=== PATIENT | female | born 1965 | race Caucasian/White ===

== ENCOUNTER → 2020-10-11 13:11 | Outpatient (CLI) | payer BC, SELFPAY ==
--- NOTE | 2020-10-11 13:16 | XR_ITS ---
PROCEDURE: XR HIP RT 2-3V W/PELVIS CLINICAL INDICATION: RT hip pain COMPARISON: No exams were available for comparison FINDINGS: No fracture or dislocation is evident. Both hips are intact, there is mild asymmetrical joint space narrowing right hip. There is minimal spurring of the greater trochanter right hip. The SI joints and symphysis pubis appear normal. IMPRESSION: No acute findings. Dictated by: Dr. Jarret Rivera MD 10/11/2020 13:36 Dr. Jarret Rivera MD in [facility] 10/11/2020 13:36
== END ==
PROVIDERS: PCP Internal Medicine; Visit Provider Orthopaedic Surgery
DX: M25.551 Pain in right hip (principal)
CPT/HCPCS: 73502

== ENCOUNTER → 2020-11-15 13:53 | Outpatient (CLI) | payer BC, SELFPAY ==
--- NOTE | 2020-11-15 13:58 | XR_ITS ---
PROCEDURE: XR LUMBAR SPINE 2-3V CLINICAL INDICATION: hip pain COMPARISON: CR [id number] LUMBAR SPINE 5 VIEWS from 02/12/2017 FINDINGS: No fracture or dislocation. No lytic or blastic change. There is normal mineralization. Normal alignment. No fracture or dislocation. Minimal hypertrophic changes superior endplate of L3. Suture line is present in the left upper quadrant and there are surgical clips also in the right upper quadrant. Other findings:None. IMPRESSION: No acute finding. Minimal degenerative change Dictated by: Luis Kuhn MD 11/15/2020 15:03 Luis Kuhn MD in [facility] 11/15/2020 15:03
== END ==
PROVIDERS: PCP Internal Medicine; Visit Provider Orthopaedic Surgery
DX: M70.60 Trochanteric bursitis, unspecified hip (principal)
CPT/HCPCS: 72100

== ENCOUNTER → 2020-11-25 13:03 | Outpatient (POV) | payer BC, SELFPAY ==
[2020-11-25 13:17] VITALS: BP 151/92; PULSE 85; RESP 18; TEMP 36.6; O2SAT 98; BMI 22.4
--- NOTE | 2020-11-25 13:49 | HMH.PMCON ---
Assessment and Plan (1) Sacroiliitis Status: Acute Category: Medical Code(s): M46.1 - Sacroiliitis, not elsewhere classified (2) Bursitis Status: Acute Category: Medical Code(s): M71.9 - Bursopathy, unspecified - Assessment and plan all Dx Assessment and Plan for all problems:: We will schedule a right SI joint injection right greater trochanteric bursa injection for the patient I believe given her symptomology that this would benefit her. She is having her Covid vaccine today we will schedule this for 2 weeks from today. She is been instructed to call the office if she has any issues prior to her next appointment. Dr. Mei has reviewed this note and agrees with this plan of care. This note was dictated using voice recognition software and may contain errors or omissions HPI - Data of Consult Consult date: 11/25/20 Requesting Physician: Carmen Hampton APRN Primary Care Provider: Phil Shea - Consult Narrative Reason for consult: Right-sided low back and hip pain History of present illness: Ms. Gresham is a 54 year old female who presents today for consultation in regard to her right-sided low back and hip pain. She is been seen by orthopedic for bursa injections which has not yielded much relief. Most of her pain is in her low back. She has difficulty with sleeping on her side. Patient has radiation down into her buttock and over into her hip. Walking on uneven surfaces makes this worse for her. Patient's tried physical therapy with no relief. She is tried anti-inflammatories and other medications with no relief. Patient has a positive Jaswant test SI joint compression test Belen's test and distraction test on the right side. She also is extremely tender over right greater trochanteric bursa CC: Carmen Hampton APRN [facility] History I have reviewed the patient's past medical history: Yes Medical History: Reports:: Asthma, Congestive Heart Failure, Depression, Hyperlipidemia, Hypertension, Internal Pacemaker, Kidney Stones, Migraine, Osteoporosis Denies:: Cancer, Diabetes Mellitus Type 1, Diabetes Mellitus Type 2, MRSA *Have you ever received a pneumonia vaccine?: No *Have you received a flu vaccine this season?: No Other Medical History: Reports: Fibromyalgia, Hypothyroidism, Osteoporosis, Thyroid Disease Laterality Cases: Right: Arthroscopy Knee, Carpal Tunnel Release Other Surgeries: Yes: No Previous Surgery, Cardiac Catheterization, Cholecystectomy, Pacemaker, Other (gastric bypass,parathyroid removed) Amputation: No Fractures: Yes (L1-L4 transverse process) - *Social History Smoking Status: Never smoker Alcohol Intake: never Alcohol Intake Frequency:: 0-2 drinks per day *Occupational Status:: unemployed Housing: house Household Members: other *Travel in the last 8 weeks: None - Psychiatric History Pschychiatric History:: Reports:: Depression Family Hx:: Non-contributory Review of Systems - Review of Systems ROS General: no recent weight change, no fever, no sleep disturbances Respiratory: no cough, no shortness of air, no recurring pulmonary infections Cardiovascular/Peripheral Vascular: No chest pain, No palpitations, no edema, no shortness of breath. Gastrointestinal: no new onset incontinence, normal bowel movements reported Genitourinary: no new onset incontinence Musculoskeletal: Right hip pain, right SI joint pain Psychiatric: normal mood/ affect, Neurological: [denies new onset weakness in extremities], [denies new onset balance issues] Meds Home Medications Medication Instructions Recorded Confirmed Type denosumab 60 mg/mL subcutaneous 60 mg SQ [id number] 10/11/20 11/25/20 History syringe duloxetine 60 mg capsule,delayed 30 mg PO DAILY 10/11/20 11/25/20 History release erenumab-aooe 70 mg/mL 70 mg SQ QMONTH 10/11/20 11/25/20 History subcutaneous auto-injector esomeprazole magnesium 40 mg 40 mg PO DAILY 10/11/20 11/25/20 History capsule,
== END ==
PROVIDERS: PCP Internal Medicine; Visit Provider Clinical Nurse Specialist Family Health
DX: M46.1 Sacroiliitis, not elsewhere classified (principal); M71.9 Bursopathy, unspecified
CPT/HCPCS: 99202; G0463

== ENCOUNTER 2020-12-20 11:39 | Day surgery (SDC) | payer BC, SELFPAY ==
[2020-12-20 11:47] VITALS: BP 140/80; PULSE 79; RESP 18; TEMP 36.6; O2SAT 98; BMI 23.3
[2020-12-20 11:53] VITALS: BP 142/93; PULSE 70; RESP 18; O2SAT 96
[2020-12-20 12:01] VITALS: BP 142/93; PULSE 71; RESP 18; O2SAT 97
[2020-12-20 12:11] VITALS: BP 132/72; PULSE 62; RESP 20; O2SAT 98
--- NOTE | 2020-12-20 12:12 | HMH.PMPROC ---
- Procedure Date: 12/20/20 Time: 12:12 Anesthesiologist:: Rome Mei MD Complications:: None Pre-procedure Diagnosis:: Sacroiliitis and trochanteric bursitis Post-procedure Diagnosis:: Same Indications for Procedure:: Patient is a pleasant 55-year-old white female who we are treating for sacroiliitis and trochanteric bursitis. She has increasing right-sided hip pain. She is tender over her SI joint. She does have positive Belen's test on the right side. She is positive Jaswant test on the right side. She has positive SI joint compression test on the right side. She has a positive distraction test on the right side. We will do a right SI joint injection under fluoroscopy today. She is also tender over the right trochanteric bursa. We will do a right trochanteric bursa injection as well. Procedure Details:: Right SI joint injection under fluoroscopy Informed consent was obtained and the risks and benefits of the procedure was going to the patient. Patient was taken to the procedure room. Patient was placed prone on the procedure table. The right hip was prepped using ChloraPrep. The skin and subcutaneous tissues were anesthetized using lidocaine. I placed a 22-gauge spinal needle into the inferior aspect of the right SI joint. Needle placement was confirmed with dye. After this we injected 5 mL bupivacaine 0.25% and Depo-Medrol 40 mg into the right SI joint. The patient tolerated the procedure well with no complication. Trochanteric bursa injection under fluoroscopy informed consent was obtained and the risk and benefits of the procedure was explained to the patient. The patient was taken to the procedure room. The right hip was prepped using ChloraPrep. The skin and subcutaneous tissues were anesthetized using lidocaine. I placed a 22-gauge spinal needle and advanced under fluoroscopic guidance until it contacted the right greater trochanter. Needle placement was confirmed with dye. After this I injected bupivacaine 0.25% 5 mL and Depo-Medrol 40 mg into the right trochanteric bursa. Patient tolerated the procedure well with no complications. Plan and Disposition:: We will follow-up with her in 2 weeks. Will reevaluate symptoms at that time.
== END 2020-12-20 12:12 | disposition home or self-care (01) ==
PROVIDERS: PCP Internal Medicine; Visit Provider Anesthesiology
DX: M46.1 Sacroiliitis, not elsewhere classified (principal); M70.61 Trochanteric bursitis, right hip; F41.9 Anxiety disorder, unspecified; F32.9 Major depressive disorder, single episode, unspecified; J45.909 Unspecified asthma, uncomplicated; E03.9 Hypothyroidism, unspecified; Z95.0 Presence of cardiac pacemaker; Z98.84 Bariatric surgery status; Z88.2 Allergy status to sulfonamides; Z88.8 Allergy status to other drugs, medicaments and biological substances
CPT/HCPCS: 20610; 27096; 77002; G0260; Q9966

== ENCOUNTER → 2021-01-16 14:04 | Outpatient (POV) | payer BC, SELFPAY ==
[2021-01-16 14:26] VITALS: BP 130/86; PULSE 68; RESP 18; O2SAT 97; BMI 21.6
--- NOTE | 2021-01-19 14:14 | HMH.PAINSOAP ---
[facility] Pain Management SOAP Note Subjective:: Patient is a 55-year-old white female who presents today for follow-up after right trochanteric bursa injection as well as a right SI injection. She has been treated for right sacroiliitis and right trochanteric bursitis. Patient says that she did not get much relief from the injections, less than 30%. She does rate her pain a 4 out of 10 today. She says that she is having continued low back pain with radiation into her right hip. She says she also has severe right hip pain. Her pain is been ongoing for over a year. Physical therapy made her pain worse. She reports that she fell approximately 1 year ago and her pain has not improved since then. Injective therapy has not helped her at this point. She has had an MRI, however, she says her pain has changed since her last MRI. Patient says she feels as though she is laying on rocks . Patient says that she feels as though everyone is ignoring her pain . She says that her pain is not coming from her back but rather her right hip. She does report, however, to be having right low back pain. She is requesting a MRI of her hip. She did have an MRI at [facility] of her lumbar spine. We will request this. She does have a pacemaker and reports that she is only able to get the MRI in [place] due to compatibility with her pacemaker. Patient says that we are trying to Band-Aid things rather than fix things . Patient has been advised if she needs further evaluation, and not pain management, we will be happy to refer the patient. Review of Systems General: No recent weight changes, no fever, no sleep disturbances Respiratory: No cough, no shortness of air, no recurring pulmonary infections Cardiovascular/peripheral vascular: No chest pain, no palpitations, no edema, no shortness of breath Gastrointestinal: No new onset incontinence, normal bowel movements reported Genitourinary: No new onset incontinence Musculoskeletal: Low back pain with radiation into right hip Psychiatric: Normal mood/affect Neurological: [Denies weakness in extremities], [denies balance issues] Objective:: Physical exam General: Alert and oriented x3, no acute distress, pleasant and cooperative, [on room air] Lungs: Respirations even and unlabored, symmetrical chest expansion Eyes: PERRL Musculoskeletal: Flexion and extension of lumbar spine somewhat guarded secondary to pain, deep tendon reflexes normal, strength in upper and lower extremities [5/5], slightly antalgic gait noted Neurological: Speech clear, heel builder machine equal, no gross sensory deficit Assessment:: Low back pain, right hip pain Plan:: Patient has requested an MRI of her right hip. We will schedule her for the MRI in [place] and see her back afterwards for reevaluation of symptoms. Patient has been instructed to contact the clinic with any concerns before the next appointment. Dr. Mei has reviewed this note and agrees with this plan of care. This note was dictated using voice recognition software and make contain errors or omissions. [facility] History I have reviewed the patient's past medical history: Yes Medical History: Reports:: Asthma, Congestive Heart Failure, Depression, Hyperlipidemia, Hypertension, Internal Pacemaker, Kidney Stones, Migraine, Osteoporosis Denies:: Cancer, Diabetes Mellitus Type 1, Diabetes Mellitus Type 2, MRSA, Seizures *Have you ever received a pneumonia vaccine?: No *Have you received a flu vaccine this season?: No Other Medical History: Reports: Fibromyalgia, Hypothyroidism, Osteoporosis, Thyroid Disease Laterality Cases: Right: Arthroscopy Knee, Carpal Tunnel Release Other Surgeries: Yes: No Previous Surgery, Cardiac Catheterization, Cholecystectomy, Pacemaker, Other (gastric bypass,parathyroid removed) Amputation: No Fractures: Yes (L1-L4 transverse process) - *Social History Smoking Status: Never smoker Alcohol Intake: never Alcohol Intake Frequency::
== END ==
PROVIDERS: PCP Internal Medicine; Visit Provider Clinical Nurse Specialist Family Health
DX: M54.5 Low back pain (principal); M25.551 Pain in right hip
CPT/HCPCS: 99212; G0463

== ENCOUNTER → 2021-05-22 13:39 | Outpatient (POV) | payer BC, SELFPAY ==
--- NOTE | 2021-05-22 13:58 | HMH.PAINSOAP ---
[facility] Pain Management SOAP Note Subjective:: Patient is a 55-year-old white female who presents today for follow-up. Patient was last seen in the clinic on 01/16/2021 for which at that time we did order an MRI of the patient's right hip. She is being treated in the clinic for chronic right hip pain as well as right low back pain and right buttock pain. She has had an right SI joint injection which she says she got significant relief for pain into the right leg. She does continue to have some intermittent numbness and tingling into her right leg and foot. It has improved since the injection, however. Patient's pain at this time is primarily in her right low back, right hip and right buttock. The patient says that the right SI injection did not give her any relief to this area. She does rate her pain a 7 out of 10. She says that she feels as though she is laying on rocks . The patient does have a pacemaker and says that she is only able to undergo imaging in [facility]. We did order the imaging, but the patient was unable to make it to the appointment. As result the timeframe for which the MRI was approved has passed. She is here today for follow-up so that we may request once again imaging of her right hip. Patient does report that she was having difficulty getting her pacemaker evaluated before the MRI. She does report that she needs evaluation of her pacemaker before she can proceed with an MRI of her right hip. [facility] is the only place that she has had approval to undergo the imaging with her pacemaker in the past. She does have a traffic counter in [facility] that manages her device. Patient does report that she was having family issues with her son that did attempt suicide. As result she was not able to make her appointment for that reason. Review of Systems General: No recent weight changes, no fever, no sleep disturbances Respiratory: No cough, no shortness of air, no recurring pulmonary infections Cardiovascular/peripheral vascular: No chest pain, no palpitations, no edema, no shortness of breath Gastrointestinal: No new onset incontinence, normal bowel movements reported Genitourinary: No new onset incontinence Musculoskeletal: Right hip pain, right buttock pain, right leg numbness and tingling intermittently Psychiatric: [Normal mood/affect] Neurological: [Denies weakness in extremities], [denies balance issues] Objective:: Physical exam General: Alert and oriented x3, no acute distress, pleasant and cooperative Lungs: Respirations even and unlabored, symmetrical chest expansion Eyes: PERRL Musculoskeletal: Flexion and extension of right lower extremity somewhat guarded secondary to pain, [antalgic gait noted] Neurological: Speech clear, no gross sensory deficit Assessment:: Right hip pain, right buttock pain, lumbar radiculopathy Plan:: We will order the patient's MRI of her right hip at [facility]. The patient does have a pacemaker. Unfortunately, the patient was unable to attend her MRI appointment previously scheduled due to family issues at that time. We will schedule her for the MRI and plan to see her back afterwards for reevaluation symptoms and to discuss the MRI results. Patient has been instructed to contact the clinic with any concerns before the next appointment. Dr. Mei has reviewed this note and agrees with this plan of care. This note was dictated using voice recognition software and make contain errors or omissions. [facility] History I have reviewed the patient's past medical history: Yes Medical History: Reports:: Asthma, Congestive Heart Failure, Depression, Hyperlipidemia, Hypertension, Internal Pacemaker, Kidney Stones, Migraine, Osteoporosis Denies:: Cancer, Diabetes Mellitus Type 1, Diabetes Mellitus Type 2, MRSA, Seizures *Have you ever received a pneumonia vaccine?: No *Have you received a flu vaccine this season?: No Ot
== END ==
PROVIDERS: Visit Provider Clinical Nurse Specialist Family Health
DX: M25.551 Pain in right hip (principal); M54.16 Radiculopathy, lumbar region; R52 Pain, unspecified
CPT/HCPCS: 99212; G0463

== ENCOUNTER → 2021-06-20 14:26 | Outpatient (CLI) | payer BC, SELFPAY ==
--- NOTE | 2021-06-20 14:34 | CA_ITS ---
APPROVED REPORT EXAM: Comprehensive 2D, Doppler, and color-flow Echocardiogram Delivery Supervisor: Orly Sun RVT Ht: 5 ft 5 in Wt: 135lbs BSA: 1.67 BP: 145/100 mmHg Indications: SOA,PACER,CHF, ASTHMA,HTN,HLD 2D Dimensions LVOT 1.83 cm (M/F) 1.5-2.5 LA Volume 24.10 mL LA Volume Index 14.43 mL/m2 (M/F) 16-34 M-Mode Dimensions RVDd 1.91 cm (0.9-2.6) LA Diam 2.75 cm (1.9-4.0) LVDd 3.94 cm (3.5-5.7) Ao Diam 2.54 cm (2.0-3.7) LVDs 2.72 cm (3.5-5.7) IVSd 0.59 cm (0.6-1.1) PWd 0.75 cm (0.6-1.1) EF (Teich) 59.30% FS 31.00% EDV (Teich) 67.50 mL TAPSE 2.26 (<1.7) ESV (Teich) 27.50 mL LV Diastology E Decel Time 150.00 (160-240 msec) E/A Ratio 1.4 MED E' 7.30 (< 7 cm/sec) E'/MED E' Ratio 13.07 (>14) LAT E' 11.30 (<10 cm/sec) E/LAT E' Ratio 8.44 (>14) Mitral Valve MV E Max Romero. 95.00 (40-130 cm/s) MV A Velocity 69.00 (40-130 cm/s) E/A Ratio 1.38 MV Decel. Time 150.00 (160-240 ms) MV PHT 44.00 ms Pulmonary Valve PV Peak Velocity 66.00 (50-150 cm/s) Tricuspid Valve TR P. Velocity 215.00 cm/s RAP Estimate 10.00 mmHg RVSP 28.50 mmHg Left Ventricle Left atrium is normal size, left ventricle is normal size, there is no concentric left ventricular hypertrophy, visually estimated ejection fraction 55% with no regional wall motion abnormality, diastolic parameters are within normal range. Right Ventricle Right atrium and right ventricle are normal size and contractility, there is pacemaker lead seen in right atrium and right ventricle. Aortic Valve Aortic valve is grossly normal, there is no aortic stenosis or aortic insufficiency. Mitral Valve Mitral valve grossly normal, there is trace mitral regurgitation. Tricuspid Valve Tricuspid valve grossly normal, there is trace tricuspid regurgitation, tricuspid regurgitation jet velocity is inadequate for calculation of the right ventricular systolic pressure. Pulmonic Valve Pulmonic valve is poorly visualized. Great Vessels Aortic root is normal size. Pericardium No significant pericardial effusion noted. Conclusion 1. Normal left ventricular size, preserved left ventricular systolic function, visually estimated ejection fraction 55% with no regional wall motion abnormality, diastolic parameters are within normal range. 2. Trace mitral and tricuspid regurgitation. 3. No significant pericardial effusion noted. 4. Inferior vena cava is normal size with normal inspiratory collapse. Electronically signed by : Víctor Leung MD 06/20/2021 15:41:25
== END ==
PROVIDERS: PCP Internal Medicine; Visit Provider Internal Medicine Cardiovascular Disease
DX: R06.02 Shortness of breath (principal); I34.0 Nonrheumatic mitral (valve) insufficiency; I10 Essential (primary) hypertension; R53.83 Other fatigue; Z95.0 Presence of cardiac pacemaker
CPT/HCPCS: 93306

== ENCOUNTER → 2021-07-03 15:39 | Outpatient (POV) | payer BC, SELFPAY ==
[2021-07-03 15:45] VITALS: PULSE 69; RESP 18; O2SAT 97; BMI 20.7
--- NOTE | 2021-07-06 14:40 | HMH.PAINSOAP ---
[facility] Pain Management SOAP Note Subjective:: Patient is a 55-year-old white female who presents today for follow-up after MRI right hip. She has had an SI injection on the right side as well as a right trochanteric bursa injection. The patient says that she got 60 to 70% relief with the injections but the pain did return. She continues to have intermittent numbness and tingling into her right leg and foot which has improved somewhat since the injections, but she does continue to have significant right hip pain and right buttock pain. She says that the right SI injection gave her minimal relief to the hip. She feels as though she is laying on rocks . Patient does have a pacemaker that she says prevents her from having MRIs local. She does have to go to [facility] for MRI. She does rate her pain a 7 out of 10 today. She has tried and failed conservative therapies of physical therapy for more than 6 weeks in the past and continued home stretching. She is also tried anti-inflammatories in the past. Patient's pain is made worse with standing and walking. Review of Systems General: No recent weight changes, no fever, no sleep disturbances Respiratory: No cough, no shortness of air, no recurring pulmonary infections Cardiovascular/peripheral vascular: No chest pain, no palpitations, no edema, no shortness of breath Gastrointestinal: No new onset incontinence, normal bowel movements reported Genitourinary: No new onset incontinence Musculoskeletal: Right hip pain, right buttock pain, right leg pain with numbness and tingling intermittent?improved numbness and tingling since previous injections Psychiatric: [Normal mood/affect] Neurological: [Denies weakness in extremities], [denies balance issues] Objective:: Physical exam General: Alert and oriented x3, no acute distress, pleasant and cooperative Lungs: Respirations even and unlabored, symmetrical chest expansion Eyes: PERRL Musculoskeletal: Flexion and extension of [] right lower extremity and hip somewhat guarded secondary to pain, [antalgic gait noted] Neurological: Speech clear, no gross sensory deficit Assessment:: Right hip pain, Plan:: Patient and I did review her MRI. Per the report, patient has trace soft tissue edema between the right greater trochanter and iliotibial band. She would like to proceed with an injection in the hip. She does not feel that the trochanteric bursa injection will give her the relief she is hoping for. We will schedule her for a right intra-articular hip injection. We will see her back in the clinic after the injection for further evaluation. Possible side effects of corticosteroids have been discussed with the patient. Risks and benefits of the procedure have been explained to the patient. Patient would like to proceed with the procedure. Patient has been instructed to contact the clinic with any concerns before the next appointment. Dr. Mei has reviewed this note and agrees with this plan of care. This note was dictated using voice recognition software and make contain errors or omissions. [facility] History I have reviewed the patient's past medical history: Yes Medical History: Reports:: Asthma, Congestive Heart Failure, Depression, Hyperlipidemia, Hypertension, Internal Pacemaker, Kidney Stones, Migraine, Osteoporosis Denies:: Cancer, Diabetes Mellitus Type 1, Diabetes Mellitus Type 2, MRSA, Seizures *Have you ever received a pneumonia vaccine?: No *Have you received a flu vaccine this season?: No Other Medical History: Reports: Fibromyalgia, Hypothyroidism, Osteoporosis, Thyroid Disease Laterality Cases: Right: Arthroscopy Knee, Carpal Tunnel Release Other Surgeries: Yes: No Previous Surgery, Cardiac Catheterization, Cholecystectomy, Pacemaker, Other (gastric bypass,parathyroid removed) Amputation: No Fractures: Yes (L1-L4 transverse process) - *Social History Smoking Status: Never smoker Alcohol Intake: never
== END ==
PROVIDERS: Visit Provider Clinical Nurse Specialist Family Health
DX: M25.551 Pain in right hip (principal)
CPT/HCPCS: 99212; G0463

== ENCOUNTER 2021-07-23 13:57 | Day surgery (SDC) | payer BC, SELFPAY ==
[2021-07-23 14:11] VITALS: BP 164/91; PULSE 102; RESP 18; TEMP 36.6; O2SAT 98; BMI 20.7
[2021-07-23 14:34] VITALS: BP 161/80; PULSE 101; RESP 18; O2SAT 98
[2021-07-23 14:42] VITALS: PULSE 107; RESP 18; O2SAT 98
--- NOTE | 2021-07-23 14:45 | P.PCN_ITS ---
- Procedure Date: 07/23/21 Time: 14:45 Anesthesiologist:: Rome Mei MD Complications:: None Pre-procedure Diagnosis:: Right hip pain with degenerative osteoarthritis Post-procedure Diagnosis:: Same Indications for Procedure:: Patient is a pleasant 55-year-old white female who we are treating for right- sided hip pain. She has had a right SI joint injection right trochanteric bursa injection which has helped some. Now she feels that most of her pain is in the right hip joint. She does have increasing pain at the iliotibial band and increasing pain over the right hip joint. We will do a right intra-articular hip injection today to help with pain symptoms. Procedure Details:: Right intra-articular hip injection Informed consent was obtained the risk and benefits of the procedure were explained to the patient. Patient was taken the procedure room. The right hip joint was prepped using ChloraPrep. A 22-gauge spinal needle was inserted after anesthetizing the skin and subcutaneous tissues. This needle was advanced into the right hip joint. Needle placement was confirmed with dye. After this we injected 10 mL bupivacaine 0.25% and Depo-Medrol 40 mg into the right hip joint. Patient tolerated procedure well with no complications. Plan and Disposition:: We will follow-up with her in 2 weeks. Will reevaluate symptoms at that time.
[2021-07-23 14:50] VITALS: BP 133/88; PULSE 83; RESP 18; O2SAT 97
== END 2021-07-23 14:48 | disposition home or self-care (01) ==
LOC: SC.PAINP 13:59
PROVIDERS: PCP Internal Medicine; Visit Provider Anesthesiology
DX: M16.11 Unilateral primary osteoarthritis, right hip (principal)
CPT/HCPCS: 20610; 76000; 77002; J1040; Q9966

== ENCOUNTER 2021-09-10 14:01 | Emergency (ER) | payer BC, SELFPAY ==
[2021-09-10 14:19] VITALS: BP 138/87; PULSE 77; RESP 17; TEMP 36.6; O2SAT 98; BMI 25.2
--- NOTE | 2021-09-10 14:21 | XR_ITS ---
FINAL REPORT CLINICAL HISTORY: GRANDSON DROPPED A CAN OF FRUIT ON HER HAND FINDINGS: LEFT HAND Three views demonstrate no acute fracture or dislocation. The joint spaces appear normal. The visualized bony structures are well aligned. No soft tissue abnormality is seen. IMPRESSION: No acute process. Reviewed, Interpreted and Dictated by Bhupendra Subramanian MD Transcribed by Huong Bonds Authenticated by Bhupendra Subramanian MD on 09/10/2021 03:53:22 PM [facility]
--- NOTE | 2021-09-10 14:58 | HMH.EDUTC ---
[facility] Disposition Clinical Impression: Contusion Qualifiers: Encounter type: initial encounter Contusion area: hand Laterality: left Qualified Code(s): S60.222A - Contusion of left hand, initial encounter Disposition: Home, Self-Care Condition on Discharge: Good Instructions: Sore Throat, DI for Contusion Additional Instructions: *Monitor Temp, Over the counter Motrin or Tylenol as directed/as needed Tylenol every 4 hours and Motrin every 6 hours (as long as your family doctor has told you that you can take it) for fever or pain. and straight to ER if unable to lower temp less than 101.0 after medication given *Warm salt water gargles may help to soothe the throat *Throat Lozenges *Warm fluids like tea with honey may help to soothe the throat *Sleep elevated *Humidifier/Vaporizer *RICE, Rest the extremity, Ice 15-20 minutes 3-4 times daily, Compress- wear the lyndon wrap as discussed as much as possible to help reduce swelling and pain, Elevate the extremity when at rest *Lyndon wrap is for support and help control swelling, use it except in the shower. Be sure that is not to tight but not to loose either *Elevate when resting *Ibuprofen 600-800mg every 6-8 hours as needed for pain an inflammation. If need something more can take Tylenol in between doses of Ibuprofen to help Immediately follow up with your family doctor for new or worsening of symptoms, or no noticeable improvement over the next 3-5 days Follow up IMMEDIATELY for new or worsening symptoms or no Noticeable improvement over the next 48-72 hours. 911 for difficulty breathing or swallowing Referrals: Phil Shea [Primary Care Provider] - As needed Time of Disposition: 15:06 Medical Decision Making - Jones Inquiry Pt receiving controlled substance: No Jones was queried for this patient: No Vital Signs: 09/10/21 14:19 09/10/21 15:15 Temperature 97.9 F 97.9 F Temperature Source Oral Oral Pulse Rate 77 Pulse Rate [Right Brachial] 77 Respiratory Rate 17 17 Blood Pressure 139/87 Blood Pressure [Right Arm] 138/87 Blood Pressure Mean [Right Arm] 104 Blood Pressure Source Automatic Cuff Blood Pressure Source [Right Arm] Automatic Cuff Blood Pressure Position Sitting Blood Pressure Position [Right Arm] Sitting 02 Sat by Pulse Oximetry 98 Oxygen Delivery Method Room Air Room Air - Radiology Data #1 Image(s): Hand Image Reviewed: Yes I reviewed the patient's radiology image Preliminary Findings: No Fracture Seen [facility] HPI - General Stated complaint: AO 09/08 lt hand injury, possible f/o in throat Time Seen by Provider: 09/10/21 14:58 Mode of Arrival: Ambulatory Source of Information: Patient Limitations: No Limitations Description of Symptoms (Recalled from Triage Doc. by RN): pain left hand. feels like something stuck in throat HEENT Symptoms (Recalled from RN notes): No Resp Symptoms (Recalled from RN notes): No Skin Symptoms (Recalled from RN notes): No MS Symptoms (Recalled from RN notes): Yes Functional Status (Recalled from RN notes): wnl - History of Present Illness Provider Complaint: Patient statse that on Wednesday her grandson dropped a can of pineapple on her hand and caused a bruise and hurt but then last night she bumped her left hand against the wall and now today bruising is worse States that also she has been having pain on and off in her right tonsil and feels like it will swell up then go down an hurts when she swallows States that it has been coming and going for months and just wanted someone to look at her throat and see if she may have scratched her throat - Related Data Home Medications Medication Instructions Recorded Confirmed denosumab 60 mg/mL subcutaneous 60 mg SQ [id number] 10/11/20 07/23/21 syringe duloxetine 60 mg capsule,delayed 30 mg PO DAILY 10/11/20 07/23/21 release erenumab-aooe 70 mg/mL 70 mg SQ QMONTH 10/11/20 07/23/21 subcutaneous auto-injector esomeprazole magnesium 40 mg 40 mg
[2021-09-10 15:15] VITALS: BP 139/87; PULSE 77; RESP 17; TEMP 36.6; O2SAT 98
== END 2021-09-10 15:15 | disposition home or self-care (01) ==
PROVIDERS: Emergency Provider Nurse Practitioner; PCP Internal Medicine
DX: S60.222A Contusion of left hand, initial encounter (principal); W22.8XXA Striking against or struck by other objects, initial encounter; I10 Essential (primary) hypertension
CPT/HCPCS: 73130; 99202; G0463

== ENCOUNTER 2021-11-17 14:13 | Emergency (ER) | payer BC, SELFPAY ==
--- NOTE | 2021-11-17 15:57 | XR_ITS ---
PROCEDURE INFORMATION: Exam: XR Lumbosacral Spine Exam date and time: 11/17/2021 4:04 PM Age: 55 years old Clinical indication: Low back pain and sciatica; Left; Patient HX: Low back pain and lt hip pain TECHNIQUE: Imaging protocol: XR of the lumbosacral spine. Views: 4 or 5 views. COMPARISON: CR XR LUMBAR SPINE 2-3V 11/15/2020 2:00 PM FINDINGS: Bones/joints: No acute fracture, spondylolysis or spondylolisthesis. Disc spaces are preserved. Anterior endplate osteophytes L2-L3 and L3-L4. SI joints are unremarkable. Soft tissues: Unremarkable. Intraperitoneal space: Cholecystectomy clips. Surgical staple line in the left upper quadrant. IMPRESSION: 1. No acute findings. 2. Mild degenerative changes.
--- NOTE | 2021-11-17 15:57 | XR_ITS ---
PROCEDURE INFORMATION: Exam: XR Thoracic Spine Exam date and time: 11/17/2021 4:10 PM Age: 55 years old Clinical indication: Other: Low back pain; Patient HX: Pain low back and lt hip TECHNIQUE: Imaging protocol: XR of the thoracic spine. Views: 3 views. COMPARISON: CR XR MULTIPLE SPINE 4-5V 11/17/2021 4:04 PM FINDINGS: Bones/joints: No acute fracture or dislocation. Mild disc space narrowing and small endplate osteophytes are seen at multiple mid to lower thoracic levels. Normal bone mineralization. Soft tissues: Unremarkable. IMPRESSION: Mild degenerative changes.
[2021-11-17 16:11] VITALS: BP 161/95; PULSE 93; RESP 19; TEMP 36.7; O2SAT 100; BMI 21.6
--- NOTE | 2021-11-17 16:41 | HMH.EDUTC ---
[facility] [place] Clinical Impression: Low back pain Qualifiers: Chronicity: acute Back pain laterality: bilateral Sciatica presence: with sciatica Sciatica laterality: sciatica of right side Qualified Code(s): M54.41 - Lumbago with sciatica, right side Disposition: Home, Self-Care Condition on Discharge: Good Instructions: Low Back Pain, DI for Low Back Pain Additional Instructions: Go home and rest. It would be best if you rested tomorrow too. No heavy lifting. No twisting. Take the oral medications as directed. The muscle relaxer (cyclobenzaprine--Flexeril) will make you drowsy, so don't drive or operate heavy machinery after taking it. Don't start the oral steroids (medrol dose pack) until tomorrow, since you had the shots in here today. Follow up with your regular doctor. GO TO THE ER FOR ANY WORSENING SYMPTOMS OR CONCERN, ESPECIALLY BOWEL OR BLADDER ISSUES, SADDLE AREA NUMBNESS, FEVER, ETC Prescriptions: Cyclobenzaprine HCl [Cyclobenzaprine 10mg Tab] 10 mg PO BIDP PRN #20 tab PRN Reason: Muscle Spasm Transmission Status: Received by [facility] methylPREDNISolone [Medrol] 4 mg PO DIRECTED 6 Days #21 packet Transmission Status: Received by [facility] Referrals: Phil Shea [Primary Care Provider] - Time of Disposition: 16:56 Medical Decision Making - Medical Records Medical records reviewed: No: I reviewed the patient's medical records. - Jones Inquiry Pt receiving controlled substance: No Vital Signs: 11/17/21 16:11 11/17/21 17:32 Temperature 98.1 F 98.1 F Temperature Source Oral Pulse Rate 93 H Pulse Rate [Left] 93 H Respiratory Rate 19 19 Blood Pressure 161/95 H Blood Pressure [Right Arm] 161/95 H Blood Pressure Mean [Right Arm] 117 02 Sat by Pulse Oximetry 100 Orders (Tests/Meds): ED MEDICATIONS Discontinued Medications Generic Name Dose Route Start Last Admin Trade Name Freq PRN Reason Stop Dose Admin Methylprednisolone Sodium Succinate 125 mg 11/17/21 16:52 11/17/21 17:05 Methylprednisolone Sod Succ 125mg Vial IM 11/17/21 16:53 125 mg ONCE ONE Administration [facility] [place] - General Stated complaint: back pain, muscle spasms Time Seen by Provider: 11/17/21 16:41 Mode of Arrival: Ambulatory Source of Information: Patient Limitations: No Limitations Description of Symptoms (Recalled from Triage Doc. by RN): pt states that she hurt her back 2 weeks ago, trying to pull her mower out of the weeds. she states it is not getting better. tingiling in her right foot, and generalized muscle tremors. HEENT Symptoms (Recalled from RN notes): No Resp Symptoms (Recalled from RN notes): No Skin Symptoms (Recalled from RN notes): No MS Symptoms (Recalled from RN notes): Yes Functional Status (Recalled from RN notes): wnl - History of Present Illness Provider Complaint: She c/o low back pain for the past 1 week. She denies any known injury. This pain radiates down her right leg at times. - Related Data Home Medications Medication Instructions Recorded Confirmed denosumab 60 mg/mL subcutaneous 60 mg SQ [id number] 10/11/20 07/23/21 syringe duloxetine 60 mg capsule,delayed 30 mg PO DAILY 10/11/20 07/23/21 release erenumab-aooe 70 mg/mL 70 mg SQ QMONTH 10/11/20 07/23/21 subcutaneous auto-injector esomeprazole magnesium 40 mg 40 mg PO DAILY 10/11/20 07/23/21 capsule,delayed release furosemide 20 mg tablet 20 mg PO DAILY 10/11/20 07/23/21 levothyroxine 112 mcg capsule 112 mcg PO DAILY 10/11/20 07/23/21 metoprolol succinate 50 mg 50 mg PO DAILY 10/11/20 07/23/21 tablet,extended release 24 hr rizatriptan 10 mg tablet 10 mg PO Q2H PRN 10/11/20 07/23/21 tramadol 50 mg tablet 50 mg PO DAILY PRN 10/11/20 07/23/21 trazodone 50 mg tablet 50 mg PO DAILY 10/11/20 07/23/21 Gabapentin 300 mg PO BID 11/25/20 07/23/21 Previous Rx's Medication Instructions Recorded hydrOXYzine pamoate [Vistaril] 25 mg PO BID PRN #3 cap 1
[2021-11-17 17:32] VITALS: BP 161/95; PULSE 93; RESP 19; TEMP 36.7
== END 2021-11-17 17:33 | disposition home or self-care (01) ==
PROVIDERS: Emergency Provider Nurse Practitioner Family; PCP Internal Medicine
DX: M54.41 Lumbago with sciatica, right side (principal); E78.5 Hyperlipidemia, unspecified; E03.9 Hypothyroidism, unspecified; I10 Essential (primary) hypertension; Z79.899 Other long term (current) drug therapy
CPT/HCPCS: 72072; 72083; 96372; 99213; G0463

== ENCOUNTER 2022-04-24 13:36 | Emergency (ER) | payer BC, SELFPAY ==
[2022-04-24 13:49] VITALS: BP 179/98; PULSE 89; RESP 17; TEMP 36.9; O2SAT 98; BMI 20.7
--- NOTE | 2022-04-24 13:52 | XR_ITS ---
FINAL REPORT CLINICAL HISTORY: fall/injury FINDINGS: Three views of the left knee reveal no evidence of fracture or dislocation. The bony alignment is normal. There are mild degenerative changes. There is a small joint effusion. No localized soft tissue abnormality is seen. IMPRESSION: No acute bony abnormality identified. Reviewed, Interpreted and Dictated by Amadeo Jensen III, MD Transcribed by Asher Browne Authenticated and . [facility]
--- NOTE | 2022-04-24 14:02 | EXP.UTC ---
Discharge Plan Disposition Patient Disposition: Home, Self-Care Condition: Good Prescriptions Prescriptions: No Action levothyroxine 112 mcg capsule 112 mcg PO DAILY esomeprazole magnesium [Nexium] 40 mg capsule,delayed release(DR/EC) 40 mg PO DAILY furosemide [Lasix] 20 mg tablet 20 mg PO DAILY trazodone 50 mg tablet 50 mg PO DAILY duloxetine 60 mg capsule,delayed release(DR/EC) 30 mg PO DAILY metoprolol succinate 50 mg tablet extended release 24 hr 50 mg PO DAILY Aimovig Autoinjector 70 mg/mL auto-injector 70 mg SQ QMONTH Prolia 60 mg/mL syringe 60 mg SQ [id number] tramadol 50 mg tablet 50 mg PO DAILY PRN (Reason: pain) rizatriptan 10 mg tablet 10 mg PO Q2H PRN (Reason: .) Rx Instructions: do not exceed 3 doses per 24 hrs hydroxyzine pamoate 25 MG capsule 25 mg PO BID PRN (Reason: Anxiety) Qty: 3 0RF cyclobenzaprine 10 MG tablet 10 mg PO BIDP PRN (Reason: Muscle Spasm) Qty: 20 0RF methylprednisolone 4 MG tablets,dose pack 4 mg PO DIRECTED 6 Days Qty: 21 0RF gabapentin 300 MG capsule 300 mg PO BID Referrals Follow up/Referrals: Lars Mims MD [Staff Physician] - See instructions Phil Shea [Primary Care Provider] - See instructions Activity Restrictions/Add. Instructions Additional Instructions/Restrictions: Rest the extremity, apply ice for 15 minutes as tolerated three or four times per day, Wear the shani wrap for compression, Elevate the extremity as tolerated while you are resting. Take tylenol or ibuprofen for pain. Follow up with Dr. Mims (orthopedics). I put in a referral but you need to call his office and schedule an appointment. Follow up with your regular doctor. GO TO THE ER FOR ANY WORSENING SYMPTOMS Clinical Impressions Clinical Impression: Contusion of knee, left Instructions Patient Instructions: Knee Sprain, DI for Knee Sprain Discharge ED Provider: Harjit Brand [facility] [place] General Stated complaint: Fall@home 04/22/22 LT leg pain below knee Mode of Arrival: Ambulatory Source of Information: Patient Limitations: No Limitations Time Seen by Provider: 04/24/22 14:02 Description of Symptoms (Recalled from Triage Doc. by RN): pt comes in with c/o left leg pain. on 04/22 pt fell at home and hit knee. pt states the pain got better but is back. HEENT Symptoms (Recalled from RN notes): No Resp Symptoms (Recalled from RN notes): No Skin Symptoms (Recalled from RN notes): No MS Symptoms (Recalled from RN notes): Yes Functional Status (Recalled from RN notes): n/a History of Present Illness Provider Complaint: She states that she fell at home and came down on her left knee. This happened on 04/22. Since then she has had left knee pain. Her pain is worse with walking and bearing weight. She denies any other injury. Related Data Home Medications Medication Instructions Recorded Confirmed denosumab 60 mg/mL subcutaneous 60 mg SQ [id number] . 10/11/20 07/23/21 syringe (Prolia) duloxetine 60 mg capsule,delayed 30 mg PO DAILY Pain 10/11/20 07/23/21 release erenumab-aooe 70 mg/mL 70 mg SQ QMONTH . 10/11/20 07/23/21 subcutaneous auto-injector (Aimovig Autoinjector) esomeprazole magnesium 40 mg 40 mg PO DAILY GERD 10/11/20 07/23/21 capsule,delayed release (Nexium) furosemide 20 mg tablet (Lasix) 20 mg PO DAILY fluid retention 10/11/20 07/23/21 levothyroxine 112 mcg capsule 112 mcg PO DAILY hypothroid 10/11/20 07/23/21 metoprolol succinate 50 mg 50 mg PO DAILY blood pressure 10/11/20 07/23/21 tablet,extended release 24 hr rizatriptan 10 mg tablet 10 mg PO Q2H PRN . 10/11/20 07/23/21 tramadol 50 mg tablet 50 mg PO DAILY PRN pain 10/11/20 07/23/21 trazodone 50 mg tablet 50 mg PO DAILY sleep aid 10/11/20 07/23/21 gabapentin 300 mg capsule 300 mg PO BID nerve pain 11/25/20 07/23/21 Previous Rx's Medication Instructions Recorded hydroxyzine pamoate 25 mg caps
[2022-04-24 14:50] VITALS: BP 179/98; PULSE 89; RESP 17; TEMP 36.9
== END 2022-04-24 14:52 | disposition home or self-care (01) ==
PROVIDERS: Emergency Provider Emergency Medicine; PCP Internal Medicine
DX: S80.02XS Contusion of left knee, sequela (principal); W19.XXXS Unspecified fall, sequela
CPT/HCPCS: 73562

== ENCOUNTER → 2022-06-18 09:28 | Outpatient (CLI) | payer BC, SELFPAY ==
[2022-06-18 10:02] LABS: MANUAL DIFFERENTIAL MANUAL DIFFERENTIAL (MANUAL DIFF)
[2022-06-18 10:24] LABS: Basophils % 0.6 % (0.1-2.0); Eosinophils # 0.1 K/mm3 (0.0-0.4); Eosinophils % 1.8 % (0.1-12.0); Hematocrit 41.5 % (37.0-47.0); Hemoglobin 13.1 g/dL (12.2-16.2); Lymphocytes # 1.6 K/mm3 (0.7-4.5); Lymphocytes % 23.8 % (10-50); Mean Corpuscular HGB Conc 31.5 g/dL (31.8-35.4); Mean Corpuscular Hemoglobin 30.1 pg (27.0-31.2); Mean Corpuscular Volume 95.3 fl (81-99); Mean Platelet Volume 7.6 fl (7.4-10.4); Monocytes # 0.4 K/mm3 (0.1-1.0); Monocytes % 5.8 % (1.7-9.3); Neutrophils # 4.5 K/mm3 (1.8-7.8); Neutrophils % 67.9 % (37.0-80.0); Platelet Count 476 K/mm3 (142-424); Red Blood Count 4.35 M/mm3 (4.20-5.40); Red Cell Distribution Width 14.2 % (11.5-17.5); White Blood Count 6.6 K/mm3 (4.8-10.8)
[2022-06-18 17:49] LABS: Eosinophils % 1 % (0-3); Lymphocytes % 15 % (10-50); Monocytes % 6 % (2-9); Neutrophils % 78 % (42-76); Platelet Estimate Slight Increase; RBC Morphology Normal; Total Cells Counted 100
[2022-06-22 17:32] LABS: Immunoglobulin E, Total 18 IU/mL (6-495)
[2022-06-23 01:12] LABS: D001-IgE D pteronyssinus 1.56 kU/L (Class III); D002-IgE D farinae 1.66 kU/L (Class III); E001-IgE Cat Dander <0.10 kU/L (Class 0); E005-IgE Dog Dander <0.10 kU/L (Class 0); E072-IgE Mouse Urine <0.10 kU/L (Class 0); G002-IgE Bermuda Grass <0.10 kU/L (Class 0); G006-IgE Timothy Grass <0.10 kU/L (Class 0); I006-IgE Cockroach, German <0.10 kU/L (Class 0); Immunoglobulin E, Total 15 IU/mL (6-495); M001-IgE Penicillium chrysogen <0.10 kU/L (Class 0); M002-IgE Cladosporium herbarum <0.10 kU/L (Class 0); M003-IgE Aspergillus fumigatus <0.10 kU/L (Class 0); M006-IgE Alternaria alternata <0.10 kU/L (Class 0); T001-IgE Maple/Box Elder <0.10 kU/L (Class 0); T003-IgE Common Silver Birch <0.10 kU/L (Class 0); T006-IgE Cedar, Mountain <0.10 kU/L (Class 0); T007-IgE Oak, White <0.10 kU/L (Class 0); T008-IgE Elm, American <0.10 kU/L (Class 0); T010-IgE Walnut <0.10 kU/L (Class 0); T011-IgE Maple Leaf Sycamore <0.10 kU/L (Class 0); T014-IgE Cottonwood <0.10 kU/L (Class 0); T015-IgE Ash, White <0.10 kU/L (Class 0); T022-IgE Pecan, Hickory <0.10 kU/L (Class 0); T070-IgE White Mulberry <0.10 kU/L (Class 0); W001-IgE Ragweed, Short <0.10 kU/L (Class 0); W011-IgE Thistle, Russian <0.10 kU/L (Class 0); W014-IgE Pigweed, Common <0.10 kU/L (Class 0); W018-IgE Sheep Sorrel <0.10 kU/L (Class 0)
[2022-07-07 12:24] LABS: Budgerigar Feather < 0.10
== END ==
PROVIDERS: PCP Internal Medicine; Visit Provider Nurse Practitioner
DX: J45.909 Unspecified asthma, uncomplicated (principal)
CPT/HCPCS: 36415; 82785; 85007; 85014; 85018; 85048; 85049; 86003

== ENCOUNTER 2022-06-26 15:17 | Emergency (ER) | payer BC, SELFPAY ==
--- NOTE | 2022-06-26 15:08 | ECG_ITS ---
APPROVED REPORT Exam: Resting ECG HR:80 bpm ECG Measurements Heart Rate 80 AXES FL 158 P 57 QRSd 86 QRS 29 QT 355 T 32 QTc 391 Conclusion SINUS RHYTHM POSSIBLE LEFT ATRIAL ENLARGEMENT [-0.1mV P-WAVE IN V1/V2] POSSIBLE ANTERIOR MYOCARDIAL INFARCTION , PROBABLY OLD [30 ms Q WAVE IN V3/V4, OR R < 0.2 mV IN V4] BORDERLINE ECG UNCONFIRMED REPORT Electronically signed by : Kenny Hanks MD 06/27/2022 10:08:02
[2022-06-26 15:19] VITALS: BP 180/110; PULSE 89; RESP 18; TEMP 36.9; O2SAT 99; BMI 22.8
--- NOTE | 2022-06-26 15:26 | XR_ITS ---
FINAL REPORT TECHNIQUE: Chest PA & Lateral CLINICAL HISTORY: CHEST PAIN, sob, cough FINDINGS: 2 views of the chest were performed. There is a left subclavian ICD. The heart size is normal. The mediastinum is within normal limits. There is no acute cardiopulmonary process. There are no pleural effusions. There is no pneumothorax. The bony thorax appears intact. IMPRESSION: No acute cardiopulmonary process. Reviewed, Interpreted and Dictated by Amadeo Jensen III, MD Transcribed by Asher Browne Authenticated and [facility]
--- NOTE | 2022-06-26 15:33 | PC.NURSE ---
DR. PRICE AT BEDSIDE
--- NOTE | 2022-06-26 15:35 | HMH.EDGENADL ---
Discharge Plan Disposition Patient Disposition: Home, Self-Care Condition: Good Chief Complaint: Chest Pain Prescriptions Prescriptions: No Action levothyroxine 112 mcg capsule 112 mcg PO DAILY esomeprazole magnesium [Nexium] 40 mg capsule,delayed release(DR/EC) 40 mg PO DAILY furosemide [Lasix] 20 mg tablet 20 mg PO DAILY trazodone 50 mg tablet 50 mg PO DAILY metoprolol succinate 50 mg tablet extended release 24 hr 50 mg PO DAILY Aimovig Autoinjector 70 mg/mL auto-injector 70 mg SQ QMONTH tramadol 50 mg tablet 50 mg PO DAILY PRN (Reason: pain) rizatriptan 10 mg tablet 10 mg PO Q2H PRN (Reason: .) Rx Instructions: do not exceed 3 doses per 24 hrs duloxetine 60 mg capsule,delayed release(DR/EC) 60 mg PO DAILY cyclobenzaprine 10 MG tablet 10 mg PO BIDP PRN (Reason: Muscle Spasm) Qty: 20 0RF Referrals Follow up/Referrals: Phil Shea [Primary Care Provider] - See instructions Activity Restrictions/Add. Instructions Additional Instructions/Restrictions: At this time was felt you are safe to be discharged home from the emergency department. If new or worsening symptoms please not hesitate to return for continued evaluation. Please follow-up with your cook barbecue next week as discussed Clinical Impressions Clinical Impression: Chest pain Discharge ED Provider: Harjit Brand General Adult HPI General Chief complaint: Chest Pain Stated complaint: CHEST PAIN Time Seen by Provider: 06/26/22 15:35 Mode of Arrival: Ambulatory Limitations: No Limitations Description of Symptoms (Recalled from ER Triage Doc. by RN): PT REPORTS INTERMITTENT MID-STERNUM CHEST KAYDEN FOR 2-3 WEEKS History of Present Illness HPI narrative: Patient is a 56-year-old female with past medical history of vasovagal bradycardia status post pacemaker placement who presents to the emergency department for evaluation of chest pain. Patient states she has had a cough over the last 2 months that is waxed and waned, intermittent chest pain, most recently changed in quality on June 18, has been persistent, moderate in intensity, substernal, nonradiating. She has a cardiology work-up this coming Wednesday with a stress test and echo. Patient states she has taken a course of Levaquin and symptoms resolved somewhat after taking the Levaquin. No other acute complaints at this time. Related Data Home Medications Medication Instructions Recorded Confirmed erenumab-aooe 70 mg/mL 70 mg SQ QMONTH . 10/11/20 06/24/22 subcutaneous auto-injector (Aimovig Autoinjector) esomeprazole magnesium 40 mg 40 mg PO DAILY GERD 10/11/20 06/24/22 capsule,delayed release (Nexium) furosemide 20 mg tablet (Lasix) 20 mg PO DAILY fluid retention 10/11/20 06/24/22 levothyroxine 112 mcg capsule 112 mcg PO DAILY hypothroid 10/11/20 06/24/22 metoprolol succinate 50 mg 50 mg PO DAILY blood pressure 10/11/20 06/24/22 tablet,extended release 24 hr rizatriptan 10 mg tablet 10 mg PO Q2H PRN . 10/11/20 06/24/22 tramadol 50 mg tablet 50 mg PO DAILY PRN pain 10/11/20 06/24/22 trazodone 50 mg tablet 50 mg PO DAILY sleep aid 10/11/20 06/24/22 duloxetine 60 mg capsule,delayed 60 mg PO DAILY Pain 06/02/22 06/24/22 release Previous Rx's Medication Instructions Recorded cyclobenzaprine 10 mg tablet 10 mg PO BIDP PRN Muscle Spasm #20 11/17/21 tabs Allergies Allergy/AdvReac Type Severity Reaction Status Date / Time acetaminophen [From VICODIN] Allergy Unknown Verified 06/24/22 14:12 hydrocodone [From VICODIN] Allergy Unknown Verified 06/24/22 14:12 naproxen [From NAPROSYN] Allergy Unknown Verified 06/24/22 14:12 Sulfa (Sulfonamide Allergy Unknown Verified 06/24/22 14:12 Antibiotics) [SULFA (SULFONAMIDE ANTIBIOTICS)] [facility] [place] Disclaimer: The information contained in this section may have been updated after the patient was seen, as this information can be updated by
[2022-06-26 15:39] LABS: Basophils # 0.1 K/mm3 (0-0.2); Basophils % 0.9 % (0.1-2.0); Chloride 95 mmol/L (98-107); Eosinophils # 0.1 K/mm3 (0.0-0.4); Eosinophils % 2.1 % (0.1-12.0); Hematocrit 40.7 % (37.0-47.0); Hemoglobin 13.3 g/dL (12.2-16.2); Lymphocytes # 1.3 K/mm3 (0.7-4.5); Mean Corpuscular HGB Conc 32.6 g/dL (31.8-35.4); Mean Corpuscular Hemoglobin 30.2 pg (27.0-31.2); Mean Corpuscular Volume 92.5 fl (81-99); Mean Platelet Volume 7.5 fl (7.4-10.4); Monocytes # 0.5 K/mm3 (0.1-1.0); Monocytes % 8.7 % (1.7-9.3); Neutrophils # 4.1 K/mm3 (1.8-7.8); Neutrophils % 67.3 % (37.0-80.0); Platelet Count 375 K/mm3 (142-424); Red Cell Distribution Width 14.2 % (11.5-17.5); White Blood Count 6.1 K/mm3 (4.8-10.8)
[2022-06-26 15:40] LABS: Potassium 3.9 mmoL/L (3.5-5.1); Sodium 134 mmol/L (136-145)
[2022-06-26 15:43] LABS: Anion Gap 8.9 mEq/L (5-15); Blood Urea Nitrogen 9 mg/dl (7-17); Calcium 8.6 mg/dl (8.4-10.2); Carbon Dioxide 34 mmol/L (22.0-30.0); Creatinine Clearance Estimated 82 mL/min (50-200); Estimated Glomerular Filt Rate 74 ml/min (>60); GFR (African American) 89 ML/MIN (>60); Glucose 78 mg/dl (74-100)
[2022-06-26 15:55] LABS: Troponin I < 0.01 ng/ml (0.00-0.034)
[2022-06-26 16:00] VITALS: BP 172/101; PULSE 70; RESP 18; O2SAT 99
[2022-06-26 16:30] VITALS: BP 155/96; PULSE 73; O2SAT 97
[2022-06-26 17:00] VITALS: BP 160/98; PULSE 74; RESP 18; TEMP 36.7; O2SAT 99
== END 2022-06-26 17:00 | disposition home or self-care (01) ==
PROVIDERS: Emergency Provider Emergency Medicine; PCP Internal Medicine
DX: R07.9 Chest pain, unspecified (principal); Z95.0 Presence of cardiac pacemaker; Z79.899 Other long term (current) drug therapy; Z88.1 Allergy status to other antibiotic agents; Z88.2 Allergy status to sulfonamides; E03.9 Hypothyroidism, unspecified; K21.9 Gastro-esophageal reflux disease without esophagitis
CPT/HCPCS: 71046; 80048; 84484; 85025; 93005; 96374; 99284

== ENCOUNTER → 2022-06-30 10:59 | Outpatient (CLI) | payer BC, SELFPAY ==
--- NOTE | 2022-06-30 | CA_ITS ---
APPROVED REPORT Exam: Pharmacologic Technologist: Rosemary Anders, Ht: 5 ft 5 in Wt: 127 lbs BSA: 1.63 m2 HR: 70 bpm BP: 163/95 mmHg Rhythm: NSR, RIGHTWARD AXIS, PAC Indications: CP Medical History Medications: Levothyroxine,,,,, Metoprolol,,,,, Lasix,,,,, Tramadol,,,,, DulOXETINE,,,,, RIZATRIPTAN,,,,, Aimovig,,,,, Nexum,,,,, Allergies: ACETAMINOPHEN, HYDROCODONE, SULFA, NAPROXEN Cardiac Risk Factors: FHX of CAD, Smoking Stress Test Details Test: LEXISCAN HR Resting HR: 74 bpm Max Heart Rate (APMHR): 162.002076 bpm Max HR Achieved: 126 bpm Target HR (85% APMHR): 137.958709 bpm % of APMHR: 77.78 Recovery HR: 83 bpm BP Resting BP: 163/95 mmHg Max BP: 163/95 mmHg Recovery BP: 140.0/84.0 mmHg ECG Resting ECG: NSR, RIGHTWARD AXIS, PAC Clinical Exercise duration: 04:01 min Highest Stage Achieved: Exercise capacity: 1.0 METs Stress ECG Conclusion PT HAD SOA, MALAISE, MILD CHEST DISCOMFORT. DIFFUSE NON-SPECIFIC ST-T CHANGES, MOST NOTABLE IN THE INFERIOR LEADS NON-DIAGNOSTIC LEXSICAN STRESS MYOVIEW IMAGES REPORTED SEPARATELY Test Summary REST 04:06 . . 74 . 163/ 95 . . Stage 1 01:00 . . 115 . . . . Stage 2 01:00 . . 116 . 132/ 84 . . Stage 3 01:00 . . 111 . 124/ 82 . . Stage 4 01:00 . . 99 . 140/ 87 . . Stage 4 01:01 . . 99 . 140/ 87 . Stop exercise at 04:01 RECOVERY 01:00 . . 90 . . . . RECOVERY 02:00 . . 100 . 150/ 91 . . RECOVERY 03:00 . . 95 . 143/ 93 . . RECOVERY 04:00 . . 78 . 143/ 93 . . RECOVERY 04:29 . . 90 . 140/ 84 . . Electronically signed by : Víctor Leung MD 06/30/2022 19:43:17
--- NOTE | 2022-06-30 11:00 | CA_ITS ---
APPROVED REPORT EXAM: Comprehensive 2D, Doppler, and color-flow Echocardiogram Slat Basket Maker Machine: Shellie Lima RT(R) Ht: 5 ft 4 in Wt: 135lbs BSA: 1.66 BP: 157/100 mmHg Indications: CP, fatigue, MEJIA, pacemaker 2D Dimensions LVOT 1.77 cm (M/F) 1.5-2.5 LA Volume 24.40 mL M-Mode Dimensions RVDd 2.57 cm (0.9-2.6) LA Diam 2.89 cm (1.9-4.0) LVDd 4.10 cm (3.5-5.7) Ao Diam 2.48 cm (2.0-3.7) LVDs 3.10 cm (3.5-5.7) IVSd 0.78 cm (0.6-1.1) PWd 0.75 cm (0.6-1.1) EF (Teich) 48.90% FS 24.40% EDV (Teich) 74.20 mL ESV (Teich) 37.90 mL LV Diastology E Decel Time 170.00 (160-240 msec) E/A Ratio 1.12 MED E' 7.30 (< 7 cm/sec) E'/MED E' Ratio 13.07 (>14) LAT E' 10.90 (<10 cm/sec) E/LAT E' Ratio 8.75 (>14) Mitral Valve MV E Max Romero. 95.00 (40-130 cm/s) MV A Velocity 85.00 (40-130 cm/s) E/A Ratio 1.12 MV Decel. Time 170.00 (160-240 ms) MV PHT 50.00 ms Left Ventricle Left atrium is normal size, left ventricle is normal size, estimated ejection fraction 55% with no regional wall motion abnormality, diastolic parameters are within normal range. Right Ventricle Right atrium and right ventricle are normal size and contractility, pacemaker leads in the right atrium and left ventricle. Aortic Valve Aortic valve is minimally thickened and calcified without aortic stenosis or aortic insufficiency. Mitral Valve Mitral valve is grossly normal, there is mild mitral regurgitation. Tricuspid Valve Tricuspid valve grossly normal, there is mild tricuspid regurgitation, tricuspid regurgitation jet velocity is inadequate for calculation of the right ventricular systolic pressure. Pulmonic Valve Pulmonic valve is poorly visualized. Great Vessels Aortic root is normal size. Inferior vena cava is normal size with normal inspiratory collapse. Pericardium No significant pericardial effusion noted. Conclusion 1. Normal left ventricular size, preserved left ventricular systolic function, estimated ejection fraction 55% with no regional wall motion abnormality, diastolic parameters are within normal range. 2. Mild mitral and tricuspid regurgitation. 3. No significant pericardial effusion noted. 4. Inferior vena cava is normal size with normal inspiratory collapse. Electronically signed by : Víctor Leung MD 06/30/2022 20:45:52
--- NOTE | 2022-06-30 11:05 | NM_ITS ---
APPROVED REPORT Exam: Nuclear Stress Test Indication: chest pain..short of breath..palpitations..fatigue Patient Location: Outpatient Stress Tech: Rosemary Anders NM Tech:Maria Del Carmen Paz, ARRT, RT (R)(N) Ht: 5 ft 5 in Wt: 125 lbs Bra Size: 34b HR: 74 bpm BP: 163/95 mmHg BSA: 1.62 m2 TID: 1.18 BMI: 20.7 History: chest pain..short of breath..palpitations..fatigue Procedure: Patient received a 0.4 mg of intravenous Lexiscan, resting heart rate 74 bpm, resting blood pressure 163/95 mmHg, with Lexiscan maximum heart rate achived was 126 bpm which is Less than 85 % of the maximum predicted heart rate and blood pressure was 163/95 mmHg. With Lexiscan, patient denied any complaint of chest pain. Electrocardiogram Resting electrocardiogram shows sinus rhythm, with Lexiscan there is less than 1.[address] segment depression noted from the baseline EKG. The EKG portion of the Lexiscan is nondiagnostic. Cardiac Stress and Resting SPECT Images: Cardiac Stress and Resting SPECT images were obtained using technetium 99m Myoview 31.5 mCi stress and 10.86 mCi at rest. Gated SPECT for analysis of segmental wall motion and calculation of ejection fraction also done. Cardiac stress and rest SPECT images show uniform myocardial activity without segmental perfusion abnormality, computer derived ejection fraction is 54% with no regional wall motion abnormality, right ventricle is normal size and contractility. Conclusion: 1. The EKG portion of the Lexiscan is nondiagnostic. 2. No scintigraphic evidence of reversible ischemia seen, computer derived ejection fraction 54% with no regional wall motion abnormality, right ventricle is normal size and contractility. 3. Normal Lexiscan Myoview study. Electronically signed by : Víctor Leung MD 06/30/2022 19:47:36
--- NOTE | 2022-06-30 13:02 | HMH.ITSHM ---
Current Home Medications as stated by this patient Miguelina Gresham or b2b outside sales representative. []TRAZODONE TRAMADOL RIZATRIPTAN METOPROLOL LEVOTHYROXINE FUROSEMIDE ESOMEPRAZOLE ERENUMAB DULOXETINE CYCLOBENZAPRINE
== END ==
LOC: RAD 11:00
PROVIDERS: PCP Internal Medicine; Visit Provider Internal Medicine
DX: R06.09 Other forms of dyspnea (principal); R06.00 Dyspnea, unspecified; R07.9 Chest pain, unspecified; R07.89 Other chest pain; R53.83 Other fatigue; Z95.0 Presence of cardiac pacemaker
CPT/HCPCS: 78452; 93017; 93306; A9502; J2785

== ENCOUNTER → 2022-10-15 11:34 | Outpatient (CLI) | payer BC, SELFPAY ==
--- NOTE | 2022-10-15 11:38 | XR_ITS ---
FINAL REPORT CLINICAL HISTORY: foot pain/ heel pain FINDINGS: AP, oblique, and lateral views of the left ankle were obtained. There is no prior exam for comparison. There is no fracture or dislocation. The ankle mortise is intact. Soft tissues are normal. IMPRESSION: No acute osseous abnormality of the left ankle. Reviewed, Interpreted and Dictated by Toña Carter MD Transcribed by Huong Bonds Authenticated and [facility]
--- NOTE | 2022-10-15 12:16 | XR_ITS ---
FINAL REPORT CLINICAL HISTORY: foot pain/ heel pain FINDINGS: AP, oblique, and lateral views of the right ankle were obtained. There is no prior exam for comparison. There is no fracture or dislocation. The ankle mortise is intact. Soft tissues are normal. IMPRESSION: No acute osseous abnormality of the right ankle. Reviewed, Interpreted and Dictated by Toña Carter MD Transcribed by Huong Bonds Authenticated and [facility]
--- NOTE | 2022-10-15 12:16 | XR_ITS ---
FINAL REPORT CLINICAL HISTORY: foot pain/ heel pain FINDINGS: AP, oblique and lateral views of the right foot were obtained. There is no prior exam for comparison. There is no acute fracture or dislocation. The joint spaces are preserved. Soft tissues are normal. IMPRESSION: No acute osseous abnormality of the right foot. Reviewed, Interpreted and Dictated by Toña Carter MD Transcribed by Huong Bonds Authenticated and [facility]
--- NOTE | 2022-10-15 12:16 | XR_ITS ---
FINAL REPORT CLINICAL HISTORY: foot pain/ heel pain FINDINGS: AP, oblique and lateral views of the left foot were obtained. There is no prior exam for comparison. There is no acute fracture or dislocation. The joint spaces are preserved. Soft tissues are normal. IMPRESSION: No acute osseous abnormality of the left foot. Reviewed, Interpreted and Dictated by Toña Carter MD Transcribed by Huong Bonds Authenticated and [facility]
== END ==
LOC: RAD 11:36
PROVIDERS: PCP Internal Medicine; Visit Provider Podiatrist
DX: M25.572 Pain in left ankle and joints of left foot (principal); M79.671 Pain in right foot; M79.672 Pain in left foot; M25.571 Pain in right ankle and joints of right foot
CPT/HCPCS: 73610; 73630

== ENCOUNTER → 2023-04-20 13:53 | Outpatient (CLI) | payer BC, SELFPAY ==
--- NOTE | 2023-04-20 14:02 | XR_ITS ---
FINAL REPORT CLINICAL HISTORY: PAIN IN FINGER LT HAND FINDINGS: 3 views of the left hand were obtained. There is no acute fracture or dislocation. Moderate degenerative changes are greatest at the first CMC joint. There is no soft tissue abnormality. IMPRESSION: No acute process. Reviewed, Interpreted and Dictated by Amadeo Jensen III, MD Transcribed by Asher Browne Authenticated and [facility]
== END ==
LOC: RAD 13:54
PROVIDERS: PCP Internal Medicine; Visit Provider Nurse Practitioner Family
DX: M79.645 Pain in left finger(s) (principal)
CPT/HCPCS: 73130

== ENCOUNTER 2023-09-01 13:09 | Observation (INO) | payer BC, SELFPAY ==
[2023-09-01] VITALS (15 sets, daily range): BP systolic 132–179; BP diastolic 93–116; PULSE 69–86; RESP 10–18; TEMP 36.5–37.1; O2SAT 98–99; BMI 19.3; BMI 19.7
--- NOTE | 2023-09-01 13:08 | ECG_ITS ---
APPROVED REPORT Exam: Resting ECG HR:73 bpm ECG Measurements Heart Rate 73 AXES MD 172 P 73 QRSd 89 QRS 73 QT 358 T 60 QTc 384 Conclusion SINUS RHYTHM POSSIBLE LEFT ATRIAL ENLARGEMENT [-0.1mV P-WAVE IN V1/V2] BORDERLINE ECG UNCONFIRMED REPORT Electronically signed by : Kenny Hanks MD 09/01/2023 20:57:16
--- NOTE | 2023-09-01 13:27 | XR_ITS ---
FINAL REPORT CLINICAL HISTORY: Chest pain/SOB COMPARISON: 06/26/2022 FINDINGS: Two views of the chest were obtained. Left subclavian pacer is present. The heart size and pulmonary vascularity are within normal limits. The mediastinum is normal. No acute pulmonary abnormality is identified. There is no pneumothorax. The bony thorax is intact. IMPRESSION: No active cardiopulmonary disease. Reviewed, Interpreted and Dictated by Amadeo Jensen III, MD Transcribed by Richelle Carvalho Authenticated and . [facility]
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
[2023-09-01] MEDS: BELLADONNA ALKALOIDS 60 ML ML PO (13:33)
[2023-09-01 13:39] LABS: Alanine Aminotransferase 33 U/L (12-78); Albumin Level 4.6 g/dl (3.5-5.0); Albumin/Globulin Ratio 1.7 (1.1-1.8); Alkaline Phosphatase 86 U/L (38-126); Anion Gap 7.9 mEq/L (5-15); Aspartate Amino Transferase 84 U/L (14-36); Bilirubin,Total 0.8 mg/dl (0.2-1.3); Blood Urea Nitrogen 8 mg/dl (7-17); Calcium 8.7 mg/dl (8.4-10.2); Carbon Dioxide 34 mmol/L (22.0-30.0); Chloride 96 mmol/L (98-107); Creatinine Clearance Estimated 63 mL/min (50-200); Estimated Glomerular Filt Rate 73 ml/min (>60); GFR (African American) 89 ML/MIN (>60); Globulin 2.7 g/dL (1.3-3.2); Glucose 83 mg/dl (74-100); Potassium 3.9 mmoL/L (3.5-5.1); Sodium 134 mmol/L (136-145); Total Protein,Serum 7.3 g/dl (6.3-8.2)
--- NOTE | 2023-09-01 13:41 | PC.NURSE ---
PT TO XR
[2023-09-01 13:42] LABS: Coronavirus 19, PCR Not Detected (NotDetected); Influenza A, PCR Not Detected (NotDetected); Influenza B, PCR Not Detected (NotDetected)
--- NOTE | 2023-09-01 13:44 | PC.NURSE ---
PT RETURNED FROM XR
[2023-09-01] MEDS: METOPROLOL SUCCINATE XL 50MG TABLET 50 MG PO ×2 (13:45→18:49)
[2023-09-01 13:56] LABS: Troponin I < 0.01 ng/ml (0.00-0.034)
[2023-09-01 14:18] LABS: Basophils % 0.1 % (0.1-2.0); Eosinophils # 0.1 K/mm3 (0.0-0.4); Eosinophils % 1.5 % (0.1-12.0); Hematocrit 39.7 % (37.0-47.0); Lymphocytes % 20.9 % (10-50); Mean Corpuscular HGB Conc 32.8 g/dL (31.8-35.4); Mean Corpuscular Volume 88.5 fl (81-99); Monocytes # 0.4 K/mm3 (0.1-1.0); Monocytes % 7.9 % (1.7-9.3); Neutrophils # 3.4 K/mm3 (1.8-7.8); Neutrophils % 69.5 % (37.0-80.0); Platelet Count 367 K/mm3 (142-424); Red Blood Count 4.48 M/mm3 (4.20-5.40); Red Cell Distribution Width 13.6 % (11.5-17.5)
--- NOTE | 2023-09-01 15:01 | PC.NURSE ---
ROUNDED ON PT. REQUESTS WATER. OK'D PER MD. CALL LIGHT WITHIN REACH. AT BEDSIDE. NO FURTHER NEEDS AT THIS TIME
[2023-09-01 15:21] LABS: NT Pro Brain Natriuretic Pep. 275 pg/mL (0-125)
[2023-09-01 15:55] LABS: Troponin I < 0.01 ng/ml (0.00-0.034)
[2023-09-01] MEDS: KETOROLAC 30MG/ML VIAL 30 MG IV (15:57)
[2023-09-01] MEDS: NITROGLYCERIN 0.4MG SL TABLET 0.400000000000000022 MG SL (15:57)
--- NOTE | 2023-09-01 16:20 | PC.NURSE ---
DR MEJIA AT BEDSIDE TO UPDATE PT
--- NOTE | 2023-09-01 16:32 | PC.NURSE ---
on phone with hospitalist
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
[2023-09-01] MEDS: NITROGLYCERIN 1 GM OINTMENT 0.5 GM TD (16:51)
--- NOTE | 2023-09-01 16:56 | PC.NURSE ---
Report called to MARQUIS Garcia on Med Surg.
--- NOTE | 2023-09-01 17:05 | PC.NURSE ---
arrived by w/c from ED
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
[2023-09-01 18:34] LABS: Magnesium 1.9 mg/dl (1.6-2.3); Phosphorous 4.7 mg/dl (2.5-4.5)
[2023-09-01] MEDS: ENOXAPARIN 40MG/0.4ML SYRINGE 40 MG SQ (18:49)
[2023-09-01] MEDS: THIAMINE 100MG TABLET 100 MG PO (18:49)
[2023-09-01] MEDS: FUROSEMIDE 20MG TABLET 20 MG PO (18:49)
[2023-09-01] MEDS: FOLIC ACID 1MG TABLET 1 MG PO (18:49)
[2023-09-01 19:03] LABS: Activated Partial Thrombo Time 28.8 seconds (22.8-30.6)
[2023-09-01 19:16] LABS: Troponin I < 0.01 ng/ml (0.00-0.034)
[2023-09-01] MEDS: PANTOPRAZOLE 40MG TABLET 40 MG PO (20:07)
[2023-09-01] MEDS: TRAZODONE 50MG TABLET 50 MG PO (21:57)
[2023-09-02] VITALS: BP 138/87; PULSE 60; PULSE 68; RESP 16; TEMP 37; O2SAT 95
[2023-09-02 04:00] VITALS: BP 132/77; PULSE 60; PULSE 61; RESP 16; TEMP 36.6; O2SAT 99; BMI 21.1
--- NOTE | 2023-09-02 04:39 | PC.NURSE ---
patient rested with t/o night on RA. denies CP, SOA. boyfriend/ at bedside t/o shift.
[2023-09-02 06:02] LABS: Basophils % 0.2 % (0.1-2.0); Eosinophils # 0.1 K/mm3 (0.0-0.4); Eosinophils % 1.8 % (0.1-12.0); Hematocrit 36.3 % (37.0-47.0); Hemoglobin 12.2 g/dL (12.2-16.2); Lymphocytes # 1.7 K/mm3 (0.7-4.5); Lymphocytes % 36.4 % (10-50); Mean Corpuscular HGB Conc 33.6 g/dL (31.8-35.4); Mean Corpuscular Hemoglobin 29.4 pg (27.0-31.2); Mean Corpuscular Volume 87.6 fl (81-99); Mean Platelet Volume 7.4 fl (7.4-10.4); Monocytes # 0.4 K/mm3 (0.1-1.0); Monocytes % 7.6 % (1.7-9.3); Neutrophils # 2.5 K/mm3 (1.8-7.8); Platelet Count 306 K/mm3 (142-424); Red Blood Count 4.14 M/mm3 (4.20-5.40); Red Cell Distribution Width 13.8 % (11.5-17.5); White Blood Count 4.7 K/mm3 (4.8-10.8)
[2023-09-02 06:14] LABS: Chloride 96 mmol/L (98-107); Potassium 3.3 mmoL/L (3.5-5.1); Sodium 129 mmol/L (136-145)
[2023-09-02 06:17] LABS: Anion Gap 3.3 mEq/L (5-15); Blood Urea Nitrogen 13 mg/dl (7-17); Carbon Dioxide 33 mmol/L (22.0-30.0); Creatinine Clearance Estimated 61 mL/min (50-200); Estimated Glomerular Filt Rate 64 ml/min (>60); GFR (African American) 78 ML/MIN (>60); Glucose 87 mg/dl (74-100)
--- NOTE | 2023-09-02 07:40 | HMH.PHAINT1 ---
Pharmacy Intervention Comments: HOME MEDICATION LIST REVIEWED USING LIST FROM OUTPATIENT PHARMACY
[2023-09-02 08:00] VITALS: BP 146/89; PULSE 70; PULSE 71; RESP 18; TEMP 36.6; O2SAT 95
--- NOTE | 2023-09-02 09:01 | CA_ITS ---
APPROVED REPORT EXAM: Comprehensive 2D, Doppler, and color-flow Echocardiogram Access Assoc: Shellie Lima RT(R) Ht: 5 ft 5 in Wt: 118lbs BSA: 1.58 BP: 163/93 mmHg Indications: CP, HTN, SOB, CAD, EOTH abuse, GERD, hx of gastric bypass 2014, pacemaker. 2D Dimensions LVEF (Mendieta's) 60.90 % F: 54 - 74 LV Volume 56.20 mL F: 46 - 106 LV Volume Index 35.6 mL/m2 F: 29 - 61 EF AP4 60.00 % EF AP2 62.0 % EF BP 60.9 % GL Strain -20.5 % M-Mode Dimensions RVDd 2.24 cm (0.9-2.6) LA Diam 2.10 cm (1.9-4.0) LVDd 3.89 cm (3.5-5.7) LVDs 3.05 cm (3.5-5.7) IVSd 0.90 cm (0.6-1.1) PWd 0.87 cm (0.6-1.1) EF (Teich) 44.40% FS 21.60% EDV (Teich) 65.50 mL ESV (Teich) 36.40 mL LV Diastology E Decel Time 163 (160-240 msec) E/A Ratio 1.3 Mitral Valve MV E Max Romero. 86.0 (40-130 cm/s) MV A Velocity 64.0 (40-130 cm/s) E/A Ratio 1.35 MV PHT 48.0 ms Left Ventricle The left ventricle is normal size. The left ventricular systolic function is normal. The left ventricular ejection fraction is within the normal range. There is increased LV wall thickness. There is normal LV segmental wall motion. The left ventricular diastolic function is normal. LVEF is 55%. Right Ventricle The right ventricle is normal size. The right ventricular systolic function is normal. There is a device lead in the right ventricle. Atria The left atrium size is normal. The right atrium size is normal. There is no Doppler evidence of interatrial shunt. Aortic Valve The aortic valve opens well. There is no aortic valvular stenosis. No aortic regurgitation is present. Mitral Valve The mitral valve is normal in structure. No evidence of mitral valve stenosis. Mild mitral regurgitation. Tricuspid Valve The tricuspid valve leaflets are thin and pliable. Trace tricuspid regurgitation. There is insufficient TR jet to estimate RVSP. Pulmonic Valve The pulmonary valve is normal in structure. Trace pulmonic regurgitation. Great Vessels The aortic root is normal in size. The ascending aorta is normal in size. IVC is normal in size and collapses >50% with inspiration. Pericardium There is no pericardial effusion. Other Information Study Quality: Fair Conclusion Normal biventricular systolic function. Mild MR. Electronically signed by : Jeannine Gallardo MD 09/02/2023 11:59:29
[2023-09-02] MEDS: METOPROLOL SUCCINATE XL 50MG TABLET 50 MG PO (09:02)
[2023-09-02] MEDS: FUROSEMIDE 20MG TABLET 20 MG PO (09:02)
[2023-09-02] MEDS: ENOXAPARIN 40MG/0.4ML SYRINGE 40 MG SQ (09:02)
[2023-09-02] MEDS: THIAMINE 100MG TABLET 100 MG PO (09:02)
[2023-09-02] MEDS: DULOXETINE 30MG CAPSULE.DR 60 MG PO (09:03)
[2023-09-02] MEDS: IRBESARTAN 75MG TABLET 75 MG PO (09:10)
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
[2023-09-02] MEDS: METOPROLOL TARTRATE 50MG TABLET 50 MG PO (10:01)
[2023-09-02] MEDS: FOLIC ACID 1MG TABLET 1 MG PO (10:01)
--- NOTE | 2023-09-02 10:10 | PC.NURSE ---
PO METOPROLOL GIVEN. PT STATES SHE HAS A PACEMAKER AND IT IS SET TO CONTROL HER HEARTRATE AT 70. FELIX AWARE. CONTACTING EQUIPMENT OPERATOR/LABORER/SUPERVISOR. AWAITING PHONE CALL FOR FURTHER ORDERS.
[2023-09-02] MEDS: NITROGLYCERIN 0.4MG SL TABLET SL (10:17)
--- NOTE | 2023-09-02 10:17 | CT_ITS ---
APPROVED REPORT Sanding Machine Operator: CLINICAL INDICATION Chest Pain TECHNIQUE Image Acquisition: A 128 slice MDCT scanner (WeDem[employer] View) was used for data acquisition. A noncontrast coronary calcium scan was performed. A CT attenuation threshold of 130 Hounsfield units (HU) was used for the detection of calcium in contiguous voxels of 1 sq mm in area to be counted as individual lesions. Bolus tracking in the ascending aorta with a threshold of 180 HU was performed. Immediately afterwards, ECG synchronized cardiac CT was then performed from the cardiac base to apex using retrospective gating with ECG tube current modulation. A total of 85 mL of Isovue 370 mg/mL contrast medium was administered at 5 mL/sec followed by a saline flush using a biphasic injection protocol. A tube voltage of 120 KVp was used. The patient received the following medications prior to the cardiac CT. 100 mg of oral metoprolol 0.8 mg of sublingual nitroglycerin The average heart rate at the time of acquisition was 69 bpm and regular. Image Reconstruction Transaxial images were reconstructed at 0.67 mm slide thickness. Data was reviewed interactively on an advanced workstation capable of 2 and 3-dimensional displays in all conventional reconstruction formats, including multiplanar reformations, maximum intensity projections, curved multiplanar reformations, and volume rendered reconstructions. When applicable, selected routine images describing the relevant coronary anatomy and pathology were saved and sent to PACS. Complications None Technical Quality Overall image quality was good. Coronary artery opacification was adequate. Total DLP (Dose-Length Product) is 1073.5 mGy-cm. The reported value represents the total of one or more individual components during the CT acquisition of this date and at this time, and as such, the same value may appear in more than one CT report depending on the interpreting/reporting physicians. COMPARISON None FINDINGS CT Coronary Calcium Scoring LMA (Left Main Artery) = 0 LAD (Left Anterior Descending) = 0 LCX (Left Coronary Circumflex) = 0 RCA (Right Coronary Artery) = 0 Total Calcium Score = 0 using the AJ-130 method. The interpretation of the calcium heart score is based on the following continuum*: 0 = no calcified plaque detected (risk of coronary artery disease is very low ??? less than 5%) 1-10 = calcium detected in extremely minimal levels (risk of coronary diseases is still low ??? less than 10%) 11-100 = mild levels of plaque detected with certainty (mild or minimal narrowing of heart arteries is likely) 101-400 = definite,at least moderate levels of plaque detected (relatively high risk of a heart attack within 3-5 years) >401-999 = extensive levels of plaque detected (high risk of heart attack, high levels of vascular disease are present, high likelihood of at least one significant coronary narrowing) *The calcium heart score quantifies the burden of coronary calcification/plaque in the coronary arteries. The calcium heart score is not able to evaluate the presence or burden of non-calcified (i.e. soft) plaque. There is no identifiable calcification in the aortic valve, mitral annulus or mitral valve, pericardium, or myocardium. Coronary CT Angiography The coronary arterial system is right dominant. Quantitative Stenosis Grading: Left Main (LM): The left main originates normally from the left sinus of Valsalva. The LM trifurcates into the left anterior descending artery, ramus intermedius, and left circumflex artery. The LM is patent with no evidence of atherosclerosis. Left Anterior Descending (LAD) and Diagonal Branches: The LAD gives off 2 diagonal branch(es). The LAD and its branches are patent with no evidence of atherosclerosis. There is no evidence of LAD-myocardial bridge. Ramus-intermedius (RI): The RI is patent. Left Circumflex (LCX) and Obtuse Marginals (OM): The LCX gives off 1 Obtuse Marginal (OM) branch. The LCX and its branches are patent with no evidence of atherosclerosis. Right Coronary Artery (RCA): The RCA originates normally from the right sinus of Valsalva. The RCA gives off a posterior descending artery (PDA) and posterolateral (PL) branches. The RCA and its branches are patent with no evidence of atherosclerosis. There is a small segment in the mid RCA there is poorly visualized due to proximity of the lead wire, but grossly appears normal with no gross evidence of luminal stenosis. Non-Coronary Cardiac Findings: Analysis of the left ventricular (LV) structure and function was performed after 3-D reconstruction of the LV from axial images, with user-corrected automatic contouring for assessment of LV volumes and user-defined reconstruction from oblique planes for measurement of 3-D cardiac structure and function. LVEDV: 105 mL LVESV: 35 mL SV: 70 mL LVEF: 67% -The left ventricle is normal in size with normal left ventricular systolic function. -There is no left atrial appendage filling defect. Two right pulmonary veins and two left pulmonary veins drain normally into the left atrium. -No pericardial thickening or calcification. -Central and branch pulmonary arteries in the [id number] are unremarkable. -Thoracic aorta within the visualized thoracic aortic-branches in the [id number] is unremarkable. Extracardiac Structures No significant extra-cardiac findings. Note, however, that this study is focused on the cardiac findings. IMPRESSION -Absence of coronary calcification with an Agatston score = 0 using the AJ-130 method. -No evidence of significant flow-limiting atherosclerosis of the coronary arteries. -No evidence of coronary anomalies. -CAD-RADS 0. Management recommendations per ACC/AHA guidelines*, as clinically appropriate. *Recommendations: CAD RADS 0: Reassurance. Consider non-atherosclerotic causes of chest pain. CAD RADS 1: Consider non-atherosclerotic causes of chest pain. Consider preventive therapy and risk factor modification. CAD RADS 2: Consider non-atherosclerotic causes of chest pain. Consider preventive therapy and risk factor modification, particularly for patients with nonobstructive plaque in multiple segments. CAD RADS 3: Consider further functional testing. Consider symptom-guided anti-ischemic and preventive pharmacotherapy as well as risk factor modification per published guideline statements. CAD RADS 4A: Consider further functional testing or invasive coronary angiography with revascularization per published guideline statements. Consider symptom-guided anti-ischemic and preventive pharmacotherapy as well as risk factor modification per published guideline statements. CAD RADS 4B: Invasive coronary angiography recommended with revascularization per published guideline statements. Consider symptom-guided anti-ischemic and preventive pharmacotherapy as well as risk factor modification per published guideline statements. CAD RADS 5: Consider invasive angiography and/or viability assessment with revascularization per published guideline statements. Consider symptom-guided anti-ischemic and preventive pharmacotherapy as well as risk factor modification per published guideline statements. CRITICAL RESULT None COMMUNICATION Per this written report The coronary and cardiac findings of this CCTA were reviewed, reported, and signed by Joe Gallardo MD (Chip Applying Machine Tender) Conclusion Electronically signed by : Jeannine Gallardo MD 09/02/2023 12:07:01
--- NOTE | 2023-09-02 10:17 | PC.NURSE ---
PER DR WOOD PROCEED WITH CTA. RADIOLOGY AWARE. RADIOLOGY INSTRUCTED TO GIVE 0.8 NITRO DUE TO BP 154/92. HEART RATE 70.
[2023-09-02 10:33] LABS: Direct LDL Cholesterol 60.14 mg/dL (100-129)
[2023-09-02] MEDS: 0.9 % SODIUM CHLORIDE 50 ML VIAL IV ×2 (11:08→13:50)
[2023-09-02] MEDS: IOPAMIDOL-370 (76%);100ML BOTTLE 85 ML IV (11:08)
[2023-09-02] MEDS: SODIUM CHLORIDE 0.9% 10ML SYR (RAD ONLY) 10 ML IV ×2 (11:08→13:50)
[2023-09-02 11:15] VITALS: BP 141/89; PULSE 70; RESP 18; TEMP 36.8; O2SAT 98
[2023-09-02 12:00] VITALS: PULSE 70
--- NOTE | 2023-09-02 13:04 | CT_ITS ---
FINAL REPORT TECHNIQUE: Then section axial CT images of the chest were obtained with contrast. Three-D reformatted images were also obtained.This study was performed with techniques to keep radiation doses as low as reasonably achievable (ALARA). Individualized dose reduction techniques using automated exposure control or adjustment of mA and/or kV according to the patient''s size were employed. CLINICAL HISTORY: PE? COMPARISON: None FINDINGS: Suboptimal bolus timing for evaluation of the pulmonary artery system. There is no evidence of pulmonary embolism. There is no evidence of mediastinal or hilar mass or adenopathy. Left subclavian pacer is present. There is no evidence of pulmonary mass or suspicious nodule. No localized inflammatory process is seen within the lungs. Limited images of the upper abdomen are unremarkable. IMPRESSION: No evidence of pulmonary embolism. Reviewed, Interpreted and Dictated by Amadeo Jensen III, MD Transcribed by Richelle Carvalho Authenticated and [facility]
[2023-09-02] MEDS: IOPAMIDOL-370 (76%);100ML BOTTLE 70 ML IV (13:50)
--- NOTE | 2023-09-02 14:35 | P.DS_ITS ---
General Admission date:: 09/01/23 Discharge date: 09/02/23 HPI HPI HPI: Patient is a 57-year-old female with past medical history of CAD who presents to the hospital due to chest pain. According the patient she has chest pain in the center of her chest, she denies associated shortness of breath, nausea vomiting excessive sweating. Patient denied diarrhea constipation dysuria fever She has associated cough, congestion. Patient mentions she has been having chest pain for the past 5 days, it has not been improving. She is actively drinking alcohol around 9 beers every night. Hospital Course Hospital Course Hospital Course: Patient is a 57-year-old female with past medical history of CAD who presents to the hospital due to chest pain. According the patient she has chest pain in the center of her chest, she denies associated shortness of breath, nausea vomiting excessive sweating. Patient denied diarrhea constipation dysuria fever She has associated cough, congestion. Patient mentions she has been having chest pain for the past 5 days, it has not been improving. She is actively drinking alco hol around 9 beers every night. 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 after midnight in anticipation for cardiac cath procedure Alcohol use -CIWA assement with PRN ativan GERD - continue home PPI DVT PPx - Heparin Exam Data for Last 24 hours Vital signs and Labs for Last 24 Hours: Temp Pulse Resp BP Pulse Ox O2 Del Method 98.3 F 70 18 141/89 H 98 Room Air 09/02/23 11:15 09/02/23 12:00 09/02/23 11:15 09/02/23 11:15 09/02/23 11:15 09/02/23 14:34 Laboratory Results - last 24 hr 09/01/23 13:18: Phosphorus 4.7 H, Magnesium 1.9, NT-Pro-B Natriuret Pep 275 H 09/01/23 13:33: SARS-CoV-2 (PCR) Not detected, Influenza A Untype (PCR) Not detected, Influenza Type B (PCR) Not detected 09/01/23 15:15: Troponin I < 0.01 09/01/23 18:45: APTT 28.8, Troponin I < 0.01 09/02/23 05:19: WBC 4.7 L, RBC 4.14 L, Hgb 12.2, Hct 36.3 L, MCV 87.6, MCH 29.4, MCHC 33.6, RDW 13.8, Plt Count 306, MPV 7.4, Neut % (Auto) 54.0, Lymph % (Auto) 36.4, Early % (Auto) 7.6, Eos % (Auto) 1.8, Baso % (Auto) 0.2, Neut # (Auto) 2.5, Lymph # (Auto) 1.7, Early # (Auto) 0.4, Eos # (Auto) 0.1, Baso # (Auto) 0.0, Sodium 129 L, Potassium 3.3 L, Chloride 96 L, Carbon Dioxide 33 H, Anion Gap 3.3 L, BUN 13 D, Creatinine 0.90, Estimated Creat Clear 61, Estimated GFR 64, Est GFR ( Amer) 78, Glucose 87, Calcium 8.0 L, LDL Cholesterol Direct 60.14 L I & O for Last 24 hours: Intake & Output 08/30/23 08/31/23 09/01/23 09/02/23 23:59 23:59 23:59 23:59 Intake Total 490 / 490 Output Total 0 / 0 0 / 0 Balance 490 / 490 0 / 0 Weight 53.666 kg 57.561 kg Constitutional Constitutional: no acute distress *Routine HEENT Exam Head: Present normocephalic Eye: Present EOMI and PERRL ENT: Present mucous membranes moist *Routine Neck Exam Neck: Present supple; Absent lymphadenopathy *Routine Respiratory Exam Respiratory: Present CTA bilaterally *Routine Cardiovascular Exam Cardiovascular: Present RRR *Routine Abdominal Exam Abdominal: Present soft and normoactive bowel sounds; Absent tenderness *Routine Extremities Exam Extremities: Absent cyanosis, clubbing or edema *Routine Skin Exam Skin: Present warm; Absent rash *Routine Neurological Exam Neurological: Present alert and oriented X3 Results Data Completed and Pending Labs on day of discharge: Labs from last 24 hours 09/02/23 09/01/23 09/01/23 05:19 18:45 15:15 WBC 4.7 L RBC 4.14 L Hgb 12.2 Hct 36.3 L MCV 87.6 MCH 29.4 MCHC 33.6 RDW 13.8 Plt Count 306 MPV 7.4 Neut % (Auto) 54.0 Lymph % (Auto) 36.4 Early % (Auto) 7.6 Eos % (Auto) 1.8 Baso % (Auto) 0.2 Neut # (Auto) 2.5 Lymph # (Auto) 1.7 Early # (Auto) 0.4 Eos # (Auto) 0.1 Baso # (Auto) 0.0 APTT 28.8 Sodium 129 L Potassium 3.3 L Chloride 96 L Carbon Dioxide 33 H Anion Gap 3.3 L BUN 13 D Creatinine 0.90 Estimated Creat Clear 61 Estimated GFR 64 Est GFR ( Amer) 78 Glucose 87 Calcium 8.0 L Phosphorus Magnesium Troponin I < 0.01 < 0.01 NT-Pro-B Natriuret Pep LDL Cholesterol Direct 60.14 L SARS-CoV-2 (PCR) Influenza A Untype (PCR) Influenza Type B (PCR) 09/01/23 09/01/23 13:33 13:18 WBC RBC Hgb Hct MCV MCH MCHC RDW Plt Count MPV Neut % (Auto) Lymph % (Auto) Early % (Auto) Eos % (Auto) Baso % (Auto) Neut # (Auto) Lymph # (Auto) Early # (Auto) Eos # (Auto) Baso # (Auto) APTT Sodium Potassium Chloride Carbon Dioxide Anion Gap BUN Creatinine Estimated Creat Clear Estimated GFR Est GFR ( Amer) Glucose Calcium Phosphorus 4.7 H Magnesium 1.9 Troponin I NT-Pro-B Natriuret Pep 275 H LDL Cholesterol Direct SARS-CoV-2 (PCR) Not detected Influenza A Untype (PCR) Not detected Influenza Type B (PCR) Not detected DS: Diagnosis Discharge Diagnosis (1) Chest pain: Status: Acute Code(s): R07.9 - Chest pain, unspecified Qualifiers: Chest pain type: other chest pain Qualified Code(s): R07.89 - Other chest pain (2) Normal coronary arteries: Status: Acute (3) Alcohol abuse: Status: Acute Code(s): F10.10 - Alcohol abuse, uncomplicated (4) Fibromyalgia: Status: Acute Code(s): M79.7 - Fibromyalgia (5) HTN (hypertension): Status: Acute Code(s): I10 - Essential (primary) hypertension (6) Hyperlipidemia: Status: Acute Code(s): E78.5 - Hyperlipidemia, unspecified (7) Cardiac pacemaker in situ: Status: Acute Code(s): Z95.0 - Presence of cardiac pacemaker (8) Vasovagal syncope: Status: Acute Code(s): R55 - Syncope and collapse (9) GERD (gastroesophageal reflux disease): Status: Acute Code(s): K21.9 - Gastro-esophageal reflux disease without esophagitis Meds Home Medications and Allergies Home Medications Medication Instructions Recorded Confirmed Type erenumab-aooe 70 mg/mL 70 mg SQ MONTHLY 10/11/20 09/02/23 History subcutaneous auto-injector (Aimovig Autoinjector) esomeprazole magnesium 40 mg 40 mg PO DAILY 10/11/20 09/01/23 History capsule,delayed release (Nexium) furosemide 20 mg tablet (Lasix) 20 mg PO DAILY 10/11/20 09/01/23 History levothyroxine 112 mcg capsule 112 mcg PO DAILY 10/11/20 09/01/23 History metoprolol succinate 50 mg 50 mg PO DAILY 10/11/20 09/01/23 History tablet,extended release 24 hr rizatriptan 10 mg tablet 10 mg PO DAILYP PRN migraine 10/11/20 09/02/23 History headaches tramadol 50 mg tablet 50 mg PO Q6HP PRN Moderate Pain 10/11/20 09/02/23 History (Scale Score 5-6) trazodone 50 mg tablet 50 mg PO DAILY sleep aid 10/11/20 09/01/23 History duloxetine 60 mg capsule,delayed 60 mg PO DAILY 06/02/22 09/01/23 History release folic acid 1 mg tablet 1 mg PO DAILY 30 days #30 tabs 09/02/23 Rx losartan 25 mg tablet 25 mg PO DAILY #30 tabs 09/02/23 Rx metoprolol tartrate 50 mg tablet 50 mg PO DAILY #30 tabs 09/02/23 Rx multivitamin with folic acid 400 1 tab PO 1700 30 days #30 tabs 09/02/23 Rx mcg tablet (Tab-A-Rohit) thiamine mononitrate (vit B1) 100 100 mg PO DAILY 30 days #30 tabs 09/02/23 Rx mg tablet New Prescriptions to Start Prescriptions: folic acid Sandeep,Gildaan losartan Sandeep,Irfan metoprolol tartrate Sandeep,Walt multivitamin with folic acid [Tab-A-Rhoit] Sandeep,Irfan thiamine mononitrate (vit B1) Walt Hopkins Allergies Allergy/AdvReac Type Severity Reaction Status Date / Time acetaminophen [From VICODIN] Allergy Unknown Verified 08/18/23 16:49 hydrocodone [From VICODIN] Allergy Unknown Verified 08/18/23 16:49 naproxen [From NAPROSYN] Allergy Unknown Verified 08/18/23 16:49 Sulfa (Sulfonamide Allergy Unknown Verified 08/18/23 16:49 Antibiotics) [SULFA (SULFONAMIDE ANTIBIOTICS)] Discharge Plan Disposition Patient Disposition: Home, Self-Care Follow up Plan Follow up with: Provider,Referral, MD [Primary Care Provider] - 2 weeks Prescriptions/Medication Reconciliation: New metoprolol tartrate 50 mg Tablet 50 mg PO DAILY Qty: 30 0RF thiamine mononitrate (vit B1) 100 mg Tablet 100 mg PO DAILY 30 Days Qty: 30 0RF multivitamin with folic acid [Tab-A-Rohit] 400 mcg Tablet 1 tab PO 1700 30 Days Qty: 30 0RF folic acid 1 mg Tablet 1 mg PO DAILY 30 Days Qty: 30 0RF losartan 25 mg tablet 25 mg PO DAILY Qty: 30 0RF Continued levothyroxine 112 mcg capsule 112 mcg PO DAILY esomeprazole magnesium [Nexium] 40 mg capsule,delayed release(DR/EC) 40 mg PO DAILY furosemide [Lasix] 20 mg tablet 20 mg PO DAILY trazodone 50 mg tablet 50 mg PO DAILY metoprolol succinate 50 mg tablet extended release 24 hr 50 mg PO DAILY Aimovig Autoinjector 70 mg/mL auto-injector 70 mg SQ MONTHLY tramadol 50 mg tablet 50 mg PO Q6HP PRN (Reason: Moderate Pain (Scale Score 5-6)) rizatriptan 10 mg tablet 10 mg PO DAILYP PRN (Reason: migraine headaches) Rx Instructions: do not exceed 3 doses per 24 hrs duloxetine 60 mg capsule,delayed release(DR/EC) 60 mg PO DAILY Problem Reconciliation Problems Reviewed?: Yes Patient Discharge Instructions ACTIVITY: Ambulate as tolerated DIET: advance to your usual diet Patient Instructions: DI for Chest Pain Providers Primary Care Provider: Provider,Referral Admit Provider: Walt Hopkins Attending Provider: Walt Hopkins
--- NOTE | 2023-09-02 15:02 | HMH.PHAINT1 ---
Pharmacy Intervention Comments: DISCHARGE MEDICATION COUNSELING PROVIDED. DISCUSSED THE FOLLOWING NEW MEDICATIONS: -FOLIC ACID (SUPPLEMENT, DAILY, FLUSHING, N/V POSSIBLE) -THIAMINE (SUPPLEMENT, DAILY, FLUSHING, N/V POSSIBLE) -MULTIVITAMIN (SUPPLEMENT, DAILY, PATIENT STATES SHE CALLED CLINIC PHARMACY AND SAID SHE DOESN'T WANT THIS FILLED, SHE TAKES BARIATRIC VITAMINS AT HOME) -METOPROLOL (FOR BLOOD PRESSURE, DAILY, DIZZINESS, LIGHTHEADEDNESS, LOW BP, SLOWED HEART RATE, FATIGUE POSSIBLE) -LOSARTAN (FOR BLOOD PRESSURE, DAILY, DIZZINESS, LIGHTHEADEDNESS, LOW BP, HEADACHE, COUGH, LOWER LIMB SWELLING POSSIBLE). PATIENT AND WERE QUESTIONING WHY THE VITAMINS WERE PRESCRIBED, I ADVISED THEY ARE SUPPLEMENTS TO DIET. PATIENT STATED SHE WOULD HAVE TO ASK THE DOCTOR THE REASON FOR PRESCRIBING THEM. NO FURTHER QUESTIONS AT THIS TIME.
--- NOTE | 2023-09-03 12:13 | CARE MANAGER ---
Contacted patient related to hospital discharge. She states she does not feel the best and is still having some issues with blood pressures. We discussed her new medications and her follow up appointments. She states she is tracking her blood pressure to show testing coordinator and PCP. She denies any questions or concerns. MARQUIS Noriega
== END 2023-09-02 15:04 | disposition home or self-care (01) ==
LOC: ER 16:01 → 2ND 16:47
PROVIDERS: Emergency Medicine; Nurse Practitioner; Admitting Provider Internal Medicine; Emergency Provider Emergency Medicine; Visit Provider Internal Medicine
DX: R07.9 Chest pain, unspecified (principal); Z79.899 Other long term (current) drug therapy; F10.10 Alcohol abuse, uncomplicated; I25.10 Atherosclerotic heart disease of native coronary artery without angina pectoris; I10 Essential (primary) hypertension; G43.909 Migraine, unspecified, not intractable, without status migrainosus; E03.9 Hypothyroidism, unspecified; Z95.0 Presence of cardiac pacemaker; E78.5 Hyperlipidemia, unspecified
CPT/HCPCS: 36415; 71046; 71275; 75571; 75574; 80048; 80053; 83722; 83735; 83880; 84100; 84484; 85025; 85730; 87636; 93005; 93306; 99285; G0378; Q9967

== ENCOUNTER 2023-09-07 13:29 | Outpatient (CLI) | payer BC, SELFPAY ==
[2023-09-07 14:11] LABS: Basophils % 0.2 % (0.1-2.0); Eosinophils # 0.1 K/mm3 (0.0-0.4); Eosinophils % 1.1 % (0.1-12.0); Hematocrit 37.9 % (37.0-47.0); Hemoglobin 12.3 g/dL (12.2-16.2); Lymphocytes % 20.3 % (10-50); Mean Corpuscular HGB Conc 32.5 g/dL (31.8-35.4); Mean Corpuscular Hemoglobin 29.5 pg (27.0-31.2); Mean Corpuscular Volume 90.7 fl (81-99); Mean Platelet Volume 7.5 fl (7.4-10.4); Monocytes # 0.4 K/mm3 (0.1-1.0); Monocytes % 8.1 % (1.7-9.3); Neutrophils # 3.3 K/mm3 (1.8-7.8); Neutrophils % 70.2 % (37.0-80.0); Platelet Count 342 K/mm3 (142-424); Red Blood Count 4.18 M/mm3 (4.20-5.40); Red Cell Distribution Width 13.8 % (11.5-17.5); White Blood Count 4.6 K/mm3 (4.8-10.8)
[2023-09-07 14:22] LABS: Activated Partial Thrombo Time 27.6 seconds (22.8-30.6); INR 1.03 (0.9-1.1); Prothrombin Time 11.1 seconds (10.1-12.5)
[2023-09-07 14:49] LABS: Free T4 (Free Thyroxine) 0.95 ng/dl (0.78-2.19)
[2023-09-07 14:50] LABS: 25-OH Vitamin D, Total 61.9 ng/mL (30-100)
[2023-09-07 15:05] LABS: Chloride 101 mmol/L (98-107)
[2023-09-07 15:06] LABS: Potassium 3.7 mmoL/L (3.5-5.1); Sodium 131 mmol/L (136-145)
[2023-09-07 15:08] LABS: Alanine Aminotransferase 19 U/L (12-78); Albumin Level 3.7 g/dl (3.5-5.0); Albumin/Globulin Ratio 1.7 (1.1-1.8); Alkaline Phosphatase 69 U/L (38-126); Anion Gap 4.7 mEq/L (5-15); Aspartate Amino Transferase 47 U/L (14-36); Bilirubin,Total 0.5 mg/dl (0.2-1.3); Blood Urea Nitrogen 5 mg/dl (7-17); Carbon Dioxide 29 mmol/L (22.0-30.0); Cholesterol 181 mg/dl (140-200); Estimated Glomerular Filt Rate 64 ml/min (>60); GFR (African American) 78 ML/MIN (>60); Globulin 2.2 g/dL (1.3-3.2); Iron 39 ug/dL (37-170); Phosphorous 4.4 mg/dl (2.5-4.5); Total Protein,Serum 5.9 g/dl (6.3-8.2); Triglycerides 51 mg/dl (30-150); VLDL Cholesterol 10 mg/dL (0-40)
[2023-09-07 15:09] LABS: Calcium 8.6 mg/dl (8.4-10.2); Chol/HDL Ratio 1.7 (1-3.5); Glucose 84 mg/dl (74-100); HDL Cholesterol 104 mg/dl (40-60); Magnesium 1.9 mg/dl (1.6-2.3)
[2023-09-07 15:20] LABS: Total Iron Binding Capacity 376 ug/dL (265-497)
[2023-09-07 15:27] LABS: Direct LDL Cholesterol 58.12 mg/dL (100-129)
[2023-09-07 15:44] LABS: Ferritin 7.28 ng/ml (11.1-264)
[2023-09-07 17:06] LABS: Hemoglobin A1C 4.8 % (4.0-6.0)
[2023-09-07 17:33] LABS: Intact Parathyroid Hormone 76.2 pg/mL (7.5-53.5)
[2023-09-07 18:11] LABS: Vitamin B12 247 pg/mL (239-931)
[2023-09-09 09:47] LABS: Prealbumin 18 mg/dL (10-36); Transferrin 315 mg/dL (192-364)
[2023-09-10 10:13] LABS: Selenium 199 ug/L (100-340)
[2023-09-11 16:35] LABS: Vitamin A 28.2 ug/dL (20.1-62.0)
[2023-09-13 12:09] LABS: Vitamin B1 92.9 nmol/L (66.5-200.0)
[2023-09-16 12:39] LABS: Zinc 456
== END 2023-09-07 23:59 ==
LOC: LAB 13:30
PROVIDERS: PCP Internal Medicine; Visit Provider Internal Medicine
DX: I10 Essential (primary) hypertension (principal); E03.4 Atrophy of thyroid (acquired); E55.9 Vitamin D deficiency, unspecified; Z98.84 Bariatric surgery status; Z79.899 Other long term (current) drug therapy; D50.9 Iron deficiency anemia, unspecified
CPT/HCPCS: 36415; 80053; 80061; 82306; 82607; 82728; 82746; 83036; 83540; 83550; 83735; 83970; 84100; 84134; 84255; 84425; 84439; 84443; 84466; 84590; 84630; 85025; 85610; 85730

== ENCOUNTER 2023-11-17 09:57 | Outpatient (CLI) | payer BC, SELFPAY ==
--- NOTE | 2023-11-17 10:00 | XR_ITS ---
FINAL REPORT CLINICAL HISTORY: surgery 1993 no injury FINDINGS: Three views show no evidence of acute displaced fracture or dislocation of the visualized bony architecture. There are advanced degenerative changes of the 2nd DIP joint. No bony erosion is identified. There are moderate degenerative changes of the 1st carpometacarpal joint. IMPRESSION: Degenerative changes as above. Reviewed, Interpreted and Dictated by Emanuel Vazquez MD Transcribed by Huong Bonds Authenticated and [facility]
--- NOTE | 2023-11-17 10:00 | XR_ITS ---
FINAL REPORT CLINICAL HISTORY: 4th digit pain COMPARISON: 04/20/2023 FINDINGS: Three views show no evidence of acute displaced fracture or dislocation of the visualized bony architecture. There are mild degenerative changes of the DIP joint. IMPRESSION: Mild degenerative changes as above. Reviewed, Interpreted and Dictated by Emanuel Vazquez MD Transcribed by Huong Bonds Authenticated and [facility]
[2023-11-17 12:00] LABS: Erythrocyte Sedimentation Rate 10 mm/hr (0-30)
[2023-11-17 12:11] LABS: Uric Acid 5.2 mg/dl (2.5-6.2)
[2023-11-18 13:53] LABS: RA Latex Turbid. 16.7 IU/mL (<14.0)
[2023-11-24 16:04] LABS: Antinuclear Antibodies, IFA Positive
== END 2023-11-17 23:59 | disposition home or self-care (01) ==
LOC: RAD 09:58
PROVIDERS: PCP Internal Medicine; Visit Provider Orthopaedic Surgery
DX: M79.641 Pain in right hand (principal); M79.642 Pain in left hand
CPT/HCPCS: 36415; 73130; 84550; 85651; 86038; 86431

== ENCOUNTER 2023-11-17 11:12 | Outpatient (RCR) | payer BC, SELFPAY | END 2023-11-17 12:15 | disposition home or self-care (01) | LOC: OT 11:12 | PROVIDERS: Visit Provider Orthopaedic Surgery | DX: M18.11 Unilateral primary osteoarthritis of first carpometacarpal joint, right hand (principal) | CPT/HCPCS: 97763 ==

== ENCOUNTER 2023-12-21 17:40 | Emergency (ER) | payer BC, SELFPAY ==
[2023-12-21 18:40] VITALS: BP 147/93; PULSE 70; RESP 18; TEMP 36.7; O2SAT 99; BMI 19.1
--- NOTE | 2023-12-21 18:47 | XR_ITS ---
PROCEDURE INFORMATION: Exam: XR Lumbosacral Spine Exam date and time: 12/21/2023 7:04 PM Age: 58 years old Clinical indication: Injury or trauma; Fall; Blunt trauma (contusions or hematomas) TECHNIQUE: Imaging protocol: Radiologic exam of the lumbosacral spine. Views: 4 or 5 views. COMPARISON: CR XR MULTIPLE SPINE 4-5V 11/17/2021 4:04 PM FINDINGS: Bones/joints: Lumbar vertebrae normal in height. No acute fracture. Minimal levoconvex curvature. Mild multilevel endplate degenerative changes. Soft tissues: Unremarkable. Intraperitoneal space: Right upper quadrant surgical clips. Left upper quadrant chain sutures. IMPRESSION: No acute osseous findings.
--- NOTE | 2023-12-21 19:18 | PC.NURSE ---
Pt bp is 147/93 provider is aware she currently take 2 BP medications.
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
[2023-12-21 19:49] VITALS: BP 147/93; PULSE 70; RESP 18; TEMP 36.9; O2SAT 99
== END 2023-12-21 19:49 | disposition home or self-care (01) ==
PROVIDERS: Emergency Provider Nurse Practitioner Family; PCP Internal Medicine
DX: M54.59 Other low back pain (principal); M25.551 Pain in right hip; M79.604 Pain in right leg; M79.605 Pain in left leg; F10.90 Alcohol use, unspecified, uncomplicated; F17.210 Nicotine dependence, cigarettes, uncomplicated; W19.XXXA Unspecified fall, initial encounter
CPT/HCPCS: 72110; 99212; 99213; G0463

== ENCOUNTER 2024-05-04 14:03 | Outpatient (CLI) | payer BC, SELFPAY ==
[2024-05-04 14:28] LABS: Basophils % 0.6 % (0.1-2.0); Eosinophils # 0.1 K/mm3 (0.0-0.4); Eosinophils % 2.7 % (0.1-12.0); Hematocrit 33.5 % (37.0-47.0); Hemoglobin 11.1 g/dL (12.2-16.2); Lymphocytes # 0.9 K/mm3 (0.7-4.5); Lymphocytes % 23.9 % (10-50); Mean Platelet Volume 7.2 fl (7.4-10.4); Monocytes # 0.3 K/mm3 (0.1-1.0); Monocytes % 7.6 % (1.7-9.3); Neutrophils # 2.5 K/mm3 (1.8-7.8); Neutrophils % 65.2 % (37.0-80.0); Platelet Count 341 K/mm3 (142-424); Red Blood Count 3.81 M/mm3 (4.20-5.40); Red Cell Distribution Width 14.9 % (11.5-17.5); White Blood Count 3.8 K/mm3 (4.8-10.8)
[2024-05-04 14:45] LABS: Alanine Aminotransferase 21 U/L (12-78); Albumin Level 3.8 g/dl (3.5-5.0); Albumin/Globulin Ratio 1.7 (1.1-1.8); Alkaline Phosphatase 53 U/L (38-126); Aspartate Amino Transferase 41 U/L (14-36); Bilirubin,Total 0.7 mg/dl (0.2-1.3); Blood Urea Nitrogen 10 mg/dl (7-17); Calcium 8.7 mg/dl (8.4-10.2); Carbon Dioxide 28 mmol/L (22.0-30.0); Chloride 104 mmol/L (98-107); Estimated Glomerular Filt Rate 102 ml/min (>60); GFR (African American) 123 ML/MIN (>60); Globulin 2.2 g/dL (1.3-3.2); Glucose 79 mg/dl (74-100); Sodium 131 mmol/L (136-145)
[2024-05-04 14:48] LABS: Anion Gap 2.7 mEq/L (5-15); Potassium 3.7 mmoL/L (3.5-5.1)
[2024-05-09 08:59] LABS: ALT (SGPT) P5P 19 IU/L (0-40); AST (SGOT) P5P 32 IU/L (0-40); Alpha 2-Macroglobulins, Qn 168 mg/dL (110-276); Apolipoprotein A-1 294 mg/dL (116-209); Bilirubin, Total <0.1 mg/dL (0.0-1.2); Cholesterol, Total 206 mg/dL (100-199); Fibrosis Score 0.01 (0.00-0.21); GGT 30 IU/L (0-60); Glucose 82 mg/dL (70-99); Haptoglobin 112 mg/dL (33-346); Steatosis Score 0.11 (0.00-0.40); Triglycerides 71 mg/dL (0-149)
== END 2024-05-04 23:59 | disposition home or self-care (01) ==
PROVIDERS: PCP Internal Medicine; Visit Provider Nurse Practitioner Family
DX: F10.10 Alcohol abuse, uncomplicated (principal); R74.8 Abnormal levels of other serum enzymes
CPT/HCPCS: 36415; 80053; 85025

== ENCOUNTER 2024-06-01 10:33 | Outpatient (CLI) | payer BC, SELFPAY ==
--- NOTE | 2024-06-01 10:33 | US_ITS ---
FINAL REPORT CLINICAL HISTORY: HX OF HEMANGIOMA COMPARISON: None FINDINGS: Sonographic images of the right upper quadrant were obtained. The pancreas is partially obscured. There is a 10 mm hyperechoic focus in the left hepatic lobe that may represent a small hemangioma. The gallbladder has been surgically resected. There is no evidence of biliary ductal dilatation.The common duct measures 2 mm. Limited images of the right kidney are unremarkable. IMPRESSION: Prior cholecystectomy 10 mm hyperechoic focus in the left hepatic lobe, may represent a hemangioma. Reviewed, Interpreted and Dictated by Amadeo Jensen III, MD Transcribed by Irena Doyle Authenticated and [facility]
== END 2024-06-01 23:59 | disposition home or self-care (01) ==
LOC: RAD 10:33
PROVIDERS: PCP Nurse Practitioner Family; Visit Provider Nurse Practitioner Family
DX: F10.10 Alcohol abuse, uncomplicated (principal); R74.8 Abnormal levels of other serum enzymes
CPT/HCPCS: 76705

== ENCOUNTER 2024-06-26 12:08 | Day surgery (SDC) | payer BC, SELFPAY ==
[2024-06-22 13:16] VITALS: BMI 19.3
[2024-06-26] MEDS: LACTATED RINGERS 1000ML 1,000 ML 25 ML IV (12:34)
[2024-06-26 12:35] VITALS: BP 165/86; PULSE 71; RESP 18; TEMP 36.2; O2SAT 99
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
[2024-06-26 13:17] VITALS: O2SAT 100
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
--- NOTE | 2024-06-26 13:29 | P.PCN_ITS ---
[facility] Procedure Note Date: 06/26/24 Time: 13:29 Procedure Note:: Upper Endoscopy Procedure Report: Esophagojejunoscopy with cold biopsies Endoscopost: Cortez Garcia II, MD Referring Physician: Phil Shea MD Date of Procedure: June 26, 2024 Equipment: Olympus GIF 190 standard upper endoscope Sedation: MAC sedation Indications: Mrs. Gresham is a 58-year-old female with dyspepsia, heartburn and reflux. She has had nausea and vomiting daily for over 6 months. She reports intermittent epigastric discomfort. She did have a Bianca-en-Y gastric bypass in [place] in 2013. She has a long history of IBS with diarrhea. She also has had some elevated liver chemistries. She does drink beer daily. Procedure: Prior to the procedure, a history and physical exam was performed, and patient's medications and allergies were reviewed. The risks, benefits and alternatives of the sedation and procedure were discussed with the patient. All questions were answered and informed consent was obtained. The patient was brought to the procedure room. Patient identification and proposed procedure were verified by the physician and the nurse. The patient was placed in a left lateral decubitus position and the scope was passed under direct vision. Throughout the procedure, the patient's blood pressure, pulse, and oxygen saturations were monitored continuously. The upper GI endoscopy was accomplished without difficulty. The patient tolerated the procedure well. Findings: The scope was passed directly into the upper esophagus and advanced to the afferent blind loop and efferent limbs of jejunum of the Bianca-en-Y anatomy. They jejunal folds and conniventes and mucosa were entirely normal. The stomal anastomosis was normal in appearance with no stomal ulceration or stenosis. The scope was withdrawn into the gastric pouch. There was a generous pouch with a small 1 to 2 cm hiatal hernia. Biopsies were taken from the pouch. Biopsies were taken from the pouch. The scope was then withdrawn into the esophagus. There is no evidence of reflux esophagitis or Donohue's. The remainder of the esophageal mucosa was normal. Impression: 1. Normal Bianca-en-Y gastric bypass anatomy with generous gastric pouch and small 1 to 2 cm hiatal hernia (with nonerosive GERD) Plan: I will follow-up the biopsies. The patient does have functional dyspepsia. There is no signs of portal hypertension. We will discuss treatment options. I will proceed with diagnostic colonoscopy.
--- NOTE | 2024-06-26 13:50 | HMH.PROCNOTE ---
[facility] Procedure Note Date: 06/26/24 Time: 13:50 Procedure Note:: Colonoscopy Procedure Report: Colonoscopy with cold snare polypectomy and cold biopsies Endoscopist: Cortez Garcia II, MD Referring physician: Phil Shea MD Date of Procedure: June 26, 2024 Equipment: Olympus 190 variable stiffness pediatric colonoscope Sedation: MAC sedation Indication: Mrs. Gresham is a 58-year-old female who is here for diagnostic colonoscopy. She has had dyspepsia. She also has a long history of IBS with diarrhea. Her last colonoscopy was 10 years ago and she had polyps. She did have cholecystectomy in 2005 and gastric bypass in 2013 in [place]. She reports no rectal bleeding or family history of colon cancer. She reports no mucus with her bowel movements. Procedure: Prior to the procedure, a history and physical exam was performed, and patient's medications and allergies were reviewed. The risks, benefits and alternatives of the sedation and procedure were discussed with the patient. All questions were answered and informed consent was obtained. The patient was brought to the procedure room. Patient identification and proposed procedure were verified by the physician and the nurse. The patient was placed in a left lateral decubitus position and the scope was passed under direct vision. Throughout the procedure, the patient's blood pressure, pulse, and oxygen saturations were monitored continuously. The colonoscopy was accomplished without difficulty. The patient tolerated the procedure well. Findings: On digital rectal examination there was normal rectal tone. There were no external hemorrhoids. The colonoscope was introduced through the anal canal to the rectum and advanced to the cecum. The ileocecal valve and appendiceal orifice were identified. The scope was advanced a short distance into the ileum which appeared grossly normal. The scope was then withdrawn into the colon. There were 2 polyps (ascending x 1 (5 mm) and sigmoid x 1 (4 mm)). These were both removed via cold biopsies. Random biopsies were taken from the right colon to rule out microscopic colitis. The remaining cecum, ascending, transverse, descending, sigmoid and rectum were grossly normal. There were no other mucosal abnormalities identified. Upon retroflexion within the rectum there were grade 1 internal hemorrhoids.The preparation was excellent throughout with [place] Preparation Score of 9. The cecal time was 12 minutes. Impression: 1. Diminutive colonic polyps x 2 Plan: I will follow-up the biopsies to rule out microscopic colitis. I would recommend colestipol for her diarrhea. I would also consider adding additional therapy for her dyspepsia. I would consider Iberogast twice daily and additional neuromodulation (i.e. buspirone). We will discuss treatment options. I will follow-up the polyp histology and recommend repeat surveillance colonoscopy again in 7 years if the polyps are adenomatous.
[2024-06-26 13:53] VITALS: BP 127/74; PULSE 70; RESP 16; O2SAT 90
[2024-06-26 14:03] VITALS: BP 137/83; PULSE 70; RESP 17; O2SAT 100
[2024-06-26 14:13] VITALS: BP 130/87; PULSE 72; RESP 17; O2SAT 100
[2024-06-26 14:25] VITALS: BP 124/84; PULSE 64; RESP 17; O2SAT 100
== END 2024-06-26 14:46 | disposition home or self-care (01) ==
PROVIDERS: PCP Internal Medicine; Visit Provider Internal Medicine Gastroenterology
PROC: 0DJ08ZZ Inspection of Upper Intestinal Tract, Via Natural or Artificial Opening Endoscopic (ICD-10-PCS; CPT 45378; principal; 2024-06-26 13:30)
DX: R10.13 Epigastric pain (principal); R11.2 Nausea with vomiting, unspecified; K21.9 Gastro-esophageal reflux disease without esophagitis; K52.9 Noninfective gastroenteritis and colitis, unspecified; Z86.0100 Personal history of colon polyps, unspecified; K44.9 Diaphragmatic hernia without obstruction or gangrene; K63.5 Polyp of colon; K64.0 First degree hemorrhoids; Z98.84 Bariatric surgery status
CPT/HCPCS: 43239; 45380; J2704; J7120

== ENCOUNTER 2024-07-03 13:11 | Outpatient (CLI) | payer BC, SELFPAY ==
--- NOTE | 2024-07-03 13:35 | XR_ITS ---
FINAL REPORT CLINICAL HISTORY: PAIN COMPARISON: None FINDINGS: SACROILIAC JOINTS: AP and lateral views of the sacrum and coccyx were obtained. There is no prior exam for comparison. There is no acute fracture or other acute osseous abnormality. The SI joints are symmetric bilaterally. The sacrococcygeal articulation appears within normal limits. No acute soft tissue abnormality is present IMPRESSION: Unremarkable sacroiliac joints. Reviewed, Interpreted and Dictated by Emanuel Vazquez MD Transcribed by Irena Doyle Authenticated and [facility]
[2024-07-03 14:05] LABS: Basophils % 0.3 % (0.1-2.0); Eosinophils % 0.8 % (0.1-12.0); Hematocrit 33.6 % (37.0-47.0); Lymphocytes % 21.6 % (10-50); Mean Corpuscular HGB Conc 32.7 g/dL (31.8-35.4); Mean Corpuscular Hemoglobin 26.9 pg (27.0-31.2); Mean Corpuscular Volume 82.4 fl (81-99); Monocytes # 0.4 K/mm3 (0.1-1.0); Monocytes % 8.2 % (1.7-9.3); Neutrophils # 3.3 K/mm3 (1.8-7.8); Neutrophils % 69.2 % (37.0-80.0); Platelet Count 368 K/mm3 (142-424); Red Blood Count 4.08 M/mm3 (4.20-5.40); Red Cell Distribution Width 14.7 % (11.5-17.5); White Blood Count 4.7 K/mm3 (4.8-10.8)
[2024-07-03 14:30] LABS: Albumin Level 3.8 g/dl (3.5-5.0); Chloride 100 mmol/L (98-107); Potassium 3.6 mmoL/L (3.5-5.1); Sodium 127 mmol/L (136-145)
[2024-07-03 14:33] LABS: Alanine Aminotransferase 38 U/L (12-78); Albumin/Globulin Ratio 1.9 (1.1-1.8); Alkaline Phosphatase 85 U/L (38-126); Anion Gap 4.6 mEq/L (5-15); Aspartate Amino Transferase 150 U/L (14-36); Bilirubin,Total 0.6 mg/dl (0.2-1.3); Blood Urea Nitrogen 10 mg/dl (7-17); Calcium 8.7 mg/dl (8.4-10.2); Carbon Dioxide 26 mmol/L (22.0-30.0); Creatine Kinase 37 U/L (30-135); Estimated Glomerular Filt Rate 73 ml/min (>60); GFR (African American) 89 ML/MIN (>60); Glucose 82 mg/dl (74-100); Total Protein,Serum 5.8 g/dl (6.3-8.2)
[2024-07-03 14:40] LABS: Erythrocyte Sedimentation Rate 13 mm/hr (0-30)
[2024-07-03 15:59] LABS: Uric Acid 4.6 mg/dl (2.5-6.2)
[2024-07-03 16:10] LABS: C-Reactive Protein 0.5 mg/L (0-4)
[2024-07-03 16:22] LABS: 25-OH Vitamin D, Total 50.3 ng/mL (30-100)
[2024-07-03 17:09] LABS: Vitamin B12 221 pg/mL (239-931)
[2024-07-04 06:10] LABS: Hepatitis B Surface Antigen Negative (Negative); Hepatitis C Antibody Non Reactive (Non Reactive)
[2024-07-04 08:52] LABS: RA Latex Turbid. 19.3 IU/mL (<14.0)
[2024-07-04 12:27] LABS: Sjogren's Anti-SS-A <0.2 AI (0.0-0.9); Sjogren's Anti-SS-B <0.2 AI (0.0-0.9)
[2024-07-04 15:16] LABS: Angiotensin Converting Enzyme 46 U/L (14-82)
[2024-07-04 17:08] LABS: Anti-Cyclic Citrullinated Pept 0 units (0-19)
[2024-07-05 14:10] LABS: Albumin 3.7 g/dL (2.9-4.4); Alpha-1-Globulin 0.2 g/dL (0.0-0.4); Alpha-2-Globulin 0.6 g/dL (0.4-1.0); Gamma Globulin 0.8 g/dL (0.4-1.8); Protein, Total 6.1 g/dL (6.0-8.5)
[2024-07-05 18:13] LABS: QuantiFERON-TB Gold Plus Negative (Negative)
[2024-07-06 14:41] LABS: Miscellaneous Test SCANNED IMAGE
[2024-07-10 13:08] LABS: HLA-B27 Negative (.)
[2024-07-16 09:36] LABS: Antinuclear Antibodies, IFA POSITIVE; PDF SCANNED IMAGE
== END 2024-07-03 23:59 | disposition home or self-care (01) ==
LOC: LAB 13:13
PROVIDERS: PCP Internal Medicine; Visit Provider Internal Medicine Rheumatology
DX: M54.50 Low back pain, unspecified (principal); M79.10 Myalgia, unspecified site; M06.4 Inflammatory polyarthropathy; R53.83 Other fatigue; R76.0 Raised antibody titer
CPT/HCPCS: 36415; 72202; 80053; 82164; 82306; 82550; 82607; 82746; 84155; 84165; 84550; 85025; 85651; 86038; 86140; 86200; 86235; 86431; 86480; 86812; 87340; 87380

== ENCOUNTER 2024-10-12 07:15 | Outpatient (CLI) | payer BC, SELFPAY ==
--- NOTE | 2024-10-12 07:15 | CT_ITS ---
FINAL REPORT TECHNIQUE: Thin section axial images are obtained through the abdomen and pelvis after intravenous contrast. Reconstruction images were obtained from the axial data. Exam was performed using dose reduction techniques. CLINICAL HISTORY: Postprandial nausea vomiting/epigastric pain FINDINGS: LUNG BASES: Lung bases are clear. Heart size is normal. LIVER: Homogeneous. No focal lesion. GALLBLADDER/BILIARY SYSTEM: Surgically absent. SPLEEN: Unremarkable. PANCREAS: Unremarkable. ADRENALS: Unremarkable. KIDNEYS/URETERS/BLADDER: No hydronephrosis, renal mass, or renal stone. Unremarkable urinary bladder. GI TRACT: Postoperative changes from gastric bypass. No small bowel obstruction or dilatation. The appendix is not visualized but there are no secondary signs of appendicitis. There is a moderate to large amount of retained stool in the colon. PELVIC ORGANS: The uterus is present. LYMPH NODES/RETROPERITONEUM/MESENTERY: No lymphadenopathy. No abdominal aortic aneurysm. ABDOMINAL WALL: The abdominal wall is intact. FREE FLUID: No abdominal or pelvic ascites. BONES: No acute osseous abnormality. IMPRESSION: No acute abnormality in the abdomen or pelvis. Postoperative changes from gastric bypass. Moderate to large amount of retained stool in the colon. Reviewed, Interpreted and Dictated by Toña Carter MD Transcribed by Priya Pereira Authenticated and [facility]
[2024-10-12 08:13] LABS: Blood Urea Nitrogen 8 mg/dl (7-17); Estimated Glomerular Filt Rate 85 ml/min (>60); GFR (African American) 103 ML/MIN (>60)
[2024-10-12] MEDS: IOPAMIDOL-370 (76%);100ML BOTTLE 75 ML IV (08:48)
[2024-10-12] MEDS: SODIUM CHLORIDE 0.9% 10ML SYR (RAD ONLY) 10 ML IV (08:48)
== END 2024-10-12 23:59 | disposition home or self-care (01) ==
LOC: RAD 07:18
PROVIDERS: PCP Internal Medicine; Visit Provider Nurse Practitioner Family
DX: R10.13 Epigastric pain (principal); R11.2 Nausea with vomiting, unspecified
CPT/HCPCS: 36415; 74177; 82565; 84520; Q9967

== ENCOUNTER 2025-05-21 14:09 | Outpatient (CLI) | payer BC, SELFPAY ==
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
--- NOTE | 2025-05-21 14:12 | CA_ITS ---
APPROVED REPORT EXAM: Comprehensive 2D, Doppler, and color-flow Echocardiogram District Plant Engineer: Orly Sun RVT Ht: 5 ft 5 in Wt: 118lbs BSA: 1.58 BP: 152/88 mmHg Indications: DYSPNEA ON EXERTION 2D Dimensions LA Volume 32.90 mL LA Volume Index 20.82 mL/m2 (M/F) 16-34 M-Mode Dimensions RVDd 2.32 cm (0.9-2.6) LA Diam 2.49 cm (1.9-4.0) LVDd 4.21 cm (3.5-5.7) LVDs 2.64 cm (3.5-5.7) IVSd 0.55 cm (0.6-1.1) PWd 0.46 cm (0.6-1.1) EF (Teich) 67.60% FS 37.30% EDV (Teich) 79.00 mL TAPSE 2.35 (<1.7) ESV (Teich) 25.60 mL LV Diastology E Decel Time 150 (160-240 msec) E/A Ratio 1.4 Aortic Valve RONALD Index 1.35 cm2/m2 AoV Peak Romero. 138.0 (50-130 cm/s) AO Peak GR. 7.60 mmHg AO Mean GR. 4.40 (<5 mmHg) AO VTI 30.6 (18-25 cm) RONALD (VTI) 2.19 (2.5-4.5 cm2) Mitral Valve MV E Max Romero. 111.0 (40-130 cm/s) MV A Velocity 79.0 (40-130 cm/s) E/A Ratio 1.40 MV PHT 44.0 ms Pulmonary Valve PV Peak Velocity 54.0 (50-150 cm/s) Tricuspid Valve TR P. Velocity 285.00 cm/s RAP Estimate 8.00 mmHg RVSP 40.40 mmHg Left Ventricle The left ventricle is normal size. Left ventricular systolic function is normal. The left ventricular ejection fraction is within the normal range. There is increased left ventricular wall thickness. There is normal LV segmental wall motion. The left ventricular diastolic function is indeterminate. LVEF is 55% Right Ventricle The right ventricle is normal size. The right ventricular systolic function is normal. Atria Left atrium is mildly dilated. Right atrium is mildly dilated. There is no color Doppler evidence of interatrial shunt. Aortic Valve The aortic valve is mildly thickened. There is no hemodynamically significant aortic valvular stenosis. Trace aortic regurgitation is present. Mitral Valve The mitral valve is mildly thickened. No evidence of mitral valve stenosis. Moderate mitral regurgitation is present. Tricuspid Valve The tricuspid valve leaflets are thin and pliable. Mild tricuspid regurgitation. RVSP 30-35 mmHg. Pulmonic Valve The pulmonary valve is grossly normal in structure. Trace pulmonic valve regurgitation is present. Great Vessels The aortic root is normal in size. IVC is normal in size and collapses >50% with inspiration. Pericardium There is a trivial, posterior pericardial effusion. No echo indications of tamponade. Other Information Study Quality: Fair Conclusion Normal biventricular systolic function. Mild biatrial dilation. Moderate MR. Mild TR. RVSP 30-35 mmHg. Trivial, posterior pericardial effusion. No echo indications of tamponade. Electronically signed by : Jeannine Gallardo MD 05/23/2025 00:40:40
--- OUTSIDE RECORDS SUMMARY | 2025-05-21 14:13 | XMS_ITS | Data Portability ---
Author Organization [facility] Mae ADMIN Address [address] [place] [id number] Care Team Providers Care Adzing And Boring Machine Feeder Name Role Phone JIMBO SHEA Primary Care Provider [phone] Assessment Encounter Date Assessment Date Assessment LastModified by Organization Details LastModified Time 05/17/2025 05/17/2025 patient has a [employer] device. Unfortunately, that is not any of the devices we use here. We will attempt to try to contact a [employer] rep and see if we can get them in here to check the device. If she does need a replacement, we can do that here with our own pacemaker reps. I discussed this with her today. In the meantime we will get an echocardiogram. We need to monitor the blood pressure and heart rate. She has been much better at home and follows up regularly with her primary care physician. The device was placed in [place]. She has not having any issues other than some mild dyspnea. She does not have chest pain pressure or tightness. We will try to work this out and see her back in 6 weeks. EKG today shows normal sinus rhythm with no ST or T-wave changes with a heart rate of 90 Patient Education was printed, I have reviewed the Past Medical, Family, and Social Histories along with ROS and all orders in today's record, and have noted any changes. Medications, charts and records reviewed in full today. - EKG today reveals Normal sinus rhythm with a heart rate of [address] or T-wave changes - LAST ECHO: June 20, 2021 with normal function of 55% and trace mitral insufficiency LAST ISCHEMIC EVAL: None on file. LAST HEART CATH: July 2019 with normal coronary arteries and normal function LAST LDL: 03/29/2025 value of 59. LAST CNI: None on file. PAST LHC: None on file. Plan: Continue metoprolol Monitor blood pressure and heart rate Biot[employer]ik device check Echocardiogram Blood work as per primary care Follow-up in Cardiology Clinic in 6 weeks -Continue other current medications. -Continue aggressive risk factor modification. -Recommend LDL less than 100. -Encouraged regular exercise and activity. - ITika, am scribing for, and in the presence of, Altaf Thomas MD. - Altaf Keller M.D. performed the services as described in this documentation, as scribed by Tika Zurita in my presence, and it is both accurate and complete. - This note was dictated using [email or web address] software. If something is unclear, or does not make sense, please do not hesitate to contact our office at [phone] for clarification. [email or web address] Not available 05/17/2025 11:58:47 Plan of Treatment Reminders Order Date Submit Date Provider Last Modified By Organization Details Last Modified Time Details Appointments OV EST 30 2024 11:30A M Altaf Thomas MD Not available Not available Not available LAB ONLY 15 2024 02:00P M Nurse Shea Not available Not available Not available 6 MONTH FU 15 2025 02:15P M Jimbo Shea MD Not available Not available Not available Lab TSH + free T4, serum 2024 025 [facility], [address], [address], [place], [address], 03/29/2025 13:11:10 T3, free, serum or plasma 2024 025 [facility], [address], [address], [place], [address], 03/29/2025 13:11:13 vitami n D, 25-hyd felicitas, total, serum 2024 025 [facility], [address], [place] [address], [place], [address], 03/29/2025 13:11:12 PTH (parat hyroid hormon e), intact , serum or plasma 2024 025 [facility], [address], [address] [address], [place], [address], 03/29/2025 13:11:13 magnes ium, serum or plasma 2024 025 [facility], [address], [place] [address], [place], [address], 03/29/2025 13:11:13 CBC w/ auto diff 2024 025 [facility], [address], [place] [address], [place], [address], 03/29/2025 13:11:11 lipid panel, serum 2024 025 [facility], [address], [place] [address], [place], [address], 03/29/2025 13:11:12 CMP, serum or plasma 2024 025 [facility], [address], [address] [address], [place], [address], 03/29/2025 13:11:11 vitami n D, 25-hyd felicitas, total, serum 2024 025 [facility], [address], [place] [address], [place], [address], 09/28/2024 08:25:24 TSH + free T4, serum 2024 025 [facility], [address], [place] [address], [place], [address], 09/28/2024 08:25:21 CMP, serum or plasma 2024 025 [facility], [address], [place] [address], [place], [address], 09/28/2024 08:25:23 lipid panel, serum 2024 025 [facility], [address], [address] [address], [place], [address], 09/28/2024 08:25:24 magnes ium, serum or plasma 2024 025 [facility], [address], [address], [place], [address], 09/28/2024 08:25:25 CBC w/ auto diff 2024 025 [facility], [address], [address] [address], [place], [address], 09/28/2024 08:25:22 Referral None record ed. Procedures None record ed. Surgeries None record ed. Imaging electr ocardi ogram 2024 025 nile [facility], [address] [place] [address] [address], [place], [address], 05/17/2025 11:49:39 US, echoca rdiogr am, transall diamond c, dmitriy te, w/ color flow 2024 025 [email or web address] Not available 05/17/2025 13:18:32 DEXA, axial skelet on + verteb ral fractu re assess ment 2024 025 [email or web address] [facility] [place], [address], 05/21/2025 12:04:27 DEXA, axial skelet on + verteb ral fractu re assess ment 2024 025 [email or web address] [facility] ([facility]), [address], [place], [address], 04/04/2025 14:45:47 Medication Orders levoth yroxin e 125 mcg capsul e 2024 025 [facility], [address] [place] [address] [place], [id number], 03/29/2025 13:04:38 duloxe greg 60 mg capsul e,colette yed releas e 2024 025 [facility], [address] [place] [address] [place], [id number], 03/28/2025 17:27:11 Carafa te 1 gram tablet [address] [place] [address], [address] [place] [address] [address] [place], [id number], 03/29/2025 13:04:38 Nexium 40 mg capsul e,colette yed releas e [address] [place] [address], [address] [place] [address] [place], [id number], 03/28/2025 17:22:06 ondans etron 8 mg disint egrati ng tablet [address] [place] [address], [address] [place] [address] [place], [id number], 03/29/2025 13:04:38 tramad ol 50 mg tablet [address] [place] [address], [address] [place] [address] [place], [id number], 05/10/2025 14:55:09 Aimovi g Autoin jector 70 mg/mL subcut aneous auto-i njecto r [address] [place] [address], [address] [place] [address] [address] [place] Rosado-Jennifer Diaz [place], [id number], 05/07/2025 15:00:40 Maxalt 10 mg tablet 2024 [facility], [address] [place] [address] [address] [place], [id number], 03/29/2025 13:04:39 ergoca lcifer ol (vitam in D2) 1,250 mcg (50,00 0 unit) capsul e 2024 [facility], [address] [place] [address] [place], [id number], 04/09/2025 14:14:58 metopr olol succin ate ER 100 mg tablet ,exten ded releas e 24 hr 2024 [facility], [address] [place] [address] [address] [place], [id number], 03/28/2025 17:27:13 levoth yroxin e 125 mcg tablet 2024 025 [facility], [address] [place] [address] [place], [id number], 03/28/2025 17:27:09 Prolia 60 mg/mL subcut aneous syring e 2024 025 [facility], [address] [place] [address] [address] [place], [id number], 01/11/2025 14:51:24 Prolia 60 mg/mL subcut aneous syring e 2024 [email or web address] Not available 09/27/2024 16:07:11 duloxe greg 60 mg capsul e,colette yed releas e 2024 025 [facility], [address] [place] [address] [place], [id number], 02/26/2025 14:40:51 Nexium 40 mg capsul e,colette yed releas e 2024 025 [facility], [address] [place] [address] [address] [place], [id number], 03/13/2025 12:44:41 ondans etron 8 mg disint egrati ng tablet 2024 025 [facility], [address] [place] [address] [address] [place], [id number], 01/01/2025 15:49:12 tramad ol 50 mg tablet 2024 025 [facility], [address] [place] [address] [address] [place], [id number], 12/04/2024 14:55:23 ergoca lcifer ol (vitam in D2) 1,250 mcg (50,00 0 unit) capsul e 2024 025 [facility], [address] [place] [address] [address] [place], [id number], 09/28/2024 15:17:09 Aimovi g Autoin jector 70 mg/mL subcut aneous auto-i njecto r 2024 025 [facility], [address] [place] [address] [address] [place], [id number], 03/13/2025 12:44:42 levoth yroxin e 125 mcg capsul e 2024 025 [facility], [address] [place] [address] [place], [id number], 09/28/2024 15:17:15 metopr olol succin ate ER 100 mg tablet ,exten ded releas e 24 hr 2024 025 [facility], [address] [place] [address] E [place] GInez ReddingGIANNA dodd, [id number], 02/20/2025 15:06:15 Prolia 60 mg/mL subcut aneous syring e 2023 [email or web address] [facility], [address] [place], [id number], 07/05/2024 16:12:58 Patient TargetsNo targets recorded. Patient InstructionsNo instructions recorded. Reason for Referral None Reported. Results Created Date Observation Date Name Description Value Unit Range Abnormal Flag Note LastModifiedBy Organization Detail LastModifiedTime 09/28/1909/28/2024 TSH+F REE T4 TSH 0.334 uIU/m L 0.450- 4.500 below low normal Not Available [facility] ([facility]) [address] [place], [address], 09/28/2024 08:25:21 09/28/1909/28/2024 TSH+F REE T4 T4,free(dire ct) 1.59 NG/dL 0.82-1 .77 normal Not Available [facility] ([facility]) [address] [place], [address], 09/28/2024 08:25:21 09/28/1909/28/2024 CBC WITH DIFFE RENTI AL/PL ATELE T WBC 5.0 x10e3 /uL 3.4-10 .8 normal Not Available [facility] ([facility]) [address] [place], [address], 09/28/2024 08:25:22 09/28/1909/28/2024 CBC WITH DIFFE RENTI AL/PL ATELE T RBC 4.61 x10e6 /uL 3.77-5 .28 normal Not Available [facility] ([facility]) [address] [place], [address], 09/28/2024 08:25:22 09/28/19 25 09/28/2024 CBC WITH DIFFE RENTI AL/PL ATELE T hemoglobin 12.3 g/dL 11.1-1 5.9 normal Not Available [facility] ([facility]) [address] [place], [address], 09/28/2024 08:25:22 09/28/19 25 09/28/2024 CBC WITH DIFFE RENTI AL/PL ATELE T hematocrit 39.1 % 34.0-4 6.6 normal Not Available [facility] ([facility]) [address] [place], [address], 09/28/2024 08:25:22 09/28/1909/28/2024 CBC WITH DIFFE RENTI AL/PL ATELE T MCV 85 fL 79-97 normal Not Available [facility] ([facility]) [address] [place], [address], 09/28/2024 08:25:22 09/28/19 25 09/28/2024 CBC WITH DIFFE RENTI AL/PL ATELE T MCH 26.7 pg 26.6-3 3.0 normal Not Available [facility] ([facility]) [address] [place], [address], 09/28/2024 08:25:22 09/28/19 25 09/28/2024 CBC WITH DIFFE RENTI AL/PL ATELE T MCHC 31.5 g/dL 31.5-3 5.7 normal Not Available [facility] ([facility]) [address] [place], [address], 09/28/2024 08:25:22 09/28/19 25 09/28/2024 CBC WITH DIFFE RENTI AL/PL ATELE T RDW 14.6 % 11.7-1 5.4 Not Available [facility] ([facility]) [address] [place], [address], 09/28/2024 08:25:22 09/28/19 25 09/28/2024 CBC WITH DIFFE RENTI AL/PL ATELE T platelets 405 x10e3 /uL 150-45 0 normal Not Available [facility] ([facility]) [address] [facility], [place], [address], 09/28/2024 08:25:22 09/28/19 25 09/28/2024 CBC WITH DIFFE RENTI AL/PL ATELE T neutrophils 61 % not estab. normal Not Available [facility] ([facility]) [address] [facility], [place], [address], 09/28/2024 08:25:22 09/28/19 25 09/28/2024 CBC WITH DIFFE RENTI AL/PL ATELE T lymphs 24 % not estab. normal Not Available [facility] ([facility]) [address] [facility], [place], [address], 09/28/2024 08:25:22 09/28/19 25 09/28/2024 CBC WITH DIFFE RENTI AL/PL ATELE T monocytes 12 % not estab. normal Not Available [facility] ([facility]) [address] [facility], [place], [address], 09/28/2024 08:25:22 09/28/19 25 09/28/2024 CBC WITH DIFFE RENTI AL/PL ATELE T eos 2 % not estab. normal Not Available [facility] ([facility]) [address] [place], [address], 09/28/2024 08:25:22 09/28/19 25 09/28/2024 CBC WITH DIFFE RENTI AL/PL ATELE T basos 1 % not estab. normal Not Available [facility] ([facility]) [address] [place], [address], 09/28/2024 08:25:22 09/28/19 25 09/28/2024 CBC WITH DIFFE RENTI AL/PL ATELE T immature cells GIS SOFTWARE DEVELOPER Not Available [facility] ([facility]) [address] [place], [address], 09/28/2024 08:25:22 09/28/19 25 09/28/2024 CBC WITH DIFFE RENTI AL/PL ATELE T neutrophils (absolute) 3.1 x10e3 /uL 1.4-7. 0 normal Not Available [facility] ([facility]) [address] [place], [address], 09/28/2024 08:25:22 09/28/19 25 09/28/2024 CBC WITH DIFFE RENTI AL/PL ATELE T lymphs (absolute) 1.2 x10e3 /uL 0.7-3. 1 normal Not Available [facility] ([facility]) [address] [place], [address], 09/28/2024 08:25:22 09/28/19 25 09/28/2024 CBC WITH DIFFE RENTI AL/PL ATELE T monocytes(ab solute) 0.6 x10e3 /uL 0.1-0. 9 normal Not Available [facility] ([facility]) [address] [place], [address], 09/28/2024 08:25:22 09/28/19 25 09/28/2024 CBC WITH DIFFE RENTI AL/PL ATELE T eos (absolute) 0.1 x10e3 /uL 0.0-0. 4 normal Not Available [facility] ([facility]) [address] [place], [address], 09/28/2024 08:25:22 09/28/19 25 09/28/2024 CBC WITH DIFFE RENTI AL/PL ATELE T baso (absolute) 0.0 x10e3 /uL 0.0-0. 2 normal Not Available [facility] ([facility]) [address] [place], [address], 09/28/2024 08:25:22 09/28/19 25 09/28/2024 CBC WITH DIFFE RENTI AL/PL ATELE T immature granulocytes 0 % not estab. Not Available [facility] ([facility]) [address] [facility], [place], [address], 09/28/2024 08:25:22 09/28/19 25 09/28/2024 CBC WITH DIFFE RENTI AL/PL ATELE T immature grans (abs) 0.0 x10e3 /uL 0.0-0. 1 Not Available [facility] ([facility]) [address] [facility], [place], [address], 09/28/2024 08:25:22 09/28/19 25 09/28/2024 CBC WITH DIFFE RENTI AL/PL ATELE T NRBC GIS SOFTWARE DEVELOPER Not Available [facility] ([facility]) [address] [facility], [place], [address], 09/28/2024 08:25:22 09/28/19 25 09/28/2024 CBC WITH DIFFE RENTI AL/PL ATELE T hematology comments: GIS SOFTWARE DEVELOPER Not Available [facility] ([facility]) [address] [facility], [place], [address], 09/28/2024 08:25:22 09/28/19 25 09/28/2024 COMP. METAB OLIC PANEL (14) glucose 76 mg/dL 70-99 normal Not Available [facility] ([facility]) [address] [place], [address], 09/28/2024 08:25:23 09/28/19 25 09/28/2024 COMP. METAB OLIC PANEL (14) BUN 5 mg/dL 8-27 below low normal Not Available [facility] ([facility]) [address] [place], [address], 09/28/2024 08:25:23 09/28/19 25 09/28/2024 COMP. METAB OLIC PANEL (14) creatinine 0.84 mg/dL 0.57-1 .00 normal Not Available [facility] ([facility]) [address] [place], [address], 09/28/2024 08:25:23 09/28/19 25 09/28/2024 COMP. METAB OLIC PANEL (14) eGFR 80 mL/mi n/1.7 3 >59 normal Not Available [facility] ([facility]) [address] [facility] [place], [address], 09/28/2024 08:25:23 09/28/19 25 09/28/2024 COMP. METAB OLIC PANEL (14) BUN/creatini ne ratio 6 12-28 below low normal Not Available [facility] ([facility]) [address] [facility] [place], [address], 09/28/2024 08:25:23 09/28/19 25 09/28/2024 COMP. METAB OLIC PANEL (14) sodium 137 mmol/ L 134-14 4 normal Not Available [facility] ([facility]) [address] [place], [address], 09/28/2024 08:25:23 09/28/19 25 09/28/2024 COMP. METAB OLIC PANEL (14) potassium 4.1 mmol/ L 3.5-5. 2 normal Not Available [facility] ([facility]) [address] [place], [address], 09/28/2024 08:25:23 09/28/19 25 09/28/2024 COMP. METAB OLIC PANEL (14) chloride 94 mmol/ L 96-106 below low normal Not Available [facility] ([facility]) [address] [place], [address], 09/28/2024 08:25:23 09/28/19 25 09/28/2024 COMP. METAB OLIC PANEL (14) carbon dioxide, total 24 mmol/ L 20-29 normal Not Available [facility] ([facility]) [address] [place], [address], 09/28/2024 08:25:23 09/28/19 25 09/28/2024 COMP. METAB OLIC PANEL (14) calcium 8.8 mg/dL 8.7-10 .3 normal Not Available [facility] ([facility]) [address] [facility] [place], [address], 09/28/2024 08:25:23 09/28/19 25 09/28/2024 COMP. METAB OLIC PANEL (14) protein, total 6.3 g/dL 6.0-8. 5 normal Not Available [facility] ([facility]) [address] [facility] [place], [address], 09/28/2024 08:25:23 09/28/19 25 09/28/2024 COMP. METAB OLIC PANEL (14) albumin 4.2 g/dL 3.8-4. 9 normal Not Available [facility] ([facility]) [address] [facility], [place], [address], 09/28/2024 08:25:23 09/28/19 25 09/28/2024 COMP. METAB OLIC PANEL (14) globulin, total 2.1 g/dL 1.5-4. 5 Not Available [facility] ([facility]) [address] [facility] [place], [address], 09/28/2024 08:25:23 09/28/19 25 09/28/2024 COMP. METAB OLIC PANEL (14) bilirubin, total 0.5 mg/dL 0.0-1. 2 normal Not Available [facility] ([facility]) [address] [facility] [place], [address], 09/28/2024 08:25:23 09/28/19 25 09/28/2024 COMP. METAB OLIC PANEL (14) alkaline phosphatase 66 IU/L 44-121 normal Not Available [facility] ([facility]) [address] [facility] [place], [address], 09/28/2024 08:25:23 09/28/19 25 09/28/2024 COMP. METAB OLIC PANEL (14) AST (SGOT) 75 IU/L 0-40 above high normal Not Available [facility] ([facility]) [address] [place], [address], 09/28/2024 08:25:23 09/28/19 25 09/28/2024 COMP. METAB OLIC PANEL (14) ALT (SGPT) 26 IU/L 0-32 normal Not Available [facility] ([facility]) [address] [place], [address], 09/28/2024 08:25:23 09/28/19 25 09/28/2024 LIPID PANEL cholesterol, total 212 mg/dL 100-19 9 above high normal Not Available [facility] ([facility]) [address] [place], [address], 09/28/2024 08:25:23 09/28/19 25 09/28/2024 LIPID PANEL triglyceride s 73 mg/dL 0-149 normal Not Available [facility] ([facility]) [address] [place], [address], 09/28/2024 08:25:23 09/28/19 25 09/28/2024 LIPID PANEL HDL cholesterol 146 mg/dL >39 normal Not Available [facility] ([facility]) [address] [place], [address], 09/28/2024 08:25:23 09/28/19 25 09/28/2024 LIPID PANEL VLDL cholesterol josé antonio 13 mg/dL 5-40 Not Available [facility] ([facility]) [address] [place], [address], 09/28/2024 08:25:23 09/28/19 25 09/28/2024 LIPID PANEL LDL chol calc ([facility]) 53 mg/dL 0-99 Not Available [facility] ([facility]) [address] [place], [address], 09/28/2024 08:25:23 09/28/19 25 09/28/2024 LIPID PANEL LDL calc comment: GIS SOFTWARE DEVELOPER Not Available [facility] ([facility]) [address] [facility], [place], [address], 09/28/2024 08:25:23 09/28/19 25 09/28/2024 VITAM IN D, 25-HY DROXY vitamin D, 25-hydroxy 57.0 NG/mL 30.0-1 00.0 Vitam in D defic iency has been defin ed by the Insti tute of Medic ine and an Endoc rine Socie ty pract ice guide line as a level of serum 25-OH vitam in D less than 20 ng/mL (1,2) . The Endoc rine Socie ty went on to furth er defin e vitam in D insuf ficie ncy as a level betwe en 21 and 29 ng/mL (2). 1. IOM (Inst itute of Medic ine). 2010. Dieta ry refer ence intak es for calci um and D. Ivory morillo [place]: The [facility] . 2. Esdras dickens [place], Sierra scruggs [place], Jose Martin off-F errar i VANEGAS, et al. Evalu ation , treat ment, and preve ntion of vitam in D defic iency : an Endoc rine Socie ty clini josé antonio pract ice guide line. JCEM. 2010; 96(7) :1911 -30. Not Available [facility] ([facility]) [address] [facility], [place], [address], 09/28/2024 08:25:24 09/28/19 25 09/28/2024 MAGNE SIUM magnesium 2.0 mg/dL 1.6-2. 3 normal Not Available [facility] ([facility]) [address] [facility], [place], [address], 09/28/2024 08:25:25 03/28/20 25 03/29/2025 TSH+F REE T4 TSH 0.038 uIU/m L 0.450- 4.500 below low normal Not Available [facility] ([facility]) [address] [facility], [place], [address], 03/29/2025 13:11:10 03/28/20 25 03/29/2025 TSH+F REE T4 T4,free(dire ct) 1.99 NG/dL 0.82-1 .77 above high normal Not Available [facility] ([facility]) [address] [facility], [place], [address], 03/29/2025 13:11:10 03/28/20 25 03/29/2025 CBC WITH DIFFE RENTI AL/PL ATELE T WBC COMMEN T x10e3 /uL Test not perfo rmed. No laven harvey top tube submi tted. Not Available [facility] ([facility]) [address] [facility], [place], [address], 03/29/2025 13:11:11 03/28/20 25 03/29/2025 CBC WITH DIFFE RENTI AL/PL ATELE T RBC TNP Test not perfo rmed Not Available [facility] ([facility]) [address] [place], [address], 03/29/2025 13:11:11 03/28/20 25 03/29/2025 CBC WITH DIFFE RENTI AL/PL ATELE T hemoglobin TNP Test not perfo rmed Not Available [facility] ([facility]) [address] [place], [address], 03/29/2025 13:11:11 03/28/20 25 03/29/2025 CBC WITH DIFFE RENTI AL/PL ATELE T hematocrit TNP Test not perfo rmed Not Available [facility] ([facility]) [address] [place], [address], 03/29/2025 13:11:11 03/28/20 25 03/29/2025 CBC WITH DIFFE RENTI AL/PL ATELE T MCV GIS SOFTWARE DEVELOPER Not Available [facility] ([facility]) [address] [facility], [place], [address], 03/29/2025 13:11:11 03/28/20 25 03/29/2025 CBC WITH DIFFE RENTI AL/PL ATELE T MCH GIS SOFTWARE DEVELOPER Not Available [facility] ([facility]) [address] [facility], [place], [address], 03/29/2025 13:11:11 03/28/20 25 03/29/2025 CBC WITH DIFFE RENTI AL/PL ATELE T MCHC GIS SOFTWARE DEVELOPER Not Available [facility] ([facility]) [address] [facility], [place], [address], 03/29/2025 13:11:11 03/28/20 25 03/29/2025 CBC WITH DIFFE RENTI AL/PL ATELE T RDW GIS SOFTWARE DEVELOPER Not Available [facility] ([facility]) [address] [facility], [place], [address], 03/29/2025 13:11:11 03/28/20 25 03/29/2025 CBC WITH DIFFE RENTI AL/PL ATELE T platelets TNP Test not perfo rmed Not Available [facility] ([facility]) [address] [facility], [place], [address], 03/29/2025 13:11:11 03/28/20 25 03/29/2025 CBC WITH DIFFE RENTI AL/PL ATELE T neutrophils TNP Test not perfo rmed Not Available [facility] ([facility]) [address] [facility], [place], [address], 03/29/2025 13:11:11 03/28/20 25 03/29/2025 CBC WITH DIFFE RENTI AL/PL ATELE T lymphs TNP Test not perfo rmed Not Available [facility] ([facility]) [address] [facility], [place], [address], 03/29/2025 13:11:11 03/28/20 25 03/29/2025 CBC WITH DIFFE RENTI AL/PL ATELE T monocytes TNP Test not perfo rmed Not Available [facility] ([facility]) [address] [facility], [place], [address], 03/29/2025 13:11:11 03/28/20 25 03/29/2025 CBC WITH DIFFE RENTI AL/PL ATELE T eos TNP Test not perfo rmed Not Available [facility] ([facility]) [address] [facility], [place], [address], 03/29/2025 13:11:11 03/28/20 25 03/29/2025 CBC WITH DIFFE RENTI AL/PL ATELE T basos GIS SOFTWARE DEVELOPER Not Available [facility] ([facility]) [address] [facility], [place], [address], 03/29/2025 13:11:11 03/28/20 25 03/29/2025 CBC WITH DIFFE RENTI AL/PL ATELE T immature cells GIS SOFTWARE DEVELOPER Not Available [facility] ([facility]) [address] [place], [address], 03/29/2025 13:11:11 03/28/20 25 03/29/2025 CBC WITH DIFFE RENTI AL/PL ATELE T neutrophils (absolute) GIS SOFTWARE DEVELOPER Not Available [facility] ([facility]) [address] [place], [address], 03/29/2025 13:11:11 03/28/20 25 03/29/2025 CBC WITH DIFFE RENTI AL/PL ATELE T lymphs (absolute) TNP Test not perfo rmed Not Available [facility] ([facility]) [address] [place], [address], 03/29/2025 13:11:11 03/28/20 25 03/29/2025 CBC WITH DIFFE RENTI AL/PL ATELE T monocytes(ab solute) GIS SOFTWARE DEVELOPER Not Available [facility] ([facility]) [address] [facility], [place], [address], 03/29/2025 13:11:11 03/28/20 25 03/29/2025 CBC WITH DIFFE RENTI AL/PL ATELE T eos (absolute) TNP Test not perfo rmed Not Available [facility] ([facility]) [address] [facility], [place], [address], 03/29/2025 13:11:11 03/28/20 25 03/29/2025 CBC WITH DIFFE RENTI AL/PL ATELE T baso (absolute) TNP Test not perfo rmed Not Available [facility] ([facility]) [address] [facility], [place], [address], 03/29/2025 13:11:11 03/28/20 25 03/29/2025 CBC WITH DIFFE RENTI AL/PL ATELE T immature granulocytes GIS SOFTWARE DEVELOPER Not Available [facility] ([facility]) [address] [facility], [place], [address], 03/29/2025 13:11:11 03/28/20 25 03/29/2025 CBC WITH DIFFE RENTI AL/PL ATELE T immature grans (abs) GIS SOFTWARE DEVELOPER Not Available [facility] ([facility]) [address] [facility], [place], [address], 03/29/2025 13:11:11 03/28/20 25 03/29/2025 CBC WITH DIFFE RENTI AL/PL ATELE T NRBC GIS SOFTWARE DEVELOPER Not Available [facility] ([facility]) [address] [facility], [place], [address], 03/29/2025 13:11:11 03/28/20 25 03/29/2025 CBC WITH DIFFE RENTI AL/PL ATELE T hematology comments: GIS SOFTWARE DEVELOPER Not Available [facility] ([facility]) [address] [place], [address], 03/29/2025 13:11:11 03/28/20 25 03/29/2025 COMP. METAB OLIC PANEL (14) glucose 84 mg/dL 70-99 normal Not Available [facility] ([facility]) [address] [place], [address], 03/29/2025 13:11:11 03/28/20 25 03/29/2025 COMP. METAB OLIC PANEL (14) BUN 12 mg/dL 8-27 normal Not Available [facility] ([facility]) [address] [facility] [place], [address], 03/29/2025 13:11:11 03/28/20 25 03/29/2025 COMP. METAB OLIC PANEL (14) creatinine 0.76 mg/dL 0.57-1 .00 normal Not Available [facility] ([facility]) [address] [place], [address], 03/29/2025 13:11:11 03/28/20 25 03/29/2025 COMP. METAB OLIC PANEL (14) eGFR 89 mL/mi n/1.7 3 >59 normal Not Available [facility] ([facility]) [address] [place], [address], 03/29/2025 13:11:11 03/28/20 25 03/29/2025 COMP. METAB OLIC PANEL (14) BUN/creatini ne ratio 16 12-28 normal Not Available [facility] ([facility]) [address] [place], [address], 03/29/2025 13:11:11 03/28/20 25 03/29/2025 COMP. METAB OLIC PANEL (14) sodium 138 mmol/ L 134-14 4 normal Not Available [facility] ([facility]) [address] [place], [address], 03/29/2025 13:11:11 03/28/20 25 03/29/2025 COMP. METAB OLIC PANEL (14) potassium 4.3 mmol/ L 3.5-5. 2 normal Not Available [facility] ([facility]) [address] [facility] [place], [address], 03/29/2025 13:11:11 03/28/20 25 03/29/2025 COMP. METAB OLIC PANEL (14) chloride 98 mmol/ L 96-106 normal Not Available [facility] ([facility]) [address] [facility] [place], [address], 03/29/2025 13:11:11 03/28/20 25 03/29/2025 COMP. METAB OLIC PANEL (14) carbon dioxide, total 22 mmol/ L 20-29 normal Not Available [facility] ([facility]) [address] [facility], [place], [address], 03/29/2025 13:11:11 03/28/20 25 03/29/2025 COMP. METAB OLIC PANEL (14) calcium 9.3 mg/dL 8.7-10 .3 normal Not Available [facility] ([facility]) [address] [facility] [place], [address], 03/29/2025 13:11:11 03/28/20 25 03/29/2025 COMP. METAB OLIC PANEL (14) protein, total 7.2 g/dL 6.0-8. 5 normal Not Available [facility] ([facility]) [address] [facility] [place], [address], 03/29/2025 13:11:11 03/28/20 25 03/29/2025 COMP. METAB OLIC PANEL (14) albumin 4.7 g/dL 3.9-4. 9 normal Not Available [facility] ([facility]) [address] [facility] [place], [address], 03/29/2025 13:11:11 03/28/20 25 03/29/2025 COMP. METAB OLIC PANEL (14) globulin, total 2.5 g/dL 1.5-4. 5 Not Available [facility] ([facility]) [address] [facility], [place], [address], 03/29/2025 13:11:11 03/28/20 25 03/29/2025 COMP. METAB OLIC PANEL (14) bilirubin, total 0.7 mg/dL 0.0-1. 2 normal Not Available [facility] ([facility]) [address] [facility], [place], [address], 03/29/2025 13:11:11 03/28/20 25 03/29/2025 COMP. METAB OLIC PANEL (14) alkaline phosphatase 63 IU/L 44-121 normal Eff ectiv e Septe mber 2024 Alkal ine Phosp hatas e refer ence inter javon will be aguero ing to: Age Male Femal e 0 - 5 days 47 - 127 47 - 127 6 - 10 days 29 - 242 29 - 242 11 - 20 days 109 - 357 109 - 357 21 - 30 days 94 - 494 94 - 494 1 - 2 month s 149 - 539 149 - 539 3 - 6 month s 131 - 452 131 - 452 7 - 11 month s 117 - 401 117 - 401 12 month s - 6 years 158 - 369 158 - 369 7 - 12 years 150 - 409 150 - 409 13 years 156 - 435 78 - 227 14 years 114 - 375 64 - 161 15 years 88 - 279 56 - 134 16 years 74 - 207 51 - 121 17 years 63 - 161 47 - 113 18 - 20 years 51 - 125 42 - 106 21 - 50 years 47 - 123 41 - 116 51 - 80 years 49 - 135 51 - 125 >80 years 48 - 129 48 - 129 Not Available [facility] ([facility]) [address] [facility], [place], [address], 03/29/2025 13:11:11 03/28/20 25 03/29/2025 COMP. METAB OLIC PANEL (14) AST (SGOT) 126 IU/L 0-40 above high normal Not Available [facility] ([facility]) [address] [facility], [place], [address], 03/29/2025 13:11:11 03/28/20 25 03/29/2025 COMP. METAB OLIC PANEL (14) ALT (SGPT) 53 IU/L 0-32 above high normal Not Available [facility] ([facility]) [address] [facility], [place], [address], 03/29/2025 13:11:11 03/28/20 25 03/29/2025 LIPID PANEL cholesterol, total 216 mg/dL 100-19 9 above high normal Not Available [facility] ([facility]) [address] [facility] [place], [address], 03/29/2025 13:11:12 03/28/20 25 03/29/2025 LIPID PANEL triglyceride s 67 mg/dL 0-149 normal Not Available [facility] ([facility]) [address] [place], [address], 03/29/2025 13:11:12 03/28/20 25 03/29/2025 LIPID PANEL HDL cholesterol 145 mg/dL >39 normal Not Available [facility] ([facility]) [address] [place], [address], 03/29/2025 13:11:12 03/28/20 25 03/29/2025 LIPID PANEL VLDL cholesterol josé antonio 12 mg/dL 5-40 Not Available [facility] ([facility]) [address] [place], [address], 03/29/2025 13:11:12 03/28/20 25 03/29/2025 LIPID PANEL LDL chol calc ([facility]) 59 mg/dL 0-99 Not Available [facility] ([facility]) [address] [place], [address], 03/29/2025 13:11:12 03/28/20 25 03/29/2025 LIPID PANEL LDL calc comment: GIS SOFTWARE DEVELOPER Not Available [facility] ([facility]) [address] [place], [address], 03/29/2025 13:11:12 03/28/20 25 03/29/2025 VITAM IN D, 25-HY DROXY vitamin D, 25-hydroxy 29.1 NG/mL 30.0-1 00.0 below low normal Vitam in D defic iency has been defin ed by the Insti tute of Medic ine and an Endoc rine Socie ty pract ice guide line as a level of serum 25-OH vitam in D less than 20 ng/mL (1,2) . The Endoc rine Socie ty went on to furth er defin e vitam in D insuf ficie ncy as a level betwe en 21 and 29 ng/mL (2). 1. IOM (Inst itute of Medic ine). 2009. Dieta ry refer ence intak es for calci um and D. Ivory morillo [place]: The [facility] Press . 2. Esdras dickens MF, Sierra scruggs [place], Jose Martin off-F errar i VANEGAS, et al. Evalu ation , treat ment, and preve ntion of vitam in D defic iency : an Endoc rine Socie ty clini josé antonio pract ice guide line. JCEM. 2010; 96(7) :1911 -30. Not Available [facility] ([facility]) [address] [place], [address], 03/29/2025 13:11:12 03/28/20 25 03/29/2025 MAGNE SIUM magnesium 2.0 mg/dL 1.6-2. 3 normal Not Available [facility] ([facility]) [address] [place], [address], 03/29/2025 13:11:13 03/28/2003/29/2025 TRIIO DOTHY BENSON E (T3), FREE triiodothyro nine (T3), free 3.3 pg/mL 2.0-4. 4 normal Not Available [facility] ([facility]) [address] [place], [address], 03/29/2025 13:11:13 03/28/2003/29/2025 PTH, INTAC T PTH, intact 141 pg/mL 15-65 above high normal Not Available [facility] ([facility]) [address], [place], [address], 03/29/2025 13:11:13 05/16/20 elect rocar diogr am No observ ation record ed. HUBERT M[place] [address] [facility] [address], [place], [address], 05/17/2025 11:31:46 05/17/20 elect rocar diogr am No observ ation record ed. [email or web address] Not Available 2024 11:38:44 05/18/2005/17/2025 DEXA, axial skele ton + verte bral fract ure asses sment [facility] Name: LESLIE GRESH[facility] Phys: Christal cormier MD, [place] [address] : 1965 Age: 59 Sex: F Acct: [id number] Loc: CADEN PHONE #: [phone] Exam Date: 2024 Status : DEP CLI FAX #: [phone] Rad# [id number] Unit# [id number] Admit Date: 2024 EXAMS: CPT CODE: [id number] DEXA BONE DENSIT Y WITH VFA 24319 EXAMIN ATION: DUAL X-RAY ABSORP TIOMET RY (DXA) FOR BONE MINERA L DENSIT Y. CLINIC AL INDICA TION: Osteop orosis . CLINIC AL HISTOR Y: 59 years old, Female . Postme nopaus al. TECHNI QUE: An axial (e.g., hips, spine) and/or append icular (e.g., radius ) exam was perfor med, as approp riate, using GE Lunar Prodig y densit ometer . Images are obtain ed for bone minera l densit y measur ement and are not obtain ed for diagno stic purpos es. RPMVT0 2 Verteb ral fractu re assess ment was perfor med. COMPAR KEATON: 2023. FINDIN GS: Scan qualit y: Good. LUMBAR SPINE (L1-L4 ): BMD (in g/cm*2 ): 0.826. T-scor e: -3.0. Z-scor e: -1.7. No signif icant rate of change from previo us exam. LEFT FEMORA L NECK: BMD (in g/cm*2 ): 0.751. T-scor e: -2.1. Z-scor e: -0.8. No signif icant rate of change from previo us exam. RIGHT FEMORA L NECK: BMD (in g/cm*2 ): 0.735. T-scor e: -2.2. Z-scor e: -0.9. No signif icant rate of change from previo us exam. FRAX 10-YEA R PROBAB ILITY OF FRACTU RE: 10-yea r fractu re risk is perfor med using the [employer] FRAX calcul ator based on patien t-repo rted risk factor s. Major osteop orotic fractu re: 15.2%. Hip fractu re: 2.7%. VERTEB RAL FRACTU RE ASSESS MENT: Verteb ral fractu re assess ment from T4-L4 is perfor med using Genant PAGE 1 Signed Report (SHELLI NUED) [facility] Name: LESLIE GRESHAM [address] [facility] Phys: Christal cormier MD, [place] [facility] [address] : 1965 Age: 59 Sex: F Acct: [id number] Loc: G.RAD PHONE #: Exam Date: 2024 Status : DEP CLI FAX #: Rad# [id number] Unit# [id number] Admit Date: 2024 EXAMS: CPT CODE: [id number] DEXA BONE DENSIT Y WITH VFA 97045 visual semi-q uantit ative method . No fractu re is identi fied. IMPRES ROSI: Osteop orosis based on BMD. World Health Organi zation criter ia for BMD impres rosi classi fy patien ts as: - Normal (T-sco re at or above -1.0). - Osteop enia (T-sco re betwee n -1.0 and -2.5). - Osteop orosis (T-sco re at or below -2.5). Per the Bone Health and Osteop orosis Founda tion the FRAX tool is most useful in patien ts with low femora l neck bone minera l densit y (osteo penia) . FRAX is calcul ated per reques t. RECOMM ENDATI ONS: 1. All patien ts should optimi ze their calciu m and vitami n D intake . 2. Consid er FDA-ap proved medica l therap ies in postme nopaus al women and men aged 50 years and older, based on the follow ing: - A hip or verteb ral (clini josé antonio or morpho metric ) fractu re. - T-scor e less than or equal to -2.5 at the femora l neck or spine after approp riate evalua tion to exclud e second tobias causes . - Low bone densit y (T-sco re betwee n -1.0 and -2.5 at the femora l neck or spine) and a 10-yea r probab ility of a hip fractu re greate r than or equal to 3% or a 10-yea r probab ility of a major osteop orosis -relat ed fractu re greate r than or equal to 20% based on FRAX calcul ation. - Clinic janette judgme nt and/or patien t prefer ences may indica te treatm ent for people with 10-yea r fractu re probab ilitie s above or below these levels . - Rosa ewing on treatm ent can be found at the [facility] al Osteop orosis Founda tion's websit e boneso urce.o rg. 3. Patien ts with diagno sis of osteop orosis or at high risk for fractu re should have regula r bone minera l densit y tests. For patien ts eligib le for Medica re, routin e testin g is allowe d once every 2 years. The testin g freque ncy can be increa sed to one year for patien ts who have rapidl y progre ssing diseas e, those who are receiv ing or discon tinuin g medica l therap y to restor e bone mass or have additi onal risk factor s. Electr onical ly signed by: Nusrat Lopes MD 2024 02:57 PM EDT RP Workst ation: [id number] PAGE 2 Signed Report (SHELLI NUED) [facility] Name: LESLIE GRESHAM [facility] Phys: Christal [place]orm[place], [place] [address] : 1965 Age: 59 Sex: F Acct: [id number] Loc: [facility]zo.RAD PHONE #: [phone] Exam Date: 2024 Status : DEP CLI FAX #: [phone] Rad# [id number] Unit# [id number] Admit Date: 2024 EXAMS: CPT CODE: [id number] DEXA BONE DENSIT Y WITH VFA 66455 Electr onical ly Signed by NUSRAT LOPES on 2024 at 1248 Report ed and signed by: Ct LOPES CC: [place] cormier MD Dictat ed Date/T willy: 2024 (1248) Techno logist : ESTEBAN QUEVEDO RT(R)( M)(CT) (MR) Transc ribed Date/T willy: 2024 (1248) Transc riptio nist: DR.BUC MOISE Electr onic Signat ure Date/T willy: 2024 (1248) Printe d Date/T willy: 2024 (1500) BATCH NO: N/A PAGE 3 Signed Report CC'ed Logic: Orderi ng Provid er: CHRISTAL CHOI Attend ing Provid er: CHRISTAL CHOI Referr ing Provid er: CHRISTAL CHOI Consul ting Provid er: CHRISTAL CHOI [id number] [place] [address] [place], [address], 05/21/2025 12:59:51 Result Notes Documentation Provider Name and Address Organization Details Recorded Time Dexa, Axial Skeleton + Vertebral Fracture Assessment : [facility] Ce Name: KRISTIN GRESHAM [address] [place] [address] Drive Phys: Beverley RICHARD, [place] [address] : 1965 Age: 59 Sex: F Acct: [id number] Loc: CADEN PHONE #: Exam Date: 05/17/2025 Status: DEP CLI FAX #: Rad# [id number] Unit# [id number] Admit Date: 05/17/2025 EXAMS: CPT CODE: [id number] DEXA BONE DENSITY WITH VFA 35978 EXAMINATION: DUAL X-RAY ABSORPTIOMETRY (DXA) FOR BONE MINERAL DENSITY. CLINICAL INDICATION: Osteoporosis. CLINICAL HISTORY: 59 years old, Female. Postmenopausal. TECHNIQUE: An axial (e.g., hips, spine) and/or appendicular (e.g., radius) exam was performed, as appropriate, using Holidog densitometer. Images are obtained for bone mineral density measurement and are not obtained for diagnostic purposes. [id number] Vertebral fracture assessment was performed. COMPARISON: 05/11/2024. FINDINGS: Scan quality: Good. LUMBAR SPINE (L1-L4): BMD (in g/cm*2): 0.826. T-score: -3.0. Z-score: -1.7. No significant rate of change from previous exam. LEFT FEMORAL NECK: BMD (in g/cm*2): 0.751. T-score: -2.1. Z-score: -0.8. No significant rate of change from previous exam. RIGHT FEMORAL NECK: BMD (in g/cm*2): 0.735. T-score: -2.2. Z-score: -0.9. No significant rate of change from previous exam. FRAX 10-YEAR PROBABILITY OF FRACTURE: 10-year fracture risk is performed using the [employer] FRAX calculator based on patient-reported risk factors. Major osteoporotic fracture: 15.2%. Hip fracture: 2.7%. VERTEBRAL FRACTURE ASSESSMENT: Vertebral fracture assessment from T4-L4 is performed using Genant PAGE 1 Signed Report (CONTINUED) [facility] Ce Name: KRISTIN GRESHAM [address] [place] [address] Phys: Beverley RICHARD, [place] [address] : 1965 Age: 59 Sex: F Acct: [id number] Loc: CADEN PHONE #: Exam Date: 05/17/2025 Status: DEP CLI FAX #: Rad# [id number] Unit# [id number] Admit Date: 05/17/2025 EXAMS: CPT CODE: [id number] DEXA BONE DENSITY WITH VFA 56371 visual semi-quantitative method. No fracture is identified. IMPRESSION: Osteoporosis based on BMD. World Health Organization criteria for BMD impression classify patients as: - Normal (T-score at or above -1.0). - Osteopenia (T-score between -1.0 and -2.5). - Osteoporosis (T-score at or below -2.5). Per the Bone Health and Osteoporosis Foundation the FRAX tool is most useful in patients with low femoral neck bone mineral density (osteopenia). FRAX is calculated per request. RECOMMENDATIONS: 1. All patients should optimize their calcium and vitamin D intake. 2. Consider FDA-approved medical therapies in postmenopausal women and men aged 50 years and older, based on the following: - A hip or vertebral (clinical or morphometric) fracture. - T-score less than or equal to -2.5 at the femoral neck or spine after appropriate evaluation to exclude secondary causes. - Low bone density (T-score between -1.0 and -2.5 at the femoral neck or spine) and a 10-year probability of a hip fracture greater than or equal to 3% or a 10-year probability of a major osteoporosis-related fracture greater than or equal to 20% based on FRAX calculation. - Clinician judgment and/or patient preferences may indicate treatment for people with 10-year fracture probabilities above or below these levels. - Further guidance on treatment can be found at the National Osteoporosis Foundation's website bonesource.org. 3. Patients with diagnosis of osteoporosis or at high risk for fracture should have regular bone mineral density tests. For patients eligible for Medicare, routine testing is allowed once every 2 years. The testing frequency can be increased to one year for patients who have rapidly progressing disease, those who are receiving or discontinuing medical therapy to restore bone mass or have additional risk factors. Electronically signed by: Nusrat Lopes MD 05/18/2025 02:57 PM EDT PAGE 2 Signed Report (CONTINUED) [facility] Ce Name: KRISTIN GRESHAM [address] [place] [address] Phys: [place] [address] : 1965 Age: 59 Sex: F Acct: [id number] Loc: G.RAD PHONE #: Exam Date: 05/17/2025 Status: DEP CLI FAX #: Rad# [id number] Unit# [id number] Admit Date: 05/17/2025 EXAMS: CPT CODE: [id number] DEXA BONE DENSITY WITH VFA 28976 at 1248 Reported and signed by: NUSRAT LOPES CC: [place] Shea MD Dictated Date/Time: 05/17/2025 (1248) Technologist: ESTEBAN QUEVEDO RT(R)(M)(CT)(MR) Transcribed Date/Time: 05/17/2025 (1248) Band Saw Operator Cake Cutting: Electronic Signature Date/Time: 05/17/2025 (1248) Printed Date/Time: 05/18/2025 (1500) BATCH NO: N/A PAGE 3 Signed Report CC'ed Logic: Ordering Provider: BEVERLEY CHOI Attending Provider: BEVERLEY CHOI Referring Provider: BEVERLEY CHOI Consulting Provider: GIANNA Andrews - [facility] - [place] & [place] 05/21/2025 12:59:51 Problems Name Problem SNOMED Code Status Onset Date Resolution Date Notes Provider Name and Address Organization Details Recorded Time Vitamin D deficiency 94494766 Active Huong mauro, [facility] [facility] [place] 12:47:37 Gastroesoph ageal reflux disease 701761478 Active 2022 carlos chance null, [place] - [facility] - [place] & [place] 3 13:12:50 Hypothyroid ism 14485328 Active 2022 carlos chance null, [place] - [facility] - [place] & [place] 3 13:13:01 Migraine 85976093 Active 2022 carlos chance null, [place] - [facility] - [place] & [place] 3 13:13:18 Fibromyalgi a 331183576 Active 2022 carlos chance null, [place] - [facility] - [place] & [place] 3 13:17:25 Chronic pain 76411483 Active 2022 carlos chance null, [place] - [facility] - [place] & [place] 3 13:17:36 Osteoarthri tis of multiple joints 252755722 Active 2022 carlos chance null, [place] - [facility] - [place] & [place] 3 13:17:52 Lumbar radiculopat hy 787608567 Active 2022 Acute right carlos chance null, [place] - [facility] - [place] & [place] 3 13:18:19 Bypass of stomach Active 2022 carlos chance null, [place] - [facility] - [place] & [place] 3 13:18:44 Electrocard iogram abnormal 805645033 Active 2022 Altaf Thomas MD [address] [place] [address],[address], [address], [place] - [facility] - [place] & [place] 3 12:04:32 Essential hypertensio n 66946876 Active 2022 Altaf Thomas MD [address] [place] [address],[address], [place], [address], [place] - [facility] - [place] & [place] 3 12:04:38 Mitral valve regurgitati on 60818753 Active 2022 Altaf Thomas MD [address] [place] [address],[address], [place], [address], [place] - [facility] - [place] & [place] 3 12:05:11 Acquired hypothyroid ism 395246084 Active [address], MD [address] [place] [address],[address], [place], [address], [place] - [facility] - [place] & [place] 3 16:33:03 Liver mass 640686863 Active [address], MD [address] [place] [address],[address], [place], [address], [place] - [facility] - [place] & [place] 4 16:28:06 Osteoporosi s 36790345 Active [address], MD [address] [place] [address],[address], [place], [address], [place] [facility] - [place] & [place] 5 16:53:41 Standardize d adult depression screening tool completed [id number] 07 Active [address], MD [address] [place] [address],[address], [place], [address], [place] [facility] [place] & [place] 5 16:57:08 Moderate major depression 527116 Active [address], MD [address] [place] [address],[address], [place], [address], [place] [facility] [place] & [place] 4 15:15:35 Atrophy of thyroid - acquired 048648580 Active [address], MD [address] [place] [address],[address], [place], [address], [place] [facility] [place] & [place] 5 16:06:04 Disorder of sleep-wake cycle 307630967 Active [address], MD [address] [place] [address],[address], [place], [address], [place] [facility] [place] & [place] 5 16:06:17 Generalized osteoarthri tis 144452794 Active [address], MD [address] [place] [address],[address], [address], [place] [facility] & [place] 5 16:06:21 Benign essential hypertensio n 9542762 Active [address], MD [address] [place] [address],[place] [address], [place], [address], [place] [facility] [place] & [place] 5 16:52:39 Dyspnea on exertion 77636205 Active 2024 Altaf Thomas MD [address] [place] [address],[address], [address], [place] [facility] [place] & [place] 5 11:49:26 Problem Notes None recorded. Procedures Surgical History Date Name Laterality Status Provider Name and Address Organization Details Recorded Time 022 Date of Last Pap Smear completed Yoselin KATZ - [facility] - [place] & [place] 03/09/2023 15:16:24 021 Most Recent Bone Density completed Yoselin KATZ - [facility] - [place] & [place] 03/09/2023 15:16:24 017 completed Yoselin KATZ - [facility] - [place] & [place] 03/09/2023 15:16:24 016 Pacemaker/Defibrill ator completed Connie KATZ - [facility] - [place] & [place] 08/24/2022 13:16:16 014 Gastrointestinal Surgery completed Connie KATZ - [facility] - [place] & [place] 08/24/2022 13:16:16 013 Date of Last Colonoscopy completed Yoselin Abraham [facility] - [place] & [place] 03/09/2023 15:16:24 006 Cholecystectomy completed Connie KATZ - [facility] - [place] & [place] 08/24/2022 13:16:16 procedure on hand completed ramon dove chancejefferson BELTRÁN [facility] & [place] 08/13/2022 13:22:13 procedure on knee completed vivfe r chancejefferson BELTRÁN [facility] & [place] 08/13/2022 13:23:21 cholecystectomy completed carlos Abraham [facility] & [place] 08/13/2022 13:23:31 lithotripsy completed carlos BELTRÁN [facility] & [place] 08/13/2022 13:23:51 bypass of stomach completed ramon r chancejefferson Abraham [facility] & [place] 08/13/2022 13:24:01 cardiac pacemaker procedure completed carlos BELTRÁN [facility] & [place] 08/13/2022 13:24:27 surgical procedure completed ugo er chance BELTRÁN [facility] & [place] 08/13/2022 13:25:02 Imaging Results None recorded. Procedure Notes None recorded. Medical Equipment None Reported. Allergies Allergen ID Allergen Name Allergen Category Reaction Reaction Severity Criticality Documentation Date Start Date Code Code System Note Provider Name and Address Organization Details Recorded Time 41875 Anaprox medicatio n Not available Not available Not available 08/13/202282274 9 RxNorm GIANNA gilbert [facility] & [place] 3 13:07:49 67479 Substance with sulfonami de structure and antibacte rial mechanism of action (substanc e) medicatio n Not available Not available Not available 08/13/2022 28941 8003 SNOMED GIANNA gilbert [facility] & [place] 3 13:08:00 45258 acetamino phen / hydrocodo ne medicatio n Not available Not available Not available 08/13/2022 17984 2 RxNorm GIANNA gilbert [facility] & [place] 3 13:08:08 Medications Name Sig Start Date Stop Date Status Note LastModified by Organization Details LastModified Time cyclobenzap rine 10 mg tablet TAKE ONE TABLET BY MOUTH AT BEDTIME active Not Available Not Available No t Available ipratropium 0.5 mg-albutero l 3 mg (2.5 mg base)/3 mL nebulizatio n soln INHALE THE CONTENTS OF 1 VIAL VIA NEBULIZER THREE TIMES DAILY NEEDED 02/21 completed Not Available Not Available Not Available trazodone 50 mg tablet Take 1 tablet every day by oral route at bedtime for 90 days. 09/27 completed Not Available Not Available Not Available Carafate 1 gram tablet Take 1 tablet 4 times a day by oral route before meals for 90 days. 2024 active Not Available Not Available Not Avai lable cetirizine 10 mg tablet TAKE TWO TABLETS BY MOUTH EVERY DAY FOR itchy RASH active Not Available Not Available No t Available azithromyci n 250 mg tablet TAKE 2 TABLETS TODAY, THEN TAKE 1 TABLET EVERY DAY FOR 4 DAYS 09/06 completed Not Available Not Available Not Available metoprolol succinate ER 50 mg tablet,exte nded release 24 hr TAKE ONE TABLET BY MOUTH EVERY DAY DIRECTED 02/27 completed Not Available Not Available Not Available prednisone 20 mg tablet TAKE ONE TABLET BY MOUTH TWICE DAILY FOR 5 DAYS 09/06 completed Not Available Not Available Not Available metoprolol succinate ER 100 mg tablet,exte nded release 24 hr TAKE ONE TABLET BY MOUTH AT BEDTIME active Not Available Not Available No t Available prednisone 5 mg tablet TAKE THREE TABLETS BY MOUTH DAILY FOR 7 DAYS THEN TAKE TWO TABLETS DAILY FOR 7 DAYS, THEN TAKE ONE TABLET DAILY FOR 7 DAYS 09/27 completed Not Available Not Available Not Available Maxalt 10 mg tablet Take 1 tablet every day by oral route as needed for 30 days. 2024 active Not Available Not Available Not Avai lable Nexium 40 mg capsule,del ayed release Take 1 capsule every day by oral route as directed for 90 days. 2024 active Not Available Not Available Not Avai lable doxycycline monohydrate 100 mg tablet TAKE ONE TABLET BY MOUTH TWICE DAILY FOR 10 DAYS -- FINISH ALL MEDICINE -- 05/17 completed Not Available Not Available Not Available tramadol 50 mg tablet TAKE ONE TABLET BY MOUTH EVERY 6 HOURS active Not Available Not Available No t Available triamcinolo ne acetonide 0.1 % topical cream TAKE 1 FREDRICK APPLIED TOPICALLY 3 TIMES A DAY APPLY TO AFFECTED AREA. DO NOT APPLY TO THE FACE. 09/27 completed Not Available Not Available Not Available ondansetron 8 mg disintegrat ing tablet Place 1 tablet twice a day by transling ual route as needed for 30 days. 2024 active Not Available Not Available Not Avai lable cyanocobala min (vit B-12) 1,000 mcg/mL injection solution inject 1ml subcutane ously ONCE WEEKLY active Not Available Not Available No t Available levothyroxi ne 125 mcg tablet TAKE ONE TABLET BY MOUTH EVERY DAY 2024 active Not Available Not Available Not Avai lable losartan 25 mg tablet Take 1 tablet every day by oral route as directed. 09/06 completed Not Available Not Available Not Available metoprolol tartrate 50 mg tablet Take 1 tablet every day by oral route. 09/06 completed Not Available Not Available Not Available folic acid 1 mg tablet Take 1 tablet every day by oral route. 02/27 completed Not Available Not Available Not Available furosemide 20 mg tablet Take 1 tablet every day by oral route as directed for 90 days. 09/27 completed Not Available Not Available Not Available ergocalcife rol (vitamin D2) 1,250 mcg (50,000 unit) capsule TAKE ONE CAPSULE BY MOUTH ONCE WEEKLY active Not Available Not Available No t Available azelastine 137 mcg (0.1 %) nasal spray INSTILL 2 SPRAYS IN EACH NOSTRIL TWICE DAILY active Not Available Not Available No t Available hydroxychlo roquine 200 mg tablet TAKE ONE TABLET BY MOUTH TWICE DAILY 02/27 completed Not Available Not Available Not Available levofloxaci n 500 mg tablet TAKE ONE TABLET BY MOUTH ONCE DAILY FOR 5 DAYS -- FINISH ALL MEDICINE -- 02/21 completed Not Available Not Available Not Available methylpredn isolone 4 mg tablets in a dose pack TAKE ACCORDING TO PACKAGE INSTRUCTI ONS --TAKE WITH FOOD-- -- FINISH ALL MEDICINE -- 09/27 completed Not Available Not Available Not Available albuterol sulfate HFA 90 mcg/actuati on aerosol inhaler INHALE TWO PUFFS BY MOUTH EVERY 4 HOURS active Not Available Not Available No t Available ondansetron 4 mg disintegrat ing tablet DISSOLVE ONE TABLET UNDER THE TONGUE FOR NAUSEA AND VOMITING 03/28 completed Not Available Not Available Not Available cefdinir 300 mg capsule TAKE ONE (1) CAPSULE EVERY 12 HOURS BY ORAL ROUTE FOR 7 DAYS. 02/21 completed Not Available Not Available Not Available fluticasone propionate 50 mcg/actuati on nasal spray,suspe nsion SPRAY ONE (1) SPRAY EVERY DAY BY INTRANASA L ROUTE. active Not Available Not Available No t Available colestipol 1 gram tablet TAKE ONE TABLET BY MOUTH DAILY 03/28 completed Not Available Not Available Not Available levothyroxi ne 112 mcg tablet TAKE ONE TABLET BY MOUTH EVERY DAY active Not Available Not Available No t Available amoxicillin 875 mg-potassiu m clavulanate 125 mg tablet TAKE ONE TABLET BY MOUTH EVERY TWELVE HOURS --TAKE WITH FOOD-- -- FINISH ALL MEDICINE -- 09/27 completed Not Available Not Available Not Available Vitamin B1 100 mg tablet Take 1 mg every day by oral route. 02/27 completed Not Available Not Available Not Available atomoxetine 40 mg capsule TAKE ONE CAPSULE BY MOUTH EVERY DAY 09/06 completed Not Available Not Available Not Available duloxetine 60 mg capsule,del ayed release Take 1 capsule every day by oral route as directed for 90 days. 2024 active Not Available Not Available Not Avai lable budesonide- formoterol HFA 160 mcg-4.5 mcg/actuati on aerosol inhaler INHALE 2 PUFFS BY MOUTH TWICE DAILY NEEDED 02/26 completed Not Available Not Available Not Available desvenlafax ine succinate ER 50 mg tablet,exte nded release 24 hr TAKE ONE TABLET BY MOUTH EVERY DAY 09/06 completed Not Available Not Available Not Available desvenlafax ine succinate ER 100 mg tablet,exte nded release 24 hr TAKE ONE TABLET BY MOUTH EVERY DAY 09/06 completed Not Available Not Available Not Available levothyroxi ne 125 mcg capsule Take 1 capsule every day by oral route for 90 days, for thyroid. 2024 active Not Available Not Available Not Avai lable levothyroxi ne 112 mcg capsule Take 1 capsule every day by oral route in the morning for 90 days. 02/28 completed Not Available Not Available Not Available Vitamin D3 125 mcg (5,000 unit) tablet Take 1 tablet every day by oral route. 02/28 completed OTC Not Available Not Available Not Available Prolia 60 mg/mL subcutaneou s syringe INJECT 1 SYRINGE UNDER THE SKIN ONCE EVERY 6 MONTHS active Not Available Not Available No t Available sodium,pota ssium,mag sulfates 17.5 gram-3.13 gram-1.6 gram oral soln DILUTE AND USE DIRECTED; DRINK FULL AMOUNT BY MOUTH EARLY EVENING BEFORE AND NEXT MORNING AT LEAST 2 HOURS BEFORE PROCEDURE ; FOLLOW WITH 32 OUNCES OF WATER 09/27 completed Not Available Not Available Not Available vilazodone 20 mg tablet TAKE 1/2 TABLET BY MOUTH EVERY DAY FOR 8 DAYS, THEN increase TO 1 TABLET ONCE DAILY THEREAFTE R --TAKE WITH A MEAL/FOOD -- 02/21 completed Not Available Not Available Not Available potassium chloride ER 20 mEq tablet,exte nded release TAKE ONE TABLET BY MOUTH EVERY DAY FOR 3 DAYS 03/28 completed Not Available Not Available Not Available Vraylar 1.5 mg capsule TAKE ONE CAPSULE BY MOUTH EVERY DAY 02/27 completed Not Available Not Available Not Available Vraylar 3 mg capsule TAKE ONE CAPSULE BY MOUTH EVERY DAY 02/27 completed Not Available Not Available Not Available UltiCare Insulin Syringe 1 mL 31 gauge x 1/4 USE ONCE WEEKLY DIRECTED active Not Available Not Available No t Available Aimovig Autoinjecto r 70 mg/mL subcutaneou s auto-inject or INJECT 1 ML UNDER THE SKIN ONCE A MONTH active Not Available Not Available No t Available Imvexxy Maintenance Pack 4 mcg vaginal insert USE DIRECTED twice a WEEK 03/09 completed Not Available Not Available Not Available Vitals Date Recorded Body height Body mass index (BMI) Body weight Body temperature Oxygen saturation Oxygen saturation in Arterial blood by Pulse oximetry Heart rate Respiratory rate Systolic And Diastolic Provider Name and Address Organization Details Last Updated DateTime 5 165.1 cm 17.1 kg/m2 35368.5 8 g 97.9 [degF] 100 % 100 % 65 /min 16 /min 126/82 mm[Hg] [facility] [place] [facility] [place] 5 15:35:57 Date Recorded Body height Body mass index (BMI) Body weight Body temperature Oxygen saturation Oxygen saturation in Arterial blood by Pulse oximetry Heart rate Respiratory rate Systolic And Diastolic Provider Name and Address Organization Details Last Updated DateTime 5 165.1 cm 16.9 kg/m2 78481.9 8 g 97.9 [degF] 98 % 98 % 78 /min 18 /min 134/88 mm[Hg] Fabiana Mccarty [facility] & [place] 15:30:26 Date Recorded Body height Body mass index (BMI) Body weight Oxygen saturation Oxygen saturation in Arterial blood by Pulse oximetry Heart rate Systolic And Diastolic Provider Name and Address Organization Details Last Updated DateTime 5 165.1 cm 17.9 kg/m2 93707.5 4 g 100 % 100 % 90 /min 158/100 mm[Hg] Tika Zurita [facility] & [place] 5 11:31:26 Social History Question Answer Notes LastModified by ActivePath ion Details LastModified Time Tobacco Smoking Status [facility] [place] 08/13/2022 13:21:24 Do You Have An Advance Directive? No [email or web address] Information not available 03/09/2023 Are You Blind Or Do You Have Difficulty Seeing? No [email or web address] Information not available 03/09/2023 What Is Your Level Of Caffeine Consumption? Occasional Information not available 09/06/2023 What Type Of Diet Are You Following? REGULAR Information not available 09/06/2023 Which Illicit Or Recreational Drugs Have You Used? Marijuana Information not available 09/06/2023 What Was The Date Of Your Most Recent Tobacco Screening? 08/07/2024 [email or web address] Information not available 09/27/2024 Are You Passively Exposed To Smoke? Yes [email or web address] Information no t available 08/24/2022 Have You Used IV Drugs? No Information not available 09/06/2023 Sex: Female Functional Status Question Answer Note LastModified by Organizat ion Details LastModified Time Do you use any illicit or recreational drugs? No [email or web address] Information not available 09/27/2024 Do you or have you ever used any other forms of tobacco or nicotine? No Information not available 09/06/2023 What is your level of alcohol consumption? Moderate [email or web address] Information not available 08/13/2022 Do you or have you ever used smokeless tobacco? Never used smokeless tobacco [email or web address] Information not available 08/24/2022 What is your exercise level? None [email or web address] Information not available 08/24/2022 Mental Status Question Answer Note LastModified by Organization D etails LastModified Time Do you feel stressed (tense, restless, nervous, or anxious, or unable to sleep at night)? [id number] [email or web address] Information not available 03/09/2023 Family History Relationship Description Onset Age of this Age Resolved Age Notes LastModified by Organization Details LastModified Time Mother Disorder of thyroid gland [email or web address] Not available 2022 13:20:19 Father Heart disease Not available 2022 13:20:37 Father Coronary arterioscler [email or web address] Not available 2024 11:19:58 Medical History Condition Response Coronary Artery Disease N Gout N None N Thyroid Disease Y Kidney Stones N Hyperthyroidism N Depression N COPD N Hypothyroidism Y Pacemaker Y Difficulty Swallowing N Meniere's disease N Anxiety Disorder N Autoimmune disease Y Obesity N Arthritis Y Mental Disorder N Cancer N Stroke N Shortness of Breath Y Dizziness or Fainting Y High Cholesterol N Liver Disease N Psychiatric/Mental Health Condition Y Rheumatoid Arthritis Y Fibromyalgia Y Headaches Y Kidney Disease N Ear or Hearing Problems Y Thyroid Problems Y GI Problems Y Osteoporosis/Osteopenia Y Anemia N MRSA exposure N Diabetes N Tuberculosis N AIDS/HIV N Congestive Heart Failure (CHF) N Back Problems Y Diverticulitis N Asthma Y Reflux/GERD Y Jaundice N Heart Disease N Pulmonary Embolism N Chronic Ear Infections N Hypertension Y Osteoporosis N Gynecological History Statement/Question Response Abnormal Pap Y 12/17/2016 Date of Last Colonoscopy 12/17/2012 Most Recent Bone Density 07/19/2020 Date of LMP 11/16/2009 Sexually Active? Y Menses Monthly N Date of Last Pap Smear 08/19/2021 Current Control Method Menopause Obstetrics History GPAL:G 0 P 0 0 0 0 Immunizations Vaccine Type Date Status Note Provider Jann malone and Address Organization Details Recorded Time COVID-19 vaccine, vector-nr, rS-Ad26, PF, 0.5 mL 11/25/2020 completed Amanda mauro, GIANNA Abraham [facility] 02/16/2023 17:02:41 Past Encounters Encounter ID Performer Location Encounter Start Date Encounter Closed Date Diagnosis/Indication Diagnosis SNOMED-CT Code Diagnosis ICD10 Code Diagnosis IMO Codes Diagnosis Note [id number] MD NIDHI [facility] [address] [place] [address] 08/24/2022 11:42:17 08/24/2022 13:22:26 Vitamin D deficiency 13499909 E55.9 [facility] ce laboratory studies have been ordered to assess for the target of treatment as well as any potential end-organ toxicity. Hypothyroidism 39898158 E03.4 Follow-up today relative to a chronic diagnosis of acquired hypothyroi dism. Clinically the patient voices no complaints , states no unusual weight gain or lower extremity edema. Long-term current use of drug therapy 786152577 Z79.899 Surveillan ce laboratory studies have been ordered to assess for the target of treatment as well as any potential end-organ toxicity. Depression screening 171 973892 Z13.31 Essential hypertension 32500767 I10 Patient returns today for follow-up of a chronic diagnosis of hypertensi on. Outpatient surveillan ce as demonstrat ed good control, without any issues or complaints of side effect. Today's evaluation s suggest adequate control of disease process and no need for change in medication currently. Surveillan ce laboratory studies have been ordered to assess for the target of treatment as well as any potential end-organ toxicity. Osteoarthr itis of multiple joints 724473313 M15.9 Patient is on chronic medication for osteoarthr itic disease. Overall level of function is good, and there was no evidence of side effect specifical ly gastric irritation . Ongoing treatment with appropriat e surveillan ce is appropriat e. Migraine 89245372 G43.90 9 This represents a chronic process that has been stable on medication s for extended period of time. Currently there appears to be no toxicity or side effect and good response to treatment. For these reasons we will continue medication s as ordered. Gastroesop hageal reflux disease 565262489 K21.9 Follow-up today relative to a chronic diagnosis of gastroesop hageal reflux disease. Patient relates good symptomati c control, and no perceived side effects or issues with her currently prescribed medication Fibromyalgia 167797733 M 79.7 The patient is followed and monitored for chronic pain management with the use of chronic scheduled medication s. Screening appears to show no signs of diversion nor abuse potential. There monitored closely they are getting good reasonable pain control from the currently prescribed medication s. They are following the contractua l agreement with our practice. Chronic pain 72800377 G8 9.29 The patient is followed and monitored for chronic pain management with the use of chronic scheduled medication s. Screening appears to show no signs of diversion nor abuse potential. There monitored closely they are getting good reasonable pain control from the currently prescribed medication s. They are following the contractua l agreement with our practice. Major depr essive disorder 948375896 F32.9 Ongoing chronic treatment for major depressive disorder is reason for follow-up today. Patient states they are doing well, they perceive no side effect or negative issues with her current medication s. They perceive their mood to be well-adjus suresh, Low back pain 386745371 M54.50 Generalize d osteoarthritis 875025481 M15.9 Patient is on chronic medication for osteoarthr itic disease. Overall level of function is good, and there was no evidence of side effect specifical ly gastric irritation . Ongoing treatment with appropriat e surveillan ce is appropriat e. [id number] MD NIDHI Dubon [address] [address] 08/24/2022 10:09:45 08/24/2022 11:32:26 Preoperative cardiovascular examination 674922155 Z01.810 Electrocar diogram abnormal 935908498 R94.31 Essential hypertension 90778069 I10 Cardiac pa cemaker in situ 001848817 Z95.0 Mitral javon ve regurgitation 13908078 I34.0 [id number] MD NIDHI [facility] [address] [place] [address] 03/09/2023 14:27:36 03/09/2023 16:05:35 Essential hypertension 78785221 I10 Patient returns today for follow-up of a chronic diagnosis of hypertensi on. Outpatient surveillan ce as demonstrat ed good control, without any issues or complaints of side effect. Today's evaluation s suggest adequate control of disease process and no need for change in medication currently. Surveillan ce laboratory studies have been ordered to assess for the target of treatment as well as any potential end-organ toxicity. Vitamin D deficiency 347 04406 E55.9 Surveillan ce laboratory studies have been ordered to assess for the target of treatment as well as any potential end-organ toxicity. Hypothyroidism 33333963 E03.4 Follow-up today relative to a chronic diagnosis of acquired hypothyroi dism. Clinically the patient voices no complaints , states no unusual weight gain or lower extremity edema. Long-term current use of drug therapy 349415137 Z79.899 Surveillan ce laboratory studies have been ordered to assess for the target of treatment as well as any potential end-organ toxicity. Depression screening 171 081516 Z13.31 Osteoarthr itis of multiple joints 048193319 M15.9 Patient is on chronic medication for osteoarthr itic disease. Overall level of function is good, and there was no evidence of side effect specifical ly gastric irritation . Ongoing treatment with appropriat e surveillan ce is appropriat e. Migraine 32050519 G43.90 9 This represents a chronic process that has been stable on medication s for extended period of time. Currently there appears to be no toxicity or side effect and good response to treatment. For these reasons we will continue medication s as ordered. Gastroesop hageal reflux disease 457182267 K21.9 Follow-up today relative to a chronic diagnosis of gastroesop hageal reflux disease. Patient relates good symptomati c control, and no perceived side effects or issues with her currently prescribed medication Fibromyalgia 655049208 M 79.7 The patient is followed and monitored for chronic pain management with the use of chronic scheduled medication s. Screening appears to show no signs of diversion nor abuse potential. There monitored closely they are getting good reasonable pain control from the currently prescribed medication s. They are following the contractua l agreement with our practice. Chronic pain 35312911 G8 9.29 The patient is followed and monitored for chronic pain management with the use of chronic scheduled medication s. Screening appears to show no signs of diversion nor abuse potential. There monitored closely they are getting good reasonable pain control from the currently prescribed medication s. They are following the contractua l agreement with our practice. Major depr essive disorder 962066535 F32.9 Ongoing chronic treatment for major depressive disorder is reason for follow-up today. Patient states they are doing well, they perceive no side effect or negative issues with her current medication s. They perceive their mood to be well-adjus suresh, Low back pain 027681952 M54.50 Generalize d osteoarthritis 026144504 M15.9 Patient is on chronic medication for osteoarthr itic disease. Overall level of function is good, and there was no evidence of side effect specifical ly gastric irritation . Ongoing treatment with appropriat e surveillan ce is appropriat e. Chronic di arrhea of unknown origin 13555642 K52.9 [id number] MD [facility] [address] [place] [address] 09/06/2023 13:57:32 09/06/2023 16:31:21 Standardized adult depression screening tool completed [id number] 69293 Z13.31 Benign ess ential hypertension 8182268 I10 Patient returns today for follow-up of a chronic diagnosis of hypertensi on. Outpatient surveillan ce as demonstrat ed good control, without any issues or complaints of side effect. Current blood pressure measuremen t is found elevation in our readings. Were going to do 2 weeks of surveillan ce reassess the need for adjustment in medication . Hypothyroidism 82761102 E03.4 Follow-up today relative to a chronic diagnosis of acquired hypothyroi dism. Clinically the patient voices no complaints , states no unusual weight gain or lower extremity edema. Vitamin D deficiency 347 29052 E55.9 Surveillan ce laboratory studies have been ordered to assess for the target of treatment as well as any potential end-organ toxicity. History of bariatric surgical procedure 685405819 Z98.84 patient will have labs drawn at [facility] in next couple of days as we do not have tubes needed. Fibromyalgia 124531003 M 79.7 The patient is followed and monitored for chronic pain management with the use of chronic scheduled medication s. Screening appears to show no signs of diversion nor abuse potential. There monitored closely they are getting good reasonable pain control from the currently prescribed medication s. They are following the contractua l agreement with our practice. Gastroesop hageal reflux disease 571779960 K21.9 Follow-up today relative to a chronic diagnosis of gastroesop hageal reflux disease. Patient relates good symptomati c control, and no perceived side effects or issues with her currently prescribed medication Migraine 60646399 G43.90 9 This represents a chronic process that has been stable on medication s for extended period of time. Currently there appears to be no toxicity or side effect and good response to treatment. For these reasons we will continue medication s as ordered. Osteoarthr itis of multiple joints 264241064 M15.9 Patient is on chronic medication for osteoarthr itic disease. Overall level of function is good, and there was no evidence of side effect specifical ly gastric irritation . Ongoing treatment with appropriat e surveillan ce is appropriat e. Chronic pain 45414032 G8 9.29 The patient is followed and monitored for chronic pain management with the use of chronic scheduled medication s. Screening appears to show no signs of diversion nor abuse potential. There monitored closely they are getting good reasonable pain control from the currently prescribed medication s. They are following the contractua l agreement with our practice. Disorder o f sleep-wake cycle 030200709 Z72.821 Issues relative to today's discussion and diagnosis were addressed. All questions were attempted to be addressed and reconciled . Any particular necessary informatio n was dispensed [id number] [facility] [address] [place] [address] 11/08/2023 14:00:57 11/08/2023 14:46:40 Cat bite - wound 531366107 W55.01XA Counseling given in reference to medication regimen. Detailed discussion with patient in regards to signs and symptoms that would require further interventi on. Education given to follow-up sooner if symptoms do not improve. Puncture w ound of foot 92473894 S91.332A Patient presents today with puncture wound of left ankle / foot from cat bite sustained on Wednesday. [id number] MD [facility] [address] [place] [address] 02/28/2024 14:05:58 02/28/2024 14:56:41 Benign essential hypertension 1805559 I10 Patient returns today for follow-up of a chronic diagnosis of hypertensi on. Outpatient surveillan ce as demonstrat ed good control, without any issues or complaints of side effect. Current blood pressure measuremen t is found elevation in our readings. Were going to do 2 weeks of surveillan ce reassess the need for adjustment in medication . Hypothyroidism 27437028 E03.4 Follow-up today relative to a chronic diagnosis of acquired hypothyroi dism. Clinically the patient voices no complaints , states no unusual weight gain or lower extremity edema. Vitamin D deficiency 347 05178 E55.9 Surveillan ce laboratory studies have been ordered to assess for the target of treatment as well as any potential end-organ toxicity. Migraine 71423439 G43.90 9 This represents a chronic process that has been stable on medication s for extended period of time. Currently there appears to be no toxicity or side effect and good response to treatment. For these reasons we will continue medication s as ordered. Gastroesop hageal reflux disease 894417370 K21.9 Follow-up today relative to a chronic diagnosis of gastroesop hageal reflux disease. Patient relates good symptomati c control, and no perceived side effects or issues with her currently prescribed medication Osteoarthr itis of multiple joints 623997652 M15.9 Patient is on chronic medication for osteoarthr itic disease. Overall level of function is good, and there was no evidence of side effect specifical ly gastric irritation . Ongoing treatment with appropriat e surveillan ce is appropriat e. Fibromyalgia 134607486 M 79.7 The patient is followed and monitored for chronic pain management with the use of chronic scheduled medication s. Screening appears to show no signs of diversion nor abuse potential. There monitored closely they are getting good reasonable pain control from the currently prescribed medication s. They are following the contractua l agreement with our practice. Chronic pain 23554506 G8 9.29 The patient is followed and monitored for chronic pain management with the use of chronic scheduled medication s. Screening appears to show no signs of diversion nor abuse potential. There monitored closely they are getting good reasonable pain control from the currently prescribed medication s. They are following the contractua l agreement with our practice. Osteoporosis 70140505 M8 1.8 surveillan ce laboratory study with DEXA scan has been ordered. Historical ly she was significan tly osteoporot ic and was previously treated with Prolia we are going to have to reassess Disorder o f sleep-wake cycle 913194693 Z72.821 Issues relative to today's discussion and diagnosis were addressed. All questions were attempted to be addressed and reconciled . Any particular necessary informatio n was dispensed Generalize d osteoarthritis 524327609 M15.9 Patient is on chronic medication for osteoarthr itic disease. Overall level of function is good, and there was no evidence of side effect specifical ly gastric irritation . Ongoing treatment with appropriat e surveillan ce is appropriat e. Standardiz ed adult depression screening tool completed [id number] 71303 Z13.31 ongoing moderate depression Moderate m ajor depression 699767 F32.1 This represents a chronic process that has been stable on medication s for extended period of time. Currently there appears to be no toxicity or side effect and good response to treatment. For these reasons we will continue medication s as ordered. [id number] MD N[facility] [address] [place] [address] 07/05/2024 13:52:53 07/05/2024 16:19:55 Osteoporosis 58191821 M81.8 Patient is here for Prolia Injection, [facility]ication from [facility]. [id number] MD N[facility] [address] [place] [address] 09/27/2024 14:58:57 09/27/2024 16:02:26 Benign essential hypertension 8043424 I10 Patient returns today for follow-up of a chronic diagnosis of hypertensi on. Outpatient surveillan ce as demonstrat ed good control, without any issues or complaints of side effect. Current blood pressure measuremen t is found elevation in our readings. Were going to do 2 weeks of surveillan ce reassess the need for adjustment in medication . Vitamin D deficiency 347 01625 E55.9 Surveillan ce laboratory studies have been ordered to assess for the target of treatment as well as any potential end-organ toxicity. Migraine 98127203 G43.90 9 This represents a chronic process that has been stable on medication s for extended period of time. Currently there appears to be no toxicity or side effect and good response to treatment. For these reasons we will continue medication s as ordered. Gastroesop hageal reflux disease 109292002 K21.9 Follow-up today relative to a chronic diagnosis of gastroesop hageal reflux disease. Patient relates good symptomati c control, and no perceived side effects or issues with her currently prescribed medication Osteoarthr itis of multiple joints 558675839 M15.9 Patient is on chronic medication for osteoarthr itic disease. Overall level of function is good, and there was no evidence of side effect specifical ly gastric irritation . Ongoing treatment with appropriat e surveillan ce is appropriat e. Fibromyalgia 164630828 M 79.7 The patient is followed and monitored for chronic pain management with the use of chronic scheduled medication s. Screening appears to show no signs of diversion nor abuse potential. There monitored closely they are getting good reasonable pain control from the currently prescribed medication s. They are following the contractua l agreement with our practice. Chronic pain 36282309 G8 9.29 The patient is followed and monitored for chronic pain management with the use of chronic scheduled medication s. Screening appears to show no signs of diversion nor abuse potential. There monitored closely they are getting good reasonable pain control from the currently prescribed medication s. They are following the contractua l agreement with our practice. Osteoporosis 95067687 M8 1.8 surveillan ce laboratory study with DEXA scan has been ordered. Historical ly she was significan tly osteoporot ic and was previously treated with Prolia we are going to have to reassess Disorder o f sleep-wake cycle 736170093 Z72.821 Issues relative to today's discussion and diagnosis were addressed. All questions were attempted to be addressed and reconciled . Any particular necessary informatio n was dispensed Generalize d osteoarthritis 764786962 M15.9 Patient is on chronic medication for osteoarthr itic disease. Overall level of function is good, and there was no evidence of side effect specifical ly gastric irritation . Ongoing treatment with appropriat e surveillan ce is sharathiat kira. Leanne m ajor depression 953373 F32.1 This represents a chronic process that has been stable on medication s for extended period of time. Currently there appears to be no toxicity or side effect and good response to treatment. For these reasons we will continue medication s as ordered. Standardiz ed adult depression screening tool completed [id number] 44359 Z13.31 She has recently been evaluated psychiatri velma and really has been refractory to treatment. She does have an ongoing [facility] ip with a medical psychiatri c provider Atrophy of thyroid - acquired 638294886 E03.4 9066196 Follow-up today relative to a chronic diagnosis of acquired hypothyroi dism. Clinically the patient voices no complaints , states no unusual weight gain or lower extremity edema. [id number] MD N[facility] [address] [place] [address] 01/11/2025 13:55:39 01/11/2025 16:57:23 Senile osteoporosis 94157387 M81.0 6204711 [id number] Jimbo christiansen MD Valente [facility] [address] [place] [address] 03/28/2025 13:54:26 03/28/2025 15:23:40 Essential hypertension 62392279 I10 Patient returns today for follow-up of a chronic diagnosis of hypertensi on. Outpatient surveillan ce as demonstrat ed good control, without any issues or complaints of side effect. Today's evaluation s suggest adequate control of disease process and no need for change in medication currently. Surveillan ce laboratory studies have been ordered to assess for the target of treatment as well as any potential end-organ toxicity. Acquired hypothyroidism 389850809 E03.4 Follow-up today relative to a chronic diagnosis of acquired hypothyroi dism. Clinically the patient voices no complaints , states no unusual weight gain or lower extremity edema. Vitamin D deficiency 347 67412 E55.9 Surveillan ce laboratory studies have been ordered to assess for the target of treatment as well as any potential end-organ toxicity. Gastroesop hageal reflux disease 110638972 K21.9 Follow-up today relative to a chronic diagnosis of gastroesop hageal reflux disease. Patient relates good symptomati c control, and no perceived side effects or issues with her currently prescribed medication Migraine 57134011 G43.90 9 This represents a chronic process that has been stable on medication s for extended period of time. Currently there appears to be no toxicity or side effect and good response to treatment. For these reasons we will continue medication s as ordered. Fibromyalgia 854970575 M 79.7 The patient is followed and monitored for chronic pain management with the use of chronic scheduled medication s. Screening appears to show no signs of diversion nor abuse potential. There monitored closely they are getting good reasonable pain control from the currently prescribed medication s. They are following the contractua l agreement with our practice. Hypothyroidism 84629901 E03.4 Follow-up today relative to a chronic diagnosis of acquired hypothyroi dism. Clinically the patient voices no complaints , states no unusual weight gain or lower extremity edema. Benign ess ential hypertension 3474788 I10 Patient returns today for follow-up of a chronic diagnosis of hypertensi on. Outpatient surveillan ce as demonstrat ed good control, without any issues or complaints of side effect. Current blood pressure measuremen t is found elevation in our readings. Were going to do 2 weeks of surveillan ce reassess the need for adjustment in medication . Generalize d osteoarthritis 623931617 M15.9 Patient is on chronic medication for osteoarthr itic disease. Overall level of function is good, and there was no evidence of side effect specifical ly gastric irritation . Ongoing treatment with appropriat e surveillan ce is appropriat e. Osteoporosis 36377617 M8 1.8 surveillan ce laboratory study with DEXA scan has been ordered. Historical ly she was significan tly osteoporot ic and was previously treated with Prolia we are going to have to reassess Standardiz ed adult depression screening tool completed [id number] 02510 Z13.31 [id number] She has recently been evaluated psychiatri velma and really has been refractory to treatment. She does have an ongoing [facility] ip with a medical psychiatri c provider [id number] Altaf Thomas MD [address] LUTZ [address] [place], [place] [address] 05/17/2025 11:18:35 05/17/2025 11:50:02 Electrocardiogram abnormal 408998822 R94.31 Essential hypertension 18737984 I10 Cardiac pa cemaker in situ 703045117 Z95.0 Mitral javon ve regurgitation 44331892 I34.0 Dyspnea on exertion 6084 5006 R06.09 272241 Health Concerns Section Related Observation LastModified by Organization Detai ls LastModified Time None Recorded Concern Status LastModified by Organization Details LastModified Time None Recorded Advance Directives Directive N: Payers Insurance Date Sequence Insurance Name Policy Number Policy Cosby Covered Member ID Cosby Member ID Guarantor Name 05/17/2025 1 JOSEPH-GIANNA: FAB[place] OF [place] - [employer] [address] [id number] Kristin Gresham Notes Date Note Type Note Provider Name and Address Organization Details Recorded Time 09/27/2024 text/html MoodReported by PatientMoodFor affect, patient reportsnormal affectandnot tearful. For sleep, patient reportsnormal sleep. For appetite, patient reportsnormal. For weight, patient reportsno unintentional weight change. For mood variability, patient reportsnot depressed. For concentration/attentio n, patient reportsunchanged. For hedonia: ability to enjoy life, sports, activities, patient reportsunchanged. For malaise: energy levels, motivation, drive, patient reportsunchanged. For social interest, patient reportsunchanged. For sex drive, patient reportsunchanged.overa ll mood is stable. No issues with side effects from current medications. Today's visit will also include Co management of other associated comorbidities if necessary as addressed in the assessment and plan. Pain Management F/UReported by PatientHPIFor associated symptoms, patient reportsnumbnessandting ling(which are intermittent in the affected areas but for the most part well controlled with current medications allowing patient to be at functional level). For location, patient reportsupper back bilateral,lower back bilateral, andhip bilateral. For quality, patient reportsdullandaching. For severity, patient reportsunchanged(shelli nue stable with current medication management). For context, patient reportsoveruse,pain medication use,prior specialist evaluation,previous mri, andosteoarthritis. For alleviating factors, patient reportsmedication,exer cise, andstretching. For driving impairments with medications, patient reportsno. For duration, (is a chronic issue that extends over now years of management with various medication and manipulative approaches.). For activities of daily living, (there is limited affect on activities of daily living with current medication regime.).Medication schedule associated with caution with use of medications when working with heavy equipment or necessary motor vehicle use. Today's visit also will address any chronic disease management with other comorbidities. Hypertension F/UReported by PatientHPIFor medications, patient reportstaking medications as directedandno side effects from medication. For lifestyle, patient reportslimits sodium intake. For associated symptoms, patient reportsno dizziness,no lightheadedness,no chest pain,no shortness of breath, andno calf pain with exertion.No coughROS as noted in the HPI Additional reasons for visit includes Co management of any other associated comorbidities related to chronic disease management, as will be outlined in the assessment and plan. in addition today were transitioning a recent visit where she was hospitalized with chest pain a number of medication changes were made etcetera but ultimately she presents today with confusion in regard to the consolidation of those medicines Jimbo Shea MD [address], [place], [address], [place] - [facility] - [place] & [place] 09/27/2024 16:08:04 03/28/2025 text/html MoodReported by PatientMoodFor affect, patient reportsnormal affectandnot tearful. For sleep, patient reportsnormal sleep. For appetite, patient reportsnormal. For weight, patient reportsno unintentional weight change. For mood variability, patient reportsnot depressed. For concentration/attentio n, patient reportsunchanged. For hedonia: ability to enjoy life, sports, activities, patient reportsunchanged. For malaise: energy levels, motivation, drive, patient reportsunchanged. For social interest, patient reportsunchanged. For sex drive, patient reportsunchanged.overa ll mood is stable. No issues with side effects from current medications. Today's visit will also include Co management of other associated comorbidities if necessary as addressed in the assessment and plan. Pain Management F/UReported by PatientHPIFor associated symptoms, patient reportsnumbnessandting ling(which are intermittent in the affected areas but for the most part well controlled with current medications allowing patient to be at functional level). For location, patient reportsupper back bilateral,lower back bilateral, andhip bilateral. For quality, patient reportsdullandaching. For severity, patient reportsunchanged(shelli nue stable with current medication management). For context, patient reportsoveruse,pain medication use,prior specialist evaluation,previous mri, andosteoarthritis. For alleviating factors, patient reportsmedication,exer cise, andstretching. For driving impairments with medications, patient reportsno. For duration, (is a chronic issue that extends over now years of management with various medication and manipulative approaches.). For activities of daily living, (there is limited affect on activities of daily living with current medication regime.).Medication schedule associated with caution with use of medications when working with heavy equipment or necessary motor vehicle use. Today's visit also will address any chronic disease management with other comorbidities. Hypertension F/UReported by PatientHPIFor medications, patient reportstaking medications as directedandno side effects from medication. For lifestyle, patient reportslimits sodium intake. For associated symptoms, patient reportsno dizziness,no lightheadedness,no chest pain,no shortness of breath, andno calf pain with exertion.No coughROS as noted in the HPI Additional reasons for visit includes Co management of any other associated comorbidities related to chronic disease management, as will be outlined in the assessment and plan. Jimbo Shea MD [address] [place] [address],[address], [place], [address], [facility] - [facility] & [place] 03/28/2025 16:57:57 05/17/2025 text/html doing well. Here for 2 year follow-up. She is concerned about her pacemaker. She has a [employer]otron[employer] device. Last time she had this checked was a year ago. She knows 1 of the leads is not working. The device has fallen down into her left breast. She needs to get this device check. She does have shortness of breath with exertion but no chest pain pressure or tightness Altaf Thomas MD [address] [place] [address] Drive,[address], [place], [address], [facility] - [facility] & [place] 05/17/2025 11:59:04 OBGyn Episode No OBEpisode recorded.
--- OUTSIDE RECORDS SUMMARY | 2025-05-21 14:13 | XMS_ITS ---
Author Name Interface, [id number] lity Address [address] [place] [address] Organization [facility] Address [address] [place], [place] [id number] Allergies and Adverse Reactions Medication/Group Name Reaction Severity Date Sulfa (Sulfonamide Antibiotics) 11/29/2018 Vicodin 11/29/2018 Anaprox 11/29/2018 Plan Date Type Value 01/10/2019 APPOINTMENT 8wmaninder carson resc1x 01/10/2019 APPOINTMENT 8wk resc1x 01/10/2019 APPOINTMENT 8wmaninder carson resc1x 01/10/2019 APPOINTMENT 8wmaninder carson resc1x 12/13/2018 APPOINTMENT 8wmaninder carson resc1x 12/13/2018 APPOINTMENT 8wmaninder carson resc1x 11/29/2018 APPOINTMENT LAB ONLY 11/22/2018 APPOINTMENT 8wmaninder carson 11/22/2018 APPOINTMENT 8wmaninder carson 10/11/2018 APPOINTMENT 2wmaninder carson 10/11/2018 APPOINTMENT 2wmaninder carson 10/11/2018 APPOINTMENT iv iron 2 10/11/2018 APPOINTMENT iv iron 2 10/04/2018 APPOINTMENT iv iron 1 10/04/2018 APPOINTMENT iv iron 1 09/27/2018 APPOINTMENT MAINTENANCE PLANNING CLERK/ANEMIA,LOW PL TS 09/27/2018 APPOINTMENT MAINTENANCE PLANNING CLERK/ANEMIA,LOW PL TS 09/27/2018 LAB_ORDER CBC w/ auto diff 09/27/2018 LAB_ORDER Ferritin 09/27/2018 LAB_ORDER Vitamin B12 pane l 09/27/2018 LAB_ORDER Folate, serum 09/27/2018 LAB_ORDER Iron / FE 09/27/2018 LAB_ORDER CBC w/ auto diff 09/27/2018 LAB_ORDER Haptoglobin 09/27/2018 LAB_ORDER Reticulocyte cou nt panel 09/27/2018 LAB_ORDER Soluble transfer rin receptor panel 09/27/2018 LAB_ORDER LDH 09/27/2018 LAB_ORDER TIBC panel 10/11/2018 LAB_ORDER CBC w/ auto diff 02/14/2019 LAB_ORDER CBC w/ auto diff 02/14/2019 LAB_ORDER TIBC panel 02/14/2019 LAB_ORDER Ferritin 02/14/2019 LAB_ORDER Iron / FE Reason for Visit 8wk fu resc1x Encounters Date Name 09/27/2018 Acquired iron defici ency anemia due to decreased absorption 09/27/2018 History of gastric b ypass 09/27/2018 Normocytic anemia 09/27/2018 Post-surgical malabs orption 09/27/2018 Thrombocytosis Diagnostic Results Date Type Test Units Lower Limit Upper Limit Result Flag Comments Status Ordered By Specimen Source Lab Address 09/27 Lab Repor t See fittings tightener d 09/27 Lab Repor t See fittings tightener d 10/11 Lab Repor t See fittings tightener d Medications Date Name Route Dose Frequency Instructions Start Date End Date Status Fill Status Indication 09/27 Trazodon e Oral orally 50.0 mg daily active 09/27 Esomepra zole (Magnesi um) Oral Delayed Release Capsule orally 40.0 mg daily active 10/11 Clindamy concepcion Oral orally 300.0 mg 3 times per day active 09/27 Rizatrip bhagat Oral Dose Pack 10 mg orally 1.0 as directed on dose pack take 1 tab at onset of headache; if no relief may repeat 1 tab in 2hr; max = 3 tabs/day (24hr) active 09/27 Multivit amins Oral Tablet orally 1.0 daily active 09/27 Metoprol ol Oral (Tartrat e) orally 50.0 mg once daily active 09/27 Magnesiu m Oxide Oral active 09/27 Levothyr oxine Oral orally 125.0 mcg daily active 09/28 1 ML epinephr ine 1 MG/ML Injectio n intramus cularly 0.3 mg once Re-initiate treatment only upon physician approval. 2018 active Acquired iron deficiency anemia due to decreased absorption 09/28 diphenhy dramine hydrochl oride 0.5 MG/ML Injectab le Solution intraven ously 50.0 mg Re-initiate treatment only upon physician approval. 2018 active Acquired iron deficiency anemia due to decreased absorption 09/28 methylpr ednisolo ne 2000 MG Injectio n intraven ously 125.0 mg Re-initiate treatment only upon physician approval. 2018 active Acquired iron deficiency anemia due to decreased absorption 09/28 hydrocor tisone 100 MG Injectio n intraven ously 100.0 mg Re-initiate treatment only upon physician approval. 2018 active Acquired iron deficiency anemia due to decreased absorption 09/28 1 ML epinephr ine 1 MG/ML Injectio n intramus cularly 0.3 mg once Re-initiate treatment only upon physician approval. 2018 active Acquired iron deficiency anemia due to decreased absorption 09/28 methylpr ednisolo ne 2000 MG Injectio n intraven ously 125.0 mg Re-initiate treatment only upon physician approval. 2018 active Acquired iron deficiency anemia due to decreased absorption 09/28 hydrocor tisone 100 MG Injectio n intraven ously 100.0 mg Re-initiate treatment only upon physician approval. 2018 active Acquired iron deficiency anemia due to decreased absorption 09/28 diphenhy dramine hydrochl oride 0.5 MG/ML Injectab le Solution intraven ously 50.0 mg Re-initiate treatment only upon physician approval. 2018 active Acquired iron deficiency anemia due to decreased absorption Problems Diagnosis Status Date of Diagnosis Resolution Date Acquired iron deficiency ane bree due to decreased absorption Active Normocytic anemia Active Post-surgical malabsorption Active Thrombocytosis Active History of gastric bypass Active Vital Signs Date Type Value 09/27/2018 Height 65.00 09/27/2018 Weight 134.40 09/27/2018 Pain Scale 5.00 09/27/2018 BMI 22.37 09/27/2018 BSA 1.67 09/27/2018 Respiratory Rate 15.00 09/27/2018 Heart Beat 72.00 09/27/2018 Body Temperature 98.60 09/27/2018 Intravascular Systolic 127 09/27/2018 Intravascular Diastolic 72 10/04/2018 BSA 1.66 10/04/2018 BMI 22.17 10/04/2018 Height 65.00 10/04/2018 Weight 133.20 10/04/2018 Pain Scale 0.00 10/04/2018 Intravascular Systolic 143 10/04/2018 Intravascular Diastolic 85 10/04/2018 Respiratory Rate 15.00 10/04/2018 Body Temperature 97.80 10/04/2018 Heart Beat 70.00 10/11/2018 BMI 22.43 10/11/2018 Height 65.00 10/11/2018 Weight 134.80 10/11/2018 Pain Scale 4.00 10/11/2018 BSA 1.67 10/11/2018 Heart Beat 72.00 10/11/2018 Body Temperature 98.50 10/11/2018 Intravascular Systolic 103 10/11/2018 Intravascular Diastolic 64 10/11/2018 Respiratory Rate 15.00 11/29/2018 BSA 1.67 11/29/2018 BMI 22.30 11/29/2018 Height 65.00 11/29/2018 Weight 134.00 11/29/2018 Pain Scale 0.00 11/29/2018 Respiratory Rate 14.00 11/29/2018 Heart Beat 72.00 11/29/2018 Intravascular Systolic 128 11/29/2018 Intravascular Diastolic 70 11/29/2018 Body Temperature 98.40 Notes Section * Nurse Note for: 11-OCT-18 [facility] Nurse Note Print Location: Unknown Date/Time Printed: 05/21/2025 14:13 ([facility]) Patient: KRISTIN WILDER Sex: Female : 1965 Date of Service: 10/11/2018 Allergies : Vicodin, Sulfa (Sulfonamide Antibiotics), Anaprox Vital Signs : Time: 13:21. Weight: 134.8 lb (61.14 kg). Height: 65 in (165.10 cm). BMI: 22.43 (kg/m2) . BSA: 1.67(m2) . Temperature: 98.5 F (36.94 C). Pulse: 72 (/min) . Respirations: 15 (/min) . Blood pressure: 103/64 (mm Hg). Pain Scale: 4. Entered by Maria Del Carmen Bonilla MA 10/11/2018 13:22 Patient Assessment : Positive results Assessment : Labs Verified: Yes, Alert, oriented with appropriate behavior. Complains of Pain-4, Fatigue. Negative results Assessment : Gait Changes. Denies Neuropathy , Anxiety/Depression , Fever, Chills or Night Sweats , Signs of Infection , Skin Changes , Dizziness , Headaches , Nausea , Breathing Changes , Cough , Mouth Sores/Stomatitis/Mucositis , Changes in Appetite , Vomiting , Diarrhea , Constipation , Urinary Changes , Bleeding . Entered By Gin Sherman RN on 15:44 IV Access/Lab Draw : IV Access-Peripheral - New Start, Needle Type-Iv Cath, Needle Size-22 Gauge, Needle Length-3/4 inch, Access Site-Left Arm, Site Assess List-Blood Return,No Redness,No Swelling,No Tenderness,No Bruising, Site Care Checklist-Aseptic Technique, Dressing Change-Tegaderm, Lab Drawn-Yes, Tube Color-Lavender, Access Attempts-1 time(s), Comments-CBC drawn with PIV start Entered By Gin Sherman RN on 15:45 Medication Administration : Incident to: Dez Ly MD Ferumoxytol (Feraheme) D1,8 Q14D (Intravenous Iron) Medications Ferumoxytol IV, 510 mg intravenously Piggyback once, Instructions: Administer over at least 15 minutes. Mix in 50-200 mL NS or D5W.Observe for signs and symptoms of hypersensitivity reactions for at least 30 minutes following the administration., Allow Substitution GIVEN: 510 mg Pharmacy plan: Dispense/Waste: 510/0 mg Pharmacy dispense: [facility]: [id number] Dispense/Waste: 510/0 mg Given Dose/Discard: 510/0 mg Start Time: 14:10, Entered By: Gin Sherman RN, Stop Time: 14:40, Entered By: Gin Sherman RN [facility] Fluid Volume: 50-200mL Checked By: April Overton RN on 10/11/2018 15:46 Incident to: Dez Ly MD Ferumoxytol (Feraheme) D1,8 Q14D (Intravenous Iron) Premedications Dexamethasone IV, 10 mg intravenously Piggyback once, Allow Substitution GIVEN: 10 mg Pharmacy plan: Dispense/Waste: 10/0 mg Pharmacy dispense: [facility]: [id number] Dispense/Waste: 10/0 mg Given Dose/Discard: 10/0 mg Start Time: 13:47, Entered By: Gin Sherman RN, Stop Time: 14:09, Entered By: Gin Sherman RN Checked By: April Overton RN on 10/11/2018 15:46 * Nurse Note for: 04-OCT-18 [facility] Nurse Note Print Location: Unknown Date/Time Printed: 05/21/2025 14:13 ([facility]) Patient: KRISTIN WILDER Sex: Female : 1965 Date of Service: 10/04/2018 Allergies : Vicodin, Sulfa (Sulfonamide Antibiotics), Anaprox Vital Signs : Time: 12:59. Weight: 133.2 lb (60.42 kg). Height: 65 in (165.10 cm). BMI: 22.17 (kg/m2) . BSA: 1.66(m2) . Temperature: 97.8 F (36.56 C). Pulse: 70 (/min) . Respirations: 15 (/min) . Blood pressure: 143/85 (mm Hg). Pain Scale: 0. Entered by Maria Del Carmen Bonilla MA 10/04/2018 13:00 Patient Assessment : Positive results Assessment : Labs Verified: Yes, Alert, oriented with appropriate behavior. Complains of Fatigue. Negative results Assessment : Gait Changes. Denies Neuropathy , Pain -0-No pain, Anxiety/Depression , Fever, Chills or Night Sweats , Signs of Infection , Skin Changes , Dizziness , Headaches , Nausea , Breathing Changes , Cough , Mouth Sores/Stomatitis/Mucositis , Changes in Appetite , Vomiting , Diarrhea , Constipation , Urinary Changes , Bleeding . Entered By Gin Sherman RN on 15:23 IV Access/Lab Draw : IV Access-Peripheral - New Start, Needle Type-Iv Cath, Needle Size-22 Gauge, Needle Length-3/4 inch, Access Site-Left Arm, Site Assess List-Blood Return,No Redness,No Swelling,No Tenderness,No Bruising, Site Care Checklist-Aseptic Technique, Access Attempts-2 time(s), Entered By Gin Sherman RN on 15:24 Medication Administration : Incident to: Dez Ly MD Ferumoxytol (Feraheme) D1,8 Q14D (Intravenous Iron) Medications Ferumoxytol IV, 510 mg intravenously Piggyback once, Instructions: Administer over at least 15 minutes. Mix in 50-200 mL NS or D5W.Observe for signs and symptoms of hypersensitivity reactions for at least 30 minutes following the administration., Allow Substitution GIVEN: 510 mg Pharmacy plan: Dispense/Waste: 510/0 mg Pharmacy dispense: [facility]: [id number] Dispense/Waste: 510/0 mg Given Dose/Discard: 510/0 mg Start Time: 13:55, Entered By: Gin Sherman RN, Stop Time: 14:25, Entered By: Gin Sherman RN Admix Fluid Volume: 50-200mL Checked By: April Overton RN on 10/04/2018 15:32 Incident to: Dez Ly MD Ferumoxytol (Feraheme) D1,8 Q14D (Intravenous Iron) Premedications Dexamethasone IV, 10 mg intravenously Piggyback once, Allow Substitution GIVEN: 10 mg Pharmacy plan: Dispense/Waste: 10/0 mg Pharmacy dispense: [facility]: [id number] Dispense/Waste: 10/0 mg Given Dose/Discard: 10/0 mg Start Time: 13:35, Entered By: April Overton RN, Stop Time: 13:55, Entered By: April Overton RN
--- OUTSIDE RECORDS SUMMARY | 2025-05-21 14:13 | XMS_ITS | Clinical Summary ---
Author Organization Healthcare Address [address] [place] [address] Care Team Providers Care Safety And Health Manager Name Role Phone Maynor Lupe Renetta ESPINAL Primary Care Provider [phone]- [phone] Allergies Active Allergy Reactions Criticality Noted Date Comments Hydrocodone Other - please document in the comment field Low 06/05/2022 Hydrocodone-Acetaminop hen Other - please document in the comment field Low 08/11/2017 Skin felt like it was on fire Milk-Related Compounds Unknown - Patient states they do not know rxn details Low 04/28/2018 PATIENT PREFERENCE Naproxen Dizziness,Itching,Na usea,Rash,Shortness of breath,Unknown - Patient states they do not know rxn details High 09/01/2016 Dizzy, vision loss, nausea Sulfa Drugs Itching,Rash,Unknown - Patient states they do not know rxn details Medium 09/02/2016 Red skin Medications albuterol 108 (90 Base) MCG/ACT inhaler INHALE TWO PUFFS BY MOUTH EVERY 4 HOURS Active cyclobenzaprin e (Flexeril) 10 MG tablet TAKE ONE TABLET BY MOUTH EVERY DAY AT BEDTIME MAY CAUSE DROWSINESS 3 Active DULoxetine (Cymbalta) [address] capsule TAKE ONE CAPSULE BY MOUTH ONCE DAILY DIRECTED 4 Active esomeprazole (NexIUM) [address] capsule TAKE ONE CAPSULE BY MOUTH EVERY DAY DIRECTED Active Aimovig 70 MG/ML solution auto-injector INJECT 1 ML SUBCUTANEOUSLY ONCE a MONTH Active fluticasone (Flonase) 50 MCG/ACT nasal spray SPRAY ONE (1) SPRAY EVERY DAY BY INTRANASAL ROUTE. 3 Active ibuprofen 200 MG tablet Take 1 tablet (200 mg) by mouth. Active levothyroxine (Synthroid, Levoxyl) 112 MCG tablet Take 1 tablet (112 mcg) by mouth 1 (one) time each day in the morning. Active metoprolol succinate XL (Toprol-XL) 100 MG 24 hr tablet Take 1 tablet (100 mg) by mouth 1 (one) time each day with breakfast. Active Multiple Vitamin (multivitamin) capsule Take 1 capsule by mouth 1 (one) time each day. Active rizatriptan (Maxalt) 10 MG tablet Take 1 tablet (10 mg) by mouth 1 (one) time each day if needed. Active sucralfate (Carafate) 1 g tablet TAKE ONE TABLET BY MOUTH FOUR TIMES DAILY BEFORE MEALS Active traMADol (Ultram) 50 MG tablet TAKE ONE TABLET BY MOUTH EVERY 6 HOURS MAY CAUSE DROWSINESS Active traZODone (Desyrel) 100 MG tablet Take 1 tablet (100 mg) by mouth 1 (one) time each day. Active Active Problems Problem Noted Date Diagnosed Date Positive BECK (antinuclear antibody) 12/08/2023 Pain in right finger(s) 12/08/2023 Osteoarthritis of first carpometacarpal joint, u nspecified 12/08/2023 Pain in joints of right hand 12/08/2023 Seronegative rheumatoid arthritis of multiple si enmanuel 12/08/2023 Fibromyalgia 12/08/2023 Sleep disturbances 12/08/2023 Resolved Problems Problem Noted Date Diagnosed Date Resolved Date High risk medication use 12/08/2023 Family History Medical History Relation Name Comments Diabetes Cousin Alcohol abuse Father Ruben Rangel Cancer Father Ruben Rangel Cardiac disorder Father Ruben Rangel Conversions - Other Father Ruben Rangel Myelopr oliferative disease Heart disease Father Ruben Rangel Arthritis Mother Karen Rangel Cancer Mother Karen Rangel Thyroid disease Mother Karenkarla Rangel Asthma Paternal Grandfather Amadeo Fam Relation Name Status Comments Cousin Father Ruben Rangel Mother Karen Rangel Paternal Grandfather Amadeo Fam Social History Tobacco Use Types Packs/Day Years Used Date Smoking Tobacco: Never Smokeless Tobacco: Never Alcohol Use Standard Drinks/Week Comments Yes 6 (1 standard drink = 0.6 oz pur e alcohol) PHQ-2 Answer Date Recorded Patient Health Questionnaire-2 Score 6 12/08/2023 PHQ-9 Answer Date Recorded Patient Health Questionnaire-9 Score 17 12/08/2023 Comments Unknown Sex and Gender Information Value Date Recorded Sex Assigned at Female 11/19/2023 1:35 PM EDT Legal Sex Female 6:15 PM EDT Gender Identity Female 11/19/2023 1:35 PM EDT Sexual Orientation Straight 11/19/2023 1: 35 PM EDT Last Filed Vital Signs Vital Sign Reading Time Taken Comments Blood Pressure 142/94 12/08/2023 12:43 PM EDT Pulse 73 12/08/2023 12:43 PM EDT Temperature 36.6 C (97.9 F) 12/08/2023 12:43 PM EDT Respiratory Rate - - Oxygen Saturation 96% 12/08/2023 12: 43 PM EDT Inhaled Oxygen Concentration - - Weight 52.1 kg (114 lb 13.8 oz) 024 12:43 PM EDT Height 165.1 cm (5' 5 ) 12/08/2023 12:4 3 PM EDT Body Mass Index 19.11 12/08/2023 12:43 PM EDT Plan of Treatment Health Maintenance Due Date Last Done Comments [facility]-HIV Screening 1965 [facility]-/Child/Adol SDOH Screenings 1965 [facility]- SDOH Screenings 12/05/1981 [facility]-Adult SDOH Screenings 12/05/1981 [facility]-DTaP,Tdap,and Td Vaccine s (1 - Tdap) 12/05/1982 [facility]-Pap Smear 12/05/1984 [facility]-Cervical Cancer Screening 12/05/1993 [facility]-HPV/Cotest 12/05/1993 CT Colonography 12/05/2008 Colonoscopy 12/05/2008 FIT-DNA 12/05/2008 FIT 12/05/2008 FOBT 12/05/2008 Sigmoidoscopy 12/05/2008 [facility]-Colorectal Cancer Screening 12/05/2008 [facility]-Breast Cancer Screening 12/05/2013 [facility]-Pneumococcal Vaccine: 50 + Years (1 of 1 - PCV) 12/05/2013 [facility]-Zoster Vaccines (1 of 2) 12/05/2013 [facility]-[id number]-14 Vaccine (2 - Amarilys risk series) 12/23/2020 11/25/2020 [facility]-RSV Vaccine: 60+ Years o r (1 - Risk 60-74 years 1-dose series) 2023 [facility]-Depression Screening 12/07/2024 024, 12/08/2023 [facility]-Influenza Vaccine (#1) 2025 [facility]-Hepatitis C Screening Completed 12/08/2023 HPV Vaccines Aged Out No longer eligi ble based on patient's age to complete this topic [facility]-HIB Vaccines Aged Out No longer e ligible based on patient's age to complete this topic [facility]-Hepatitis A Vaccines Aged Out No longer eligible based on patient's age to complete this topic [facility]-IPV Vaccines Aged Out No longer e ligible based on patient's age to complete this topic [facility]-Rotavirus Vaccines Aged Out No lo nger eligible based on patient's age to complete this topic Procedures Procedure Name Priority Date/Time Associated Diagnosis Comments HEPATITIS C ANTIBODY W/REFLEX TO HCV QUANT PCR Routine 12/08/2023 1:57 PM EDT High risk medication use from Last 3 Months or Most Recently Relevant to Health Maintenance Results * Hepatitis C Antibody (12/08/2023 1:57 PM EDT) Hepatitis C Antibody Negative Negative 12/08/2023 4:32 PM EDT [facility] Blood Venous blood specimen / Unknown Venipuncture / Unknown 12/08/2023 1:57 PM EDT 12/08/2023 1:57 PM EDT Bia Bustos MD LAB BLOOD ORDERABLES Final Re sult [facility] [address] [place] [address] from Last 3 Months or Most Recently Relevant to Health Maintenance Insurance [employer] Care Teams Safety And Health Manager Relationship Specialty Start Date End Date Lupe Mcguire APRN [address] [place] [address] PCP - General 11/29/20
--- OUTSIDE RECORDS SUMMARY | 2025-05-21 14:13 | XMS_ITS | Continuity of Care Document ---
Author Organization [place] [facility] [facility] Address [address] [place] [address] Care Team Providers Care Tray Checker Name Role Phone JIMBO SHEA Primary Care Provider Assessment Encounter Date Assessment Date Assessment LastModified [...] care physician. The device was placed in [place]. She has not having any issues other [...] 100. -Encouraged regular exercise and activity. - Tika Keller am scribing for, and in the presence of, Altaf Thomas MD. - Altaf Keller M.D. performed the services as described in this documentation, as scribed by Tika Zurita in my presence, and it is both accurate and complete. - This note was dictated using MyQuoteApp software. If something is unclear, or does not make sense, please do not hesitate to contact our office at [phone] for clarification. nile Not available 05/17/2025 11:58:47 Plan of Treatment [...] Not available Not available Not available Lab None record ed. Referral None record ed. Procedures None record ed. Surgeries None record ed. Imaging electr ocardi ogram 2024 025 nile Clement [facility], [address] [place] [address] [address], [place], [address], 05/17/2025 11:49:39 [place], echoca rdiogr tamela garcía comple te, w/ color flow 2024 025 [email or web address] Not available 05/17/2025 13:18:32 Medication Orders None record ed. Patient TargetsNo targets recorded. Patient InstructionsNo instructions recorded. Reason for Referral None Reported. Results Created Date Observation Date Name Description Value Unit Range Abnormal Flag Note LastModifiedBy Organization Detail LastModifiedTime 05/16/20 elect rocshabnam diogr am No observ ation record ed. HUBERT Clement [address], [place], [address], 05/17/2025 11:31:46 05/17/20 elect rocar diogr am No observ ation record ed. [email or web address] Not Available 2024 11:38:44 05/18/2005/17/2025 DEXA, axial skele ton + verte bral fract ure asses sment [place] [facility] Name: MEÑOJAVONRENITA [facility] [employer] [employer] [address] Phys: Carolyn cormier MD, [place] [address] : 1965 Age: 59 Sex: F Acct: [id number] Loc: G.RAD PHONE #: [phone] Exam Date: 2024 Status : DEP CLI FAX #: Rad# [id number] Unit# [id number] Admit Date: 2024 EXAMS: CPT CODE: [id number] DEXA BONE DENSIT Y WITH VFA 77308 EXAMIN ATION: DUAL X-RAY ABSORP TIOMET RY (DXA) FOR BONE MINERA L DENSIT Y. CLINIC AL INDICA TION: Osteop orosis . CLINIC AL HISTOR Y: 59 years old, Female . Postme nopaus al. TECHNI QUE: An axial (e.g., hips, spine) and/or append icular (e.g., radius ) exam was perfor med, as approp riate, using Nitrous.IOar Prodig y densit ometer . Images are [...] re risk is perfor med using the [facility] Valley[facility] FRAX calcul ator based on patien t-repo rted risk factor s. Major osteop orotic fractu re: 15.2%. Hip fractu re: 2.7%. VERTEB RAL FRACTU RE ASSESS MENT: Verteb ral fractu re assess ment from T4-L4 is perfor med using Genant PAGE 1 Signed Report (SHELLI NUED) [place] [facility] Name: LESLIE GRESHAM [facility] [employer] Phys: Carolyn cormier MD, Jimbo [place] [address] : 1965 Age: 59 Sex: F Acct: [id number] Loc: WaleRAD PHONE #: [phone] Exam Date: 2024 Status : DEP CLI FAX #: Rad# [id number] Unit# [id number] Admit Date: 2024 EXAMS: CPT CODE: [id number] 250 DEXA BONE DENSIT Y WITH VFA 39731 visual semi-q uantit ative method . No fractu re is identi fied. IMPRES CARLOS: Osteop orosis based on BMD. World Health Organi zation criter ia for BMD impres carlos classi fy patien ts as: - Normal [...] treatm ent can be found at the [facility] al Osteop orosis Founda tion's websit e [...] RAWRS2 35XJ PAGE 2 Signed Report (SHELLI VAUGHN) [facility] Med[facility] l Ce Name: LESLIE GRESHAM [address] [place] [address] Drive Phys: Carolyn cormier MD, GIANNA Marre[place] [address] : 1965 Age: 59 Sex: F Acct: [id number] Loc: G.RAD PHONE #: Exam Date: 2024 Status : DEP CLI FAX #: Rad# [id number] Unit# [id number] Admit Date: 2024 EXAMS: CPT CODE: [id number] 250 DEXA BONE DENSIT Y WITH VFA 13093 Electr onical ly Signed by NUSRAT LOPES [...] Report CC'ed Logic: Orderi ng Provid er: CAROLYN CHOI Attend ing Provid er: CAROLYN CHOI Referr ing Provid er: CAROLYN CHOI Consul ting Provid er: CAROLYN merrill[address] [place] [address] [place], [address], 05/21/2025 12:59:51 Result Notes None recorded. Problems Name Problem SNOMED Code Status Onset Date Resolution Date Notes Provider Name and Address Organization Details Recorded Time Vitamin D deficiency 32718805 Active Huong Bisotti null, [place] [facility] [place] [facility] [place] 3 12:47:37 Gastroesoph ageal reflux disease 512821223 Active 2022 carlos chance [place] 3 13:12:50 Hypothyroid ism 08779305 Active 2022 carlos chance [place], [place] 3 13:13:01 Migraine 75991240 Active 2022 carlos chance [place] 3 13:13:18 Fibromyalgi a 833998710 Active 2022 carlos chance [place] 3 13:17:25 Chronic pain 14848022 Active 2022 carlos chance [place] 3 13:17:36 Osteoarthri tis of multiple joints 250188199 Active 2022 carlos chance [place] 3 13:17:52 Lumbar radiculopat hy 660431403 Active 2022 Acute right carlos chance [place], [place] 3 13:18:19 Bypass of stomach Active 2022 carlos chance [place] 3 13:18:44 Electrocard iogram abnormal 751049650 Active 2022 Altaf Thomas MD [address] [facility],[address], [place], [address], [place] 3 12:04:32 Essential hypertensio n 46124752 Active 2022 Altaf Thomas MD [address], [place], [address], [place] 3 12:04:38 Mitral valve regurgitati on 82908508 Active 2022 Altaf Thomas MD [address] [place] [address],[address] [place] [address], [address], [place] 3 12:05:11 Acquired hypothyroid ism 696622633 Active [address], MD [address] [place] [address],[address] [place] [address], [address], [place] 3 16:33:03 Liver mass 641311184 Active [address], MD [address] [place] [address],[address] [place] [address], [address], [place] 4 16:28:06 Osteoporosi s 24094421 Active [address], MD [address] [place] [address],[address] te [facility], [place], [address], [place] 5 16:53:41 Standardize d adult depression screening tool completed 0937679865766 07 Active [address], MD [address] [place] [address],[address], [address], [place] 5 16:57:08 Moderate major depression 760104 Active [address], MD [address] [place] [address],[address], [address], [place] 4 15:15:35 Atrophy of thyroid - acquired 454971535 Active [address], MD [address] [place] [address],[address], [place], [address], [place] 5 16:06:04 Disorder of sleep-wake cycle 843123374 Active [address], MD [address] [place] [address],[address] [place] [address], [address], [place] 5 16:06:17 Generalized osteoarthri tis 174034682 Active [address], MD [address] [place] [address],[address] te [address] [place] [address], [address], [place] 5 16:06:21 Benign essential hypertensio n 4384514 Active [address], MD [address] [place] [address],[address] te [address] [place] [address], [address], [place] [facility] 5 16:52:39 Dyspnea on exertion 38228077 Active 2024 Altaf Thomas MD [address] [place] [address],[address] [place] [address], [address], [place] 5 11:49:26 Problem Notes None recorded. Procedures Surgical History Date Name Laterality Status Provider Name and Address Organization Details Recorded Time 022 Date of Last Pap Smear completed Yoselin KATZ - [facility] & [place] 03/09/2023 15:16:24 021 Most Recent Bone Density completed Yoselin KATZ - [place] [place] 03/09/2023 15:16:24 017 completed Yoselin KATZ - [facility] [place] & [place] 03/09/2023 15:16:24 016 Pacemaker/Defibrill ator completed Connie KATZ - [facility] [place] & [place] 08/24/2022 13:16:16 014 Gastrointestinal Surgery completed Connie KATZ - [facility] - [place] & [place] 08/24/2022 13:16:16 013 Date of Last Colonoscopy completed Yoselin KATZ - [place] - [place] & [place] 03/09/2023 15:16:24 006 Cholecystectomy completed Connie KATZ - [facility] & [place] 08/24/2022 13:16:16 procedure on hand completed palaknife r chance [place] - [facility] & [place] 08/13/2022 13:22:13 procedure on knee completed jennife r chance [place] [facility] [facility] & [place] 08/13/2022 13:23:21 cholecystectomy completed carlos chance [place] [facility] [facility] & [place] 08/13/2022 13:23:31 lithotripsy completed carlos chance [place] [facility] [facility] & [place] 08/13/2022 13:23:51 bypass of stomach completed palaknife r chance [place] [facility] [facility] & [place] 08/13/2022 13:24:01 cardiac pacemaker procedure completed carlos chance [place] [facility] [facility] & [place] 08/13/2022 13:24:27 surgical procedure completed palaknif er chance [place] [facility] [facility] & [place] 08/13/2022 13:25:02 Imaging Results None recorded. Procedure Notes None recorded. Medical Equipment None Reported. Allergies Allergen ID Allergen Name Allergen Category Reaction Reaction Severity Criticality Documentation Date Start Date Code Code System Note Provider Name and Address Organization Details Recorded Time 23916 Anaprox medicatio n Not available Not available Not available 08/13/2022 20463 9 RxNorm carlos fletcher null, [place] [facility] [place] 13:07:49 45432 Substance with sulfonami de structure and antibacte rial mechanism of action (substanc e) medicatio n Not available Not available Not available 08/13/2022 44590 8003 SNOMED carlos mcclainur null, [place] [facility] [place] 13:08:00 76641 acetamino phen / hydrocodo ne medicatio n Not available Not available Not available 08/13/2022 78333 2 RxNorm carlos chance null, [place] [facility] [facility] [place] 13:08:08 Medications Name Sig Start Date Stop [...] Updated DateTime 5 165.1 cm 17.9 kg/m2 69302.5 4 g 100 % 100 % 90 /min 158/100 mm[Hg] Tika Zurita [place] [facility] [place] 5 11:31:26 Social History Question Answer Notes LastModified by [employer] Details LastModified Time Tobacco Smoking Status Never Smoker carlos f[facility], [facility] & [place] 08/13/2022 13:21:24 Do You Have An Advance Directive? No [email or web address] Information not available 03/09/2023 Are You Blind Or Do You Have Difficulty Seeing? No [email or web address] Information not available 03/09/2023 What Is Your Level Of Caffeine Consumption? Occasional Information not available 09/06/2023 What Type Of Diet Are You Following? REGULAR Information not available 09/06/2023 Which Illicit Or Recreational Drugs Have You Used? Marijuana Information not available 09/06/2023 What Was The Date Of Your Most Recent Tobacco Screening? 08/07/2024 [email or web address] Information not available 09/27/2024 Are You Passively Exposed To Smoke? Yes [email or web address] Information no t available 08/24/2022 Have You Used IV Drugs? No Information not available 09/06/2023 Sex: Female Functional Status Question Answer Note LastModified by [employer] ion Details LastModified Time Do you use any illicit or recreational drugs? No [email or web address] Information not available 09/27/2024 Do you or have you ever used any other forms of tobacco or nicotine? No Information not available 09/06/2023 What is your level of alcohol consumption? Moderate [email or web address] Information not available 08/13/2022 Do you or have you ever used smokeless tobacco? Never used smokeless tobacco [email or web address] Information not available 08/24/2022 What is your exercise level? None [email or web address] Information not available 08/24/2022 Mental Status Question Answer Note LastModified by Organization D etails LastModified Time Do you feel stressed (tense, restless, nervous, or anxious, or unable to sleep at night)? [id number] [email or web address] Information not available 03/09/2023 Family History Relationship Description Onset Age of this Age Resolved Age Notes LastModified by Organization Details LastModified Time Mother Disorder of thyroid gland [email or web address] Not available 2022 13:20:19 Father Heart disease [email or web address] Not available 2022 13:20:37 Father Coronary arterioscler [email or web address] Not available 2024 11:19:58 Medical History Condition Response Coronary Artery Disease N Gout N None N Thyroid Disease Y Kidney Stones N Hyperthyroidism N Depression N COPD N Hypothyroidism Y Pacemaker Y Difficulty Swallowing N Anxiety Disorder N Meniere's disease N Autoimmune disease Y Obesity N Arthritis [...] N Heart Disease N Pulmonary Embolism N Hypertension Y Chronic Ear Infections N Osteoporosis N Gynecological History Statement/Question Response Abnormal Pap Y 12/17/2016 Date of Last Colonoscopy 12/17/2012 Most Recent Bone Density 07/19/2020 Date of LMP 11/16/2009 Sexually Active? Y Menses Monthly N Date of Last Pap Smear 08/19/2021 Current Control Method Menopause Obstetrics History GPAL:G 0 P 0 0 0 0 Immunizations Vaccine Type Date Status Note Provider Jann e and Address Organization Details Recorded Time COVID-19 vaccine, vector-nr, rS-Ad26, PF, 0.5 mL 11/25/2020 completed Amanda [facility], [place] [facility] [place] 02/16/2023 17:02:41 Past Encounters Encounter ID Performer Location Encounter Start Date Encounter Closed Date Diagnosis/Indication Diagnosis SNOMED-CT Code Diagnosis ICD10 Code Diagnosis IMO Codes Diagnosis Note [id number] Altaf Thomas MD [facility] [address] [place] [address] 05/17/2025 11:18:35 05/17/2025 11:50:02 Electrocardiogram abnormal 066035052 R94.31 Essential hypertension 76476756 I10 Cardiac pa cemaker in situ 047858789 Z95.0 Mitral javon ve regurgitation 87731216 I34.0 Dyspnea on exertion 6084 5006 R06.09 876423 Health Concerns Section Related Observation LastModified by Organization Detai ls LastModified Time None Recorded Concern Status LastModified by Organization Details LastModified Time None Recorded Payers Encounter Date Sequence Insurance Name Policy Number Policy Cosby Covered Member ID Cosby Member ID Guarantor Name 05/17/2025 1 [employer] [employer] [id number] Miguelina Gresham [id number] Miguelina Gresham Notes Date Note Type Note Provider Name and Address Organization Details Recorded Time 05/17/2025 text/html doing well. Here for 2 [...] pain pressure or tightness Altaf Thomas MD [address] [place] [address],[address], [place], [address], [facility] [place] 05/17/2025 11:59:04 OBGyn Episode No OBEpisode recorded.
--- OUTSIDE RECORDS SUMMARY | 2025-05-21 14:14 | XMS_ITS | Data Portability ---
Author Organization [facility], [place] Address [address] [place] [address] Care Team Providers Care Exhibit Builder Name Role Phone DICKSONJANENECHARLOTTEJIMBO Primary Care Provider HALIE VU Molecular Biologist [phone] TOM GILBERT Orthopedist Assessment Encounter Date Assessment Date Assessment LastModified by Organization Details LastModified Time 06/15/2022 06/15/2022 Assessment: 1. Asthma (Childhood diagnosis) *PFT (06/15/2022): no obstruction, no restrictio, no change after YEE 2. Dyspnea 3. Chronic Cough 4. Current marijuana use 5. History of OSAS 6. Pacemaker Plan: 1. Sample Trelegy and RX; 1 puff daily; I personally demonstrated use of the Ellipta device during todays visit 2. Continue Albuterol HFA prn SOB/Wheeze 3. RX DuoNebs prn 4. Order RAST Panel/CBC/IgE/Bu dgerigar feather IgE Ab/IgE total serum (sent to [facility]) 5. Consider repeat HST at next OV *Complains of continued fatigue despite weight loss of 125 pounds 6. F/U with Cardiology as scheudled 7. Request any CXR or Chest CT from [facility] 8. Order Respiratory Pathogen Panel (obtained and sent today via [employer]) 9. RTO in 2 weeks for medication follow up, sooner if needed PFT The patient underwent pulmonary function testing today to evaluate complaints of dyspnea. Results were discussed with the patient. Smoking cessation was discussed with the patient for less than 10 minutes. The detrimental effects to the patient's health of continued smoking was explained. Methods to quit smoking were also discussed to include nicotine replacement therapy and pharmacologic treatment. [email or web address] Not available 06/16/2022 09:33:28 Plan of Treatment Reminders Order Date Submit Date Provider Last Modified By Organization Details Last Modified Time Details Appointments None recorded. Lab respiratory allergen panel - [facility] [address] (Scheduling), [address], [place], [id number], 15:45:54 CBC w/ manual diff [address] (Scheduling), [address], [place], [id number], 3 15:45:54 ige, total, serum [address] (Scheduling), [address], [place], [address], 15:45:54 budgerigar feather IgE Ab/IgE total, serum [address] (Scheduling), [address], [place], [id number], 15:45:54 Referral None recorded. Procedures None recorded. Surgeries None recorded. Imaging None recorded. Medication Orders Trelegy Ellipta 100 mcg-62.5 mcg-25 mcg powder for inhalation [address] [facility], [address] [place] [address] [address], [place], [id number], 14:18:20 ipratropium 0.5 mg-albutero l 3 mg (2.5 mg base)/3 mL nebulizatio n soln 2021 [facility], [address] [place] [address] [address], [place], [id number], 2 08:41:49 Patient TargetsNo targets recorded. Patient Instructions Encounter Date Encounter Id Patient Instructions Last Modified By Organization Details Last Modified Time 06/15/2022 [id number] medical record request* - Please send any CXR or Chest CT's . Thank you [email or web address] Not available 08/10/2022 15:35:20 Reason for Referral None Reported. Results Created Date Observation Date Name Description Value Unit Range Abnormal Flag Note LastModifiedBy Organization Detail LastModifiedTime 06/18/20 22 06/18/2022 compl ete PFT w/ post [facility] hodil ator miya metry * No observ ation record ed. [email or web address] Not Available 2021 11:49:08 Result Notes None recorded. Problems Name Problem SNOMED Code Status Onset Date Resolution Date Notes Provider Name and Address Organization Details Recorded Time Asthma 306840165 Active 2021 Marsha Victor, EMEKA [address], [place], [address], [place] [facility] 2 12:13:40 Migraine 40547047 Active 2021 agus kristen null, [place] - [facility] 2 12:20:33 Hyperthyroidis m 31241674 Active 2021 agus kristen [place], [place] [facility] 2 12:20:47 Heart valve disorder 288947 Active 2021 agus kristen [place], [place] [facility] 2 12:20:55 Monitoring of pacemaker 20361912 Active 2021 agus kristen null, [place] [facility] 2 12:21:11 Depressive disorder 72826397 Active 2021 agus kristen null, [place] [facility] 2 12:21:17 Fibromyalgia 849051931 Active 2021 agus kristen null, [place] - [facility] 2 12:21:22 Fatigue 05736775 Active 2021 Marsha Victor NP [address], [place], [address], [place] - [facility] 2 09:31:53 Dyspnea 176980338 Active 2021 Marsha Victor NP [address], [place], [address], [place] [facility] 2 09:31:59 Chronic cough 48979241 Active 2021 Marsha Victor NP [address], [place], [address], [place] [facility] 2 09:32:06 Upper respiratory infection 05041345 Active 2021 Marsha Victor NP [address], [place], [address], [place] [facility] 2 08:52:32 Problem Notes None recorded. Procedures Surgical History Date Name Laterality Status Provider Name and Address Organization Details Recorded Time cardiac pacemaker procedure completed agus kristen [place] [facility] 06/15/2022 12:15:10 Knee arthroscopy/surgery completed agus kristen [place] [facility] 06/15/2022 12:16:08 cholecystectomy completed agus kristen [place] [facility] 06/15/2022 12:16:16 parathyroidectomy completed agus kristen [place] [facility] 06/15/2022 12:16:27 ultrasonography guided transcervical radiofrequency ablation of uterine fibroid completed agus kristen [place] [facility] 06/15/2022 12:18:05 Gastric bypass for obesity completed agus kristen [place] [facility] 06/15/2022 12:18:31 maintenance procedur e for cardiac pacemaker system completed agus kristen [place] [facility] 06/15/2022 12:18:46 Imaging Results None recorded. Procedure Notes None recorded. Medical Equipment None Reported. Allergies Allergen ID Allergen Name Allergen Category Reaction Reaction Severity Criticality Documentation Date Start Date Code Code System Note Provider Name and Address Organization Details Recorded Time 53257 Substance with sulfonami de structure and antibacte rial mechanism of action (substanc e) medicatio n Not available Not available Not available 06/15/2022 04968 8003 SNOMED agus kristen [place], [place] - [facility] 2 12:00:03 38027 acetamino phen / hydrocodo ne medicatio n Not available Not available Not available 06/15/2022 26101 2 RxNorm agus kristen [place], [place] - [facility] 2 12:00:09 77652 Anaprox medicatio n Not available Not available Not available 06/15/202269252 9 RxNorm agus kristen [place], [place] - [facility] 12:00:17 Medications Name Sig Start Date Stop Date Status Note LastModified by Organization Details LastModified Time cyclobenzap rine 10 mg tablet TAKE ONE TABLET BY MOUTH EVERY DAY AT BEDTIME active Not Available Not Available No t Available ipratropium 0.5 mg-albutero l 3 mg (2.5 mg base)/3 mL nebulizatio n soln INHALE THE CONTENTS OF 1 VIAL VIA NEBULIZER THREE TIMES DAILY NEEDED active Not Available Not Available No t Available trazodone 50 mg tablet TAKE ONE TABLET BY MOUTH EVERY DAY AT BEDTIME active Not Available Not Available No t Available azithromyci n 250 mg tablet 06/15 completed Not Available Not Available Not Available metoprolol succinate ER 50 mg tablet,exte nded release 24 hr TAKE ONE TABLET BY MOUTH EVERY DAY active Not Available Not Available No t Available prednisone 20 mg tablet 06/15 completed Not Available Not Available Not Available rizatriptan 10 mg tablet TAKE ONE TABLET BY MOUTH ONCE DAILY NEEDED active Not Available Not Available No t Available tramadol 50 mg tablet TAKE ONE TABLET BY MOUTH EVERY 6 HOURS MAY CAUSE DROWSINES S active Not Available Not Available No t Available famotidine 20 mg tablet TAKE ONE TABLET BY MOUTH EVERY DAY AT BEDTIME NEEDED 06/15 completed Not Available Not Available Not Available esomeprazol e magnesium 40 mg capsule,del ayed release TAKE ONE CAPSULE BY MOUTH EVERY DAY active Not Available Not Available No t Available furosemide 20 mg tablet TAKE ONE TABLET BY MOUTH EVERY DAY 06/15 completed Not Available Not Available Not Available levofloxaci n 500 mg tablet TAKE ONE TABLET BY MOUTH ONCE DAILY FOR 5 DAYS -- FINISH ALL MEDICINE -- active Not Available Not Available No t Available methylpredn isolone 4 mg tablets in a dose pack TAKE ACCORDING TO PACKAGE INSTRUCTI ONS --TAKE WITH FOOD-- -- FINISH ALL MEDICINE -- 06/15 completed Not Available Not Available Not Available cefdinir 300 mg capsule 06/15 completed Not Available Not Available Not Available levothyroxi ne 112 mcg tablet TAKE ONE TABLET BY MOUTH EVERY DAY IN THE MORNING ON an EMPTY stomach 06/15 completed Not Available Not Available Not Available hydroxyzine pamoate 25 mg capsule TAKE ONE CAPSULE BY MOUTH TWICE DAILY NEEDED FOR ANXIETY MAY CAUSE DROWSINES S active Not Available Not Available No t Available duloxetine 60 mg capsule,del ayed release TAKE ONE CAPSULE BY MOUTH EVERY DAY active Not Available Not Available No t Available Symbicort 160 mcg-4.5 mcg/actuati on HFA aerosol inhaler Inhale 2 puffs twice a day by inhalatio n route for 30 days. active Not Available Not Available No t Available Trelegy Ellipta 100 mcg-62.5 mcg-25 mcg powder for inhalation Inhale 1 puff every day by inhalatio n route for 30 days. 06/16 completed Not Available Not Available Not Available Aimovig Autoinjecto r 70 mg/mL subcutaneou s auto-inject or INJECT 1ml SUBCUTANE OUSLY ONCE a MONTH active Not Available Not Available No t Available Imvexxy Maintenance Pack 4 mcg vaginal insert USE DIRECTED twice a WEEK active Not Available Not Available No t Available Vitals Date Recorded Body weight Oxygen saturation Oxygen saturation in Arterial blood by Pulse oximetry Heart rate Respiratory rate Body temperature Body height Body mass index (BMI) Systolic And Diastolic Provider Name and Address Organization Details Last Updated DateTime 2 00887.0 5 g 98 % 98 % 84 /min 18 /min 98.4 [degF] 165.1 cm 20.8 kg/m2 126/80 mm[Hg] agus peterson [place] - [facility] 11:59:28 Social History Question Answer Notes LastModified by Organizat ion Details LastModified Time Tobacco Smoking Status Never Smoker agus mauro, [place] - [facility] 06/15/2022 12:01:56 Are You Blind Or Do You Have Difficulty Seeing? No [email or web address] Information not available 06/15/2022 In The 14 Days Before Symptom Onset, Have You Had Close Contact With A Laboratory-confir med COVID-19 While That Case Was Ill? No [email or web address] Information not available 06/15/2022 In The 14 Days Before Symptom Onset, Have You Had Close Contact With A Person Who Is Under Investigation For COVID-19 While That Person Was Ill? No [email or web address] Information not available 06/15/2022 Have You Been To An Area Known To Be High Risk For COVID-19? No [email or web address] Information not available 06/15/2022 Are You Deaf Or Do You Have Serious Difficulty Hearing? No [email or web address] Information not available 06/15/2022 Do You Have Any Pets? Yes Cats, Dogs, Birds [email or web address] Information not available 06/15/2022 What Is Your Relationship Status? [email or web address] Information not available 06/15/2022 Are There Any Smokers In Your House? No [email or web address] Information not available 06/15/2022 Have You Recently Traveled Abroad? No [email or web address] Information not available 06/15/2022 Are You Currently In School? No [email or web address] Information not available 06/15/2022 Sex: Unknown Functional Status Question Answer Note LastModified by Organizat ion Details LastModified Time Do you or have you ever used any other forms of tobacco or nicotine? No [email or web address] Information not available 06/15/2022 Are you currently employed? No retired from [employer] [email or web address] Information not available 06/15/2022 Do you have difficulty doing errands alone? No [email or web address] Information not available 06/15/2022 Mental Status Question Answer Note LastModified by Organization D etails LastModified Time Do you have difficulty concentrating, remembering or making decisions? No [email or web address] Information no t available 06/15/2022 Family History Relationship Description Onset Age of this Age Resolved Age Notes LastModified by Organization Details LastModified Time Mother Environmenta l allergy [email or web address] Not available 05/20 12:19:05 Father Environmenta l allergy [email or web address] Not available 05/20 12:19:05 Father Heart disease [email or web address] Not available 05/20 12:20:17 Maternal Grandfather Asthma Not available 12:19:13 Maternal Grandfather Emphysema [email or web address] Not available 06/15/2022 12:20:07 Maternal Grandmother Family history of malignant neoplasm [email or web address] Not available 05/20 12:19:37 Paternal Grandfather Chronic obstructive pulmonary disease [email or web address] Not available 05/20 12:19:50 Paternal Grandmother Emphysema [email or web address] Not available 06/15/2022 12:20:07 Medical History No medical history recorded. Gynecological HistoryNo gynecological history recorded. Obstetrics History GPAL:G 0 P 0 0 0 0 Past Encounters Encounter ID Performer Location Encounter Start Date Encounter Closed Date Diagnosis/Indication Diagnosis SNOMED-CT Code Diagnosis ICD10 Code Diagnosis IMO Codes Diagnosis Note [id number] Marsha Victor NP [facility] [address] [place] [address] DR MCNEAL [address] [place] [phone] 06/15/2022 10:43:53 06/15/2022 12:48:02 Asthma 066481196 J45.909 Chronic cough 58719856 R 05.3 Dyspnea 632154504 R06.00 Fatigue 72089160 R53.83 Health Concerns Section Related Observation LastModified by Organization Detai ls LastModified Time None Recorded Concern Status LastModified by Organization Details LastModified Time None Recorded Advance Directives Directive None Recorded Payers Insurance Date Sequence Insurance Name Policy Number Policy Cosby Covered Member ID Cosby Member ID Guarantor Name 07/15/2024 1 [place] [employer] [id number] Miguelina Gresham [id number] Miguelina Gresham Notes Date Note Type Note Provider Name and Address Organization Details Recorded Time 06/15/2022 text/html ROS as noted in the HPI This is a 56 year-old female who presents to the office today as a new patient, self referred for the management of asthma. Patient complains of non-productive cough greater than 6 months and shortness of breath with activity. She reports a diagnosis of asthma as a child. Has recently been treated with two rounds of antibiotics and oral steroids with no relief in symptoms. She has tried and failed Advair and Combivent in the past and is current not on any maintenance inhaler. She uses an albuterol inhaler about three times per week since April. She smokes 2 puffs of marijuana a few times a day since 2013. Denies any seasonal allergies. No occupational exposures. She does have dogs, cats and 10 birds in the home. Family history is positive for emphysema. A focused sleep assessment is positive for OSAS. She no longer wears her CPAP since she had a weight loss of 125 pounds after gastric bypass surgery. She does continue to report daytime fatigue. She takes Trazodone nightly for sleep.Has received the J [employer] J Vaccine x 1. Denies any fever, chills, n/v/d, abdominal pain or lower extremity edema. Marsha Victor NP [address], [place], [address], [facility] 06/16/2022 09:34:42 OBGyn Episode No OBEpisode recorded.
--- OUTSIDE RECORDS SUMMARY | 2025-05-21 14:14 | XMS_ITS | Encounter Summary ---
Author Organization [facility] [place] [address] Care Team Providers Care Electronic Security Technician Name Role Phone Unavailable Primary Care Provider Unavailabl e Reason for Visit * Reason Onset Date Comments Medication Management 04/18/2025 LEVOthyrox ine (SYNTHROID) 112 mcg Oral Tablet Encounter Details Date Type Department Care Team (Late st Contact Info) Description 04/18/2025 [facility] [address] [facility] [address] [place] [address] Michael Brennan MD [address] [place] [address] Medication Management (LEVOthyroxine (SYNTHROID) 112 mcg Oral Tablet) Social History Tobacco Use Types Packs/Day Years Used Date Smoking Tobacco: Never Smokeless Tobacco: Never Alcohol Use Standard Drinks/Week Comments Yes 20 (1 standard drink = 0.6 oz pu re alcohol) 1-2/day Sexually Active Control Partners Comments Not Currently Male Comments No Sex and Gender Information Value Date Recorded Sex Assigned at Not on file Legal Sex Female 10:58 AM EST Gender Identity Not on file Sexual Orientation Not on file documented as of this encounter Miscellaneous Notes * Telephone Encounter - Windy Palmer MA - 04/18/2025 2:30 PM EDT Noted. No recent labs to review * Telephone Encounter - Alee Monahan - 04/18/2025 2:15 PM EDT Pt called to r/s 04/23 apt because it will not be needed. She is taking her LEVOthyroxine (SYNTHROID) 112 mcg Oral Tablet medication and said she is not having any trouble with it. New apt is on 05/23. documented in this encounter Plan of Treatment Not on file documented as of this encounter Visit Diagnoses Not on filedocumented in this encounter
--- OUTSIDE RECORDS SUMMARY | 2025-05-21 14:14 | XMS_ITS | CCD ---
Author Name Interface, B8Raublql lity Address [address] [place] [address] Organization [facility] Address [address] [place] [address] Care Team Providers Care Fabric Machine Operator Name Role Phone Aliyah RICHARD, Dez Mansfield Unavailable Unavailable Allergies and Adverse Reactions Medication/Group Name Reaction Severity Date Sulfa (Sulfonamide Antibiotics) 11/29/2018 Vicodin 11/29/2018 Anaprox 11/29/2018 Reason for Visit 8wk fu resc1x Functional Status Date Name/Question Score/Answer 11/29/2018 ECOG performance status - grade 0 0 09/27/2018 ECOG performance status - grade 0 0 10/11/2018 ECOG performance status - grade 0 0 10/04/2018 ECOG performance status - grade 0 0 Medications Date Name Route Dose Frequency Instructions Start Date End Date Status Fill Status Indication 09/27 Trazodon e Oral orally 50.0 mg daily active 09/27 Multivit amins Oral Tablet orally 1.0 daily active 09/27 Metoprol ol Oral (Tartrat e) orally 50.0 mg once daily active 09/27 Esomepra zole (Magnesi um) Oral Delayed Release Capsule orally 40.0 mg daily active 09/27 Memantin e Oral 28.0 stopped 09/27 Levothyr oxine Oral orally 125.0 mcg daily active 09/27 Magnesiu m Oxide Oral active 09/27 Rizatrip bhagat Oral Dose Pack 10 mg orally 1.0 as directed on dose pack take 1 tab at onset of headache; if no relief may repeat 1 tab in 2hr; max = 3 tabs/day (24hr) active 10/11 Clindamy concepcion Oral orally 300.0 mg 3 times per day active Problems Diagnosis Status Date of Diagnosis Resolution Date Acquired iron deficiency ane bree due to decreased absorption Active Normocytic anemia Active Thrombocytopenic disorder (disorder) Inactive Post-surgical malabsorption Active Thrombocytosis Active History of gastric bypass Active Social History Date Name Value 09/12/2018 Sex Female
--- OUTSIDE RECORDS SUMMARY | 2025-05-21 14:14 | XMS_ITS | Continuity of Care Document ---
Author Organization GIANNA - [facility] & N[facility]HI [facility] Address [address] [place] [address] Care Team Providers Care Television Production Technician Name Role Phone JIMBO SHEA Primary Care Provider Assessment No assessment recorded. Plan of Treatment Reminders Order Date Submit [...] T4, serum 2024 025 HUBERT [facility], [address], [address], [place], [address], 03/29/2025 13:11:10 T3, free, serum or plasma 2024 025 HUBERT [facility], [address], [address], [place], [address], 03/29/2025 13:11:13 vitami n D, 25-hyd felicitas, total, serum 2024 025 HUBERT [facility], [address], [address], [place], [address], 03/29/2025 13:11:12 PTH (parat hyroid hormon e), intact , serum or plasma 2024 025 HUBERT [facility], [address], [address], [place], [address], 03/29/2025 13:11:13 magnes ium, serum or plasma 2024 025 HUBERT [facility], [address], [address], [place], [address], 03/29/2025 13:11:13 CBC w/ auto diff 2024 025 HUBERT [facility], [address], [address], [place], [address], 03/29/2025 13:11:11 lipid panel, serum 2024 025 HUBERT [facility], [address], [place] [address], [place], [address], 03/29/2025 13:11:12 CMP, serum or plasma 2024 025 HUBERT [facility], [address], [address], [place], [address], 03/29/2025 13:11:11 Referral None record ed. Procedures None record ed. Surgeries None record ed. Imaging DEXA, axial skelet on + verteb ral fractu re assess ment [address] (Centralized Scheduling), [address] [place] [address] , [place], [address], 05/21/2025 12:04:27 Medication Orders levoth yroxin e 125 mcg capsul e 2024 025 [facility], [address] [place] [address] [address] [place], [id number], 03/29/2025 13:04:38 duloxe greg 60 mg capsul e,colette yed releas e 2024 025 [facility], [address] [place] [address] [address] [place], [id number], 03/28/2025 17:27:11 Carafa te 1 gram tablet 2024 025 [facility], [address] [place] [address] [address] [place], [id number], 03/29/2025 13:04:38 Nexium 40 mg capsul e,colette yed releas e 2024 025 [facility], [address] [place] [address] [address] [place], [id number], 03/28/2025 17:22:06 ondans etron 8 mg disint egrati ng tablet 2024 025 [facility], [address] [place] [address] [address] [place], [id number], 03/29/2025 13:04:38 tramad ol 50 mg tablet 2024 025 [facility], [address] [place] [address] [address] [place], [id number], 05/10/2025 14:55:09 Aimovi g Autoin jector 70 mg/mL subcut aneous auto-i njecto r 2024 025 [facility], [address] [place] [address] [address] [place], [id number], 05/07/2025 15:00:40 Maxalt 10 mg tablet [address] [place] [address], [address] [place] [address] [address] [place], [id number], 03/29/2025 13:04:39 ergoca lcifer ol (vitam in D2) 1,250 mcg (50,00 0 unit) capsul e 092024 [facility], [address] [place] [address] [address] [place], [id number], 04/09/2025 14:14:58 metopr olol succin ate ER 100 mg tablet ,exten ded releas e 24 hr 2024 [facility], [address] [place] [address] [address] [place], [id number], 03/28/2025 17:27:13 levoth yroxin e 125 mcg tablet 2024 [facility], [address] [place] [address] [address] [place], [id number], 03/28/2025 17:27:09 Patient TargetsNo targets recorded. Patient InstructionsNo instructions recorded. Reason for Referral None Reported. Results Created Date Observation Date Name Description Value Unit Range Abnormal Flag Note LastModifiedBy Organization Detail LastModifiedTime 03/28/2003/29/2025 TSH+F REE T4 TSH 0.038 uIU/m L 0.450- 4.500 below low normal Not Available [facility] ([facility]) [address] [place], [address], 03/29/2025 13:11:10 03/28/20 25 03/29/2025 TSH+F REE T4 T4,free(dire ct) 1.99 NG/dL 0.82-1 .77 above high normal Not Available [facility] ([facility]) [address] [place], [address], 03/29/2025 13:11:10 03/28/20 25 03/29/2025 CBC WITH DIFFE RENTI AL/PL ATELE T WBC COMMEN T x10e3 /uL Test not perfo rmed. No laven harvey top tube submi tted. Not Available [facility] ([facility]) [address] [place], [address], 03/29/2025 13:11:11 03/28/20 25 03/29/2025 CBC WITH DIFFE RENTI AL/PL ATELE T RBC TNP Test not perfo rmed Not Available [facility] ([facility]) [address] [facility], [place], [address], 03/29/2025 13:11:11 03/28/20 25 03/29/2025 CBC WITH DIFFE RENTI AL/PL ATELE T hemoglobin TNP Test not perfo rmed Not Available [facility] ([facility]) [address] [facility], [place], [address], 03/29/2025 13:11:11 03/28/20 25 03/29/2025 CBC WITH DIFFE RENTI AL/PL ATELE T hematocrit TNP Test not perfo rmed Not Available [facility] ([facility]) [address] [facility], [place], [address], 03/29/2025 13:11:11 03/28/20 25 03/29/2025 CBC WITH DIFFE RENTI AL/PL ATELE T MCV INSULATOR CUTTER AND FORMER Not Available [facility] ([facility]) [address] [place], [address], 03/29/2025 13:11:11 03/28/20 25 03/29/2025 CBC WITH DIFFE RENTI AL/PL ATELE T MCH INSULATOR CUTTER AND FORMER Not Available [facility] ([facility]) [address] [facility], [place], [address], 03/29/2025 13:11:11 03/28/20 25 03/29/2025 CBC WITH DIFFE RENTI AL/PL ATELE T MCHC INSULATOR CUTTER AND FORMER Not Available [facility] ([facility]) [address] [place], [address], 03/29/2025 13:11:11 03/28/20 25 03/29/2025 CBC WITH DIFFE RENTI AL/PL ATELE T RDW INSULATOR CUTTER AND FORMER Not Available [facility] ([facility]) [address] [facility], [place], [address], 03/29/2025 13:11:11 03/28/20 25 03/29/2025 CBC WITH DIFFE RENTI AL/PL ATELE T platelets TNP Test not perfo rmed Not Available [facility] ([facility]) [address] [facility], [place], [address], 03/29/2025 13:11:11 03/28/20 25 03/29/2025 CBC WITH DIFFE RENTI AL/PL ATELE T neutrophils TNP Test not perfo rmed Not Available [facility] ([facility]) [address] [facility], [place], [address], 03/29/2025 13:11:11 03/28/20 25 03/29/2025 CBC WITH DIFFE RENTI AL/PL ATELE T lymphs TNP Test not perfo rmed Not Available [facility] ([facility]) [address] [facility], [place], [address], 03/29/2025 13:11:11 03/28/20 25 03/29/2025 CBC WITH DIFFE RENTI AL/PL ATELE T monocytes TNP Test not perfo rmed Not Available [facility] ([facility]) [address] [facility], [place], [address], 03/29/2025 13:11:11 03/28/20 25 03/29/2025 CBC WITH DIFFE RENTI AL/PL ATELE T eos TNP Test not perfo rmed Not Available [facility] ([facility]) [address] [facility], [place], [address], 03/29/2025 13:11:11 03/28/20 25 03/29/2025 CBC WITH DIFFE RENTI AL/PL ATELE T basos INSULATOR CUTTER AND FORMER Not Available [facility] ([facility]) [address] [facility], [place], [address], 03/29/2025 13:11:11 03/28/20 25 03/29/2025 CBC WITH DIFFE RENTI AL/PL ATELE T immature cells INSULATOR CUTTER AND FORMER Not Available [facility] ([facility]) [address] [place], [address], 03/29/2025 13:11:11 03/28/20 25 03/29/2025 CBC WITH DIFFE RENTI AL/PL ATELE T neutrophils (absolute) INSULATOR CUTTER AND FORMER Not Available [facility] ([facility]) [address] [place], [address], 03/29/2025 13:11:11 03/28/20 25 03/29/2025 CBC WITH DIFFE RENTI AL/PL ATELE T lymphs (absolute) TNP Test not perfo rmed Not Available [facility] ([facility]) [address] [place], [address], 03/29/2025 13:11:11 03/28/20 25 03/29/2025 CBC WITH DIFFE RENTI AL/PL ATELE T monocytes(ab solute) INSULATOR CUTTER AND FORMER Not Available [facility] ([facility]) [address] [place], [address], 03/29/2025 13:11:11 03/28/20 25 03/29/2025 CBC WITH DIFFE RENTI AL/PL ATELE T eos (absolute) TNP Test not perfo rmed Not Available [facility] ([facility]) [address] [place], [address], 03/29/2025 13:11:11 03/28/20 25 03/29/2025 CBC WITH DIFFE RENTI AL/PL ATELE T baso (absolute) TNP Test not perfo rmed Not Available [facility] ([facility]) [address] [place], [address], 03/29/2025 13:11:11 03/28/20 25 03/29/2025 CBC WITH DIFFE RENTI AL/PL ATELE T immature granulocytes INSULATOR CUTTER AND FORMER Not Available [facility] ([facility]) [address] [facility], [place], [address], 03/29/2025 13:11:11 03/28/20 25 03/29/2025 CBC WITH DIFFE RENTI AL/PL ATELE T immature grans (abs) INSULATOR CUTTER AND FORMER Not Available [facility] ([facility]) [address] [facility], [place], [address], 03/29/2025 13:11:11 03/28/20 25 03/29/2025 CBC WITH DIFFE RENTI AL/PL ATELE T NRBC INSULATOR CUTTER AND FORMER Not Available [facility] ([facility]) [address] [facility], [place], [address], 03/29/2025 13:11:11 03/28/20 25 03/29/2025 CBC WITH DIFFE RENTI AL/PL ATELE T hematology comments: INSULATOR CUTTER AND FORMER Not Available [facility] ([facility]) [address] [facility], [place], [address], 03/29/2025 13:11:11 03/28/20 25 03/29/2025 COMP. METAB OLIC PANEL (14) glucose 84 mg/dL 70-99 normal Not Available [facility] ([facility]) [address] [facility], [place], [address], 03/29/2025 13:11:11 03/28/20 25 03/29/2025 COMP. METAB OLIC PANEL (14) BUN 12 mg/dL 8-27 normal Not Available [facility] ([facility]) [address] [facility], [place], [address], 03/29/2025 13:11:11 03/28/20 25 03/29/2025 COMP. METAB OLIC PANEL (14) creatinine 0.76 mg/dL 0.57-1 .00 normal Not Available [facility] ([facility]) [address] [facility], [place], [address], 03/29/2025 13:11:11 03/28/20 25 03/29/2025 COMP. METAB OLIC PANEL (14) eGFR 89 mL/mi n/1.7 3 >59 normal Not Available [facility] ([facility]) [address] [facility], [place], [address], 03/29/2025 13:11:11 03/28/20 25 03/29/2025 COMP. METAB OLIC PANEL (14) BUN/creatini ne ratio 16 12-28 normal Not Available [facility] ([facility]) [address] [facility], [place], [address], 03/29/2025 13:11:11 03/28/20 25 03/29/2025 COMP. METAB OLIC PANEL (14) sodium 138 mmol/ L 134-14 4 normal Not Available [facility] ([facility]) [address] [facility], [place], [address], 03/29/2025 13:11:11 03/28/20 25 03/29/2025 COMP. METAB OLIC PANEL (14) potassium 4.3 mmol/ L 3.5-5. 2 normal Not Available [facility] ([facility]) [address] [facility], [place], [address], 03/29/2025 13:11:11 03/28/20 25 03/29/2025 COMP. METAB OLIC PANEL (14) chloride 98 mmol/ L 96-106 normal Not Available [facility] ([facility]) [address] [place], [address], 03/29/2025 13:11:11 03/28/20 25 03/29/2025 COMP. METAB OLIC PANEL (14) carbon dioxide, total 22 mmol/ L 20-29 normal Not Available [facility] ([facility]) [address] [facility], [place], [address], 03/29/2025 13:11:11 03/28/20 25 03/29/2025 COMP. METAB OLIC PANEL (14) calcium 9.3 mg/dL 8.7-10 .3 normal Not Available [facility] ([facility]) [address] [place], [address], 03/29/2025 13:11:11 03/28/20 25 03/29/2025 COMP. METAB OLIC PANEL (14) protein, total 7.2 g/dL 6.0-8. 5 normal Not Available [facility] ([facility]) [address] [place], [address], 03/29/2025 13:11:11 03/28/20 25 03/29/2025 COMP. METAB OLIC PANEL (14) albumin 4.7 g/dL 3.9-4. 9 normal Not Available [facility] ([facility]) [address] [place], [address], 03/29/2025 13:11:11 03/28/20 25 03/29/2025 COMP. METAB OLIC PANEL (14) globulin, total 2.5 g/dL 1.5-4. 5 Not Available [facility] ([facility]) [address] [place], [address], 03/29/2025 13:11:11 03/28/20 25 03/29/2025 COMP. METAB OLIC PANEL (14) bilirubin, total 0.7 mg/dL 0.0-1. 2 normal Not Available [facility] ([facility]) [address] [place], [address], 03/29/2025 13:11:11 03/28/20 25 03/29/2025 COMP. METAB [...] 129 48 - 129 Not Available [facility] ([facility]) [address] [place], [address], 03/29/2025 13:11:11 03/28/20 25 03/29/2025 COMP. METAB OLIC PANEL (14) AST (SGOT) 126 IU/L 0-40 above high normal Not Available [facility] ([facility]) [address] [place], [address], 03/29/2025 13:11:11 03/28/20 25 03/29/2025 COMP. METAB OLIC PANEL (14) ALT (SGPT) 53 IU/L 0-32 above high normal Not Available [facility] ([facility]) [address] [place], [address], 03/29/2025 13:11:11 03/28/20 25 03/29/2025 LIPID PANEL cholesterol, total 216 mg/dL 100-19 9 above high normal Not Available [facility] ([facility]) [address] [place], [address], 03/29/2025 13:11:12 03/28/20 25 03/29/2025 LIPID PANEL triglyceride s 67 mg/dL 0-149 normal Not Available [facility] ([facility]) [address] [place], [address], 03/29/2025 13:11:12 03/28/20 25 03/29/2025 LIPID PANEL HDL cholesterol 145 mg/dL >39 normal Not Available [facility] ([facility]) [address] [facility], [place], [address], 03/29/2025 13:11:12 03/28/20 25 03/29/2025 LIPID PANEL VLDL cholesterol josé antonio 12 mg/dL 5-40 Not Available [facility] ([facility]) [address] [facility], [place], [address], 03/29/2025 13:11:12 03/28/20 25 03/29/2025 LIPID PANEL LDL chol calc ([facility]) 59 mg/dL 0-99 Not Available [facility] ([facility]) [address] [facility], [place], [address], 03/29/2025 13:11:12 03/28/2003/29/2025 LIPID PANEL LDL calc comment: INSULATOR CUTTER AND FORMER Not Available [facility] ([facility]) [address] [facility], [place], [address], 03/29/2025 13:11:12 03/28/2003/29/2025 VITAM IN D, 25-HY DROXY vitamin D, [...] um and D. Ivory morillo [place]: [facility] Press . 2. Esdras dickens MF, Sierra scruggs [place], Jose Martin off-F errar i VANEGAS, et al. Evalu ation , treat ment, and preve ntion of vitam in D defic iency : an Endoc rine Socie ty clini josé antonio pract ice guide line. JCEM. 2010; 96(7) :1911 -30. Not Available [facility] ([facility]) [address] [facility], [place], [address], 03/29/2025 13:11:12 03/28/2003/29/2025 MAGNE SIUM magnesium 2.0 mg/dL 1.6-2. 3 normal Not Available [facility] ([facility]) [address] [place], [address], 03/29/2025 13:11:13 03/28/2003/29/2025 TRIIO DOTHY BENSON E (T3), FREE triiodothyro nine (T3), free 3.3 pg/mL 2.0-4. 4 normal Not Available [facility] ([facility]) [address] [facility], [place], [address], 03/29/2025 13:11:13 03/28/20 25 03/29/2025 PTH, INTAC T PTH, intact 141 pg/mL 15-65 above high normal Not Available [facility] ([facility]) [address] [place], [address], 03/29/2025 13:11:13 05/16/20 elect rocar diogr am No observ ation record ed. HUBERT [place] [id number] [facility] [address], [place], [address], 05/17/2025 11:31:46 05/17/20 elect rocar diogr am No observ ation record ed. [email or web address] Not Available 2024 11:38:44 05/18/20 25 05/17/2025 DEXA, axial skele ton + verte bral fract ure asses sment [facility] Name: LESLIE GRESHAM [address] Phys: Carolyn cormier MD, [place] [address] : 1965 Age: 59 Sex: F Acct: [id number] Loc: [facility] PHONE #: Exam Date: 2024 Status : DEP CLI FAX #: [phone] Rad# [id number] Unit# [id number] Admit Date: 2024 EXAMS: CPT CODE: [id number] 250 DEXA BONE DENSIT Y WITH VFA 07937 EXAMIN ATION: DUAL X-RAY ABSORP TIOMET RY (DXA) FOR BONE MINERA L DENSIT Y. CLINIC AL INDICA TION: Osteop orosis . CLINIC AL HISTOR Y: 59 years old, Female . Postme nopaus al. TECHNI QUE: An axial (e.g., hips, spine) and/or append icular (e.g., radius ) exam was perfor med, as approp riate, using -[employer] densit ometer . Images are [...] perfor med using the [employer]iver [employer] FRAX calcul ator based on patien t-repo rted risk factor s. Major osteop orotic fractu re: 15.2%. Hip fractu re: 2.7%. VERTEB RAL FRACTU RE ASSESS MENT: Verteb ral fractu re assess ment from T4-L4 is perfor med using Genant PAGE 1 Signed Report (ADRIANNA NUED) [facility] Name: LESLIE GRESHAM [address] Phys: Carolyn cormier MD, [place] [address] : 1965 Age: 59 Sex: F Acct: [id number] Loc: [facility] PHONE #: [phone] Exam Date: 2024 Status : DEP CLI FAX #: [phone] Rad# [id number] Unit# [id number] Admit Date: 2024 EXAMS: CPT CODE: [id number] 250 DEXA BONE DENSIT Y WITH VFA 81857 visual semi-q uantit ative method . No [...] or below these levels . - Rosa stout ce on treatm ent can be found at the [facility] Osteop orosis Founda tion's websit [...] ation: [id number] PAGE 2 Signed Report (ADRIANNA NUED) [facility] Name: LESLIE GRESHAM [address] Phys: Carolyn cormier MD, [place] [address] : 1965 Age: 59 Sex: F Acct: [id number] Loc: [facility] PHONE #: Exam Date: 2024 Status : DEP CLI FAX #: [phone] Rad# [id number] Unit# [id number] Admit Date: 2024 EXAMS: CPT CODE: [id number] 250 DEXA BONE DENSIT Y WITH VFA 59315 Electr onical ly Signed by NUSRAT LOPES on 2024 at 1248 Report ed and signed by: Ct LOPES CC: [place] cormier MD Dictat ed Date/T willy: 2024 (1248) Techno logist : ESTEBAN LAWRENCEVIS RT(R)( M)(CT) (MR) Transc ribed Date/T willy: 2024 (1248) Transc riptio nist: DR.BUC MOISE Electr onic Signat ure Date/T willy: 2024 (1248) Printe d Date/T willy: 2024 (1500) BATCH NO: N/A PAGE 3 Signed Report CC'ed Logic: Orderi ng Provid er: CAROLYN CHOI Attend ing Provid er: CAROLYN CHOI Referr ing Provid er: CAROLYN CHOI Consul ting Provid er: CAROLYN CHOI [email or web address] , [place], [address], 05/21/2025 12:59:51 Result Notes None recorded. Problems Name Problem SNOMED Code Status Onset Date Resolution Date Notes Provider Name and Address Organization Details Recorded Time Vitamin D deficiency 72254496 Active Huong Holder null, [place] - [facility] [place] & [place] 3 12:47:37 Gastroesoph ageal reflux disease 747720194 Active 2022 carlos fletcher null, [place] [facility] [place] 3 13:12:50 Hypothyroid ism 68441921 Active 2022 carlos fletcher [place], [place] [facility] [place] 3 13:13:01 Migraine 14454200 Active 2022 carlos fletcher [place], [place] [facility] [place] 3 13:13:18 Fibromyalgi a 006318692 Active 2022 carlos mcclainur null, [place] [place] 3 13:17:25 Chronic pain 09607301 Active 2022 carlos chance [place] [facility] [place] 3 13:17:36 Osteoarthri tis of multiple joints 503829354 Active 2022 carlos chance [place] [facility] [place] 3 13:17:52 Lumbar radiculopat hy 736214376 Active 2022 Acute right carlos chance null[place] [facility] [place] 3 13:18:19 Bypass of stomach Active 2022 carlos chance null[place] [place] 3 13:18:44 Electrocard iogram abnormal 311689060 Active 2022 Altaf Thomas MD [facility],Anjali te [address] [place] [address], [phone], [place] [facility] & [place] 3 12:04:32 Essential hypertensio n 42744676 Active 2022 Altaf Thomas MD [address] [place] [address],Anjali te [address] [place] [address], [phone], [place] [facility] & [place] 3 12:04:38 Mitral valve regurgitati on 52752161 Active 2022 Altaf Thomas MD [facility],Anjali te [address] [place] [address], [phone], [place] [facility] [place] & [place] 3 12:05:11 Acquired hypothyroid ism 080190690 Active [address], MD [address] [place] [address],Anjali te [address] [place] [address], [phone], [place] [facility] & [place] 3 16:33:03 Liver mass 772027391 Active [address], MD [address] [place] [address],[address], [place], [address], [facility] - [facility] & [place] 4 16:28:06 Osteoporosi s 13036615 Active [address], MD [address] [place] [address],[address], [address], [facility] - NT [facility] & [place] 5 16:53:41 Standardize d adult depression screening tool completed 7026965498799 07 Active [address], MD [address] [place] [address],Anjali te [address] [place] [address], [phone], [facility] - NT [facility] & [place] 5 16:57:08 Moderate major depression 689846 Active [address], MD [address] [place] [address],[facility] te [address] [place] [address], [address], [facility] - [facility] & [place] 4 15:15:35 Atrophy of thyroid - acquired 774735861 Active [address], MD [address] [place] [address],[facility] te [address] [place] [address], [address], [facility] - [facility] & [place] 5 16:06:04 Disorder of sleep-wake cycle 988830139 Active [address], MD [address] [place] [address],Anjali te [address] [place] [address], [address], [facility] - [facility] & [place] 5 16:06:17 Generalized osteoarthri tis 255468729 Active [address], MD [address] [place] [address],Anjali te [address] [place] [address], [address], [facility] - [facility] & [place] 5 16:06:21 Benign essential hypertensio n 3573067 Active [address], MD [address] [place], [place] [address], [place], [address], [place] [facility] & [place] 16:52:39 Dyspnea on exertion 13704718 Active 2024 Altaf Thomas MD [address] [facility],[address], [place], [address], [place] [facility] [place] & [place] 11:49:26 Problem Notes None recorded. Procedures Surgical History Date Name Laterality Status Provider Name and Address Organization Details Recorded Time 022 Date of Last Pap Smear completed Yoselin San[place] [facility] [place] 03/09/2023 15:16:24 021 Most Recent Bone Density completed Yoselin [place]ford [place] [facility] & [place] 03/09/2023 15:16:24 017 completed Yoselin Sanford [place] [facility] & [place] 03/09/2023 15:16:24 016 Pacemaker/Defibrill ator completed Conniedori Barone [place] [facility] 08/24/2022 13:16:16 014 Gastrointestinal Surgery completed Connie [place] [facility] & [place] 08/24/2022 13:16:16 013 Date of Last Colonoscopy completed Yoselin Sanford [place] [facility] [place] & [place] 03/09/2023 15:16:24 006 Cholecystectomy completed Connie [place]one [place] [facility] & [place] 08/24/2022 13:16:16 procedure on hand completed jennife r chance [place] [facility] & [place] 08/13/2022 13:22:13 procedure on knee completed jennife r chance [place] [facility] & [place] 08/13/2022 13:23:21 cholecystectomy completed carlos chance [place] [facility] & [place] 08/13/2022 13:23:31 lithotripsy completed carlos chance [place] [facility] & [place] 08/13/2022 13:23:51 bypass of stomach completed ramon Abraham MELISSA [facility] & [place] 08/13/2022 13:24:01 cardiac pacemaker procedure completed carlos Abraham [facility] & [place] 08/13/2022 13:24:27 surgical procedure completed ugo Abraham [facility] & [place] 08/13/2022 13:25:02 Imaging Results None recorded. Procedure Notes None recorded. Medical Equipment None Reported. Allergies Allergen ID Allergen Name Allergen Category Reaction Reaction Severity Criticality Documentation Date Start Date Code Code System Note Provider Name and Address Organization Details Recorded Time 09638 Anaprox medicatio n Not available Not available Not available 08/13/202254398 9 RxNorm GIANNA gilbert [facility] & [place] 3 13:07:49 57913 Substance with sulfonami de structure and antibacte rial mechanism of action (substanc e) medicatio n Not available Not available Not available 08/13/2022 71865 8003 SNOMED GIANNA gilbert [facility] & [place] 3 13:08:00 42107 acetamino phen / hydrocodo ne medicatio n Not available Not available Not available 08/13/2022 73050 2 [facility] [place] [facility] 13:08:08 Medications Name Sig Start Date [...] Not Available No t Available amoxicillin 875 mg-danika barahona clavulanate 125 mg tablet TAKE ONE TABLET [...] and Address Organization Details Last Updated DateTime 165.1 cm 16.9 kg/m2 05055.9 8 g 97.9 [degF] 98 % 98 % 78 /min 18 /min 134/88 mm[Hg] Fabiana Mccarty [facility] & [place] 15:30:26 Social History Question Answer Notes LastModified by Organizat ion Details LastModified Time Tobacco Smoking Status Never Smoker carlos mauro, [facility] & [place] 08/13/2022 13:21:24 Do You Have An Advance Directive? No [email or web address] Information not available 03/09/2023 Are You Blind Or Do You Have Difficulty Seeing? No [email or web address] Information not available 03/09/2023 What Is Your Level Of Caffeine Consumption? Occasional Information not available 09/06/2023 What Type Of Diet Are You Following? REGULAR Information not available 09/06/2023 Which Illicit Or Recreational Drugs Have You Used? Marijuana Information not available 09/06/2023 What Was The Date Of Your Most Recent Tobacco Screening? 08/07/2024 [email or web address] Information not available 09/27/2024 Are You Passively Exposed To Smoke? Yes [email or web address] Information no t available 08/24/2022 Have You Used IV Drugs? No Information not available 09/06/2023 Sex: Female Functional Status Question Answer Note LastModified by Organizat ion Details LastModified Time Do you use any illicit or recreational drugs? No [email or web address] Information not available 09/27/2024 Do you or have you ever used any other forms of tobacco or nicotine? No Information not available 09/06/2023 What is your level of alcohol consumption? Moderate [email or web address] Information not available 08/13/2022 Do you or have you ever used smokeless tobacco? Never used smokeless tobacco [email or web address] Information not available 08/24/2022 What is your exercise level? None [email or web address] Information not available 08/24/2022 Mental Status Question Answer Note LastModified by Organization D etails LastModified Time Do you feel stressed (tense, restless, nervous, or anxious, or unable to sleep at night)? [id number] [email or web address] Information not available 03/09/2023 Family History Relationship Description Onset Age of this Age Resolved Age Notes LastModified by Organization Details LastModified Time Mother Disorder of thyroid gland [email or web address] Not available 2022 13:20:19 Father Heart disease Not available 2022 13:20:37 Father Coronary arterioscler [email or web address] Not available 2024 11:19:58 Medical History Condition Response Coronary Artery Disease N None N Gout N Thyroid Disease Y Kidney Stones N Hyperthyroidism N COPD N Depression N Hypothyroidism Y Pacemaker Y Difficulty Swallowing [...] Immunizations Vaccine Type Date Status Note Provider Nam e and Address Organization Details Recorded Time COVID-19 vaccine, vector-nr, rS-Ad26, PF, 0.5 mL 11/25/2020 completed Amanda Alfonso [facility], [place] - [facility] - [place] & [place] 02/16/2023 17:02:41 Past Encounters Encounter ID Performer Location Encounter Start Date Encounter Closed Date Diagnosis/Indication Diagnosis SNOMED-CT Code Diagnosis ICD10 Code Diagnosis IMO Codes Diagnosis Note [id number] MD NIDHI [facility] [address] [place] [address] 03/28/2025 13:54:26 03/28/2025 15:23:40 Essential hypertension 44410686 I10 Patient returns today for follow-up of [...] as any potential end-organ toxicity. Acquired hypothyroidism 346146367 E03.4 Follow-up today relative to a chronic diagnosis of acquired hypothyroi dism. Clinically the patient voices no complaints , states no unusual weight gain or lower extremity edema. Vitamin D deficiency 347 85766 E55.9 Surveillan ce laboratory studies have been ordered to assess for the target of treatment as well as any potential end-organ toxicity. Gastroesop hageal reflux disease 597852526 K21.9 Follow-up today relative to a chronic diagnosis of gastroesop hageal reflux disease. Patient relates good symptomati c control, and no perceived side effects or issues with her currently prescribed medication Migraine 66516646 G43.90 9 This represents a chronic process that has been stable on medication s for extended period of time. Currently there appears to be no toxicity or side effect and good response to treatment. For these reasons we will continue medication s as ordered. Fibromyalgia [id number] M 79.7 The patient is followed and monitored for chronic pain management with the use of chronic scheduled medication s. Screening appears to show no signs of diversion nor abuse potential. There monitored closely they are getting good reasonable pain control from the currently prescribed medication s. They are following the contractua l agreement with our practice. Hypothyroidism 96608828 E03.4 Follow-up today relative to a chronic diagnosis of acquired hypothyroi dism. Clinically the patient voices no complaints , states no unusual weight gain or lower extremity edema. Benign ess ential hypertension 1063488 I10 Patient returns today for follow-up of a chronic diagnosis of hypertensi on. Outpatient surveillan ce as demonstrat ed good control, without any issues or complaints of side effect. Current blood pressure measuremen t is found elevation in our readings. Were going to do 2 weeks of surveillan ce reassess the need for adjustment in medication . Generalize d osteoarthritis 258022846 M15.9 Patient is on chronic medication for osteoarthr itic disease. Overall level of function is good, and there was no evidence of side effect specifical ly gastric irritation . Ongoing treatment with appropriat e surveillan ce is appropriat e. Osteoporosis 98822444 M8 1.8 surveillan ce laboratory study with DEXA scan has been ordered. Historical ly she was significan tly osteoporot ic and was previously treated with Prolia we are going to have to reassess Standard ed adult depression screening tool completed [id number] 62175 Z13.31 [id number] She has recently been evaluated psychiatri velma and really has been refractory to treatment. She does have an ongoing [facility] ip with a medical psychiatri c provider Health Concerns Section Related Observation LastModified by Organization Detai ls LastModified Time None Recorded Concern Status LastModified by Organization Details LastModified Time None Recorded Payers Encounter Date Sequence Insurance Name Policy Number Policy Cos[place] Covered Member ID Cos[place] Member ID Guarantor Name 03/28/2025 1 [employer] [employer] [id number] Miguelina Gresham [id number] Miguelina Gresham Notes Date Note Type Note Provider Name and Address Organization Details Recorded Time 03/28/2025 text/html MoodReported by PatientMoodFor affect, patient [...] For quality, patient reportsdullandaching. For severity, patient reportsunchanged(adrianna nue stable with current medication management). For [...] the assessment and plan. Jimbo Shea MD [address] [facility],[address], [place], [address], [facility] & [place] 03/28/2025 16:57:57 OBGyn Episode No OBEpisode recorded.
--- OUTSIDE RECORDS SUMMARY | 2025-05-21 14:14 | XMS_ITS | Data Portability ---
Author Organization [facility] Address [address] [place] [address] Assessment No assessment recorded. Plan of Treatment Reminders Order Date Submit Date Provider Last Modified By Organization Details Last Modified Time Details Appointments None recorded. Lab CMP, serum or plasma 2024 025 [facility], [address], [address], [place], [address], 5 06:08:40 amylase + lipase, serum 2024 025 [facility], [address], [place] [address], [place], [address], 5 06:08:40 CBC w/ auto diff 2024 025 [facility], [address], [place] [address], [place], [address], 5 06:08:40 culture, urine 2024 025 [facility], [address], [address] [address], [place], [address], 5 06:08:41 urinalysis, dipstick 2024 025 [facility], [address], [place], [address], 5 15:41:34 vitamin D, 25-hydroxy, total, serum 2024 025 [facility], [address], [address], [place], [address], 5 21:07:40 magnesium, serum or plasma 2024 025 [facility], [address], [place] [address], [place], [address], 5 21:07:42 thiamine, QN, blood 2024 025 [facility], [address], [place] [address], [place], [address], 5 21:07:41 CBC w/ auto diff 2024 025 [facility], [address], [place] [address], [place], [address], 5 21:07:36 CMP, serum or plasma 2024 025 [facility], [address], [place], [place], [address], 5 21:07:37 cobalamin and folate panel, serum 2024 025 [facility]ERT [facility], [address], [place] [address], [place], [address], 5 21:07:38 folate, serum 2024 025 cbkris [facility], [address], [address], [place], [address], 5 14:50:46 prealbumin, serum 2024 025 [facility], [address], [address], [place], [address], 5 21:07:44 vitamin A (retinol), serum 2024 025 HUBERT [facility], [address], [place] [address], [place], [address], 5 21:07:40 transferrin , serum 2024 025 [facility]ERT [facility], [address], [place], [place], [address], 5 21:07:43 carotene, serum 2024 025 [facility], [address], [place] [address], [place], [address], 21:07:42 phosphorus, serum or plasma 2024 025 H[facility]ERT [facility], [address], [address], [place], [address], 5 21:07:41 HbA1c (hemoglobin A1c), blood 2024 025 [facility]ERT [facility], [address], [address], [place], [address], 21:07:39 lipid panel, serum 2024 025 [facility], [address], [address] [address], [place], [address], 21:07:37 selenium, serum or plasma 2024 025 [facility], [address], [address], [place], [address], 21:07:44 zinc, serum or plasma 2024 025 [facility], [address], [place] [address], [place], [address], 5 21:07:43 PT/PTT, plasma 2024 025 [facility], [address], [address], [place], [address], 21:07:38 PTH (parathyroi d hormone), intact + calcium, serum or plasma 2024 025 [facility]ERT [facility], [address], [address] [address], [place], [address], 5 21:07:39 cortisol, am, serum 2024 025 [facility], [address], [address] [address], [place], [address], 5 21:07:44 TSH + free T4, serum 2024 025 [facility], [address], [address] [address], [place], [address], 5 21:07:36 Referral None recorded. Procedures venipunctur e routine (PROC) 2024 025 [facility] Not available 13:47:49 Surgeries None recorded. Imaging XR, hand, 3 or more view 2022 023 [facility] ([facility]), [address] [place] [address] [address], [place], [address], 3 16:16:59 Medication Orders sodium chloride 0.9 % intravenous solution 2024 025 [facility], [address] [place] [address] [address] [place] [place], [id number], 5 15:58:02 Normal Saline Flush 0.9 % injection syringe 2024 025 [facility], [address] [place] [address] [address] [place], [id number], 5 15:58:02 Zithromax Z-Pravin 250 mg tablet 2022 023 [facility], [address] [place] [address], [address], 14:19:23 fluticasone propionate 50 mcg/actuati on nasal spray,suspe nsion 2022 023 [facility], [address] [place] [address], [address], 14:31:27 prednisone 20 mg tablet 2022 023 [facility], [address] [place] [address], [id number], 14:21:07 Patient TargetsNo targets recorded. Patient Instructions Encounter Date Encounter Id Patient Instructions Last Modified By Organization Details Last Modified Time 11/20/2024 [id number] Treament Plan: Patient will start medication as directed. Patient will continue exercise, watch calorie intake, and follow up for weight check in 1 month. derrick Not available 11/20/2024 14:18:30 Reason for Referral None Reported. Results Created Date Observation Date Name Description Value Unit Range Abnormal Flag Note LastModifiedBy Organization Detail LastModifiedTime 11/24/1911/24/2024 TSH+F REE T4 TSH 51.100 uIU/m L 0.450- 4.500 above high normal Not Available [facility] ([facility]) [address] [place], [address], 11/30/2024 21:07:35 11/24/1911/24/2024 TSH+F REE T4 T4,free(dire ct) 0.29 NG/dL 0.82-1 .77 below low normal Not Available [facility] ([facility]) [address] [place], [address], 11/30/2024 21:07:35 11/24/1911/24/2024 CBC WITH DIFFE RENTI AL/PL ATELE T WBC 5.2 x10e3 /uL 3.4-10 .8 normal Not Available [facility] ([facility]) [address] [place], [address], 11/30/2024 21:07:36 11/24/19 25 11/24/2024 CBC WITH DIFFE RENTI AL/PL ATELE T RBC 4.89 x10e6 /uL 3.77-5 .28 normal Not Available [facility] ([facility]) [address] [facility], [place], [address], 11/30/2024 21:07:36 11/24/19 25 11/24/2024 CBC WITH DIFFE RENTI AL/PL ATELE T hemoglobin 13.0 g/dL 11.1-1 5.9 normal Not Available [facility] ([facility]) [address] [place], [address], 11/30/2024 21:07:36 11/24/19 25 11/24/2024 CBC WITH DIFFE RENTI AL/PL ATELE T hematocrit 42.1 % 34.0-4 6.6 normal Not Available [facility] ([facility]) [address] [place], [address], 11/30/2024 21:07:36 11/24/1911/24/2024 CBC WITH DIFFE RENTI AL/PL ATELE T MCV 86 fL 79-97 normal Not Available [facility] ([facility]) [address] [place], [address], 11/30/2024 21:07:36 11/24/1911/24/2024 CBC WITH DIFFE RENTI AL/PL ATELE T MCH 26.6 pg 26.6-3 3.0 normal Not Available [facility] ([facility]) [address] [place], [address], 11/30/2024 21:07:36 11/24/19 25 11/24/2024 CBC WITH DIFFE RENTI AL/PL ATELE T MCHC 30.9 g/dL 31.5-3 5.7 below low normal Not Available [facility] ([facility]) [address] [facility], [place], [address], 11/30/2024 21:07:36 11/24/19 25 11/24/2024 CBC WITH DIFFE RENTI AL/PL ATELE T RDW 14.9 % 11.7-1 5.4 Not Available [facility] ([facility]) [address] [facility], [place], [address], 11/30/2024 21:07:36 11/24/19 25 11/24/2024 CBC WITH DIFFE RENTI AL/PL ATELE T platelets 419 x10e3 /uL 150-45 0 normal Not Available [facility] ([facility]) [address] [facility], [place], [address], 11/30/2024 21:07:36 11/24/19 25 11/24/2024 CBC WITH DIFFE RENTI AL/PL ATELE T neutrophils 50 % not estab. normal Not Available [facility] ([facility]) [address] [facility], [place], [address], 11/30/2024 21:07:36 11/24/19 25 11/24/2024 CBC WITH DIFFE RENTI AL/PL ATELE T lymphs 41 % not estab. normal Not Available [facility] ([facility]) [address] [facility], [place], [address], 11/30/2024 21:07:36 11/24/19 25 11/24/2024 CBC WITH DIFFE RENTI AL/PL ATELE T monocytes 6 % not estab. normal Not Available [facility] ([facility]) [address] [facility], [place], [address], 11/30/2024 21:07:36 11/24/19 25 11/24/2024 CBC WITH DIFFE RENTI AL/PL ATELE T eos 2 % not estab. normal Not Available [facility] ([facility]) [address] [facility], [place], [address], 11/30/2024 21:07:36 11/24/19 25 11/24/2024 CBC WITH DIFFE RENTI AL/PL ATELE T basos 1 % not estab. normal Not Available [facility] ([facility]) [address] [place], [address], 11/30/2024 21:07:36 11/24/19 25 11/24/2024 CBC WITH DIFFE RENTI AL/PL ATELE T immature cells GEOSPATIAL APPLICATIONS DEVELOPER Not Available [facility] ([facility]) [address] [place], [address], 11/30/2024 21:07:36 11/24/1911/24/2024 CBC WITH DIFFE RENTI AL/PL ATELE T neutrophils (absolute) 2.6 x10e3 /uL 1.4-7. 0 normal Not Available [facility] ([facility]) [address] [place], [address], 11/30/2024 21:07:36 11/24/19 25 11/24/2024 CBC WITH DIFFE RENTI AL/PL ATELE T lymphs (absolute) 2.1 x10e3 /uL 0.7-3. 1 normal Not Available [facility] ([facility]) [address] [place], [address], 11/30/2024 21:07:36 11/24/19 25 11/24/2024 CBC WITH DIFFE RENTI AL/PL ATELE T monocytes(ab solute) 0.3 x10e3 /uL 0.1-0. 9 normal Not Available [facility] ([facility]) [address] [place], [address], 11/30/2024 21:07:36 11/24/19 25 11/24/2024 CBC WITH DIFFE RENTI AL/PL ATELE T eos (absolute) 0.1 x10e3 /uL 0.0-0. 4 normal Not Available [facility] ([facility]) [address] [place], [address], 11/30/2024 21:07:36 11/24/19 25 11/24/2024 CBC WITH DIFFE RENTI AL/PL ATELE T baso (absolute) 0.0 x10e3 /uL 0.0-0. 2 normal Not Available [facility] ([facility]) [address] [facility], [place], [address], 11/30/2024 21:07:36 11/24/19 25 11/24/2024 CBC WITH DIFFE RENTI AL/PL ATELE T immature granulocytes 0 % not estab. Not Available [facility] ([facility]) [address] [facility], [place], [address], 11/30/2024 21:07:36 11/24/19 25 11/24/2024 CBC WITH DIFFE RENTI AL/PL ATELE T immature grans (abs) 0.0 x10e3 /uL 0.0-0. 1 Not Available [facility] ([facility]) [address] [facility], [place], [address], 11/30/2024 21:07:36 11/24/19 25 11/24/2024 CBC WITH DIFFE RENTI AL/PL ATELE T NRBC GEOSPATIAL APPLICATIONS DEVELOPER Not Available [facility] ([facility]) [address] [facility], [place], [address], 11/30/2024 21:07:36 11/24/19 25 11/24/2024 CBC WITH DIFFE RENTI AL/PL ATELE T hematology comments: GEOSPATIAL APPLICATIONS DEVELOPER Not Available [facility] ([facility]) [address] [facility], [place], [address], 11/30/2024 21:07:36 11/24/19 25 11/24/2024 COMP. METAB OLIC PANEL (14) glucose 62 mg/dL 70-99 below low normal Not Available [facility] ([facility]) [address] [place], [address], 11/30/2024 21:07:37 11/24/19 25 11/24/2024 COMP. METAB OLIC PANEL (14) BUN 8 mg/dL 8-27 normal Not Available [facility] ([facility]) [address] [facility] [place], [address], 11/30/2024 21:07:37 11/24/19 25 11/24/2024 COMP. METAB OLIC PANEL (14) creatinine 0.98 mg/dL 0.57-1 .00 normal Not Available [facility] ([facility]) [address] [facility] [place], [address], 11/30/2024 21:07:37 11/24/19 25 11/24/2024 COMP. METAB OLIC PANEL (14) eGFR 66 mL/mi n/1.7 3 >59 normal Not Available [facility] ([facility]) [address] [place], [address], 11/30/2024 21:07:37 11/24/19 25 11/24/2024 COMP. METAB OLIC PANEL (14) BUN/creatini ne ratio 8 12-28 below low normal Not Available [facility] ([facility]) [address] [facility], [place], [address], 11/30/2024 21:07:37 11/24/19 25 11/24/2024 COMP. METAB OLIC PANEL (14) sodium 136 mmol/ L 134-14 4 normal Not Available [facility] ([facility]) [address] [place], [address], 11/30/2024 21:07:37 11/24/19 25 11/24/2024 COMP. METAB OLIC PANEL (14) potassium 3.6 mmol/ L 3.5-5. 2 normal Not Available [facility] ([facility]) [address] [place], [address], 11/30/2024 21:07:37 11/24/19 25 11/24/2024 COMP. METAB OLIC PANEL (14) chloride 95 mmol/ L 96-106 below low normal Not Available [facility] ([facility]) [address] [facility] [place], [address], 11/30/2024 21:07:37 11/24/19 25 11/24/2024 COMP. METAB OLIC PANEL (14) carbon dioxide, total 24 mmol/ L 20-29 normal Not Available [facility] ([facility]) [address] [facility] [place], [address], 11/30/2024 21:07:37 11/24/19 25 11/24/2024 COMP. METAB OLIC PANEL (14) calcium 9.1 mg/dL 8.7-10 .3 normal Not Available [facility] ([facility]) [address] [facility] [place], [address], 11/30/2024 21:07:37 11/24/19 25 11/24/2024 COMP. METAB OLIC PANEL (14) protein, total 7.1 g/dL 6.0-8. 5 normal Not Available [facility] ([facility]) [address] [facility] [place], [address], 11/30/2024 21:07:37 11/24/19 25 11/24/2024 COMP. METAB OLIC PANEL (14) albumin 4.6 g/dL 3.8-4. 9 normal Not Available [facility] ([facility]) [address] [facility] [place], [address], 11/30/2024 21:07:37 11/24/19 25 11/24/2024 COMP. METAB OLIC PANEL (14) globulin, total 2.5 g/dL 1.5-4. 5 Not Available [facility] ([facility]) [address] [facility] [place], [address], 11/30/2024 21:07:37 11/24/19 25 11/24/2024 COMP. METAB OLIC PANEL (14) bilirubin, total 0.3 mg/dL 0.0-1. 2 normal Not Available [facility] ([facility]) [address] [facility] [place], [address], 11/30/2024 21:07:37 11/24/19 25 11/24/2024 COMP. METAB OLIC PANEL (14) alkaline phosphatase 63 IU/L 44-121 normal Not Available [facility] ([facility]) [address] [facility] [place], [address], 11/30/2024 21:07:37 11/24/19 25 11/24/2024 COMP. METAB OLIC PANEL (14) AST (SGOT) 44 IU/L 0-40 above high normal Not Available [facility] ([facility]) [address] [facility] [place], [address], 11/30/2024 21:07:37 11/24/19 25 11/24/2024 COMP. METAB OLIC PANEL (14) ALT (SGPT) 25 IU/L 0-32 normal Not Available [facility] ([facility]) [address] [facility] [place], [address], 11/30/2024 21:07:37 11/24/19 25 11/24/2024 LIPID PANEL cholesterol, total 244 mg/dL 100-19 9 above high normal Not Available [facility] ([facility]) [address] [facility] [place], [address], 11/30/2024 21:07:37 11/24/19 25 11/24/2024 LIPID PANEL triglyceride s 112 mg/dL 0-149 normal Not Available [facility] ([facility]) [address] [facility] [place], [address], 11/30/2024 21:07:37 11/24/19 25 11/24/2024 LIPID PANEL HDL cholesterol 148 mg/dL >39 normal Not Available [facility] ([facility]) [address] [facility] [place], [address], 11/30/2024 21:07:37 11/24/19 25 11/24/2024 LIPID PANEL VLDL cholesterol josé antonio 18 mg/dL 5-40 Not Available [facility] ([facility]) [address] [place], [address], 11/30/2024 21:07:37 11/24/19 25 11/24/2024 LIPID PANEL LDL chol calc ([facility]) 78 mg/dL 0-99 Not Available [facility] ([facility]) [address] [place], [address], 11/30/2024 21:07:37 11/24/19 25 11/24/2024 LIPID PANEL LDL calc comment: GEOSPATIAL APPLICATIONS DEVELOPER Not Available [facility] ([facility]) [address] [facility], [place], [address], 11/30/2024 21:07:37 11/24/19 25 11/24/2024 PT AND PTT INR 1.0 0.9-1. 2 Refer ence inter javon is for non-a ntico agula suresh patie nts. Sugge sted INR thera peuti c range for Vitam in K antag onist thera py: Stand juliane Dose (mode rate inten sity thera peuti c range ): 2.0 - 3.0 Highe r inten sity thera peuti c range 2.5 - 3.5 Not Available [facility] ([facility]) [address] [facility], [place], [address], 11/30/2024 21:07:38 11/24/19 25 11/24/2024 PT AND PTT prothrombin time 10.8 sec 9.1-12 .0 normal Not Available [facility] ([facility]) [address] [place], [address], 11/30/2024 21:07:38 11/24/19 25 11/24/2024 PT AND PTT APTT 30 sec 24-33 normal This test has not been valid ated for monit oring unfra ction ated hepar in thera py. aPTT- based thera peuti c range s for unfra ction ated hepar in thera py have not been estab romelia christiansen. For gener al guide lines on Hepar in monit oring , refer to the [facility] Direc tory of Carl montejo. Not Available [facility] ([facility]) [address] [facility], [place], [address], 11/30/2024 21:07:38 11/24/19 25 11/24/2024 VITAM IN B12 AND FOLAT E vitamin B12 227 pg/mL 232-12 45 below low normal Not Available [facility] ([facility]) [address] [facility], [place], [address], 11/30/2024 21:07:38 11/24/19 25 11/24/2024 VITAM IN B12 AND FOLAT E folate (folic acid), serum 12.0 NG/mL >3.0 normal A serum folat e julien ntrat ion of less than 3.1 ng/mL is consi dered to repre sent clini josé antonio defic iency . Not Available [facility] ([facility]) [address] [facility], [place], [address], 11/30/2024 21:07:38 11/24/19 25 11/24/2024 PTH INTAC T+JOSÉ ANTONIO CIUM, IONIZ ED calcium, ionized, serum 4.8 mg/dL 4.5-5. 6 Not Available [facility] ([facility]) [address] [place], [address], 11/30/2024 21:07:39 11/24/19 25 11/24/2024 PTH INTAC T+JOSÉ ANTONIO CIUM, IONIZ ED PTH, intact 73 pg/mL 15-65 above high normal Not Available [facility] ([facility]) [address] [place], [address], 11/30/2024 21:07:39 11/24/19 25 11/24/2024 HEMOG LOBIN A1C hemoglobin A1C 5.2 % 4.8-5. 6 normal Predi abete s: 5.7 - 6.4 Diabe enmanuel: >6.4 Glyce parisa contr ol for adult s with diabe enmanuel: <7.0 Not Available [facility] ([facility]) [address] [facility], [place], [address], 11/30/2024 21:07:39 11/24/19 25 11/27/2024 VITAM IN A, SERUM vitamin A 24.3 ug/dL 22.0-6 9.5 Refer ence inter vals for vitam in A deter mined from [facility] inter nal studi es. Indiv idual s with vitam in A less than 20 ug/dL are consi dered vitam in A defic ient and those with serum julien ntrat ions less than 10 ug/dL are consi dered sever kavita defic ient. This test was devel oped and its perfo rmanc e amita cteri stics deter mined by [facility]. It has not been clear ed or appro sachin by the Food and Drug Admin istra tion. Not Available [facility] ([facility]) [address] [facility], [place], [address], 11/30/2024 21:07:40 11/24/19 25 11/24/2024 VITAM IN D, 25-HY DROXY vitamin D, 25-hydroxy 37.7 NG/mL 30.0-1 00.0 Vitam in D defic [...] um and D. Ivory morillo [place]: The Natio nal [facility] Press . 2. Holic k [place], [place], [place], et al. Evalu ation , treat ment, and preve ntion of vitam in D defic iency : an Endoc rine Socie ty clini josé antonio pract ice guide line. JCEM. 2010; 96(7) :1911 -30. Not Available [facility] ([facility]) [address] [facility], [place], [address], 11/30/2024 21:07:40 11/24/19 25 11/24/2024 VITAM IN B1 (THIA MINE) , BLOOD vit. B1, whole blood COMMEN T nmol/ L Test not perfo rmed. No froze n whole blood recei sachin. Not Available [facility] ([facility]) [address] [facility], [place], [address], 11/30/2024 21:07:41 11/24/19 25 11/24/2024 PHOSP HORUS phosphorus 4.2 mg/dL 3.0-4. 3 normal Not Available [facility] ([facility]) [address] [facility], [place], [address], 11/30/2024 21:07:41 11/24/19 25 11/30/2024 CAROT YAJAIRA, BETA carotene, beta 5 ug/dL 3-91 Not Available [facility] ([facility]) [address] [place], [address], 11/30/2024 21:07:42 11/24/19 25 11/24/2024 MAGNE SIUM magnesium 2.0 mg/dL 1.6-2. 3 normal Not Available [facility] ([facility]) [address] [place], [address], 11/30/2024 21:07:42 11/24/19 25 11/28/2024 ZINC, PLASM A OR SERUM zinc, plasma or serum 66 ug/dL 44-115 normal Detec tion Limit = 5 Not Available [facility] ([facility]) [address] [place], [address], 11/30/2024 21:07:43 11/24/19 25 11/24/2024 TRANS AYLA N transferrin 411 mg/dL 192-36 4 above high normal Not Available [facility] ([facility]) [address] [place], [address], 11/30/2024 21:07:43 11/24/19 25 11/24/2024 PREAL BUMIN prealbumin 18 mg/dL 10-36 Not Available [facility] ([facility]) [address] [place], [address], 11/30/2024 21:07:43 11/24/19 25 11/24/2024 CORTI LISBETH - AM cortisol - AM 21.1 ug/dL 6.2-19 .4 above high normal Not Available [facility] ([facility]) [address] [place], [address], 11/30/2024 21:07:44 11/24/19 25 11/27/2024 SELEN IUM, SERUM /PLAS MA selenium, serum/plasma 100 ug/L 93-198 Not Available [facility] ([facility]) [address] [place], [address], 11/30/2024 21:07:44 11/24/19 25 11/24/2024 SPECI MEN STATU S REPOR T specimen status report COMMEN T Test not perfo rmed. No froze n whole blood recei sachin. TEST: [id number] Vitam in B1 (Thia mine) , Blood Not Available [facility] ([facility]) [address] [place], [address], 11/30/2024 21:07:45 12/20/19 25 12/20/2024 CBC WITH DIFFE RENTI AL/PL ATELE T WBC 8.9 x10e3 /uL 3.4-10 .8 normal Not Available [facility] ([facility]) [address] [facility], [place], [address], 12/21/2024 06:08:39 12/20/19 25 12/20/2024 CBC WITH DIFFE RENTI AL/PL ATELE T RBC 4.45 x10e6 /uL 3.77-5 .28 normal Not Available [facility] ([facility]) [address] [facility], [place], [address], 12/21/2024 06:08:39 12/20/19 25 12/20/2024 CBC WITH DIFFE RENTI AL/PL ATELE T hemoglobin 12.1 g/dL 11.1-1 5.9 normal Not Available [facility] ([facility]) [address] [facility], [place], [address], 12/21/2024 06:08:39 12/20/19 25 12/20/2024 CBC WITH DIFFE RENTI AL/PL ATELE T hematocrit 38.4 % 34.0-4 6.6 normal Not Available [facility] ([facility]) [address] [place], [address], 12/21/2024 06:08:39 12/20/19 25 12/20/2024 CBC WITH DIFFE RENTI AL/PL ATELE T MCV 86 fL 79-97 normal Not Available [facility] ([facility]) [address] [place], [address], 12/21/2024 06:08:39 12/20/19 25 12/20/2024 CBC WITH DIFFE RENTI AL/PL ATELE T MCH 27.2 pg 26.6-3 3.0 normal Not Available [facility] ([facility]) [address] [place], [address], 12/21/2024 06:08:39 12/20/19 25 12/20/2024 CBC WITH DIFFE RENTI AL/PL ATELE T MCHC 31.5 g/dL 31.5-3 5.7 normal Not Available [facility] ([facility]) [address] [facility], [place], [address], 12/21/2024 06:08:39 12/20/19 25 12/20/2024 CBC WITH DIFFE RENTI AL/PL ATELE T RDW 17.3 % 11.7-1 5.4 above high normal Not Available [facility] ([facility]) [address] [facility], [place], [address], 12/21/2024 06:08:39 12/20/19 25 12/20/2024 CBC WITH DIFFE RENTI AL/PL ATELE T platelets 411 x10e3 /uL 150-45 0 normal Not Available [facility] ([facility]) [address], [place], [address], 12/21/2024 06:08:39 12/20/19 25 12/20/2024 CBC WITH DIFFE RENTI AL/PL ATELE T neutrophils 84 % not estab. normal Not Available [facility] ([facility]) [address] [facility], [place], [address], 12/21/2024 06:08:39 12/20/19 25 12/20/2024 CBC WITH DIFFE RENTI AL/PL ATELE T lymphs 6 % not estab. normal Not Available [facility] ([facility]) [address] [place], [address], 12/21/2024 06:08:39 12/20/19 25 12/20/2024 CBC WITH DIFFE RENTI AL/PL ATELE T monocytes 9 % not estab. normal Not Available [facility] ([facility]) [address] [facility] [place], [address], 12/21/2024 06:08:39 12/20/19 25 12/20/2024 CBC WITH DIFFE RENTI AL/PL ATELE T eos 1 % not estab. normal Not Available [facility] ([facility]) [address] [facility], [place], [address], 12/21/2024 06:08:39 12/20/19 25 12/20/2024 CBC WITH DIFFE RENTI AL/PL ATELE T basos 0 % not estab. normal Not Available [facility] ([facility]) [address] [facility], [place], [address], 12/21/2024 06:08:39 12/20/19 25 12/20/2024 CBC WITH DIFFE RENTI AL/PL ATELE T immature cells GEOSPATIAL APPLICATIONS DEVELOPER Not Available [facility] ([facility]) [address] [place], [address], 12/21/2024 06:08:39 12/20/19 25 12/20/2024 CBC WITH DIFFE RENTI AL/PL ATELE T neutrophils (absolute) 7.4 x10e3 /uL 1.4-7. 0 above high normal Not Available [facility] ([facility]) [address] [place], [address], 12/21/2024 06:08:39 12/20/19 25 12/20/2024 CBC WITH DIFFE RENTI AL/PL ATELE T lymphs (absolute) 0.6 x10e3 /uL 0.7-3. 1 below low normal Not Available [facility] ([facility]) [address] [place], [address], 12/21/2024 06:08:39 12/20/19 25 12/20/2024 CBC WITH DIFFE RENTI AL/PL ATELE T monocytes(ab solute) 0.8 x10e3 /uL 0.1-0. 9 normal Not Available [facility] ([facility]) [address] [place], [address], 12/21/2024 06:08:39 12/20/19 25 12/20/2024 CBC WITH DIFFE RENTI AL/PL ATELE T eos (absolute) 0.1 x10e3 /uL 0.0-0. 4 normal Not Available [facility] ([facility]) [address] [facility], [place], [address], 12/21/2024 06:08:39 12/20/19 25 12/20/2024 CBC WITH DIFFE RENTI AL/PL ATELE T baso (absolute) 0.0 x10e3 /uL 0.0-0. 2 normal Not Available [facility] ([facility]) [address] [facility], [place], [address], 12/21/2024 06:08:39 12/20/19 25 12/20/2024 CBC WITH DIFFE RENTI AL/PL ATELE T immature granulocytes 0 % not estab. Not Available [facility] ([facility]) [address] [facility], [place], [address], 12/21/2024 06:08:39 12/20/19 25 12/20/2024 CBC WITH DIFFE RENTI AL/PL ATELE T immature grans (abs) 0.0 x10e3 /uL 0.0-0. 1 Not Available [facility] ([facility]) [address] [facility], [place], [address], 12/21/2024 06:08:39 12/20/19 25 12/20/2024 CBC WITH DIFFE RENTI AL/PL ATELE T NRBC GEOSPATIAL APPLICATIONS DEVELOPER Not Available [facility] ([facility]) [address] [facility], [place], [address], 12/21/2024 06:08:39 12/20/19 25 12/20/2024 CBC WITH DIFFE RENTI AL/PL ATELE T hematology comments: GEOSPATIAL APPLICATIONS DEVELOPER Not Available [facility] ([facility]) [address] [facility], [place], [address], 12/21/2024 06:08:39 12/20/19 25 12/20/2024 COMP. METAB OLIC PANEL (14) glucose 94 mg/dL 70-99 normal Not Available [facility] ([facility]) [address] [facility], [place], [address], 12/21/2024 06:08:40 12/20/19 25 12/20/2024 COMP. METAB OLIC PANEL (14) BUN 10 mg/dL 8-27 normal Not Available [facility] ([facility]) [address] [facility] [place], [address], 12/21/2024 06:08:40 12/20/19 25 12/20/2024 COMP. METAB OLIC PANEL (14) creatinine 0.99 mg/dL 0.57-1 .00 normal Not Available [facility] ([facility]) [address] [facility] [place], [address], 12/21/2024 06:08:40 12/20/19 25 12/20/2024 COMP. METAB OLIC PANEL (14) eGFR 65 mL/mi n/1.7 3 >59 normal Not Available [facility] ([facility]) [address] [facility] [place], [address], 12/21/2024 06:08:40 12/20/19 25 12/20/2024 COMP. METAB OLIC PANEL (14) BUN/creatini ne ratio 10 12-28 below low normal Not Available [facility] ([facility]) [address] [facility] [place], [address], 12/21/2024 06:08:40 12/20/19 25 12/20/2024 COMP. METAB OLIC PANEL (14) sodium 134 mmol/ L 134-14 4 normal Not Available [facility] ([facility]) [address] [facility] [place], [address], 12/21/2024 06:08:40 12/20/19 25 12/20/2024 COMP. METAB OLIC PANEL (14) potassium 3.2 mmol/ L 3.5-5. 2 below low normal Not Available [facility] ([facility]) [address] [place], [address], 12/21/2024 06:08:40 12/20/19 25 12/20/2024 COMP. METAB OLIC PANEL (14) chloride 95 mmol/ L 96-106 below low normal Not Available [facility] ([facility]) [address] [facility] [place], [address], 12/21/2024 06:08:40 12/20/19 25 12/20/2024 COMP. METAB OLIC PANEL (14) carbon dioxide, total 19 mmol/ L 20-29 below low normal Not Available [facility] ([facility]) [address] [facility], [place], [address], 12/21/2024 06:08:40 12/20/19 25 12/20/2024 COMP. METAB OLIC PANEL (14) calcium 8.8 mg/dL 8.7-10 .3 normal Not Available [facility] ([facility]) [address] [facility] [place], [address], 12/21/2024 06:08:40 12/20/19 25 12/20/2024 COMP. METAB OLIC PANEL (14) protein, total 6.9 g/dL 6.0-8. 5 normal Not Available [facility] ([facility]) [address] [facility] [place], [address], 12/21/2024 06:08:40 12/20/19 25 12/20/2024 COMP. METAB OLIC PANEL (14) albumin 4.5 g/dL 3.9-4. 9 normal Not Available [facility] ([facility]) [address] [facility] [place], [address], 12/21/2024 06:08:40 12/20/19 25 12/20/2024 COMP. METAB OLIC PANEL (14) globulin, total 2.4 g/dL 1.5-4. 5 Not Available [facility] ([facility]) [address] [facility], [place], [address], 12/21/2024 06:08:40 12/20/19 25 12/20/2024 COMP. METAB OLIC PANEL (14) bilirubin, total 1.0 mg/dL 0.0-1. 2 normal Not Available [facility] ([facility]) [address] [place], [address], 12/21/2024 06:08:40 12/20/19 25 12/20/2024 COMP. METAB OLIC PANEL (14) alkaline phosphatase 83 IU/L 44-121 normal Not Available [facility] ([facility]) [address] [place], [address], 12/21/2024 06:08:40 12/20/19 25 12/20/2024 COMP. METAB OLIC PANEL (14) AST (SGOT) 93 IU/L 0-40 above high normal Not Available [facility] ([facility]) [address] [place], [address], 12/21/2024 06:08:40 12/20/19 25 12/20/2024 COMP. METAB OLIC PANEL (14) ALT (SGPT) 54 IU/L 0-32 above high normal Not Available [facility] ([facility]) [address] [place], [address], 12/21/2024 06:08:40 12/20/19 25 12/20/2024 SETH+L IPASE amylase 61 U/L 31-110 normal Not Available [facility] ([facility]) [address] [place], [address], 12/21/2024 06:08:40 12/20/19 25 12/20/2024 SETH+L IPASE lipase 17 U/L 14-72 normal Not Available [facility] ([facility]) [address] [place], [address], 12/21/2024 06:08:40 12/20/19 25 12/21/2024 URINE CULTU RE, ROUTI NE urine culture, routine Final report Not Available [facility] ([facility]) [address] [facility], [address], 12/21/2024 06:08:41 12/20/19 25 12/21/2024 URINE CULTU RE, ROUTI NE result 1 COMMEN T Mixed uroge nital edith 10,00 0-25, 000 colon y formi ng units per mL Not Available [facility] ([facility]) [address] [facility], [place], [address], 12/21/2024 06:08:41 12/20/19 25 12/19/2024 urina lysis , dipst ick Leukocytes Negati ve Not Available [address], [address], 12/19/2024 14:05:15 12/20/19 25 12/19/2024 urina lysis , dipst ick Nitrite negati ve Not Available [address], [address], 12/19/2024 14:05:15 12/20/19 25 12/19/2024 urina lysis , dipst ick Urobilinogen .2 Not Available [facility] [address], [address], 12/19/2024 14:05:15 12/20/19 25 12/19/2024 urina lysis , dipst ick Protein 30 Not Available [address], [address], 12/19/2024 14:05:15 12/20/19 25 12/19/2024 urina lysis , dipst ick pH 6.0 Not Available [address], [address], 12/19/2024 14:05:15 12/20/19 25 12/19/2024 urina lysis , dipst ick Blood Negati ve Not Available [address], [address], 12/19/2024 14:05:15 12/20/19 25 12/19/2024 urina lysis , dipst ick Specific [place] 1.010 Not Available [address], [address], 12/19/2024 14:05:15 12/20/19 25 12/19/2024 urina lysis , dipst ick Ketone Small Not Available [address], [address], 12/19/2024 14:05:15 12/20/19 25 12/19/2024 urina lysis , dipst ick Bilirubin Negati ve Not Available [address], [address], 12/19/2024 14:05:15 12/20/19 25 12/19/2024 urina lysis , dipst ick Glucose Negati ve Not Available [address], [address], 12/19/2024 14:05:15 12/20/19 25 12/19/2024 urina lysis , dipst ick Appearance Clear Not Available [address], [address], 12/19/2024 14:05:15 12/20/19 25 12/19/2024 urina lysis , dipst ick Color Yellow Not Available [address], [address], 12/19/2024 14:05:15 04/20/20 23 04/20/2023 XR, hand, 3 or more view No observ ation record ed. [email or web address] [address], [place], [address], 04/21/2023 10:10:28 Result Notes None recorded. Problems Name Problem SNOMED Code Status Onset Date Resolution Date Notes Provider Name and Address Organization Details Recorded Time Fibromyalgia 619186669 Active 2016 Leola mauro, GIANNA - [facility] 14:48:47 Anxiety 19207380 Active 2016 Leola Bernal null, [place]IAN[place] - [facility] 14:48:53 Depressive disorder 44060726 Active 2016 Leola mauro, GIANNA - [facility] 14:48:59 Migraine 11599291 Active 2016 Leola mauro, GIANNA - [facility] 14:49:04 Hypertensive disorder 78809254 Active 2016 Leola mauro, GIANNA - [facility] 14:49:10 Cardiac arrhythmia 757941670 Active 2016 Leola mauro, GIANNA - [facility] 14:49:20 Hypothyroidism 32472853 Active 2016 Leola mauro, GIANNA - [facility] 14:49:27 Osteoporosis 52400055 Active 2016 Leola mauro, GIANNA - [facility] 14:58:58 Notes:hyporeactive glycemia Problem Notes None recorded. Procedures Surgical History Date Name Laterality Status Provider Name and Address Organization Details Recorded Time 025 IV Infusion completed Cherelle Pastor [place] - [facility] 12/19/2024 15:25:52 021 Systolic B/P less than 130 mm Hg completed Myranda Bird DO [address], [place], [address], [place] - [facility] 08/20/2020 16:37:08 021 Diastolic B/P less than 80 mm Hg completed Myranda Bird DO [address], [place], [address], [place] - [facility] 08/20/2020 16:37:14 019 Date of Last Pap Smear completed Patrizia Young, [employer] [address], [place], [address], [place] - [facility] 06/19/2019 10:27:32 018 Date of Last Mammogram completed Patrizia Mclean, [employer] [address], [place], [address], [place] - [facility] 02/28/2018 08:06:17 016 Pacemaker Placement completed Leola KATZ - [facility] 12/01/2016 15:02:03 016 Most Recent Bone Density completed Leola KATZ - [facility] 12/01/2016 14:58:51 014 Gastric Bypass completed Leola KATZ - [facility] 12/01/2016 15:02:51 010 Endometrial Ablation completed Emily KATZ - [facility] 06/12/2019 15:08:29 009 Parathyroidectomy completed Leola KATZ - [facility] 12/01/2016 15:03:24 006 Cholecystectomy, laparoscopic completed Leola KATZ - [facility] 12/01/2016 15:03:34 997 Colposcopy completed Leola KATZ - [facility] 12/01/2016 14:50:31 985 Knee Surgery completed Leola KATZ - [facility] 12/01/2016 15:04:22 Imaging Results None recorded. Procedure Notes None recorded. Medical Equipment None Reported. Allergies Allergen ID Allergen Name Allergen Category Reaction Reaction Severity Criticality Documentation Date Start Date Code Code System Note Provider Name and Address Organization Details Recorded Time 60746 Anaprox medicatio n Not available Not available Not available 12/01/201600996 9 RxNorm GIANNA Kuo - [facility] 7 14:42:34 65144 Substance with sulfonami de structure and antibacte rial mechanism of action (substanc e) medicatio n Not available Not available Not available 12/01/2016 49282 8003 SNOMED GIANNA Kuo - [facility] 14:42:53 16336 acetamino phen / hydrocodo ne medicatio n Not available Not available Not available 12/01/2016 70886 2 RxNorm Leola Cook null, [place] - [facility] 14:42:58 Medications Name Sig Start Date Stop Date Status Note LastModified by Organization Details LastModified Time celecoxib 200 mg capsule 06/12 completed Not Available Not Available Not Available cyclobenzap rine 10 mg tablet TAKE ONE TABLET BY MOUTH AT BEDTIME active Not Available Not Available No t Available metolazone 2.5 mg tablet 12/09 completed Not Available Not Available Not Available bupropion HCl SR 150 mg tablet,12 hr sustained-r elease 12/09 completed Not Available Not Available Not Available levothyroxi ne 137 mcg tablet 12/09 completed Not Available Not Available Not Available prednisone 10 mg tablet 08/19 completed Not Available Not Available Not Available Estring 2 mg (7.5 mcg/24 hour) vaginal ring Insert 1 vaginal ring by vaginal route. 01/12 completed Not Available Not Available Not Available gabapentin 600 mg tablet 12/09 completed Not Available Not Available Not Available ipratropium 0.5 mg-albutero l 3 mg (2.5 mg base)/3 mL nebulizatio n soln INHALE THE CONTENTS OF 1 VIAL VIA NEBULIZER THREE TIMES DAILY NEEDED 11/20 completed Not Available Not Available Not Available clindamycin HCl 300 mg capsule 06/12 completed Not Available Not Available Not Available Normal Saline Flush 0.9 % injection syringe Take 20 mL by injection route. 2024 active Not Available Not Available Not Avai lable trazodone 50 mg tablet TAKE ONE TABLET BY MOUTH EVERY DAY AT BEDTIME 11/20 completed Not Available Not Available Not Available azithromyci n 250 mg tablet TAKE 2 TABLETS TODAY, THEN TAKE 1 TABLET EVERY DAY FOR 4 DAYS 11/20 completed Not Available Not Available Not Available ibuprofen 800 mg tablet prn 07/23 completed Not Available Not Available Not Available tizanidine 4 mg tablet 12/09 completed Not Available Not Available Not Available benzonatate 200 mg capsule 06/12 completed Not Available Not Available Not Available metoprolol succinate ER 50 mg tablet,exte nded release 24 hr TAKE ONE TABLET BY MOUTH EVERY DAY DIRECTED 11/20 completed Not Available Not Available Not Available sucralfate 1 gram tablet TAKE ONE TABLET BY MOUTH FOUR TIMES DAILY BEFORE MEALS 11/20 completed Not Available Not Available Not Available prednisone 20 mg tablet TAKE ONE TABLET BY MOUTH TWICE DAILY FOR 5 DAYS 11/20 completed Not Available Not Available Not Available rizatriptan 10 mg tablet TAKE ONE TABLET BY MOUTH EVERY DAY NEEDED active Not Available Not Available No t Available metoprolol succinate ER 100 mg tablet,exte nded release 24 hr TAKE ONE TABLET BY MOUTH AT BEDTIME active Not Available Not Available No t Available prednisone 5 mg tablet TAKE THREE TABLETS BY MOUTH DAILY FOR 7 DAYS THEN TAKE TWO TABLETS DAILY FOR 7 DAYS, THEN TAKE ONE TABLET DAILY FOR 7 DAYS 11/20 completed Not Available Not Available Not Available prochlorper azine maleate 10 mg tablet 12/09 completed Not Available Not Available Not Available doxepin 10 mg capsule 12/09 completed Not Available Not Available Not Available tramadol 50 mg tablet TAKE ONE TABLET BY MOUTH EVERY 6 HOURS active Not Available Not Available No t Available triamcinolo ne acetonide 0.1 % topical cream TAKE 1 FREDRICK APPLIED TOPICALLY 3 TIMES A DAY APPLY TO AFFECTED AREA. DO NOT APPLY TO THE FACE. 11/20 completed Not Available Not Available Not Available ketorolac 30 mg/mL (1 mL) injection solution 12/09 completed Not Available Not Available Not Available ondansetron 8 mg disintegrat ing tablet DISSOLVE ONE TABLET UNDER THE TONGUE TWICE DAILY NEEDED active Not Available Not Available No t Available oxycodone-a cetaminophe n 5 mg-325 mg tablet 06/12 completed Not Available Not Available Not Available ceftriaxone 1 gram solution for injection Take 1 g by injection route. 08/14 completed Not Available Not Available Not Available alprazolam 0.25 mg tablet 12/09 completed Not Available Not Available Not Available potassium chloride ER 20 mEq tablet,exte nded release(par t/cryst) TAKE ONE TABLET BY MOUTH EVERY DAY 08/19 completed Not Available Not Available Not Available famotidine 20 mg tablet TAKE ONE TABLET BY MOUTH EVERY DAY AT BEDTIME NEEDED 05/07 completed Not Available Not Available Not Available benzonatate 100 mg capsule 06/12 completed Not Available Not Available Not Available cephalexin 500 mg capsule 06/12 completed Not Available Not Available Not Available cyanocobala min (vit B-12) 1,000 mcg/mL injection solution inject 1ml subcutane ously ONCE WEEKLY active Not Available Not Available No t Available oseltamivir 75 mg capsule 06/12 completed Not Available Not Available Not Available esomeprazol e magnesium 40 mg capsule,del ayed release TAKE ONE CAPSULE BY MOUTH EVERY DAY DIRECTED active Not Available Not Available No t Available levothyroxi ne 125 mcg tablet TAKE ONE TABLET BY MOUTH EVERY DAY FOR THYROID active Not Available Not Available No t Available gabapentin 300 mg capsule TAKE ONE CAPSULE BY MOUTH TWICE DAILY MAY CAUSE DROWSINES S 05/07 completed Not Available Not Available Not Available furosemide 20 mg tablet TAKE ONE TABLET BY MOUTH EVERY DAY DIRECTED 11/20 completed Not Available Not Available Not Available sodium chloride 0.9 % intravenous solution Inject 1000 mL by intraveno us route. 2024 active Not Available Not Available Not Avai lable metoprolol succinate ER 25 mg tablet,exte nded release 24 hr 12/09 completed Not Available Not Available Not Available ergocalcife rol (vitamin D2) 1,250 mcg (50,000 unit) capsule TAKE ONE CAPSULE BY MOUTH EVERY WEEK active Not Available Not Available No t Available clobetasol 0.05 % topical ointment 12/01 completed Not Available Not Available Not Available dexamethaso ne sodium phosphate 4 mg/mL injection solution Inject 1 mL as needed by intramusc ular route. 05/14 completed Not Available Not Available Not Available azelastine 137 mcg (0.1 %) nasal spray INSTILL 2 SPRAYS IN EACH NOSTRIL TWICE DAILY 11/20 completed Not Available Not Available Not Available hydroxychlo roquine 200 mg tablet TAKE ONE TABLET BY MOUTH TWICE DAILY 11/20 completed Not Available Not Available Not Available cefuroxime axetil 500 mg tablet 07/23 completed Not Available Not Available Not Available levofloxaci n 500 mg tablet TAKE ONE TABLET BY MOUTH ONCE DAILY FOR 5 DAYS -- FINISH ALL MEDICINE -- 08/14 completed Not Available Not Available Not Available methylpredn isolone 4 mg tablets in a dose pack TAKE ACCORDING TO PACKAGE INSTRUCTI ONS --TAKE WITH FOOD-- -- FINISH ALL MEDICINE -- 11/20 completed Not Available Not Available Not Available albuterol sulfate HFA 90 mcg/actuati on aerosol inhaler INHALE TWO PUFFS BY MOUTH EVERY 4 HOURS active Not Available Not Available No t Available ondansetron 4 mg disintegrat ing tablet DISSOLVE ONE TABLET UNDER THE TONGUE FOR NAUSEA AND VOMITING active Not Available Not Available No t Available cefdinir 300 mg capsule Take 1 capsule every 12 hours by oral route for 7 days. 08/14 completed Not Available Not Available Not Available fluticasone propionate 50 mcg/actuati on nasal spray,suspe nsion SPRAY ONE (1) SPRAY EVERY DAY BY INTRANASA L ROUTE. 11/20 completed Not Available Not Available Not Available colestipol 1 gram tablet TAKE ONE TABLET BY MOUTH DAILY active Not Available Not Available No t Available levothyroxi ne 112 mcg tablet TAKE ONE TABLET BY MOUTH ONCE DAILY IN THE MORNING 11/20 completed Not Available Not Available Not Available amoxicillin 875 mg-potassiu m clavulanate 125 mg tablet TAKE ONE TABLET BY MOUTH EVERY TWELVE HOURS --TAKE WITH FOOD-- -- FINISH ALL MEDICINE -- 11/20 completed Not Available Not Available Not Available hydroxyzine pamoate 25 mg capsule TAKE ONE CAPSULE BY MOUTH TWICE DAILY NEEDED FOR ANXIETY MAY CAUSE DROWSINES S 11/20 completed Not Available Not Available Not Available atomoxetine 40 mg capsule TAKE ONE CAPSULE BY MOUTH EVERY DAY 11/20 completed Not Available Not Available Not Available Premarin 0.625 mg/gram vaginal cream INSERT /2 APPLICATO RFUL INTRAVAGI HAKAN TWICE A WEEK DIRECTED 07/23 completed Not Available Not Available Not Available memantine 10 mg tablet 06/12 completed Not Available Not Available Not Available duloxetine 30 mg capsule,del ayed release TAKE ONE CAPSULE BY MOUTH EVERY DAY 05/07 completed Not Available Not Available Not Available duloxetine 60 mg capsule,del ayed release TAKE ONE CAPSULE BY MOUTH EVERY DAY DIRECTED active Not Available Not Available No t Available multivitami n 06/12 completed Not Available Not Available Not Available Nexium 40mg 06/12 completed Not Available Not Available Not Available budesonide- formoterol HFA 160 mcg-4.5 mcg/actuati on aerosol inhaler INHALE 2 PUFFS BY MOUTH TWICE DAILY active Not Available Not Available No t Available desvenlafax ine succinate ER 50 mg tablet,exte nded release 24 hr TAKE ONE TABLET BY MOUTH EVERY DAY 04/19 completed Not Available Not Available Not Available desvenlafax ine succinate ER 100 mg tablet,exte nded release 24 hr TAKE ONE TABLET BY MOUTH EVERY DAY 11/20 completed Not Available Not Available Not Available Prolia 60 mg/mL subcutaneou s syringe every 6 months active Not Available Not Available No t Available Prolia 06/12 completed Not Available Not Available Not Available sodium,pota ssium,mag sulfates 17.5 gram-3.13 gram-1.6 gram oral soln DILUTE AND USE DIRECTED; DRINK FULL AMOUNT BY MOUTH EARLY EVENING BEFORE AND NEXT MORNING AT LEAST 2 HOURS BEFORE PROCEDURE ; FOLLOW WITH 32 OUNCES OF WATER 11/20 completed Not Available Not Available Not Available [facility] 12/09 completed Not Available Not Available Not Available vilazodone 20 mg tablet TAKE 1/2 TABLET BY MOUTH EVERY DAY FOR 8 DAYS, THEN increase TO 1 TABLET ONCE DAILY THEREAFTE R --TAKE WITH A MEAL/FOOD -- 04/19 completed Not Available Not Available Not Available memantine 28 mg capsule sprinkle,ex tended release 24hr 07/23 completed Not Available Not Available Not Available potassium chloride ER 20 mEq tablet,exte nded release Take 1 tablet every day by oral route for 3 days. 12/31 completed Not Available Not Available Not Available Vraylar 1.5 mg capsule TAKE ONE CAPSULE BY MOUTH EVERY DAY 06/17 completed Not Available Not Available Not Available Vraylar 3 mg capsule TAKE ONE CAPSULE BY MOUTH EVERY DAY 11/20 completed Not Available Not Available Not Available UltiCare Insulin Syringe 1 mL 31 gauge x 1/4 USE ONCE WEEKLY DIRECTED active Not Available Not Available No t Available Yuvafem 10 mcg vaginal tablet INSERT 1 TABLET INTRAVAGI HAKAN TWICE A WEEK DIRECTED 06/12 completed Not Available Not Available Not Available Intrarosa 6.5 mg vaginal insert insert 1 TABLET vaginally EVERY DAY AT BEDTIME 05/07 completed Not Available Not Available Not Available Aimovig Autoinjecto r 70 mg/mL subcutaneou s auto-inject or INJECT 1ML SUBCUTANE OUSLY ONCE A MONTH active Not Available Not Available No t Available Imvexxy Starter Pack 4 mcg vaginal insert, dose pack insert 1 insert twice WEEKLY FOR duration of USE 05/07 completed Not Available Not Available Not Available Imvexxy Maintenance Pack 4 mcg vaginal insert USE DIRECTED twice a WEEK 05/07 completed Not Available Not Available Not Available Vitals Date Recorded Body weight Heart rate Oxygen saturation Oxygen saturation in Arterial blood by Pulse oximetry Respiratory rate Pain severity - 0-10 verbal numeric rating [Score] - Reported Systolic And Diastolic Provider Name and Address Organization Details Last Updated DateTime 5 06662.9 3 g 99 /min 98 % 98 % 16 /min 0 140/84 mm[Hg] [facility] 5 14:33:16 Date Recorded Body weight Heart rate Body temperature Oxygen saturation Oxygen saturation in Arterial blood by Pulse oximetry Respiratory rate Pain severity - 0-10 verbal numeric rating [Score] - Reported Systolic And Diastolic Provider Name and Address Organization Details Last Updated DateTime 5 19925.0 4 g 89 /min 97 [degF] 97 % 97 % 18 /min 3 114/74 mm[Hg] [facility] 5 13:41:40 Date Recorded Body weight Body temperature Heart rate Oxygen saturation Oxygen saturation in Arterial blood by Pulse oximetry Respiratory rate Pain severity - 0-10 verbal numeric rating [Score] - Reported Body mass index (BMI) Body height Systolic And Diastolic Provider Name and Address Organization Details Last Updated DateTime 3 45793.9 4 g 97.6 [degF] 89 /min 96 % 96 % 18 /min 7 18.8 kg/m2 165.1 cm 138/90 mm[Hg] Cherelle Pastor [facility] 3 14:25:00 Date Recorded Body height Body mass index (BMI) Body weight Body temperature Heart rate Oxygen saturation Oxygen saturation in Arterial blood by Pulse oximetry Respiratory rate Pain severity - 0-10 verbal numeric rating [Score] - Reported Systolic And Diastolic Provider Name and Address Organization Details Last Updated DateTime 3 165.1 cm 19.1 kg/m2 11517.1 2 g 97.6 [degF] 87 /min 98 % 98 % 18 /min 0 160/90 mm[Hg] Cherelle Pastor [place] - [facility] 3 10:49:45 Social History Question Answer Notes LastModified by Organizat ion Details LastModified Time Tobacco Smoking Status Never Smoker Leola mauro, [place] - [facility] 12/01/2016 14:59:38 Do You Have An Advance Directive? No Information not available 12/01/2016 Are You Blind Or Do You Have Difficulty Seeing? No Information not available 12/01/2016 Is Blood Transfusion Acceptable In An Emergency? Yes Information not available 12/01/2016 What Is Your Level Of Caffeine Consumption? Moderate Information not available 12/01/2016 How Much Tobacco Do You Chew? None Information not available 12/01/2016 In The 14 Days Before Symptom Onset, Have You Had Close Contact With A Laboratory-confir med COVID-19 While That Case Was Ill? No Information not available 04/19/2023 In The 14 Days Before Symptom Onset, Have You Had Close Contact With A Person Who Is Under Investigation For COVID-19 While That Person Was Ill? No Information not available 04/19/2023 Have You Been To An Area Known To Be High Risk For COVID-19? No Information not available 04/19/2023 Are You Deaf Or Do You Have Serious Difficulty Hearing? No Information not available 12/01/2016 What Type Of Diet Are You Following? REGULAR Information not available 12/01/2016 Which Illicit Or Recreational Drugs Have You Used? None Marijuana For 10 + Yrs Information not available 11/20/2024 Have You Processed Blood Or Body Fluids From An Ebola Virus Disease Patient Without Appropriate PPE? No Information not available 04/19/2023 Do You Reside In Or Have You Traveled To An Area Where Ebola Virus Transmission Is Active? No Information not available 04/19/2023 What Is The Highest Grade Or Level Of School You Have Completed Or The Highest Degree You Have Received? [id number] [email or web address] Information not available 12/09/2017 How Many Days Of Moderate To Strenuous Exercise, Like A Brisk Walk, Did You Do In The Last 7 Days? 1 Information not available 12/09/2017 On Those Days That You Engage In Moderate To Strenuous Exercise, How Many Minutes, On Average, Do You Exercise? 1 [email or web address] Information not available 12/09/2017 Have There Been Any Changes To Your Family Or Social Situation? No Information no t available 11/20/2024 How Hard Is It For You To Pay For The Very Basics Like Food, Housing, Medical Care, And Heating? 1 [email or web address] Information not available 12/09/2017 Have You Recently Or Are You Planning To Travel To An Area With Zika Virus? No Information not available 04/19/2023 How Many Years Have You Used Illicit Or Recreational Drugs? 10 Information not available 11/20/2024 Live Alone Or With Others? With Others Information not available 12/01/2016 Last Menstrual Period? 12/01/2010 Information not available 12/01/2016 Do You Have A Medical Power Of Stonecutter Assistant? No Information not available 11/20/2024 What Was The Date Of Your Most Recent Tobacco Screening? 11/20/2024 Information not available 11/20/2024 How Many Children Do You Have? 2 Information not available 12/01/2016 Performs Monthly Self-breast Exam? No Information no t available 12/01/2016 Do You Use Protection During Sex? No Information not available 12/01/2016 What Is Your Relationship Status? Information not available 12/01/2016 Seat Belts Used Routinely Yes Information not available 12/01/2016 Are You Sexually Active? Yes Information not available 12/01/2016 Do You Have Smoke And Carbon Monoxide Detectors In Your Home? No Information not available 11/20/2024 Are You Passively Exposed To Smoke? No Information no t available 11/20/2024 How Much Tobacco Do You Smoke? No Information not available 06/12/2019 General Stress Level Low [email or web address] Information not available 06/12/2019 Do You Use Sunscreen Routinely? Yes Information not available 12/01/2016 Has Tobacco Cessation Counseling Been Provided? No Information not available 12/01/2016 Have You Used IV Drugs? No Information not available 11/20/2024 Do You Have Difficulty Walking Or Climbing Stairs? No Information not available 12/01/2016 Sex: Female Functional Status Question Answer Note LastModified by Organizat ion Details LastModified Time How many times per week do you consume alcohol? 5-7 times per week patient has been weaning off alcohol Information not available 11/20/2024 Do you use any illicit or recreational drugs? Yes Information not available 11/20/2024 What is your level of alcohol consumption? Heavy has cut back on alcohol but still drinking about 5 beers daily Information not available 12/19/2024 Do you or have you ever used smokeless tobacco? Never used smokeless tobacco [email or web address] Information not available 06/12/2019 Are you currently employed? No [email or web address] Information not available 06/12/2019 Urinary incontinence assessment performed? Yes [email or web address] Information not available 12/09/2017 Are you able to walk independently without assistance or assistive devices? YESWOREST [email or web address] Information not available 12/09/2017 Do you have difficulty doing errands alone? No Information not available 12/01/2016 What is your occupation? retired Information not available 12/01/2016 Do you have difficulty dressing, bathing, grooming, or toileting? No Information not available 12/01/2016 Do you or have you ever used e-cigarettes or vape? Never used electronic cigarettes [email or web address] Information not available 06/12/2019 What is your exercise level? None Information not available 12/01/2016 Mental Status Question Answer Note LastModified by Organization D etails LastModified Time Do you feel stressed (tense, restless, nervous, or anxious, or unable to sleep at night)? 1 [email or web address] Information not available 12/09/2017 Do you have difficulty concentrating, remembering or making decisions? No Information no t available 12/01/2016 Family History Relationship Description Onset Age of this Age Resolved Age Notes LastModified by Organization Details LastModified Time Father Heart disease Not available 2016 14:55:52 Father Family history of malignant neoplasm Not available 2016 14:56:33 Mother Family history of malignant neoplasm Not available 2016 14:57:23 Mother Disorder of thyroid gland Not available 2016 14:57:39 Mother Hypertensive disorder Not available 2016 14:58:23 Mother Osteoporosis Not availa ble 12/01/2016 14:58:33 Maternal Grandmother Hypertensive disorder Not available 2016 14:58:23 Maternal Aunt Hypertensive disorder Not available 2016 14:58:23 Medical History Condition Response Pancreatitis N Other N Atrial Fibrillation N congenital heart disease N Blood Diseases N Hyperthyroidism N Rheumatoid arthritis N Blood Transfusion N Erectile Dysfunction N amputation N Skin Lesions N Depression Y Pneumonia N Incontinence N Murmur N Edema N Alzheimer's Disease N Migraine Headaches Y Tobacco Abuse N Anxiety Disorder Y Hemorrhoids N Obesity N Vision or Eye Problems N Restless Leg Syndrome N Arthritis N Polyps N Infertility N Carpal Tunnel N Acid Reflux (GERD) Y Cancer N Varicosities N Stroke N Tendonitis N Crohn's Disease N Hypercholesterolemia N Skin Cancer N Headaches N Fibromyalgia Y Irritable Bowel Syndrome N Anal Fissure N Kidney Disease N Heart Problems N Hospitalizations Y Gallstones N Kidney or Bladder Problems N Goiter N Acne N Eating Disorder N Donohue's Esophagus N Hypertriglyceridemia N Constipation N Embolism N Vitamin B12 Deficiency N Deviated Septum N AIDS/HIV N Myocardial Infarction N Asthma N Mitral Valve Disorders N Vertigo N Hepatitis N Thyroid Cancer N Neuropathy N History of DVT N Herniated Disc N Chicken Pox N Von Willebrands Disease N Thrombophilias N Breast Cancer N Hernia N Plantar Fasciitis N Hypothyroidism Y Lung Disease N Defects or Inherited Disease N Breast Problem N Ovarian Cyst N Anesthesia Complications N Testosterone Deficiency N Interstitial Cystitis N Congenital Anomalies N Hypoglycemia N Blood clot N Vitamin D Deficiency N Cellulitis N Endometriosis N Bladder or Kidney Problems N Fracture N Schizophrenia N Panic Disorder N Concussion N Spina Bifida N Osteoarthritis N Parkinson's Disease N Disc Protrusion N STI N Esophagitis N Angina N Thyroid Problems N GI Problems N ADD/ADHD N Anemia N Multiple Sclerosis N Abnormal PAP N Lumbago N Mental Illness N Psychiatric Illness N Ovarian Cancer N Diabetes N Degenerative Disc Disease N Seizures/Epilepsy N Syncope N Hyperlipidemia N Insomnia N Eczema N Abuse/Domestic Violence N Attention Deficient Disorder N Dementia N Ulcerative colitis N Cerebrovascular Disease N Depression N Guillain-Only N Sleep Apnea N Aneurysm N Bronchitis N Heart Disease N Suicidal Ideation N Pre-Eclampsia N Hypertension Y Osteoporosis Y Gynecological History Statement/Question Response Abnormal Pap Y Date of Last Mammogram 02/07/2018 Date of LMP 12/01/2010 Post Menopausal Bleeding N STIs/STDs N Colposcopy 07/19/1996 HPV Vaccine N Current Control Method Menopause Age at Menarche 11 Age at First Child 21 Last Annual Exam/Provider 06/12/19 w/ K. Vinay [employer] Last Lipids 07/19/2016 If Post Menopausal, Age at Menopause 48 Date of Last Colonoscopy Most Recent Bone Density 07/19/2015 Sexually Active? Y Menses Monthly N Date of Last Pap Smear 06/12/2019 Sexual Problems? Y LMP Definite Hormone Replacement Therapy Y Obstetrics History GPAL:G 2 P 2 0 0 2 Type Value Multiple Births 0 Full Term 2 Induced 0 Spontaneous 0 Premature 0 Living 2 Ectopics 0 Total 2 Immunizations Vaccine Type Date Status Note Provider Nam e and Address Organization Details Recorded Time COVID-19 vaccine, vector-nr, rS-Ad26, PF, 0.5 mL 1 completed Cherelle mauro, [place] - [facility] 05/07/2022 15:15:27 Influenza, split virus, quadrivalent , PF 9 cancelled patient objection Not Available [facility] 03:56:08 Past Encounters Encounter ID Performer Location Encounter Start Date Encounter Closed Date Diagnosis/Indication Diagnosis SNOMED-CT Code Diagnosis ICD10 Code Diagnosis IMO Codes Diagnosis Note [id number] DO Raymond Santiago [employer] [address] [place] [address] GIANNA Abrams [id number] 12/01/2016 14:34:41 12/01/2016 16:25:10 Body mass index 20-24 - normal 501607832 Z68.22 Atrophic vaginitis 78518 000 N95.2 Screening for malignant neoplasm of cervix 927473644 Z12.4 Dyspareunia 10666933 N94 .10 Postmenopausal state 764 96682 Z78.0 [id number] DO Raymond Santiago [employer] M[employer]INE OPER[employer] [address] [place] [address] GIANNA Abrams [id number] 02/04/2017 14:20:51 02/04/2017 15:04:11 Body mass index 20-24 - normal 657607746 Z68.22 Dyspareunia 91127257 N94 .10 improved on vagifem Postmenopausal state 764 14334 Z78.0 [id number] TEDDY Hensley PICKER MACHINE OPERATOR [facility] GIANNA Abrams [id number] 12/09/2017 15:51:38 12/09/2017 16:42:50 Routine gynecologic examination done 0258076277 9101 Z01.419 Depression screening 171 580597 Z13.89 PHQ-9 completed today. Diet education 21924190 Z71.3 Counseling 973253048 Z71 .82 Exercise counselmilly morelos. Patient encouraged to exercise 30 minutes 5 days a week. Examinatio n of blood pressure 279886138 Z01.30 Vaccine de clined by patient 0783175747 02 Z28.21 Pt declined flu vaccine today. Screening for malignant neoplasm of cervix 824686868 Z12.4 Hormone re placement therapy 433921730 Z79.890 Screening mammography 24 652093 Z12.31 Screening for malignant neoplasm of colon 370097763 Z12.11 Screening for malignant neoplasm of ovary 199459198 Z12.[address] gray on intercourse 215269699 N89.8 Plan to try PVC instead of tablet. Pt to call if she desires to change back. Body mass index 20-24 - normal 685871340 Z68.21 [id number] TEDDY Hensley [employer] MACHINE OPERATOR [address] [place] [address] GIANNA Abrams [id number] 06/12/2019 14:50:03 06/12/2019 15:46:18 Routine gynecologic examination done 5986301463 9101 Z01.419 Depression screening 171 031839 Z13.89 PHQ-9 completed today. Diet education 47390169 Z71.3 Counseling 767584135 Z71 .82 Exercise counselmilly morelos. Patient encouraged to exercise 30 minutes 5 days a week. Examinatio n of blood pressure 195824347 Z01.30 Vaccine de clined by patient 6652751744 Z28.21 Pt declined flu vaccine today. Screening for malignant neoplasm of cervix 973417865 Z12.4 R87.810 Patient advised that I will follow up with results.Anjel robledo would like to have PAP with HPV with history of + HPV in 2017. Hormone re placement therapy 380119729 Z79.890 Screening mammography 24 665612 Z12.31 Screening for malignant neoplasm of ovary 128469785 Z12.[address] gray on intercourse 719175561 N89.8 Plan to try Intrarosa instead of PVC. Pt to call if she desires to change back. Body mass index 20-24 - normal 026450899 Z68.21 Dyspareunia 97829587 N94 .10 [id number] Myranda Bird DO [place] [employer]ACHINE OPERATOR [address] [facility] [place] [address] 08/19/2020 14:33:26 08/19/2020 15:38:24 Routine gynecologic examination done 8526210670 9101 Z01.419 Depression screening 171 501373 Z13.89 Diet education 19996351 Z71.3 Counseling 434814659 Z71 .82 Exercise counselmilly morelos. Patient encouraged to exercise 30 minutes 5 days a week. Examinatio n of blood pressure 604642631 Z01.30 On medication Vaccine de clined by patient 4491810264 02 Z28.21 Screening mammography [address] gray on intercourse 713303738 N89.8 Urethral caruncle 108227 3 N36.2 [id number] Zoey Gagnon [address] [address] 05/07/2022 14:39:43 05/07/2022 15:38:37 Pain in throat 637703944 R07.0 Fever 820701706 R50.9 Acute bronchitis 2586812 2 J20.9 Pain of le ft knee joint 6624771721 57513 M25.037 [id number] Zoey Gagnon [address] [id number] 05/14/2022 13:49:11 05/14/2022 14:34:15 Acute bronchitis 10818446 J20.9 continue steroids, breathing txif symptoms worsen or do not improve return or be seen in ed [id number] Zoey Gagnon [address] [address] 08/14/2022 15:36:42 08/14/2022 16:42:23 COVID-19 355364837 U07.1 no sign of a bacterial infection. likely viral. viruses can take 7-14 days to run their course. nasal saline and bulb syringe to remove nasal drainage to help with congestion . monitor temp. Tylenol or Motrin as needed for pain or fever. encourage fluids, water, Gatorade, power aide, Pedialyte if infant/tod dler/child warm salt water gargles warm fluids sore throat lozenges sleep elevated humidifier /vaporizer follow up immediatel y for new or worsening symptoms or no noticeable improvemen t over the next 48-72 hours [id number] Zoey Gagnon [place] [address] 04/19/2023 14:12:22 04/19/2023 14:56:55 Pain in finger of left hand 5618321883 34103 M79.298 [id number] [facility] [place] [id number] 06/17/2023 10:34:13 06/17/2023 10:59:42 Acute maxillary sinusitis 64394363 J01.00 [id number] [facility] [place] [id number] 11/20/2024 14:08:18 11/20/2024 15:09:10 Anxiety 05239225 F41.9 Depressive disorder 3548 9007 F32.A Hypertensive disorder 38 859301 I10 Hypothyroidism 38844148 E03.9 History of bypass of stomach 179329951 Z98.84 [id number] refer to bariatric surgerylab s Cortisol l evel below reference range 681411331 E27.49 [id number] labs Fatigue 28342968 R53.82 752919 Harmful pa ttern of use of alcohol 61296196 F10.10 [id number] refused rehab- ss referral [id number] Zoey Gagnon [place] [id number] 11/23/2024 08:52:14 11/23/2024 09:12:03 History of bariatric surgical procedure 777092083 Z98.84 [id number] refer to bariatric surgerylab s [id number] Zoey TEDDY Gagnon [facility] [address] [place] [address] 12/19/2024 13:18:24 12/19/2024 16:02:36 Nausea and vomiting 96986750 R11.2 [id number] advised to go to ed- pt declinedif worsen and no improvemen t go to ed raiza Acute diarrhea 971168080 R19.7 91382 iv fluids - has zofran at home Acute abdominal pain 116 334342 R10.9 35197 advised to go to ed- pt declinedif worsen and no improvemen t go to ed raiza Health Concerns Section Related Observation LastModified by Organization Detai ls LastModified Time None Recorded Concern Status LastModified by Organization Details LastModified Time None Recorded Advance Directives Directive N: Payers Insurance Date Sequence Insurance Name Policy Number Policy Cosby Covered Member ID Cosby Member ID Guarantor Name 01/31/2025 1 [employer] [id number] Miguelina Gresham [id number] Miguelina Gresham Notes Date Note Type Note Provider Name and Address Organization Details Recorded Time 04/19/2023 text/html 57 yr old female with pain and swelling to the left ring finger joint. no injury noted Zoey Gagnon APRN [address], [place], [address], [facility] - [facility] 04/19/2023 15:00:04 06/17/2023 text/html 57 yr old female presents for cough x 2 weeks, sinus pressure, tenderness, fallon, thick yellow/green drainage feels like it is in her chest. Mallikasaji Gagnon APRN [address], [place], [address], [facility] - [facility] 06/17/2023 11:01:45 11/20/2024 text/html ROS as noted in the HPI 58 yr old female presents for a second opinion in regards to weight loss, vomiting. She has had cortisol issues in the past and is wondering if that has something to do with it. She also has depression score of 21, no si or hi,refusing rehab. pt states she is cutting herself down.She is currently at 101 pounds and has had gastric bypass in the 08/2013want to see if ss can help with house cleaning she has fatigue and cant keep up Has had a work up with [facility] including CT, EGD, colonoscopy, and liver US. Zoey Gagnon, WE[employer] [address], [place], [address], [place] - [facility] 11/20/2024 15:19:44 11/23/2024 text/html 58 yr old female presents for labs. Cherelle Pastor [facility], [place] - [facility] 11/23/2024 09:36:22 12/19/2024 text/html 59 yr old female presents for abdominal pain, diarrhea,nausea and vomiting for 2 days, took zofran prior to coming in. Has been cutting back on alcohol, still drinking daily- about 5 drinks daily. Zoey Gagnon, WE[employer]STER [address], [place], [address], [place] - [facility] 12/19/2024 17:18:12 OBGyn Episode No OBEpisode recorded.
--- OUTSIDE RECORDS SUMMARY | 2025-05-21 14:14 | XMS_ITS | Clinical Summary ---
Author Organization [facility] Address [address] [facility] [address] [place] [address] Phone Care Team Providers Care Tyre Retreader Name Role Phone Unavailable Primary Care Provider Unavailabl e Allergies Active Allergy Reactions Criticality Noted Date Comments Hydrocodone Other (See Comments) Low 06/05/2022 Hydrocodone-Acetaminoph en Other (See Comments) Low 08/11/2017 Skin felt like it was on fire Naproxen Rash Low 08/11/2017 Dizzy, vision loss, nausea Sulfa (Sulfonamide Antibiotics) Rash 10/11/2017 Medications albuterol (PROVENTIL HFA;VENTOLIN HFA) 90 mcg/actuation Inhl HFA Aerosol Inhaler Inhale 2 Puffs into the lungs. 09/07/19 18 Active DULoxetine (CYMBALTA) 60 mg Oral Capsule, Delayed Release(E.C.) Take 60 mg by mouth daily. 09/18/19 21 Active AIMOVIG AUTOINJECTOR 70 mg/mL SubQ Auto-Injector INJECT CONTENTS OF 1 AUTOINJECTOR SUBCUTANEOUSLY EVERY MONTH 09/09/19 21 Active esomeprazole (NEXIUM) 40 mg Oral Capsule, Delayed Release(E.C.) Take 1 Cap by mouth. 03/25/20 18 Active IMVEXXY MAINTENANCE PACK 4 mcg Vagl Insert insert 1 vaginal insert intravaginally twice a WEEK FOR duration of USE. 09/19/19 21 Active fUROsemide (LASIX) 20 mg Oral Tablet Take 20 mg by mouth daily. 09/03/19 21 Active ibuprofen (ADVIL;MOTRIN) 200 mg Oral Tablet Take 200 mg by mouth. Active metoprolol succinate (TOPROL-XL) 50 mg Oral Tablet Sustained Release 24 hr Take 50 mg by mouth. 10/06/19 18 Active rizatriptan (MAXALT) 10 mg Oral Tablet Take 1 Tab by mouth. 03/14/20 18 Active traMADoL (ULTRAM) 50 mg Oral Tablet Take 50 mg by mouth. Active traZODone (DESYREL) 50 mg Oral Tablet Take 1 Tab by mouth nightly. 03/22/20 18 Active Miscellaneous Medical Supply Vagl MiscIndications: Sexual dysfunction Papaverine HCL 0.1%/Arginine 6% in Salt Stable Lo: Apply pea size amount to clitoris 20 minutes before intercourse. Disp: 45g tube. 1 Each 09/26/19 21 Active cyclobenzaprine (FLEXERIL) 10 mg Oral Tablet Take 10 mg by mouth nightly. at bedtime Active ergocalciferol (DRISDOL) 1,250 mcg (50,000 unit) Oral Capsule Take 50,000 Units by mouth once a week. Active PROLIA 60 mg/mL SubQ Syringe every 6 months 01/12/20 25 Active ENBREL MINI 50 mg/mL (1 mL) SubQ Cartridge 01/11/20 25 Active cyanocobalamin 1,000 mcg/mL Inj Solution Inject 1,000 mcg into the muscle. 12/29/19 25 Active LEVOthyroxine (SYNTHROID) 112 mcg Oral Tablet Take 1 Tablet by mouth daily. 90 Tablet 03/29/20 25 Active Active Problems Problem Noted Date Diagnosed Date Primary hypothyroidism 10/11/2020 Osteoporosis without current pathological fractu re 10/11/2020 Encounters Date Type Department Care Team Description 04/18/2025 Telephone [facility] [place] [address] [facility] [address] [place] [address] Michael Brennan MD Medication Management (LEVOthyroxine (SYNTHROID) 112 mcg Oral Tablet) from Last 3 Months Surgical History Surgery Date Site/Laterality Comments GASTRIC BYPASS SURGERY 07/19/2013 - 07/18/2014 KNEE SURGERY CARPAL TUNNEL RELEASE Right CHOLECYSTECTOMY PARATHYROIDECTOMY ENDOMETRIAL ABLATION PACEMAKER PLACEMENT GASTRIC RESTRICTION SURGERY 2013 Medical History Medical History Date Comments Thyroid disease Hypertension Depression Hypothyroidism Piffard's disease (HCC) Goiter Tatiana's thyroiditis Hyperparathyroidism Family History Medical History Relation Name Comments Heart Disease Father MPD Father Uterine Cancer Maternal Grandmother CLL Mother Karen Thyroid Disease Mother Karen Had thyroid removed Relation Name Status Comments Father Maternal Grandmother Mother Karen Social History Tobacco Use Types Packs/Day Years Used Date Smoking Tobacco: Never Smokeless Tobacco: Never Tobacco Cessation:Counseling Given: Not Answered Alcohol Use Standard Drinks/Week Comments Yes 20 (1 standard drink = 0.6 oz pu re alcohol) 1-2/day Sexually Active Control Partners Comments Not Currently Male Comments No Sex and Gender Information Value Date Recorded Sex Assigned at Not on file Legal Sex Female 10:58 AM EST Gender Identity Not on file Sexual Orientation Not on file Obstetrics History Para Term AB IAB SAB Ectopic Multiple Livin g Live Births 2 2 Date Outcome GA Total Labor Labor/2nd/3rd Weight Sex Type Anes PTL Isaura A1 A5 Name Clin Para Para Last Filed Vital Signs Vital Sign Reading Time Taken Comments Blood Pressure 124/82 01/18/2025 2:14 PM EDT Pulse 68 01/18/2025 2:14 PM EDT Temperature 35.5 C (95.9 F) 09/25/2020 1:29 PM EST Respiratory Rate 16 01/18/2025 2:14 PM EDT Oxygen Saturation - - Inhaled Oxygen Concentration - - Weight 49.3 kg (108 lb 11.2 oz) 01/18/2025 2:14 PM EDT Height 165.1 cm (5' 5 ) 01/18/2025 2:14 PM EDT Body Mass Index 18.09 01/18/2025 2:14 PM EDT Plan of Treatment Health Maintenance Due Date Last Done Comments Annual Wellness Exam 12/05/1966 Hepatitis C Screening 12/05/1981 DTaP/TDaP/Td (1 - Tdap) 12/05/1982 Pneumococcal Vaccine 50+ (1 of 2 - PCV) 12/05/1982 Zoster (1 of 2) 12/05/1982 Cervical Cancer Screening 12/05/1984 Pap Smear 12/05/1984 HPV/Pap Cotest 12/05/1993 Breast Cancer Screening 2003 Cologuard 12/05/2008 Colon Cancer Screening 12/05/2008 Colonoscopy 12/05/2008 FIT 12/05/2008 Sigmoidoscopy 12/05/2008 Virtual Colonography 12/05/2008 RSV or 60+ (1 - Ris k 50-74 years 1-dose series) 12/05/2013 COVID-19 Vaccine (#1) 12/23/2020 Influenza Vaccine (#1) 2025 Hepatitis B Vaccine Aged Out No longe r eligible based on patient's age to complete this topic Meningococcal B Vaccine Aged Out No l onger eligible based on patient's age to complete this topic Procedures Procedure Name Priority Date/Time Associated Diagnosis Comments THYROID STIMULATING HORMONE Routine 03/29/2025 T4, FREE (THYROXINE) Routine 03/29/2025 COMPREHENSIVE METABOLIC PANEL Routine 03/29/2025 LIPID PANEL REFLEX Routine 03/29/2025 VITAMIN D 25 HYDROXY Routine 03/29/2025 MAGNESIUM LEVEL Routine 03/29/2025 TRIIODOTHYRONINE Routine 03/29/2025 PARATHYROID HORMONE INTACT Routine 03/29/2025 from Last 3 Months Results * LIPID PANEL REFLEX (03/29/2025) Triglycerides 67 MG/DL SEP OFFICE Comment:0-149 HDL 145 >=40 MG/DL SEP OFFICE Comment:>39 VLDL 12 MG/DL SEP OFFICE Comment:5-40 LDL Cholesterol 59 MG/DL SEP OFFICE Comment:0-99 Blood VENOUS BLOOD / Unknown 03/29/2025 Historical Provider CHEMISTRY ORDERABLES Final R esult SEP OFFICE * VITAMIN D 25 HYDROXY (03/29/2025) Vitamin D 25 OH 29.1 NG/ML SEP OFFICE Comment:30.0-100.0 Blood VENOUS BLOOD / Unknown 03/29/2025 Historical Provider CHEMISTRY ORDERABLES Final R esult SEP OFFICE * TRIIODOTHYRONINE (03/29/2025) T3 Free 3.3 PG/ML SEP OFFICE Comment:2.0-4.4 Blood VENOUS BLOOD / Unknown 03/29/2025 Historical Provider CHEMISTRY ORDERABLES Final R esult Performing Organization Address [facility] de Phone Number SEP OFFICE * (ABNORMAL) THYROID STIMULATING HORMONE (03/29/2025) TSH 0.038(A) 0.400 - 4.500 MCIU/ML SEP OFFICE Comment:0.450-4.500 Blood VENOUS BLOOD / Unknown 03/29/2025 Historical Provider CHEMISTRY ORDERABLES Final R esult Performing Organization Address [facility] Phone Number SEP OFFICE * T4, FREE (THYROXINE) (03/29/2025) Free T4 1.99 NG/DL SEP OFFICE Comment:0.82-1.77 Blood VENOUS BLOOD / Unknown 03/29/2025 Historical Provider CHEMISTRY ORDERABLES Final R esult Performing Organization Address [facility] Phone Number SEP OFFICE * PARATHYROID HORMONE INTACT (03/29/2025) PTH Intact 141 PG/ML SEP OFFICE Comment:15-55 Blood VENOUS BLOOD / Unknown 03/29/2025 Historical Provider CHEMISTRY ORDERABLES Final R esult Performing Organization Address [facility] de Phone Number SEP OFFICE * MAGNESIUM LEVEL (03/29/2025) Magnesium 2.0 1.6 - 2.4 MG/DL SEP OFFICE Comment:1.6-2.3 Blood VENOUS BLOOD / Unknown 03/29/2025 Historical Provider CHEMISTRY ORDERABLES Final R esult SEP OFFICE * (ABNORMAL) COMPREHENSIVE METABOLIC PANEL (03/29/2025) Glucose Lvl 84 MG/DL SEP OFFICE Comment:70-99 BUN 12 4 - 21 MG/DL SEP OFFICE Comment:8-27 Creatinine 0.8 0.5 - 1.1 MG/DL SEP OFFICE Comment:0.57-1.00 EGFR 89.0 ML/MIN/1.7 3M2 SEP OFFICE Comment:>59 BUN/Creatinine Ratio 15 SEP OFFICE Comment:12-28 Sodium 138 137 - 147 MMOL/L SEP OFFICE Comment:134-144 Potassium 4.3 3.5 - 5.0 mmol/L SEP OFFICE Comment:3.5-5.2 Chloride 98(A) 99 - 108 MMOL/L SEP OFFICE Comment:96-106 Total CO2 22 22 - 29 MMOL/L SEP OFFICE Comment:20-29 Calcium 9.30 8.70 - 10.70 MG/DL SEP OFFICE Comment:8.7-10.3 Total Protein 7.2 6.4 - 8.2 GM/DL SEP OFFICE Comment:6.0-8.5 Albumin 4.7 GM/DL SEP OFFICE Comment:3.9-4.9 Globulin 2.5 G/DL SEP OFFICE Comment:1.5-4.5 Bilirubin,Total 0.7 MG/DL SEP OFFICE Comment:0.0-1.2 Alk Phos 63 25 - 125 IU/L SEP OFFICE Comment:44-121 AST 126(A) 13 - 35 IU/L SEP OFFICE Comment:0-14 ALT 53 U/L SEP OFFICE Comment:0-32 Blood VENOUS BLOOD / Unknown 03/29/2025 Historical Provider CHEMISTRY ORDERABLES Final R esult SEP OFFICE from Last 3 Months Insurance PPO Member Subscriber Plan / Payer (Ef fective 2016-Present) Name:Miguelina Gresham Relation to Subscriber:Self Name:MargaMiguelina holland Payer ID:[id number] (NAIC) Group ID:Not on file Type:Not on file Address: [id number] PPO
== END 2025-05-21 23:59 | disposition home or self-care (01) ==
LOC: RT 14:10
PROVIDERS: PCP Internal Medicine; Visit Provider Internal Medicine Cardiovascular Disease
DX: I08.1 Rheumatic disorders of both mitral and tricuspid valves (principal)
CPT/HCPCS: 93306

== ENCOUNTER 2025-06-30 08:25 | Emergency (ER) | payer BC, SELFPAY ==
--- OUTSIDE RECORDS SUMMARY | 2017-05-14 10:00 | XMS_ITS | Continuity of Care Document ---
Author Organization [facility] Address [address] [place] [address] Phone Care Team Providers Care Retail Pricing Coordinator Name Role Phone JESENIA EDMONDSON PA-C Unavailable [...] [facility], [address], [place], [place], [address], [place] tel:[phone] [facility] right wrist pain (chief complaint) CervicalgiaCe rvical radiculopathy XRAY ORDER [address]. [address], [place], [place], [address], [place]. tel:[phone] Referring Provider: JESENIA Pina, [address], [place], [address] . tel:[phone] NEW PATIENT OFFICE VISIT- LEVEL 3 [facility], [address], [place], , [place] tel:[phone] [facility] left foot injury (chief complaint) SPRAIN OF FOOT NEC LEFTCONTUSION OF TOE/TOENAIL 5 Betty Little. [address], [address], [place], [place], [address], [place]. tel:[phone] Referring Provider: Anabel Hernández, [address], [place], [address] . tel:[phone] [facility], [address], [place], , [place] tel:[phone] [facility] No Information No Information Referring Provider: MARY Lyles, [address], [place], [address] . tel:[phone] NEW PATIENT OFFICE VISIT- LEVEL 4 [facility], [address], [place], , [place] tel:[phone] [facility] cervical spine pain (chief complaint) CERVICAL DISC DEGEN RIGHTSPASM OF MUSCLE BILATERALCERV ICAL DISC DEGEN RIGHTHERNIATE D NUCLEUS PULPOSUS - CERVICALNECK PAIN/CERVICAL KENISHA No Information Referring Provider: MARY Lyles, [address], [place], [place], . tel:[phone] [facility], [address], [place], , [place] tel:[phone] PHYSICAL THERAPY OFFICE No Information Aliyah Sapp. [address], [address], [place], , [place]. tel:[phone] ESTABLISHED PATIENT OFFICE VISIT - LEVEL 4 [facility], [address], [place], , [place] tel:[phone] [facility] No Information Mar-0 2-201 1 No Information Referring Provider: MARY Lyles, [address], [place], . tel:[phone] [facility], [address], [place], , [place] tel:[phone] [facility] No Information Nov-0 3-201 0 No Information Referring Provider: MARY Lyles, [address], [place], . tel:[phone] [facility], [address], [place], , [place] tel:[phone] [facility] No Information Apr-2 7-201 0 No Information Referring Provider: MARY YAIMA Lyles, [address], [place], . tel:[phone] [facility], [address], [place], , [place] tel:[phone] [facility] No Information Apr-2 0-201 0 No Information Referring Provider: MARY Lyles, [address], [place], . tel:[phone] ESTABLISHED PATIENT OFFICE VISIT - LEVEL 3 [facility], [address], [place], , [place] tel:[phone] [facility] No Information Apr-0 1-201 0 No Information Referring Provider: MARY Lyles, [address], [place], . tel:[phone] ESTABLISHED PATIENT OFFICE VISIT - LEVEL 3 [facility], [address], [place], , [place] tel:[phone] [facility] No Information 0 MIRIAN DOS SANTOS. [address] [facility], [address], [place], [place], [address], . tel:[phone] Referring Provider: MARY Lyles [address] [facility] [address], [place], [address] . tel:[phone] ESTABLISHED PATIENT OFFICE VISIT - LEVEL 3 [facility], [address], [place], [place], [address], tel:[phone] [facility] No Information 0 No Information [...] Arthritis Payers Payer name Insurance type Covered democrat ID Ishaan interiano(s) [facility] [id number] Social History Type Description Quantity Date Captured [...] not find it helpful. She plays carney [employer] and also like to ashley. She notes occasional numbness and tingling in the LEFT hand as well. Reason For Referral Reason For Referral No Information Plan Of Treatment Date Type Action Status Referral Ordered: [facility] (related to SPASM OF MUSCLE BILATERAL) ordered Referral Referred To: [facility] [address] [facility] [address] [place] [address], [phone] Ordered: Referral: [facility]. [...] not find it helpful. She plays carney [employer]al[employer] and also like to ashley. She notes [...] Mental Status Date Cognitive Assessment Orientation - [place] ed to time, place, person, situation. Patient Care Teams Name Effective Dates (start - stop) Status Members No Information
[2025-06-30] VITALS (7 sets, daily range): BP systolic 143–194; BP diastolic 96–116; PULSE 76–100; RESP 10–20; TEMP 36.5–36.8; O2SAT 98–100; BMI 18.6
--- OUTSIDE RECORDS SUMMARY | 2025-06-30 08:31 | XMS_ITS | Clinical Summary ---
Author Organization [facility] Address [address] [facility] [address] [place] [address] Phone Care Team Providers Care Sales Negotiator Name Role Phone Unavailable Primary Care Provider [...] Type Department Care Team Description 04/18/2025 Telephone [facility] Diabetes [place] [address] [facility] [address] [place] [address] Michael Brennan MD Medication Management (LEVOthyroxine (SYNTHROID) 112 mcg Oral Tablet) from Last 3 Months Surgical History Surgery Date Site/Laterality Comments GASTRIC BYPASS SURGERY 07/19/2013 - 07/18/2014 KNEE SURGERY CARPAL TUNNEL RELEASE Right CHOLECYSTECTOMY PARATHYROIDECTOMY ENDOMETRIAL ABLATION PACEMAKER PLACEMENT GASTRIC RESTRICTION SURGERY 2013 Medical History Medical History Date Comments Thyroid disease Hypertension Depression Hypothyroidism Markell's disease (HCC) Goiter Tatiana's thyroiditis Hyperparathyroidism Family [...] on patient's age to complete this topic Insurance PPO PPO
--- OUTSIDE RECORDS SUMMARY | 2025-06-30 08:31 | XMS_ITS | CCD ---
Author Name Interface, [id number] lity Address [address] [place] [address] Organization [facility] Address [address] [place] [address] Care Team Providers Care Civil Structural Engineer Name Role Phone Aliyah RICHARD, Dez Mansfield [...]
--- OUTSIDE RECORDS SUMMARY | 2025-06-30 08:31 | XMS_ITS | Clinical Summary ---
Author Organization Healthcare Address [address] [place] [address] Care Team Providers Care Field Marketing Specialist Name Role Phone Maynor Lupe Renetta ESPINAL Primary Care Provider [phone] Allergies Active Allergy Reactions Criticality Noted Date [...] 12/05/2013 UKY-Zoster Vaccines (1 of 2) 12/05/2013 [id number] Vaccine (2 - Amarilys risk series) 12/23/2020 [...] Antibody Negative Negative 12/08/2023 4:32 PM EDT [facility] Blood Venous blood specimen / Unknown Venipuncture / Unknown 12/08/2023 1:57 PM EDT 12/08/2023 1:57 PM EDT Bia Bustos MD LAB BLOOD ORDERABLES Final Re sult [facility] [address] [place] [address] from Last 3 Months or Most Recently Relevant to Health Maintenance Insurance FABY Care Teams Field Marketing Specialist Relationship Specialty Start Date End Date Lupe Mcguire APRN [address] [place] [address] PCP - General 11/29/20
--- OUTSIDE RECORDS SUMMARY | 2025-06-30 08:32 | XMS_ITS | Encounter Summary ---
Author Organization [facility] Address [address] [place] [address] Care Team Providers Care Systems Project Manager Name Role Phone Phil Shea MD Primary Care Provider [phone] Source Comments This information has been disclosed to you from confidential records protectfrom disclosure by state law. You shall make no further disclosure of thisinformation without the specific, written, and informed release of theindividual to whom it pertains, or as otherwise permitted by law. A generalauthorization for the release of medical or other information is not sufficientfor the purposes of the release of HIV test results or diagnoses. [id number] Reason for Referral * Imaging/Cardiovascular Scan (Routine) - Closed Specialty Diagnoses / Procedures Referred By Ernesto carrizales Referred To Contact Radiology Diagnoses Right hip pain Procedures MRI Hip Right WO Rome Mei MD [address] [place] [address] Phone: tel: Referral ID Status Reason Start Date Expiration Date Visits Re quested Visits Authorized [id number] Closed 05/27/2021 06/25/2021 1 1 Encounter Details Date Type Department Care Team (Late st Contact Info) Description 01/22/2021 Orders Only [facility] [address] [place] [id number] Rome Mei MD [address] [place] [address] Right hip pain (Primary Dx) Social History Tobacco Use Types Packs/Day Years Used Date Smoking Tobacco: Never Smokeless Tobacco: Never Alcohol Use Standard Drinks/Week Comments Yes 0 (1 standard drink = 0.6 oz pur e alcohol) Comments No Sex and Gender Information Value Date Recorded Sex Assigned at Female 04/15/2020 9:57 PM EDT Legal Sex Female 11:39 AM EDT Gender Identity Female 04/15/2020 9:57 PM EDT Sexual Orientation Straight 04/15/2020 9: 57 PM EDT documented as of this encounter Plan of Treatment Not on file documented as of this encounter Results * MRI Hip Right WO (06/06/2021 1:58 PM EST) Anatomical Region Laterality Modality Hip Magnetic Resonan ce 06/06/2021 1:24 PM EST Impressions 06/06/2021 2:53 PM EST IMPRESSION: 1. Trace soft tissue edema between the right greater trochanter and iliotibial band. No trochanteric bursal fluid. No significant right hip arthrosis, labral tear or joint effusion. Approved by Michele Lopes DO on 06/06/2021 2:46 PM EST I have personally reviewed the images and I agree with this report. Report Verified by: Daljit Hidalgo MD at 06/06/2021 2:53 PM EST Narrative 06/06/2021 2:53 PM EST EXAM: MRI HIP RIGHT WO CLINICAL INDICATION: Right hip pain COMPARISON: None TECHNIQUE: Multiplanar T1 and T2 weighted MR sequences were obtained of the right hip, including large field of view sequences of the pelvis, without contrast. FINDINGS: RIGHT HIP STRUCTURES Labrum: No discrete tear or paralabral cyst. Cartilage: No discrete cartilage loss. Joint fluid: No significant joint effusion or synovitis. RASHAAD-ARTICULAR STRUCTURES Bursae, Soft tissues: No iliopsoas or trochanteric bursal fluid.. Trace soft tissue edema between the greater trochanter and IT band Tendons: Intact Musculature: Normal volume and signal characteristics. Osseous structures: Normal bone marrow signal. Small right CAM deformity at the femoral head neck junction Other articulations, including contralateral hip: No discrete cartilage loss. No joint fluid or synovitis. Neurovascular, Lymph nodes: No significant abnormality. Intrapelvic included structures: No significant abnormality. Procedure Note Daljit Hidalgo MD - 06/06/2021 EXAM: MRI HIP RIGHT WO CLINICAL INDICATION: Right hip pain COMPARISON: None TECHNIQUE: Multiplanar T1 and T2 weighted MR sequences were obtained ofthe right hip, including large field of view sequences of the pelvis,without contrast. FINDINGS: RIGHT HIP STRUCTURES Labrum: No discrete tear or paralabral cyst. Cartilage: No discrete cartilage loss. Joint fluid: No significant joint effusion or synovitis. RASHAAD-ARTICULAR STRUCTURES Bursae, Soft tissues: No iliopsoas or trochanteric bursal fluid.. Tracesoft tissue edema between the greater trochanter and IT band Tendons: Intact Musculature: Normal volume and signal characteristics. Osseous structures: Normal bone marrow signal. Small right CAM deformityat the femoral head neck junction Other articulations, including contralateral hip: No discrete cartilageloss. No joint fluid or synovitis. Neurovascular, Lymph nodes: No significant abnormality. Intrapelvic included structures: No significant abnormality. IMPRESSION: 1. Trace soft tissue edema between the right greater trochanter andiliotibial band. No trochanteric bursal fluid. No significant right hiparthrosis, labral tear or joint effusion. Approved by Michele Lopes DO on 06/06/2021 2:46 PM EST I have personally reviewed the images and I agree with this report. Report Verified by: Daljit Hidalgo MD at 06/06/2021 2:53 PM EST Rome Mei MD IMG MRI ORDERABLES Final Result documented in this encounter Visit Diagnoses Diagnosis Right hip pain- Primary Pain in joint, pelvic region and thigh Right hip pain Pain in joint, pelvic region and thigh documented in this encounter Care Teams Systems Project Manager Relationship Specialty Start Date End Date Phil Shea MD [address] [place] [address] PCP - General Internal Medicine 04/17/20 documented as of this encounter
--- OUTSIDE RECORDS SUMMARY | 2025-06-30 08:32 | XMS_ITS | Clinical Summary ---
Author Organization [facility] Address [address] [place] [address] Care Team Providers Care Courtesy Bus Driver Name Role Phone Lupe Mcguire APRN Primary Care Provider [phone] Allergies Active Allergy Reactions Criticality Noted Date Comments Naproxen Rash Low 04/12/2018 Dizzy, vision loss, nausea Milk-Related Compounds Unknown (See Comments) 04/28/2018 PATIENT PREFERENCE Sulfa Antibiotics Itching Medium 04/12/2018 Red skin Hydrocodone-Acetaminop hen Other (See Comments) Low 04/12/2018 Skin felt like it was on fire Medications levothyroxine (SYNTHROID, LEVOTHROID) 125 MCG tablet Take 125 mcg by mouth Every Morning. 04/02/2018 Active esomeprazole (nexIUM) 40 MG capsule Take 1 capsule by mouth Every Morning. 03/25/2018 Active memantine (NAMENDA XR) 28 MG capsule sustained-relea se 24 hr extended release capsule Take 1 capsule by mouth Every Night. 04/04/2018 Active traZODone (DESYREL) 50 MG tablet Take 1 tablet by mouth Every Night. 03/22/2018 Active rizatriptan (MAXALT) 10 MG tablet Take 1 tablet by mouth As Needed. 03/14/2018 Active PREMARIN 0.625 MG/GM vaginal cream Insert 0.5 g into the vagina 2 (Two) Times a Week. TU AND Wed01/03/2018 Active PROAIR HFA 108 (90 Base) MCG/ACT inhaler Inhale 2 puffs As Needed. 03/28/2018 Active Multiple Vitamins-Minera ls (MULTIVITAMIN ADULTS 50+ PO) Take 1 tablet by mouth Every Morning. Active MAGNESIUM PO Take 450 mg by mouth 2 (Two) Times a Day. Active melatonin 3 MG tablet Take 3 mg by mouth At Night As Needed for Sleep. Active metoprolol succinate XL (TOPROL-XL) 50 MG 24 hr tablet Take 50 mg by mouth Every Morning. Active oxyCODONE-aceta minophen (PERCOCET) 5-325 MG per tablet Take 1 tablet by mouth Every 6 (Six) Hours As Needed for Moderate Pain . 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 Not on file 06/2023 Does Anyone Keep You from Co ntacting Others or Doint Things Outside the Home? Not on file 04/29/2023 Physical Sign of Abuse Present Not on file 1 Housing Stability Answer Date Recorded Current Living Arrangements Not on file 04/18 Potentially Unsafe Housing Conditions Not on [place] e 04/29/2023 Family and Community Support Answer Rosalio e Recorded Help with Day-to-Day Activities Not on file 04/29/2023 Lonely or Isolated Not on file 04/29/2023 Employment Answer Date Recorded Do you want help finding or keeping work or a cookie b? Not on file 04/29/2023 Disabilities Answer Date Recorded Concentrating, Remembering, or Making Decisions Difficulty Not on file 04/29/2023 Doing Errands Independently Difficulty Not on fi le 04/29/2023 Education Answer Date Recorded Help with school or training? Not on file Preferred Language Not on file 04/29/2023 Comments No Sex and Gender Information Value Date Recorded Sex Assigned at Not on file Legal Sex Female 3:27 PM EDT Gender Identity Not on file Sexual Orientation Not on file Last Filed Vital Signs Vital Sign Reading Time Taken Comments Blood Pressure 119/71 04/29/2018 8:00 AM EDT Pulse 69 04/29/2018 8:00 AM EDT Temperature 36.6 C (97.9 F) 04/28/2018 10:00 PM EDT Respiratory Rate 12 04/29/2018 8:00 AM EDT Oxygen Saturation 98% 04/29/2018 8:00 AM EDT Inhaled Oxygen Concentration - - Weight 59 kg (130 lb 1.1 oz) 04/28/2018 6:40 AM EDT Height 165.1 cm (5' 5 ) 04/28/2018 6:40 AM EDT Body Mass Index 21.64 04/28/2018 6:40 AM EDT Plan of Treatment Health Maintenance Due Date Last Done Comments Annual Gynecologic Pelvic and Breast Exam 1965 TDAP/TD VACCINES (1 - Tdap) 12/05/1982 MAMMOGRAM 2003 COLOGUARD 12/05/2008 COLON CANCER SCREENING 5 YEAR SIGMOIDOSCOPY 12/05/2008 COLONOSCOPY 12/05/2008 COLORECTAL CANCER SCREENING 12/05/2008 CT COLONOGRAPHY 12/05/2008 FECAL OCCULT BLOOD TEST 12/05/2008 FIT Testing (1 year) 12/05/2008 Pneumococcal Vaccine 50+ (1 of 1 - PCV) 12/05/2013 ZOSTER VACCINE (1 of 2) 12/05/2013 ANNUAL PHYSICAL 04/08/2018 HEPATITIS C SCREENING 04/08/2018 INFLUENZA VACCINE 02/16/2025 Medical Devices Implanted Type Area Windows Infrastructure Engineer Device Identifier Shelf Expiration Date Model / Serial / Lot Pacemaker-2015 Implanted:Qty: 1 on 02/05/2016 by Altaf Thomas MD Pacemaker [employer] / / [id number] Insurance [facility] Care Teams Courtesy Bus Driver Relationship Specialty Start Date End Date Lupe Mcguire APRN PCP - General Internal Medicine 04/07/18
--- OUTSIDE RECORDS SUMMARY | 2025-06-30 08:32 | XMS_ITS | Encounter Summary ---
Author Organization [facility] Address [facility] [place] [address] Care Team Providers Care Rubber Calender Helper Name Role Phone Lupe Mcguire Primary Care Provider [phone] Phil Shea MD Primary Care Provider [phone] Source Comments This information has been disclosed [...] release of HIV test results or diagnoses. [id number] Reason for Referral * Imaging/Cardiovascular Scan (Routine) - Closed Specialty Diagnoses / Procedures Referred By Contac t Referred To Contact Radiology Diagnoses Lumbar spine pain Lumbar radiculitis Injury of low back, initial encounter Procedures MRI Lumbar spine WO contrast Godfrey Valdes [address] [place] [address] Phone: tel: fax: Referral ID Status Reason Start Date Expiration Date Visits Re quested Visits Authorized [id number] Closed 12/05/2019 03/03/2020 1 1 Encounter Details Date Type Department Care Team (Late st Contact Info) Description 11/27/2019 Orders Only [facility] [address] [place] [id number] Godfrey Valdes [address] [place] [address] Lumbar spine pain (Primary Dx); Lumbar radiculitis; Injury of low back, initial encounter Social History Tobacco Use Types Packs/Day Years [...] as of this encounter Results * MRI Lumbar spine WO contrast (12/12/2019 12:42 PM EDT) Anatomical Region Laterality Modality L-spine Magnetic Resonan ce 12/12/2019 12:0 2 PM EDT Impressions 12/12/2019 2:13 PM EDT IMPRESSION: 1. Minimal degenerative changes in the lumbar spine. No significant central or foraminal narrowing. 2. Small Schmorl's node at the superior endplate of L3, with minimal surrounding edema. 3. 1.3 cm lesion in the L1 vertebral body most likely represents an incidental atypical benign venous malformation/intraosseous hemangioma, particularly in the absence of a history of malignancy. Report Verified by: Chanelle Leach MD at 12/12/2019 2:13 PM EDT Narrative 12/12/2019 2:13 PM EDT EXAM: MRI LUMBAR SPINE WO CONTRAST INDICATION: Lumbar spine pain, Lumbar radiculitis, Injury of low back, initial encounter TECHNIQUE: MRI LUMBAR SPINE WITHOUT CONTRAST obtained including multiplanar T1 and T2 weighted imaging. COMPARISON: None available FINDINGS: The diagnostic quality of the examination is adequate. Numbering convention: 5 lumbar like vertebral bodies with standard lumbosacral junction. Alignment: Normal. Osseous structures: A small Schmorl's node is visualized at the superior endplate of L3, with minimal surrounding edema. There is a 1.3 cm area of T2 hyperintense signal within the left posterior L1 vertebral body, without T1 hyperintense signal internally. The findings could represent an atypical venous malformation. A more typical appearing intraosseous venous malformation is visualized more posteriorly involving the left transverse process of L1. The marrow signal is otherwise unremarkable. Distal thoracic cord and conus: Normal signal and morphology of distal thoracic cord and conus. The conus terminates in a normal position. Individual disc space levels: T12-L1 and L1-2: Normal thecal sac dimensions and neuroforamina with no significant facet disease. L2-3: Mild disc desiccation. No significant central or foraminal narrowing. L3-4: Mild facet arthropathy. Intervertebral disc contour is within the range of normal variation. Minimal bilateral neural foraminal narrowing. No significant central canal narrowing. L4-5: Intervertebral disc contour is within the normal range of variation. Mild facet arthropathy. No significant central or foraminal narrowing. L5-S1: Intervertebral disc contour is within the range of normal variation. Mild facet arthropathy. No significant central or foraminal narrowing. Extraspinal structures: Mild renal cortical atrophy is noted. The visualized paraspinal soft tissues are otherwise unremarkable. Procedure Note Chanelle Leach MD - 12/12/2019 EXAM: MRI LUMBAR SPINE WO CONTRAST INDICATION: Lumbar spine pain, Lumbar radiculitis, Injury of low back,initial encounter TECHNIQUE: MRI LUMBAR SPINE WITHOUT CONTRAST obtained includingmultiplanar T1 and T2 weighted imaging. COMPARISON: None available FINDINGS: The diagnostic quality of the examination is adequate. Numbering convention: 5 lumbar like vertebral bodies with standardlumbosacral junction. Alignment: Normal. Osseous structures: A small Schmorl's node is visualized at the superiorendplate of L3, with minimal surrounding edema. There is a 1.3 cm area ofT2 hyperintense signal within the left posterior L1 vertebral body,without T1 hyperintense signal internally. The findings could represent anatypical venous malformation. A more typical appearing intraosseous venousmalformation is visualized more posteriorly involving the left transverseprocess of L1. The marrow signal is otherwise unremarkable. Distal thoracic cord and conus: Normal signal and morphology of distalthoracic cord and conus. The conus terminates in a normal position. Individual disc space levels: T12-L1 and L1-2: Normal thecal sac dimensions and neuroforamina with nosignificant facet disease. L2-3: Mild disc desiccation. No significant central or foraminalnarrowing. L3-4: Mild facet arthropathy. Intervertebral disc contour is within therange of normal variation. Minimal bilateral neural foraminal narrowing.No significant central canal narrowing. L4-5: Intervertebral disc contour is within the normal range of variation.Mild facet arthropathy. No significant central or foraminal narrowing. L5-S1: Intervertebral disc contour is within the range of normalvariation. Mild facet arthropathy. No significant central or foraminalnarrowing. Extraspinal structures: Mild renal cortical atrophy is noted. Thevisualized paraspinal soft tissues are otherwise unremarkable. IMPRESSION: 1. Minimal degenerative changes in the lumbar spine. No significantcentral or foraminal narrowing. 2. Small Schmorl's node at the superior endplate of L3, with minimalsurrounding edema. 3. 1.3 cm lesion in the L1 vertebral body most likely represents anincidental atypical benign venous malformation/intraosseous hemangioma,particularly in the absence of a history of malignancy. Report Verified by: Chanelle Leach MD at 12/12/2019 2:13 PM EDT us Provider Not In System IMG MRI ORDERABLES Final Result documented in this encounter Visit Diagnoses Diagnosis Lumbar spine pain- Primary Lumbar radiculitis Injury of low back, initial encounter Lumbar spine pain Lumbar radiculitis Injury of low back, initial encounter documented in this encounter Care Teams Rubber Calender Helper Relationship Specialty Start Date End Date Lupe Mcguire [address] [place] [id number] PCP - General 04/26/17 04/16/20 Phil Shea MD [address] [place] [address] PCP - General Internal Medicine 04/17/20 documented as of this encounter
--- OUTSIDE RECORDS SUMMARY | 2025-06-30 08:32 | XMS_ITS | Data Portability ---
Author Organization [facility] Address [address] [place] [address] Assessment No assessment recorded. Plan of Treatment Reminders Order Date Submit Date Provider Last Modified By Organization Details Last Modified Time Details Appointments None recorded. Lab CMP, serum or plasma 2024 025 [facility], [address], [address], [place], [address], 5 06:08:40 amylase + lipase, serum 2024 025 [facility], [address], [address], [place], [address], 5 06:08:40 CBC w/ auto diff 2024 025 [facility], [address], [address], [place], [address], 5 06:08:40 culture, urine 2024 025 [facility], [address], [address], [place], [address], 5 06:08:41 urinalysis, dipstick 2024 025 [facility], [address] [facility] [address], [place], [address], 5 15:41:34 vitamin D, 25-hydroxy, total, serum 2024 025 [facility], [address], [address], [place], [address], 5 21:07:40 magnesium, serum or plasma 2024 025 [facility], [address], [address], [place], [address], 5 21:07:42 thiamine, QN, blood 2024 025 [facility], [address], [address], [place], [address], 5 21:07:41 CBC w/ auto diff 2024 025 [facility], [address], [address], [place], [address], 5 21:07:36 CMP, serum or plasma 2024 025 [facility], [address], [address], [place], [address], 5 21:07:37 cobalamin and folate panel, serum 2024 025 [facility]ERT [facility], [address], [address] [address], [place], [address], 5 21:07:38 folate, serum 2024 025 cbkris [facility], [address], [address], [place], [address], 5 14:50:46 prealbumin, serum 2024 025 [facility], [address], [address] [address], [place], [address], 5 21:07:44 vitamin A (retinol), serum 2024 025 [facility], [address], [address], [place], [address], 5 21:07:40 transferrin , serum 2024 025 [facility], [address], [place] [address], [place], [address], 5 21:07:43 carotene, serum 2024 025 [facility], [address], [address], [place], [address], 21:07:42 phosphorus, serum or plasma 2024 025 [facility], [address], [address] [address], [place], [address], 5 21:07:41 HbA1c (hemoglobin A1c), blood 2024 025 [facility], [address], [address] [address], [place], [address], 21:07:39 lipid panel, serum 2024 025 [facility], [address], [address], [place], [address], 21:07:37 selenium, serum or plasma 2024 025 [facility], [address], [address], [place], [address], 21:07:44 zinc, serum or plasma 2024 025 [facility], [address], [address], [place], [address], 5 21:07:43 PT/PTT, plasma 2024 025 [facility], [address], [address], [place], [address], 21:07:38 PTH (parathyroi d hormone), intact + calcium, serum or plasma 2024 025 [facility], [address], [address], [place], [address], 5 21:07:39 cortisol, am, serum 2024 025 [facility], [address], [address], [place], [address], 5 21:07:44 TSH + free T4, serum 2024 025 [facility], [address], [address], [place], [address], 5 21:07:36 Referral None recorded. Procedures venipunctur e routine (PROC) 2024 025 [facility] Not available 13:47:49 Surgeries None recorded. Imaging XR, hand, 3 or more view 2022 023 [facility] (X-Ray), [address] [place] [address] [address], [place], [address], 3 16:16:59 Medication Orders sodium chloride 0.9 % intravenous solution 2024 025 [facility], [address] [place] [address] [address] [place], [id number], 5 15:58:02 Normal Saline Flush 0.9 % injection syringe 2024 025 [facility], [address] [place] [address] [address] [place], [id number], 5 15:58:02 Zithromax Z-Pravin 250 mg tablet 2022 023 [facility], [address] [place] [address], [address], 14:19:23 fluticasone propionate 50 mcg/actuati on nasal spray,suspe nsion 2022 023 [facility], [address] [place] [address], [address], 14:31:27 prednisone 20 mg tablet 2022 023 [facility], [address] [place] [address], [id number], 14:21:07 Patient TargetsNo targets recorded. Patient Instructions Encounter Date Encounter Id Patient Instructions Last Modified By Organization Details Last Modified Time 11/20/2024 [id number] Treament Plan: Patient will start medication as [...] 4.500 above high normal Not Available [facility] ([facility]) [address] [place], [address], 11/30/2024 21:07:35 11/24/1911/24/2024 TSH+F REE T4 T4,free(dire ct) 0.29 NG/dL 0.82-1 .77 below low normal Not Available [facility] ([facility]) [address] [place], [address], 11/30/2024 21:07:35 11/24/1911/24/2024 CBC WITH DIFFE RENTI AL/PL ATELE T WBC 5.2 x10e3 /uL 3.4-10 .8 normal Not Available [facility] ([facility]) [address] [place], [address], 11/30/2024 21:07:36 11/24/19 25 11/24/2024 CBC WITH DIFFE RENTI AL/PL ATELE T RBC 4.89 x10e6 /uL 3.77-5 .28 normal Not Available [facility] ([facility]) [address] [facility], [place], [address], 11/30/2024 21:07:36 11/24/19 25 11/24/2024 CBC WITH DIFFE RENTI AL/PL ATELE T hemoglobin 13.0 g/dL 11.1-1 5.9 normal Not Available [facility] ([facility]) [address] [place], [address], 11/30/2024 21:07:36 11/24/19 25 11/24/2024 CBC WITH DIFFE RENTI AL/PL ATELE T hematocrit 42.1 % 34.0-4 6.6 normal Not Available [facility] ([facility]) [address] [place], [address], 11/30/2024 21:07:36 11/24/1911/24/2024 CBC WITH DIFFE RENTI AL/PL ATELE T MCV 86 fL 79-97 normal Not Available [facility] ([facility]) [address] [place], [address], 11/30/2024 21:07:36 11/24/1911/24/2024 CBC WITH DIFFE RENTI AL/PL ATELE T MCH 26.6 pg 26.6-3 3.0 normal Not Available [facility] ([facility]) [address] [place], [address], 11/30/2024 21:07:36 11/24/19 25 11/24/2024 CBC WITH DIFFE RENTI AL/PL ATELE T MCHC 30.9 g/dL 31.5-3 5.7 below low normal Not Available [facility] ([facility]) [address] [facility], [place], [address], 11/30/2024 21:07:36 11/24/19 25 11/24/2024 CBC WITH DIFFE RENTI AL/PL ATELE T RDW 14.9 % 11.7-1 5.4 Not Available [facility] ([facility]) [address] [facility], [place], [address], 11/30/2024 21:07:36 11/24/19 25 11/24/2024 CBC WITH DIFFE RENTI AL/PL ATELE T platelets 419 x10e3 /uL 150-45 0 normal Not Available [facility] ([facility]) [address] [facility], [place], [address], 11/30/2024 21:07:36 11/24/19 25 11/24/2024 CBC WITH DIFFE RENTI AL/PL ATELE T neutrophils 50 % not estab. normal Not Available [facility] ([facility]) [address] [facility], [place], [address], 11/30/2024 21:07:36 11/24/19 25 11/24/2024 CBC WITH DIFFE RENTI AL/PL ATELE T lymphs 41 % not estab. normal Not Available [facility] ([facility]) [address] [facility], [place], [address], 11/30/2024 21:07:36 11/24/19 25 11/24/2024 CBC WITH DIFFE RENTI AL/PL ATELE T monocytes 6 % not estab. normal Not Available [facility] ([facility]) [address] [facility], [place], [address], 11/30/2024 21:07:36 11/24/19 25 11/24/2024 CBC WITH DIFFE RENTI AL/PL ATELE T eos 2 % not estab. normal Not Available [facility] ([facility]) [address] [facility], [place], [address], 11/30/2024 21:07:36 11/24/19 25 11/24/2024 CBC WITH DIFFE RENTI AL/PL ATELE T basos 1 % not estab. normal Not Available [facility] ([facility]) [address] [place], [address], 11/30/2024 21:07:36 11/24/19 25 11/24/2024 CBC WITH DIFFE RENTI AL/PL ATELE T immature cells [employer] Not Available [facility] ([facility]) [address] [place], [address], 11/30/2024 21:07:36 11/24/1911/24/2024 CBC WITH DIFFE RENTI AL/PL ATELE T neutrophils (absolute) 2.6 x10e3 /uL 1.4-7. 0 normal Not Available [facility] ([facility]) [address] [place], [address], 11/30/2024 21:07:36 11/24/19 25 11/24/2024 CBC WITH DIFFE RENTI AL/PL ATELE T lymphs (absolute) 2.1 x10e3 /uL 0.7-3. 1 normal Not Available [facility] ([facility]) [address] [place], [address], 11/30/2024 21:07:36 11/24/19 25 11/24/2024 CBC WITH DIFFE RENTI AL/PL ATELE T monocytes(ab solute) 0.3 x10e3 /uL 0.1-0. 9 normal Not Available [facility] ([facility]) [address] [place], [address], 11/30/2024 21:07:36 11/24/19 25 11/24/2024 CBC WITH DIFFE RENTI AL/PL ATELE T eos (absolute) 0.1 x10e3 /uL 0.0-0. 4 normal Not Available [facility] ([facility]) [address] [place], [address], 11/30/2024 21:07:36 11/24/19 25 11/24/2024 CBC WITH DIFFE RENTI AL/PL ATELE T baso (absolute) 0.0 x10e3 /uL 0.0-0. 2 normal Not Available [facility] ([facility]) [address] [facility], [place], [address], 11/30/2024 21:07:36 11/24/19 25 11/24/2024 CBC WITH DIFFE RENTI AL/PL ATELE T immature granulocytes 0 % not estab. Not Available [facility] ([facility]) [address] [facility], [place], [address], 11/30/2024 21:07:36 11/24/19 25 11/24/2024 CBC WITH DIFFE RENTI AL/PL ATELE T immature grans (abs) 0.0 x10e3 /uL 0.0-0. 1 Not Available [facility] ([facility]) [address] [facility], [place], [address], 11/30/2024 21:07:36 11/24/19 25 11/24/2024 CBC WITH DIFFE RENTI AL/PL ATELE T NRBC [employer] Not Available [facility] ([facility]) [address] [facility], [place], [address], 11/30/2024 21:07:36 11/24/19 25 11/24/2024 CBC WITH DIFFE RENTI AL/PL ATELE T hematology comments: [employer] Not Available [facility] ([facility]) [address] [facility], [place], [address], 11/30/2024 21:07:36 11/24/19 25 11/24/2024 COMP. METAB OLIC PANEL (14) glucose 62 mg/dL 70-99 below low normal Not Available [facility] ([facility]) [address] [place], [address], 11/30/2024 21:07:37 11/24/19 25 11/24/2024 COMP. METAB OLIC PANEL (14) BUN 8 mg/dL 8-27 normal Not Available [facility] ([facility]) [address] [place], [address], 11/30/2024 21:07:37 11/24/19 25 11/24/2024 COMP. METAB OLIC PANEL (14) creatinine 0.98 mg/dL 0.57-1 .00 normal Not Available [facility] ([facility]) [address] [place], [address], 11/30/2024 21:07:37 11/24/19 25 11/24/2024 COMP. METAB OLIC PANEL (14) eGFR 66 mL/mi n/1.7 3 >59 normal Not Available [facility] ([facility]) [address] [place], [address], 11/30/2024 21:07:37 11/24/19 25 11/24/2024 COMP. METAB OLIC PANEL (14) BUN/creatini ne ratio 8 12-28 below low normal Not Available [facility] ([facility]) [address] [facility], [place], [address], 11/30/2024 21:07:37 11/24/19 25 11/24/2024 COMP. METAB OLIC PANEL (14) sodium 136 mmol/ L 134-14 4 normal Not Available [facility] ([facility]) [address] [place], [address], 11/30/2024 21:07:37 11/24/19 25 11/24/2024 COMP. METAB OLIC PANEL (14) potassium 3.6 mmol/ L 3.5-5. 2 normal Not Available [facility] ([facility]) [address] [place], [address], 11/30/2024 21:07:37 11/24/19 25 11/24/2024 COMP. METAB OLIC PANEL (14) chloride 95 mmol/ L 96-106 below low normal Not Available [facility] ([facility]) [address] [place], [address], 11/30/2024 21:07:37 11/24/19 25 11/24/2024 COMP. METAB OLIC PANEL (14) carbon dioxide, total 24 mmol/ L 20-29 normal Not Available [facility] ([facility]) [address] [facility] [place], [address], 11/30/2024 21:07:37 11/24/19 25 11/24/2024 COMP. METAB OLIC PANEL (14) calcium 9.1 mg/dL 8.7-10 .3 normal Not Available [facility] ([facility]) [address] [place], [address], 11/30/2024 21:07:37 11/24/19 25 11/24/2024 COMP. METAB OLIC PANEL (14) protein, total 7.1 g/dL 6.0-8. 5 normal Not Available [facility] ([facility]) [address] [place], [address], 11/30/2024 21:07:37 11/24/19 25 11/24/2024 COMP. METAB OLIC PANEL (14) albumin 4.6 g/dL 3.8-4. 9 normal Not Available [facility] ([facility]) [address] [place], [address], 11/30/2024 21:07:37 11/24/19 25 11/24/2024 COMP. METAB OLIC PANEL (14) globulin, total 2.5 g/dL 1.5-4. 5 Not Available [facility] ([facility]) [address] [place], [address], 11/30/2024 21:07:37 11/24/19 25 11/24/2024 COMP. METAB OLIC PANEL (14) bilirubin, total 0.3 mg/dL 0.0-1. 2 normal Not Available [facility] ([facility]) [address] [facility] [place], [address], 11/30/2024 21:07:37 11/24/19 25 11/24/2024 COMP. METAB OLIC PANEL (14) alkaline phosphatase 63 IU/L 44-121 normal Not Available [facility] ([facility]) [address] [place], [address], 11/30/2024 21:07:37 11/24/19 25 11/24/2024 COMP. METAB OLIC PANEL (14) AST (SGOT) 44 IU/L 0-40 above high normal Not Available [facility] ([facility]) [address] [place], [address], 11/30/2024 21:07:37 11/24/19 25 11/24/2024 COMP. METAB OLIC PANEL (14) ALT (SGPT) 25 IU/L 0-32 normal Not Available [facility] ([facility]) [address] [place], [address], 11/30/2024 21:07:37 11/24/19 25 11/24/2024 LIPID PANEL cholesterol, total 244 mg/dL 100-19 9 above high normal Not Available [facility] ([facility]) [address] [place], [address], 11/30/2024 21:07:37 11/24/19 25 11/24/2024 LIPID PANEL triglyceride s 112 mg/dL 0-149 normal Not Available [facility] ([facility]) [address] [place], [address], 11/30/2024 21:07:37 11/24/19 25 11/24/2024 LIPID PANEL HDL cholesterol 148 mg/dL >39 normal Not Available [facility] ([facility]) [address] [place], [address], 11/30/2024 21:07:37 11/24/19 25 11/24/2024 LIPID PANEL VLDL cholesterol josé antonio 18 mg/dL 5-40 Not Available [facility] ([facility]) [address] [place], [address], 11/30/2024 21:07:37 11/24/19 25 11/24/2024 LIPID PANEL LDL chol calc ([facility]) 78 mg/dL 0-99 Not Available [facility] ([facility]) [address] [place], [address], 11/30/2024 21:07:37 11/24/19 25 11/24/2024 LIPID PANEL LDL calc comment: [employer] Not Available [facility] ([facility]) [address] [facility], [place], [address], 11/30/2024 21:07:37 11/24/19 25 11/24/2024 PT AND [...] range 2.5 - 3.5 Not Available [facility] ([facility]) [address] [facility], [place], [address], 11/30/2024 21:07:38 11/24/19 25 11/24/2024 PT AND PTT prothrombin time 10.8 sec 9.1-12 .0 normal Not Available [facility] ([facility]) [address] [place], [address], 11/30/2024 21:07:38 11/24/19 25 11/24/2024 PT AND [...] tory of Carl montejo. Not Available [facility] ([facility]) [address] [facility], [place], [address], 11/30/2024 21:07:38 11/24/19 25 11/24/2024 VITAM IN B12 AND FOLAT E vitamin B12 227 pg/mL 232-12 45 below low normal Not Available [facility] ([facility]) [address] [facility], [place], [address], 11/30/2024 21:07:38 11/24/19 25 11/24/2024 VITAM IN B12 AND FOLAT E folate (folic acid), serum 12.0 NG/mL >3.0 normal A serum folat e julien ntrat ion of less than 3.1 ng/mL is consi dered to repre sent clini josé antonio defic iency . Not Available [facility] ([facility]) [address] [facility], [place], [address], 11/30/2024 21:07:38 11/24/19 25 11/24/2024 PTH INTAC T+JOSÉ ANTONIO CIUM, IONIZ ED calcium, ionized, serum 4.8 mg/dL 4.5-5. 6 Not Available [facility] ([facility]) [address] [place], [address], 11/30/2024 21:07:39 11/24/19 25 11/24/2024 PTH INTAC T+JOSÉ ANTONIO CIUM, IONIZ ED PTH, intact 73 pg/mL 15-65 above high normal Not Available [facility] ([facility]) [address] [place], [address], 11/30/2024 21:07:39 11/24/19 25 11/24/2024 HEMOG LOBIN A1C hemoglobin A1C 5.2 % 4.8-5. 6 normal Predi abete s: 5.7 - 6.4 Diabe enmanuel: >6.4 Glyce aprisa contr ol for adult s with diabe enmanuel: <7.0 Not Available [facility] ([facility]) [address] [facility], [place], [address], 11/30/2024 21:07:39 11/24/19 25 11/27/2024 VITAM IN [...] e amita cteri stics deter mined by [employer]. It has not been clear ed or appro sachin by the Food and Drug Admin istra tion. Not Available [facility] ([facility]) [address] [facility], [place], [address], 11/30/2024 21:07:40 11/24/19 25 11/24/2024 VITAM IN [...] Ivory morillo [place]: The Natio n[facility] Press . 2. Holic k [place], [place], [place], et al. Evalu ation , treat ment, and preve ntion of vitam in D defic iency : an Endoc rine Socie ty clini josé antonio pract ice guide line. JCEM. 2010; 96(7) :1911 -30. Not Available [facility] ([facility]) [address] [facility], [place], [address], 11/30/2024 21:07:40 11/24/19 25 11/24/2024 VITAM IN B1 (THIA MINE) , BLOOD vit. B1, whole blood COMMEN T nmol/ L Test not perfo rmed. No froze n whole blood recei sachin. Not Available [facility] ([facility]) [address] [facility], [place], [address], 11/30/2024 21:07:41 11/24/19 25 11/24/2024 PHOSP HORUS phosphorus 4.2 mg/dL 3.0-4. 3 normal Not Available [facility] ([facility]) [address] [facility], [place], [address], 11/30/2024 21:07:41 11/24/19 25 11/30/2024 CAROT YAJAIRA, BETA carotene, beta 5 ug/dL 3-91 Not Available [facility] ([facility]) [address] [place], [address], 11/30/2024 21:07:42 11/24/19 25 11/24/2024 MAGNE SIUM magnesium 2.0 mg/dL 1.6-2. 3 normal Not Available [facility] ([facility]) [address] [place], [address], 11/30/2024 21:07:42 11/24/19 25 11/28/2024 ZINC, PLASM A OR SERUM zinc, plasma or serum 66 ug/dL 44-115 normal Detec tion Limit = 5 Not Available [facility] ([facility]) [address] [place], [address], 11/30/2024 21:07:43 11/24/19 25 11/24/2024 TRANS AYLA N transferrin 411 mg/dL 192-36 4 above high normal Not Available [facility] ([facility]) [address] [place], [address], 11/30/2024 21:07:43 11/24/19 25 11/24/2024 PREAL BUMIN prealbumin 18 mg/dL 10-36 Not Available [facility] ([facility]) [address] [place], [address], 11/30/2024 21:07:43 11/24/19 25 11/24/2024 CORTI LISBETH - AM cortisol - AM 21.1 ug/dL 6.2-19 .4 above high normal Not Available [facility] ([facility]) [address] [place], [address], 11/30/2024 21:07:44 11/24/19 25 11/27/2024 SELEN IUM, SERUM /PLAS MA selenium, serum/plasma 100 ug/L 93-198 Not Available [facility] ([facility]) [address] [place], [address], 11/30/2024 21:07:44 11/24/19 25 11/24/2024 SPECI MEN STATU S REPOR T specimen status report COMMEN T Test not perfo rmed. No froze n whole blood recei sachin. TEST: [id number] Vitam in B1 (Thia mine) , Blood Not Available [facility] ([facility]) [address] [place], [address], 11/30/2024 21:07:45 12/20/19 25 12/20/2024 CBC WITH DIFFE RENTI AL/PL ATELE T WBC 8.9 x10e3 /uL 3.4-10 .8 normal Not Available [facility] ([facility]) [address] [facility], [place], [address], 12/21/2024 06:08:39 12/20/19 25 12/20/2024 CBC WITH DIFFE RENTI AL/PL ATELE T RBC 4.45 x10e6 /uL 3.77-5 .28 normal Not Available [facility] ([facility]) [address] [facility], [place], [address], 12/21/2024 06:08:39 12/20/19 25 12/20/2024 CBC WITH DIFFE RENTI AL/PL ATELE T hemoglobin 12.1 g/dL 11.1-1 5.9 normal Not Available [facility] ([facility]) [address] [facility], [place], [address], 12/21/2024 06:08:39 12/20/19 25 12/20/2024 CBC WITH DIFFE RENTI AL/PL ATELE T hematocrit 38.4 % 34.0-4 6.6 normal Not Available [facility] ([facility]) [address] [place], [address], 12/21/2024 06:08:39 12/20/19 25 12/20/2024 CBC WITH DIFFE RENTI AL/PL ATELE T MCV 86 fL 79-97 normal Not Available [facility] ([facility]) [address] [place], [address], 12/21/2024 06:08:39 12/20/19 25 12/20/2024 CBC WITH DIFFE RENTI AL/PL ATELE T MCH 27.2 pg 26.6-3 3.0 normal Not Available [facility] ([facility]) [address] [place], [address], 12/21/2024 06:08:39 12/20/19 25 12/20/2024 CBC WITH DIFFE RENTI AL/PL ATELE T MCHC 31.5 g/dL 31.5-3 5.7 normal Not Available [facility] ([facility]) [address] [facility], [place], [address], 12/21/2024 06:08:39 12/20/19 25 12/20/2024 CBC WITH DIFFE RENTI AL/PL ATELE T RDW 17.3 % 11.7-1 5.4 above high normal Not Available [facility] ([facility]) [address] [facility], [place], [address], 12/21/2024 06:08:39 12/20/19 25 12/20/2024 CBC WITH DIFFE RENTI AL/PL ATELE T platelets 411 x10e3 /uL 150-45 0 normal Not Available [facility] ([facility]) [address] [facility], [place], [address], 12/21/2024 06:08:39 12/20/19 25 12/20/2024 CBC WITH DIFFE RENTI AL/PL ATELE T neutrophils 84 % not estab. normal Not Available [facility] ([facility]) [address] [facility], [place], [address], 12/21/2024 06:08:39 12/20/19 25 12/20/2024 CBC WITH DIFFE RENTI AL/PL ATELE T lymphs 6 % not estab. normal Not Available [facility] ([facility]) [address] [place], [address], 12/21/2024 06:08:39 12/20/19 25 12/20/2024 CBC WITH DIFFE RENTI AL/PL ATELE T monocytes 9 % not estab. normal Not Available [facility] ([facility]) [address] [place], [address], 12/21/2024 06:08:39 12/20/19 25 12/20/2024 CBC WITH DIFFE RENTI AL/PL ATELE T eos 1 % not estab. normal Not Available [facility] ([facility]) [address] [facility], [place], [address], 12/21/2024 06:08:39 12/20/19 25 12/20/2024 CBC WITH DIFFE RENTI AL/PL ATELE T basos 0 % not estab. normal Not Available [facility] ([facility]) [address] [facility], [place], [address], 12/21/2024 06:08:39 12/20/19 25 12/20/2024 CBC WITH DIFFE RENTI AL/PL ATELE T immature cells [employer] Not Available [facility] ([facility]) [address] [place], [address], 12/21/2024 06:08:39 12/20/19 25 12/20/2024 CBC WITH DIFFE RENTI AL/PL ATELE T neutrophils (absolute) 7.4 x10e3 /uL 1.4-7. 0 above high normal Not Available [facility] ([facility]) [address] [place], [address], 12/21/2024 06:08:39 12/20/19 25 12/20/2024 CBC WITH DIFFE RENTI AL/PL ATELE T lymphs (absolute) 0.6 x10e3 /uL 0.7-3. 1 below low normal Not Available [facility] ([facility]) [address] [place], [address], 12/21/2024 06:08:39 12/20/19 25 12/20/2024 CBC WITH DIFFE RENTI AL/PL ATELE T monocytes(ab solute) 0.8 x10e3 /uL 0.1-0. 9 normal Not Available [facility] ([facility]) [address] [place], [address], 12/21/2024 06:08:39 12/20/19 25 12/20/2024 CBC WITH DIFFE RENTI AL/PL ATELE T eos (absolute) 0.1 x10e3 /uL 0.0-0. 4 normal Not Available [facility] ([facility]) [address] [facility], [place], [address], 12/21/2024 06:08:39 12/20/19 25 12/20/2024 CBC WITH DIFFE RENTI AL/PL ATELE T baso (absolute) 0.0 x10e3 /uL 0.0-0. 2 normal Not Available [facility] ([facility]) [address] [facility], [place], [address], 12/21/2024 06:08:39 12/20/19 25 12/20/2024 CBC WITH DIFFE RENTI AL/PL ATELE T immature granulocytes 0 % not estab. Not Available [facility] ([facility]) [address] [facility], [place], [address], 12/21/2024 06:08:39 12/20/19 25 12/20/2024 CBC WITH DIFFE RENTI AL/PL ATELE T immature grans (abs) 0.0 x10e3 /uL 0.0-0. 1 Not Available [facility] ([facility]) [address] [facility], [place], [address], 12/21/2024 06:08:39 12/20/19 25 12/20/2024 CBC WITH DIFFE RENTI AL/PL ATELE T NRBC [employer] Not Available [facility] ([facility]) [address] [facility], [place], [address], 12/21/2024 06:08:39 12/20/19 25 12/20/2024 CBC WITH DIFFE RENTI AL/PL ATELE T hematology comments: [employer] Not Available [facility] ([facility]) [address] [facility], [place], [address], 12/21/2024 06:08:39 12/20/19 25 12/20/2024 COMP. METAB OLIC PANEL (14) glucose 94 mg/dL 70-99 normal Not Available [facility] ([facility]) [address] [facility], [place], [address], 12/21/2024 06:08:40 12/20/19 25 12/20/2024 COMP. METAB OLIC PANEL (14) BUN 10 mg/dL 8-27 normal Not Available [facility] ([facility]) [address] [place] [place], [address], 12/21/2024 06:08:40 12/20/19 25 12/20/2024 COMP. METAB OLIC PANEL (14) creatinine 0.99 mg/dL 0.57-1 .00 normal Not Available [facility] ([facility]) [address] [place] [place], [address], 12/21/2024 06:08:40 12/20/19 25 12/20/2024 COMP. METAB OLIC PANEL (14) eGFR 65 mL/mi n/1.7 3 >59 normal Not Available [facility] ([facility]) [address] [place] [place], [address], 12/21/2024 06:08:40 12/20/19 25 12/20/2024 COMP. METAB OLIC PANEL (14) BUN/creatini ne ratio 10 12-28 below low normal Not Available [facility] ([facility]) [address] [place], [address], 12/21/2024 06:08:40 12/20/19 25 12/20/2024 COMP. METAB OLIC PANEL (14) sodium 134 mmol/ L 134-14 4 normal Not Available [facility] ([facility]) [address] [place], [address], 12/21/2024 06:08:40 12/20/19 25 12/20/2024 COMP. METAB OLIC PANEL (14) potassium 3.2 mmol/ L 3.5-5. 2 below low normal Not Available [facility] ([facility]) [address] [place], [address], 12/21/2024 06:08:40 12/20/19 25 12/20/2024 COMP. METAB OLIC PANEL (14) chloride 95 mmol/ L 96-106 below low normal Not Available [facility] ([facility]) [address] [place], [address], 12/21/2024 06:08:40 12/20/19 25 12/20/2024 COMP. METAB OLIC PANEL (14) carbon dioxide, total 19 mmol/ L 20-29 below low normal Not Available [facility] ([facility]) [address] [facility], [place], [address], 12/21/2024 06:08:40 12/20/19 25 12/20/2024 COMP. METAB OLIC PANEL (14) calcium 8.8 mg/dL 8.7-10 .3 normal Not Available [facility] ([facility]) [address] [place], [address], 12/21/2024 06:08:40 12/20/19 25 12/20/2024 COMP. METAB OLIC PANEL (14) protein, total 6.9 g/dL 6.0-8. 5 normal Not Available [facility] ([facility]) [address] [place], [address], 12/21/2024 06:08:40 12/20/19 25 12/20/2024 COMP. METAB OLIC PANEL (14) albumin 4.5 g/dL 3.9-4. 9 normal Not Available [facility] ([facility]) [address] [place], [address], 12/21/2024 06:08:40 12/20/19 25 12/20/2024 COMP. METAB OLIC PANEL (14) globulin, total 2.4 g/dL 1.5-4. 5 Not Available [facility] ([facility]) [address] [facility], [place], [address], 12/21/2024 06:08:40 12/20/19 25 12/20/2024 COMP. METAB OLIC PANEL (14) bilirubin, total 1.0 mg/dL 0.0-1. 2 normal Not Available [facility] ([facility]) [address] [place], [address], 12/21/2024 06:08:40 12/20/19 25 12/20/2024 COMP. METAB OLIC PANEL (14) alkaline phosphatase 83 IU/L 44-121 normal Not Available [facility] ([facility]) [address] [place], [address], 12/21/2024 06:08:40 12/20/19 25 12/20/2024 COMP. METAB OLIC PANEL (14) AST (SGOT) 93 IU/L 0-40 above high normal Not Available [facility] ([facility]) [address] [place], [address], 12/21/2024 06:08:40 12/20/19 25 12/20/2024 COMP. METAB OLIC PANEL (14) ALT (SGPT) 54 IU/L 0-32 above high normal Not Available [facility] ([facility]) [address] [place], [address], 12/21/2024 06:08:40 12/20/19 25 12/20/2024 SETH+L IPASE amylase 61 U/L 31-110 normal Not Available [facility] ([facility]) [address] [place], [address], 12/21/2024 06:08:40 12/20/19 25 12/20/2024 SETH+L IPASE lipase 17 U/L 14-72 normal Not Available [facility] ([facility]) [address] [place], [address], 12/21/2024 06:08:40 12/20/19 25 12/21/2024 URINE CULTU RE, ROUTI NE urine culture, routine Final report Not Available [facility] ([facility]) [address] [facility], [address], 12/21/2024 06:08:41 12/20/19 25 12/21/2024 URINE CULTU RE, ROUTI NE result 1 COMMEN T Mixed uroge nital edith 10,00 0-25, 000 colon y formi ng units per mL Not Available [facility] ([facility]) [address] [facility], [place], [address], 12/21/2024 06:08:41 12/20/19 25 12/19/2024 urina lysis , dipst ick Leukocytes Negati ve Not Available [address], [address], 12/19/2024 14:05:15 12/20/19 25 12/19/2024 urina lysis , dipst ick Nitrite negati ve Not Available [address], [address], 12/19/2024 14:05:15 12/20/19 25 12/19/2024 urina lysis , dipst ick Urobilinogen .2 Not Available [facility] [address], [address], 12/19/2024 14:05:15 12/20/19 25 12/19/2024 urina lysis , dipst ick Protein 30 Not Available [address], [address], 12/19/2024 14:05:15 12/20/19 25 12/19/2024 urina lysis , dipst ick pH 6.0 Not Available [address], [address], 12/19/2024 14:05:15 12/20/19 25 12/19/2024 urina lysis , dipst ick Blood Negati ve Not Available [address], [address], 12/19/2024 14:05:15 12/20/19 25 12/19/2024 urina lysis , dipst ick Specific [place] 1.010 Not Available [address], [address], 12/19/2024 14:05:15 12/20/19 25 12/19/2024 urina lysis , dipst ick Ketone Small Not Available [address], [address], 12/19/2024 14:05:15 12/20/19 25 12/19/2024 urina lysis , dipst ick Bilirubin Negati ve Not Available [address], [address], 12/19/2024 14:05:15 12/20/19 25 12/19/2024 urina lysis , dipst ick Glucose Negati ve Not Available [address], [address], 12/19/2024 14:05:15 12/20/19 25 12/19/2024 urina lysis , dipst ick Appearance Clear Not Available [address], [address], 12/19/2024 14:05:15 12/20/19 25 12/19/2024 urina lysis , dipst ick Color Yellow Not Available [address], [address], 12/19/2024 14:05:15 04/20/20 23 04/20/2023 XR, hand, 3 or more view No observ ation record ed. [facility] [address], [place], [address], 04/21/2023 10:10:28 Result Notes None recorded. Problems Name Problem SNOMED Code Status Onset Date Resolution Date Notes Provider Name and Address Organization Details Recorded Time Fibromyalgia 415562685 Active 2016 Leola mauro, GIANNA - [facility] 14:48:47 Anxiety 48223490 Active 2016 Leola Bernal null, [place] - [facility] 14:48:53 Depressive disorder 50291315 Active 2016 Leola mauro, GIANNA - [facility] 14:48:59 Migraine 75692164 Active 2016 Leola mauro, GIANNA - [facility] 14:49:04 Hypertensive disorder 28797769 Active 2016 Leola mauro, GIANNA - [facility] 14:49:10 Cardiac arrhythmia 977689818 Active 2016 Leola mauro, GIANNA - [facility] 14:49:20 Hypothyroidism 10050890 Active 2016 Leola mauro, GIANNA - [facility] 14:49:27 Osteoporosis 54478470 Active 2016 Leola mauro, GIANNA - [facility] 14:58:58 Notes:hyporeactive glycemia Problem Notes None recorded. Procedures Surgical History Date Name Laterality Status Provider Name and Address Organization Details Recorded Time 025 IV Infusion completed Cherelle Pastor [place] - [facility] 12/19/2024 15:25:52 021 Systolic B/P less than 130 mm Hg completed Myranda Bird DO [address], [place], [address], [place] - [facility] 08/20/2020 16:37:08 021 Diastolic B/P less than 80 mm Hg completed Myranda Bird DO [address], [place], [address], [place] - [facility] 08/20/2020 16:37:14 019 Date of Last Pap Smear completed Patrizia Young, [employer] [address], [place], [address], [place] - [facility] 06/19/2019 10:27:32 018 Date of Last Mammogram completed Patrizia Mclean, [employer] [address], [place], [address], [place] - [facility] 02/28/2018 08:06:17 016 Pacemaker [...] Name and Address Organization Details Recorded Time 64841 Anaprox medicatio n Not available Not available Not available 12/01/201677897 9 RxNorm GIANNA Kuo - [facility] 7 14:42:34 05928 Substance with sulfonami de structure and antibacte rial mechanism of action (substanc e) medicatio n Not available Not available Not available 12/01/2016 42080 8003 SNOMED GIANNA Kuo - [facility] 14:42:53 26321 acetamino phen / hydrocodo ne medicatio n Not available Not available Not available 12/01/2016 28417 2 RxNorm Leola Cook null, [place] - [...] Recorded Body weight Heart rate Oxygen saturation Respiratory rate Pain severity - 0-10 verbal numeric rating [Score] - Reported Systolic And Diastolic Provider Name and Address Organization Details Last Updated DateTime 5 76369.9 3 g 99 /min 98 % 16 /min 0 140/84 mm[Hg] Cherelle Pastor [employer] - [facility] 14:33:16 Date Recorded Body weight Heart rate Body temperature Oxygen saturation Respiratory rate Pain severity - 0-10 verbal numeric rating [Score] - Reported Systolic And Diastolic Provider Name and Address Organization Details Last Updated DateTime 5 43981.0 4 g 89 /min 97 [degF] 97 % 18 /min 3 114/74 mm[Hg] Cherelle Pastor [place] - [facility] 5 13:41:40 Date Recorded Body weight Body temperature Heart rate Oxygen saturation Respiratory rate Pain severity - 0-10 verbal numeric rating [Score] - Reported Body mass index (BMI) Body height Systolic And Diastolic Provider Name and Address Organization Details Last Updated DateTime 3 24467.9 4 g 97.6 [degF] 89 /min 96 % 18 /min 7 18.8 kg/m2 165.1 cm 138/90 mm[Hg] Cherelle Pastor [employer] - [facility] 14:25:00 Date Recorded Body height Body mass index (BMI) Body weight Body temperature Heart rate Oxygen saturation Respiratory rate Pain severity - 0-10 verbal numeric rating [Score] - Reported Systolic And Diastolic Provider Name and Address Organization Details Last Updated DateTime 3 165.1 cm 19.1 kg/m2 68376.1 2 g 97.6 [degF] 87 /min 98 % 18 /min 0 160/90 mm[Hg] Cherelle Pastor [employer] - [facility] 3 10:49:45 Social History Question [...] Or The Highest Degree You Have Received? [id number] [email or web address] Information not available 12/09/2017 How Many Days Of Moderate To Strenuous Exercise, Like A Brisk Walk, Did You Do In The Last 7 Days? 1 [email or web address] Information not available 12/09/2017 On Those Days That You Engage In Moderate To Strenuous Exercise, How Many Minutes, On Average, Do You Exercise? 1 [email or web address] Information not available 12/09/2017 Have There Been Any Changes To Your Family Or Social Situation? No Information no t available 11/20/2024 How Hard Is It For You To Pay For The Very Basics Like Food, Housing, Medical Care, And Heating? 1 [email or web address] Information not available 12/09/2017 Have You Recently [...] Do You Have A Medical Power Of Conservation Agent? No Information not available 11/20/2024 What Was [...] How Much Tobacco Do You Smoke? No [email or web address] Information not available 06/12/2019 General Stress Level Low Information not available 06/12/2019 Do You Use [...] used smokeless tobacco? Never used smokeless tobacco [email or web address] Information not available 06/12/2019 Are you currently employed? No [email or web address] Information not available 06/12/2019 Urinary incontinence assessment performed? Yes [email or web address] Information not available 12/09/2017 Are you able to walk independently without assistance or assistive devices? YESWOREST [email or web address] Information not available 12/09/2017 Do you have difficulty doing errands alone? No Information not available 12/01/2016 What is your occupation? retired Information not available 12/01/2016 Do you have difficulty dressing, bathing, grooming, or toileting? No Information not available 12/01/2016 Do you or have you ever used e-cigarettes or vape? Never used electronic cigarettes [email or web address] Information not available 06/12/2019 What is your exercise level? None Information not available 12/01/2016 Mental Status Question Answer Note LastModified by Organization D etails LastModified Time Do you feel stressed (tense, restless, nervous, or anxious, or unable to sleep at night)? 1 [email or web address] Information not available 12/09/2017 Do you have [...] colitis N Cerebrovascular Disease N Depression N Guillain-[place] N Sleep Apnea N Aneurysm N Bronchitis [...] First Child 21 Last Annual Exam/Provider 06/12/19 wKristine Mclean [employer] Last Lipids 07/19/2016 If Post Menopausal, Age [...] PF 9 cancelled patient objection Not Available [facility] 08/[facility]/2019 03:56:08 Past Encounters Encounter ID Performer Location Encounter Start Date Encounter Closed Date Diagnosis/Indication Diagnosis SNOMED-CT Code Diagnosis ICD10 Code Diagnosis IMO Codes Diagnosis Note [id number] DO Raymond Santiago [facility] [address] [place] [address] [place] [id number] 12/01/2016 14:34:41 12/01/2016 16:25:10 Body mass index 20-24 - normal 883362837 Z68.22 Atrophic vaginitis 65020 000 N95.2 Screening for malignant neoplasm of cervix 074688615 Z12.4 Dyspareunia 60185723 N94 .10 Postmenopausal state 764 74715 Z78.0 [id number] DO Raymond Santiago [facility] [address] [place] [address] [place] [id number] 02/04/2017 14:20:51 02/04/2017 15:04:11 Body mass index 20-24 - normal 259221787 Z68.22 Dyspareunia 93208513 N94 .10 improved on vagifem Postmenopausal state 764 52459 Z78.0 [id number] TEDDY eHnsley [facility] [address] [place] [address] [place] [id number] 12/09/2017 15:51:38 12/09/2017 16:42:50 Routine gynecologic examination done 7682766020 9101 Z01.419 Depression screening 171 376009 Z13.89 PHQ-9 completed today. Diet education 78103767 Z71.3 Counseling 357180428 Z71 .82 Exercise counselmilly bosch Patient encouraged to exercise 30 minutes 5 days a week. Examinatio n of blood pressure 078713706 Z01.30 Vaccine de clined by patient 3524982816 02 Z28.21 Pt declined flu vaccine today. Screening for malignant neoplasm of cervix 347508545 Z12.4 Hormone re placement therapy 889407997 Z79.890 Screening mammography 24 262468 Z12.31 Screening for malignant neoplasm of colon 791237805 Z12.11 Screening for malignant neoplasm of ovary 470631436 Z12.[address] gray on intercourse 538894680 N89.8 Plan to try PVC instead of tablet. Pt to call if she desires to change back. Body mass index 20-24 - normal 907095985 Z68.21 [id number] TEDDY Hensley [facility] [address] [place] [address] [place] [id number] 06/12/2019 14:50:03 06/12/2019 15:46:18 Routine gynecologic examination done 1561873372 9101 Z01.419 Depression screening 171 548399 Z13.89 PHQ-9 completed today. Diet education 11440344 Z71.3 Counseling 765558398 Z71 .82 Exercise counselmilly bosch Patient encouraged to exercise 30 minutes 5 days a week. Examinatio n of blood pressure 953274959 Z01.30 Vaccine de clined by patient 8926006981 02 Z28.21 Pt declined flu vaccine today. Screening for malignant neoplasm of cervix 997855499 Z12.4 R87.810 Patient advised that I will follow up with results.Anjel robledo would like to have PAP with HPV with history of + HPV in 2017. Hormone re placement therapy 800016455 Z79.890 Screening mammography 24 744493 Z12.31 Screening for malignant neoplasm of ovary 492520399 Z12.[address] gray on intercourse 193914211 N89.8 Plan to try Intrarosa instead of PVC. Pt to call if she desires to change back. Body mass index 20-24 - normal 909581700 Z68.21 Dyspareunia 17032308 N94 .10 [id number] DO Talia [place] [facility] [address] [place] [id number] 08/19/2020 14:33:26 08/19/2020 15:38:24 Routine gynecologic examination done 4190425693 9101 Z01.419 Depression screening 171 093781 Z13.89 Diet education 55716644 Z71.3 Counseling 471569864 Z71 .82 Exercise counselmilly bosch Patient encouraged to exercise 30 minutes 5 days a week. Examinatio n of blood pressure 857460107 Z01.30 On medication Vaccine de clined by patient 9945672502 02 Z28.21 Screening mammography [address] gray on intercourse 116845713 N89.8 Urethral caruncle 962207 3 N36.2 [id number] Zoey Gagnon [address] [address] 05/07/2022 14:39:43 05/07/2022 15:38:37 Pain in throat 762212261 R07.0 Fever 678373687 R50.9 Acute bronchitis 5617215 2 J20.9 Pain of le ft knee joint 7211717771 52564 M25.518 [id number] Zoey Gagnon [address] [address] 05/14/2022 13:49:11 05/14/2022 14:34:15 Acute bronchitis 45150183 J20.9 continue steroids, breathing txif symptoms worsen or do not improve return or be seen in ed [id number] Zoey Gagnon [address] [address] 08/14/2022 15:36:42 08/14/2022 16:42:23 COVID-19 274376810 U07.1 no sign of a bacterial infection. likely viral. viruses can take 7-14 days to run their course. nasal saline and bulb syringe to remove nasal drainage to help with congestion . monitor temp. Tylenol or Motrin as needed for pain or fever. encourage fluids, water, Gatorade, power aide, Pedialyte if /tod dler/child warm salt water gargles warm fluids sore throat lozenges sleep elevated humidifier /vaporizer follow up immediatel y for new or worsening symptoms or no noticeable improvemen t over the next 48-72 hours [id number] Zoey Gagnon [place] [address] 04/19/2023 14:12:22 04/19/2023 14:56:55 Pain in finger of left hand 1481890013 01341 M79.052 [id number] [place] [address] 06/17/2023 10:34:13 06/17/2023 10:59:42 Acute maxillary sinusitis 46389980 J01.00 [id number] [facility] [place] [address] 11/20/2024 14:08:18 11/20/2024 15:09:10 Anxiety 70204039 F41.9 Depressive disorder 3548 9007 F32.A Hypertensive disorder 38 011151 I10 Hypothyroidism 56051843 E03.9 History of bypass of stomach 385051704 Z98.84 [id number] refer to bariatric surgerylab s Cortisol l evel below reference range 481731442 E27.49 680576 labs Fatigue 70824571 R53.82 793833 Harmful pa ttern of use of alcohol 91416971 F10.10 [id number] refused rehab- referral [id number] Zoey Gagnon [address] [address] 11/23/2024 08:52:14 11/23/2024 09:12:03 History of bariatric surgical procedure 537581962 Z98.84 [id number] refer to bariatric surgerylab s [id number] Zoey Gagnon APRN [address] [address] 12/19/2024 13:18:24 12/19/2024 16:02:36 Nausea and vomiting 16722526 R11.2 396198 advised to go to ed- pt declinedif worsen and no improvemen t go to ed raiza Acute diarrhea 942747129 R19.7 82171 iv fluids - has zofran at home Acute abdominal pain 116 842914 R10.9 09615 advised to go to ed- pt declinedif [...] 1 [employer] 113 Miguelina Gresham [id number] Miguelina Gresham Notes Date Note Type Note Provider Name and Address Organization Details Recorded Time 04/19/2023 text/html 57 yr old female with pain and swelling to the left ring finger joint. no injury noted Zoey Gagnon APRN [address], [place], [address], [email or web address] - [facility] 04/19/2023 15:00:04 06/17/2023 text/html 57 yr old female presents for cough x 2 weeks, sinus pressure, tenderness, fallon, thick yellow/green drainage feels like it is in her chest. Zoey Gagnon APRN [address], [place], [address], [place] - [facility] 06/17/2023 11:01:45 11/20/2024 text/html ROS [...] up Has had a work up with [facility] including CT, EGD, colonoscopy, and liver US. Zoey Gagnon, TEDDY [address], [place], [address], [place] - [facility] 11/20/2024 15:19:44 11/23/2024 text/html 58 yr old female presents for labs. Cherelle Pastor [place], [place] - [facility] 11/23/2024 09:36:22 12/19/2024 text/html 59 yr old female presents for abdominal pain, diarrhea,nausea and vomiting for 2 days, took zofran prior to coming in. Has been cutting back on alcohol, still drinking daily- about 5 drinks daily. Zoey Gagnon, TEDDY [address], [place], [address], [place] - [facility] 12/19/2024 17:18:12 OBGyn Episode No OBEpisode recorded.
--- OUTSIDE RECORDS SUMMARY | 2025-06-30 08:32 | XMS_ITS | Data Portability ---
Author Organization [facility], MAJESTIC Address [address] [place] [address] Care Team Providers Care Qa Lead Name Role Phone DICKSONJANENECHARLOTTEJIMBO Primary Care Provider HALIE VU Floor Sander TOM GILBERT Orthopedist Assessment Encounter Date Assessment [...] feather IgE Ab/IgE total serum (sent to [facility]) 5. Consider repeat HST at next OV *Complains of continued fatigue despite weight loss of 125 pounds 6. F/U with Cardiology as scheudled 7. Request any CXR or Chest CT from [facility] 8. Order Respiratory Pathogen Panel (obtained and [...] None recorded. Lab respiratory allergen panel - [facility] [address] (Scheduling), [address], [place], [id number], 15:45:54 CBC w/ manual diff [address] (Scheduling), [address], [place], [id number], 3 15:45:54 ige, total, serum [address] (Scheduling), [address], [place], [address], 15:45:54 budgerigar feather IgE Ab/IgE total, serum [address] (Scheduling), [address], [place], [address], 15:45:54 Referral None recorded. Procedures None recorded. Surgeries None recorded. Imaging None recorded. Medication Orders Trelegy Ellipta 100 mcg-62.5 mcg-25 mcg powder for inhalation 2021 [facility], [address] [place] [address] [address], [place], [id number], 14:18:20 ipratropium 0.5 mg-albutero l 3 mg (2.5 mg base)/3 mL nebulizatio n soln 2021 [facility], [address] [place] [address] [address], [place], [id number], 2 08:41:49 Patient TargetsNo targets recorded. Patient Instructions Encounter Date Encounter Id Patient Instructions Last Modified By Organization Details Last Modified Time 06/15/2022 [id number] medical record request* - Please send any CXR or Chest CT's . Thank you [email or web address] Not available 08/10/2022 15:35:20 Reason for Referral None Reported. Results Created Date Observation Date Name Description Value Unit Range Abnormal Flag Note LastModifiedBy Organization Detail LastModifiedTime 06/18/20 22 06/18/2022 compl ete PFT w/ post [facility] hodil ator miya metry * No observ ation record ed. [email or web address] Not Available 2021 11:49:08 Result Notes None recorded. Problems Name Problem SNOMED Code Status Onset Date Resolution Date Notes Provider Name and Address Organization Details Recorded Time Asthma 520948357 Active 2021 Marsha Victor, EMEKA [address], [place], [address], [place] - [facility] 2 12:13:40 Migraine 53273362 Active 2021 agus kristen null, [place] - [facility] 2 12:20:33 Hyperthyroidis m 76600566 Active 2021 agus kristen null, [place] [facility] 2 12:20:47 Heart valve disorder 036884 Active 2021 agus kristen null, [place] [facility] 2 12:20:55 Monitoring of pacemaker 03275565 Active 2021 agus kristen null, [place] [facility] 2 12:21:11 Depressive disorder 46968817 Active 2021 agus kristen null, [place] [facility] 2 12:21:17 Fibromyalgia 519889339 Active 2021 agus kristen null, [place] [facility] 2 12:21:22 Fatigue 54956221 Active 2021 Marsha Victor NP [address], [place], [address], [place] - [facility] 2 09:31:53 Dyspnea 041170769 Active 2021 Marsha Victor NP [address], [place], [address], [place] [facility] 2 09:31:59 Chronic cough 56063335 Active 2021 Marsha Victor NP [address], [place], [address], [place] [facility] 2 09:32:06 Upper respiratory infection 93379004 Active 2021 Marsha Victor NP [address], [place], [address], [place] [facility] [...] Name and Address Organization Details Recorded Time 73445 Substance with sulfonami de structure and antibacte rial mechanism of action (substanc e) medicatio n Not available Not available Not available 06/15/2022 87413 8003 SNOMED agus kristen null, [place] - [facility] 2 12:00:03 66393 acetamino phen / hydrocodo ne medicatio n Not available Not available Not available 06/15/2022 80930 2 RxNorm agus kristen null, [place] - [facility] 2 12:00:09 49163 Anaprox medicatio n Not available Not available Not available 06/15/202257389 9 RxNorm agus kristen null, [place] - [facility] 12:00:17 [...] Vitals Date Recorded Body weight Oxygen saturation Heart rate Respiratory rate Body temperature Body height Body mass index (BMI) Systolic And Diastolic Provider Name and Address Organization Details Last Updated DateTime 2 72919.0 5 g 98 % 84 /min 18 /min 98.4 [degF] 165.1 cm 20.8 kg/m2 126/80 mm[Hg] agus peterson [place] - [facility] 11:59:28 Social History Question Answer Notes LastModified by Organizat ion Details LastModified Time Tobacco Smoking Status Never Smoker agus peterson null, [place] - [facility] 06/15/2022 12:01:56 Are You Blind Or Do You Have Difficulty Seeing? No [email or web address] Information not available 06/15/2022 In The 14 Days Before Symptom Onset, Have You Had Close Contact With A Laboratory-confir med COVID-19 While That Case Was Ill? No [email or web address] Information not available 06/15/2022 In The 14 Days Before Symptom Onset, Have You Had Close Contact With A Person Who Is Under Investigation For COVID-19 While That Person Was Ill? No [email or web address] Information not available 06/15/2022 Have You Been To An Area Known To Be High Risk For COVID-19? No [email or web address] Information not available 06/15/2022 Are You Deaf Or Do You Have Serious Difficulty Hearing? No [email or web address] Information not available 06/15/2022 Do You Have Any Pets? Yes Cats, Dogs, Birds [email or web address] Information not available 06/15/2022 What Is Your Relationship Status? [email or web address] Information not available 06/15/2022 Are There Any Smokers In Your House? No [email or web address] Information not available 06/15/2022 Have You Recently Traveled Abroad? No [email or web address] Information not available 06/15/2022 Are You Currently In School? No [email or web address] Information not available 06/15/2022 Sex: Unknown Functional Status Question Answer Note LastModified by Organizat ion Details LastModified Time Do you or have you ever used any other forms of tobacco or nicotine? No [email or web address] Information not available 06/15/2022 Are you currently employed? No retired from [employer] [email or web address] Information not available 06/15/2022 Do you have difficulty doing errands alone? No [email or web address] Information not available 06/15/2022 Mental Status Question Answer Note LastModified by Organization D etails LastModified Time Do you have difficulty concentrating, remembering or making decisions? No [email or web address] Information no t available 06/15/2022 Family History Relationship Description Onset Age of this Age Resolved Age Notes LastModified by Organization Details LastModified Time Mother Environmenta l allergy [email or web address] Not available 05/20 12:19:05 Father Environmenta l allergy [email or web address] Not available 05/20 12:19:05 Father Heart disease [email or web address] Not available 05/20 12:20:17 Maternal Grandfather Asthma [email or web address] Not available 12:19:13 Maternal Grandfather Emphysema Not available 06/15/2022 12:20:07 Maternal Grandmother Family history of malignant neoplasm [email or web address] Not available 05/20 12:19:37 Paternal Grandfather Chronic obstructive pulmonary disease Not available 05/20 12:19:50 Paternal Grandmother Emphysema [email or web address] Not available 06/15/2022 12:20:07 Medical History No medical history recorded. Gynecological HistoryNo gynecological history recorded. Obstetrics History GPAL:G 0 P 0 0 0 0 Past Encounters Encounter ID Performer Location Encounter Start Date Encounter Closed Date Diagnosis/Indication Diagnosis SNOMED-CT Code Diagnosis ICD10 Code Diagnosis IMO Codes Diagnosis Note [id number] Marsha Victor NP [place] [facility] [address] [place] [address] DR MCNEAL [address] [place] [address] 06/15/2022 10:43:53 06/15/2022 12:48:02 Asthma 787510973 J45.909 Chronic cough 27577297 R 05.3 Dyspnea 770013233 R06.00 Fatigue 88389509 R53.83 Health Concerns Section Related Observation LastModified by Organization Detai ls LastModified Time None Recorded Concern Status LastModified by Organization Details LastModified Time None Recorded Advance Directives Directive None Recorded Payers Insurance Date Sequence Insurance Name Policy Number Policy Cosby Covered Member ID Cosby Member ID Guarantor Name 07/15/2024 1 [place] [employer] [id number] Miguelina Gresham [id number] Miguelina Gresham Notes Date Note Type Note [...] Victor NP [address], [place], [address], [facility] 06/16/2022 09:34:42 OBGyn Episode No OBEpisode recorded.
--- OUTSIDE RECORDS SUMMARY | 2025-06-30 08:32 | XMS_ITS ---
Author Name Interface, [id number] lity Address [address] [place] [address] Organization [facility] Address [address] [place], [place] [id number] Allergies and Adverse Reactions Medication/Group Name Reaction [...] 10/04/2018 APPOINTMENT iv iron 1 09/27/2018 APPOINTMENT HULL DRAFTER/ANEMIA,LOW PL TS 09/27/2018 APPOINTMENT HULL DRAFTER/ANEMIA,LOW PL TS 09/27/2018 LAB_ORDER CBC w/ auto [...] Lab Address 09/27 Lab Repor t See arrow point attacher d 09/27 Lab Repor t See arrow point attacher d 10/11 Lab Repor t See arrow point attacher d Medications Date Name Route Dose Frequency [...] Nurse Note Print Location: Unknown Date/Time Printed: 06/30/2025 08:31 ([facility]) Patient: KRISTIN WILDER Sex: Female : 1965 [...] Pharmacy plan: Dispense/Waste: 510/0 mg Pharmacy dispense: [facility]: [phone] Dispense/Waste: 510/0 mg Given Dose/Discard: 510/0 mg [...] Pharmacy plan: Dispense/Waste: 10/0 mg Pharmacy dispense: [facility]: [phone] Dispense/Waste: 10/0 mg Given Dose/Discard: 10/0 mg Start Time: 13:47, Entered By: Gin Sherman RN, Stop Time: 14:09, Entered By: Gin Sherman RN Checked By: April Overton RN on 10/11/2018 15:46 * Nurse Note for: 04-OCT-18 [facility] Nurse Note Print Location: Unknown Date/Time Printed: 06/30/2025 08:31 ([facility]) Patient: KRISTIN WILDER Sex: Female : 1965 [...] Pharmacy plan: Dispense/Waste: 510/0 mg Pharmacy dispense: [facility]: [phone] Dispense/Waste: 510/0 mg Given Dose/Discard: 510/0 mg [...] Pharmacy plan: Dispense/Waste: 10/0 mg Pharmacy dispense: [facility]: [phone] Dispense/Waste: 10/0 mg Given Dose/Discard: 10/0 mg Start Time: 13:35, Entered By: April Overton RN, Stop Time: 13:55, Entered By: April Overton RN
--- OUTSIDE RECORDS SUMMARY | 2025-06-30 08:32 | XMS_ITS | Clinical Summary ---
Author Organization [facility] Address [address] [place] [address] Care Team Providers Care Chief Ii Dispatcher Name Role Phone Phil Shea MD Primary Care Provider [phone] Source Comments This information has been disclosed to you from confidential records protectedfrom disclosure by state law. You shall make no further disclosure of thisinformation without the specific, written, and informed release of theindividual to whom it pertains, or as otherwise permitted by law. A generalauthorization for the release of medical or other information is not sufficientfor the purposes of therelease of HIV test results or diagnoses. AIR9988.243[facility] Allergies Active Allergy Reactions Criticality Noted Date Comments Naproxen Sodium 08/11/2017 Sulfa (Sulfonamide Antibiotics) 09/17 Hydrocodone-Acetaminophen 08/11/2017 Medications esomeprazole (NEXIUM) 40 MG capsule Take 40 mg by mouth every morning before breakfast. Active levothyroxine (SYNTHROID, LEVOTHROID) 125 MCG tablet Take 125 mcg by mouth every morning before breakfast. Active metoprolol tartrate (LOPRESSOR) 50 MG tablet Take 50 mg by mouth 2 times a day. Active rizatriptan (MAXALT) 10 MG tablet Take 10 mg by mouth if needed for Migraine. May repeat in 2 hours if needed Active traMADol (ULTRAM) 50 mg tablet Take 50 mg by mouth every 6 hours as needed for Pain. Active proCHLORPERazin e (COMPAZINE) 10 MG tablet Take 1 tablet (10 mg total) by mouth every 6 hours as needed. 30 tablet 3 8 Active ketorolac (TORADOL) 30 mg/mL (1 mL) injection Take 1 ml at onset of headache. May repeat in 4-6 hrs if needed with 0.5 ml. Limit 1-2 day per week. 6 mL 2 8 Active traZODone (DESYREL) 100 MG tablet Take 100 mg by mouth at bedtime. Active multivitamin capsule Take 1 capsule by mouth daily. Active ibuprofen (ADVIL,MOTRIN) 200 MG tablet Take 200 mg by mouth every 6 hours as needed for Pain. Active PROAIR HFA 90 mcg/actuation inhaler Inhale 1 puff into the lungs every 4 hours as needed. 1-2 puffs as needed 8 Active YUVAFEM 10 mcg Tab 8 Active metoprolol succinate (TOPROL-XL) 50 MG 24 hr tablet Take 50 mg by mouth daily. 8 Active metOLazone (ZAROXOLYN) 2.5 MG tablet Take 1 tablet (2.5 mg total) by mouth daily. 30 tablet 3 8 Active conjugated estrogens (PREMARIN) vaginal creamIndication s:Wednesday and Wednesday Place 1 g vaginally every Wednesday and . Indications: Wednesday and Wednesday Active memantine (NAMENDA XR) 28 mg CSpX Take 1 capsule (28 mg total) by mouth daily. 30 capsule 8 Active Active Problems Problem Noted Date Diagnosed Date Chronic midline low back pain with bilateral sci atica 04/17/2020 Family History Medical History Relation Comments Diabetes Father Heart disease Father Hyperlipidemia Father Hypertension Father Hypertension Mother Asthma Paternal Grandfather Alzheimer's disease Paternal Grandmother Relation Status Comments Father Mother Alive Paternal Grandfather Paternal Grandmother Social History Tobacco Use Types Packs/Day Years [...] Orientation Straight 04/15/2020 9: 57 PM EDT Last Filed Vital Signs Vital Sign Reading Time Taken Comments Blood Pressure 142/91 04/17/2020 1:42 PM EDT Pulse 110 06/06/2021 1:55 PM EST Temperature - - Respiratory Rate 16 04/17/2020 1:42 PM EDT Oxygen Saturation 98% 06/06/2021 1:55 PM EST Inhaled Oxygen Concentration 98% 06/06/2021 1 :55 PM EST Weight 65.8 kg (145 lb) 06/06/2021 1:24 PM EST Height 165.1 cm (5' 5 ) 04/17/2020 1:42 PM EDT Body Mass Index 24.13 04/17/2020 1:42 PM EDT Plan of Treatment Not on file Medical Devices Implanted Type Area Hair Preparer Device Identifier Shelf Expiration Date Model / Serial / Lot Pacemaker-02/11/20 16 Implanted: 016 (Quantity not on file) Pacemaker [employer] DEBORAH RIVERA [id number] / [id number] / Description:Per call to Moraima snyder and confirmed with Dr. Leon Alejo ([phone]), the RV lead was extracted, with no replacement, on 04/28/2018 due to malfunction. The dual chamber pacemaker was then capped(plugged) and is now functioning as a single-chamber device. Per [employer], it is therefore no longer MRI conditional. AYO Vasquez RN. 05/18/2018 UPDATE: Per [employer] [facility] [employer] Support RN, Talat Ramirez, [facility] approved the use of blind plugs for MRI safety under certain circumstances on 04/05/2018. Pt's device is now MRI conditional. AYO Vasquez RN, 06/08/2018 lead -[id number]. MR CONDITIONAL OF 02/05 2021. [facility] MR CONDITIONAL PER [employer]. APPROVAL SCANNED IN CHART. Dr Pelletier EP [phone]. Fax [phone] Insurance Care Teams Chief Ii Dispatcher Relationship Specialty Start Date End Date Phil Shea MD [address] [phone] PCP - General Internal Medicine 04/17/20
[2025-06-30 08:38] LABS: Microscopic, Urine URINE MICROSCOPIC (MICROSCOPIC)
--- NOTE | 2025-06-30 08:53 | ECG_ITS ---
APPROVED REPORT Exam: Resting ECG HR:76 bpm ECG Measurements Heart Rate 76 AXES DE 162 P 62 QRSd 82 QRS 69 QT 381 T 39 QTc 412 Conclusion SINUS RHYTHM POSSIBLE ANTERIOR MYOCARDIAL INFARCTION , OF INDETERMINATE AGE [30 ms Q WAVE IN V3/V4, OR R < 0.2 mV IN V4] ABNORMAL ECG UNCONFIRMED REPORT Electronically signed by : Mukesh Masters, 06/30/2025 15:56:08
[2025-06-30 08:55] LABS: Albumin Level 4.8 g/dl (3.5-5.0); Chloride 100 mmol/L (98-107); Hematocrit 35.2 % (37.0-47.0); Hemoglobin 10.6 g/dL (12.2-16.2); Immature Granulocytes % 0.3 %; Mean Corpuscular HGB Conc 30.1 g/dL (31.8-35.4); Mean Corpuscular Hemoglobin 24.0 pg (27.0-31.2); Mean Corpuscular Volume 79.8 fl (81-99); Nucleated Red Blood Cells % 0 %; Platelet Count 514 K/mm3 (142-424); Red Blood Count 4.41 M/mm3 (4.20-5.40); Red Cell Distribution Width-SD 44.6 fL; White Blood Count 7.6 K/mm3 (4.8-10.8)
[2025-06-30 08:56] LABS: Potassium 4.1 mmoL/L (3.5-5.1); Sodium 138 mmol/L (136-145)
[2025-06-30 08:58] LABS: Alanine Aminotransferase 79 U/L (12-78); Aspartate Amino Transferase 119 U/L (14-36); Bilirubin,Total 0.4 mg/dl (0.2-1.3); Blood Urea Nitrogen 14 mg/dl (7-17); Creatinine Clearance Estimated 47 mL/min (50-200); Creatinine,Serum 0.90 mg/dl (0.52-1.04); Estimated Glomerular Filt Rate 64 ml/min (>60); GFR (African American) 77 ML/MIN (>60)
[2025-06-30 08:59] LABS: Albumin/Globulin Ratio 1.8 (1.1-1.8); Alkaline Phosphatase 49 U/L (38-126); Anion Gap 13.1 mEq/L (5-15); Calcium 8.7 mg/dl (8.4-10.2); Carbon Dioxide 29 mmol/L (22.0-30.0); Globulin 2.7 g/dL (1.3-3.2); Glucose 111 mg/dl (74-100); Lipase 63 U/L (23-300); Total Protein,Serum 7.5 g/dl (6.3-8.2)
[2025-06-30] MEDS: ONDANSETRON 4MG/2ML VIAL 4 MG IV (09:14)
[2025-06-30 09:15] LABS: Troponin I < 0.01 ng/ml (0.00-0.034)
[2025-06-30 09:35] LABS: Bilirubin,Urine Negative (Negative); Color,Urine YELLOW (Yellow); Glucose,Urine (UA) Negative (Negative); Ketones,Urine Negative (Negative); Leukocyte Esterase,Urine Negative (Negative); PH,Urine 6.0 (5.0-8.5); Protein,Urine Negative (Negative); Specific Gravity, Urine 1.020 (1.005-1.030); Urobilinogen,Urine 0.2 EU/dl (0.2)
--- NOTE | 2025-06-30 09:45 | CT_ITS ---
PROCEDURE INFORMATION: Exam: CT Abdomen And Pelvis With Contrast Exam date and time: 06/30/2025 9:57 AM Age: 59 years old Clinical indication: Abdominal pain; Other: Mid; Additional info: Mid abdominal pain TECHNIQUE: Imaging protocol: Computed tomography of the abdomen and pelvis with contrast. Radiation optimization: All CT scans at this facility use at least one of these dose optimization techniques: automated exposure control; mA and/or kV adjustment per patient size (includes targeted exams where dose is matched to clinical indication); or iterative reconstruction. Contrast material: ISOVUE; Contrast volume: 75 ml; Contrast route: IV; COMPARISON: CT ABDOMEN PELVIS W CON 10/12/2024 8:26 AM FINDINGS: Liver: No focal hepatic lesions. Gallbladder and biliary ducts: There has been a cholecystectomy. Pancreas: No peripancreatic fluid stranding. No main pancreatic ductal dilation. Spleen: No splenomegaly. Adrenal glands: The adrenal glands are normal. Kidneys and ureters: Nephrograms are symmetric. No nephrolithiasis or hydroureteronephrosis on either side. No solid lesions Stomach and bowel: There is moderate fluid distension of small bowel loops in the pelvis. There are 2 discrete transition points. Moderate interloop ascites. Status post Bianca-en-Y gastric bypass. Appendix: No evidence of appendicitis. Intraperitoneal space: See Vasculature finding. 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 There is swirling of the mesenteric fat and mesenteric vessels in the lower abdomen. Aorta is nonaneurysmal. Major aortic branches are patent. Lymph nodes: No evidence of retroperitoneal or mesenteric lymphadenopathy. Urinary bladder: Unremarkable as visualized. Reproductive: Unremarkable as visualized. Bones/joints: Unremarkable. No acute fracture. Soft tissues: Unremarkable. IMPRESSION: Findings altogether are highly suspicious for small bowel obstruction attributable to an internal hernia.
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
[2025-06-30] MEDS: IOPAMIDOL-370 (76%);100ML BOTTLE 75 ML IV (10:02)
[2025-06-30] MEDS: SODIUM CHLORIDE 0.9% 10ML SYR (RAD ONLY) 10 ML IV (10:02)
[2025-06-30] MEDS: LACTATED RINGERS 1000ML 1,000 ML 999 ML IV (10:03)
[2025-06-30] MEDS: MORPHINE 4MG/ML SYRINGE 4 MG IV (10:04)
[2025-06-30 10:38] LABS: INR 0.94 (0.9-1.1); Prothrombin Time 10.5 seconds (10.1-12.5)
--- NOTE | 2025-06-30 10:42 | PC.NURSE ---
surgeon at bedside
[2025-06-30] MEDS: HYDROMORPHONE 2MG/ML SYRINGE 1 MG IV (10:46)
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
--- NOTE | 2025-06-30 11:00 | PC.NURSE ---
calling Aditi at this time
[2025-06-30 11:18] LABS: Bacteria,Urine Trace /lpf; Squamous Epithelial Cell,Urine Occasional #/hpf (0-5); WBC,Urine Occasional #/hpf (0-3)
--- NOTE | 2025-06-30 11:22 | PC.NURSE ---
Dr Masters on phone with Aditi at this time
--- NOTE | 2025-06-30 11:43 | PC.NURSE ---
EM[facility] called for transport at 11:40 spoke with Adan
== END 2025-06-30 12:28 | disposition other institution (70) ==
PROVIDERS: Emergency Provider Student in an Organized Health Care Education/Training Program; PCP Internal Medicine
DX: K70.10 Alcoholic hepatitis without ascites (principal); F10.20 Alcohol dependence, uncomplicated; F32.A Depression, unspecified; K21.9 Gastro-esophageal reflux disease without esophagitis; K45.8 Other specified abdominal hernia without obstruction or gangrene; R94.31 Abnormal electrocardiogram [ECG] [EKG]; K56.609 Unspecified intestinal obstruction, unspecified as to partial versus complete obstruction; Z98.84 Bariatric surgery status
CPT/HCPCS: 74177; 80053; 81001; 83605; 83690; 84484; 85025; 85610; 93005; 96361; 96374; 96375; 99221; 99285; J1171; J2270; J2405; J7120; Q9967